=== PATIENT | male | born 1945 | race Caucasian/White ===

== ENCOUNTER 2017-07-05 15:20 | Emergency (ER) | payer MEDICARE, SELFPAY ==
[2017-07-05 15:21] VITALS: BP 165/94; PULSE 88; RESP 18; TEMP 36.4; O2SAT 97; BMI 21.4
[2017-07-05 15:34] VITALS: BP 152/103; PULSE 102; RESP 18; O2SAT 97
--- NOTE | 2017-07-05 15:35 | EKG12_ITS ---
Test Reason : DIZZINESS Blood Pressure : / mmHG Vent. Rate : 081 BPM Atrial Rate : 081 BPM P-R Int : 170 ms QRS Dur : 080 ms QT Int : 364 ms P-R-T Axes : 059 -22 038 degrees QTc Int : 422 ms Somatic/motion artifact Normal sinus rhythm Nonspecific ST abnormality Abnormal ECG Confirmed by GREGG COULTER, KUMAR ([id number]), editor book LESLEY WONG ([id number]) on 07/07/2017 10:24:20 AM Referred By: RIA Confirmed By:KUMAR ESCOBEDO MD
--- NOTE | 2017-07-05 15:41 | ED.DCSUM_ITS ---
- ER Visit Summary Date of Service: 07/05/17 Chief Complaint: Dizzy History of Present Illness: The patient is a 71 M with a history of Parkinson's , COPD, hypertension, and oropharyngeal cancer. Patient states that he took a tab of Vicodin around 10 AM this morning. Approximate 1130 he developed dizziness, anxiety, sweats. He felt like his heart was racing. He attributes this to taking the tab of Vicodin. He does have multiple allergies to medications but does state that he took a tab of Vicodin couple days ago and had no side effects from it. Patient did also take Ativan this morning. He normally takes it twice a day this is not a change for him. He states that he is supposed to meet with the doctor tomorrow about a brain tumor that he has been diagnosed with. He is anxious about this visit. Physical Examination: Vital signs are significant for blood pressure 165/94, otherwise normal. Heart rate is normal at 88. Patient sitting upright in bed no acute distress. Head neck examination is grossly unremarkable. Heart is regular rate and rhythm. Lung sounds are clear. Abdomen is soft nontender. Neuro exam reveals no focal deficits. He does have a fine tremor consistent with Parkinson's disease. Test Results: EKG is sinus 81. No acute ST changes noted. He does have rhythmic motion artifact secondary to his Parkinson's. CBC and chemistry studies are normal. Emergency Department Course and Treatment: Patient was given a small dose of IV Ativan. On repeat evaluation is resting comfortably. I suspect that that his symptoms today were likely secondary to anxiety, but cannot rule out reaction to the Vicodin. Patient understands this. He will be discharged home with family at this time. Treatment Plan: [] Disposition: Discharge Impression: Dizziness, uncertain etiology This note was generated with [employer] dictation software. It may contain incorrect words, spelling, and punctuation that were not noted in review of the chart prior to signing ED Disposition - Plan for ED Patient: Chief Complaint: Dizziness Referrals: Yo Scott DO [Primary Care Provider] -
[2017-07-05 15:59] LABS: Absolute Lymphocyte Count 1.56 X10^3/ul (0.83-4.51); Absolute Neutrophil Count 6.5 X10^3/uL (2.0-7.7); Basophil# 0.02 X10^3/uL; Basophil% 0.2 % (0-1); Eosinophil# 0.03 X10^3/uL; Eosinophils% 0.3 % (0-5); Hematocrit 47.4 % (40-54); Hemoglobin 16.1 g/dl (13.0-16.5); Lymphocyte # 1.56 X10^3/ul (4.0); Mean Corpuscular Hgb 30.1 pg (27.0-32.0); Mean Corpuscular Volume 88.6 fL (80-94); Mean Platelet Vol. 9.2 fl (6.2-12.0); Monocyte# 0.52 X10^3/uL; Neutrophil # 6.52 X10^3/uL (2.7-7.7); POSITIVE COUNT NO; POSITIVE DIFFERENTIAL NO; POSITIVE MORPHOLOGY NO; Platelet Count 161 K/mm3 (150-450); RBC Distribution Width CV 14.2 % (11.6-14.6); RBC Distribution Width SD 45.6 fl (35.1-43.9); Red Blood Count 5.35 M/mm3 (4.6-6.2); White Blood Count 8.7 K/mm3 (4.4-11.0)
[2017-07-05 16:18] LABS: Anion Gap 8 (5-15); BUN 18 mg/dL (7-18); BUN/Creat Ratio 18.2 RATIO (10-20); Calcium,Total 9.5 mg/dL (8.5-10.1); Chloride 105 mmol/L (98-107); Creatinine, Serum 0.99 mg/dL (0.70-1.30); EST Glomerular Filtration Rate 80 mL/min (>60); Est Glom Filt Rate - Afr Amer 96 mL/min (>60); Estimated Creatinine Clearance 63.55 ml/min; Glucose 119 mg/dL (74-106); Potassium 4.2 mmol/L (3.5-5.1); Sodium Level 140 mmol/L (136-145)
[2017-07-05] MEDS: LORazepam 2 MG/ML Syringe 0.25 MG IV (16:33)
[2017-07-05] MEDS: 0.9% Normal Saline 1,000 ML 150 ML IV (16:34)
[2017-07-05 16:39] VITALS: BP 141/82; PULSE 82; RESP 15; O2SAT 96
--- NOTE | 2017-07-05 17:17 | ED.DEP ---
ED Disposition - Plan for ED Patient: Disposition: Home or Assisted Living Chief Complaint: Dizziness Instructions: ED Dizziness [facility]O Referrals: Yo Scott DO [Primary Care Provider] -
[2017-07-05 17:42] VITALS: BP 148/82; PULSE 72; RESP 18; O2SAT 97
== END 2017-07-05 17:42 | disposition home or self-care (01) ==
PROVIDERS: Emergency Provider Emergency Medicine; Family Provider Preventive Medicine Occupational Medicine; PCP Preventive Medicine Occupational Medicine
DX: R42 Dizziness and giddiness (principal); F41.9 Anxiety disorder, unspecified; J44.9 Chronic obstructive pulmonary disease, unspecified; E78.00 Pure hypercholesterolemia, unspecified; I10 Essential (primary) hypertension; K21.9 Gastro-esophageal reflux disease without esophagitis; I25.10 Atherosclerotic heart disease of native coronary artery without angina pectoris; G47.33 Obstructive sleep apnea (adult) (pediatric); G20 Parkinson's disease; Z87.891 Personal history of nicotine dependence; Z85.819 Personal history of malignant neoplasm of unspecified site of lip, oral cavity, and pharynx
CPT/HCPCS: 80048; 85025; 93005; 99285; J7030; A4216

== ENCOUNTER → 2017-07-24 08:26 | Outpatient (CLI) | payer MEDICARE, SELFPAY ==
--- NOTE | 2017-07-24 08:29 | CDU_ITS ---
Reason For Study: Vertigo Rt. Velocities/BP Lt. Velocities/BP Prox CCA 72.1/14.1 cm/sec. Prox CCA 92.6/18.2 cm/sec. Mid CCA 70.4/16.4 cm/sec. Mid CCA 78.6/17.0 cm/sec. Dist CCA 66.8/15.2 cm/sec. Dist CCA 89.7/17.0 cm/sec. Prox ICA 43.4/17.6 cm/sec. Prox ICA 40.1/11.4 cm/sec. Mid ICA 57.5/18.2 cm/sec. Mid ICA 53.0/16.1 cm/sec. Dist ICA 52.2/15.2 cm/sec. Dist ICA 60.9/17.7 cm/sec. Rt. ICA/CCA = .82. Lt. ICA/CCA = .77. Prox ECA 104.0/15.8 cm/sec. Prox ECA 88.5/17.0 cm/sec. Rt. Vert. 22.9/6.2 cm/sec. Lt. Vert. 29.5/8.6 cm/sec. Right Extracranial There is intimal thickening but no significant atherosclerotic plaque noted in the right common carotid artery. There is intimal thickening but no significant atherosclerotic plaque noted in the right internal carotid artery. There is heterogeneous, irregular atherosclerotic plaque noted in the right external carotid artery. Antegrade flow is noted in the right vertebral artery. Left Extracranial There is intimal thickening but no significant atherosclerotic plaque noted in the left common carotid artery. There is intimal thickening but no significant atherosclerotic plaque noted in the left internal carotid artery. There is intimal thickening but no significant atherosclerotic plaque noted in the left external carotid artery. Antegrade flow is noted in the left vertebral artery. Procedure Carotid Duplex [id number]. Exam performed in department. Interpretation Summary No significant atherosclerotic plaque or stenosis noted in the internal carotid arteries bilaterally. Flow within the vertebral arteries is antegrade bilaterally. Ordering Physician: Luke De León Referring Physician: Luke De León Performed By: Brianna Robledo RVT
== END ==
PROVIDERS: Family Provider Preventive Medicine Occupational Medicine; PCP Preventive Medicine Occupational Medicine; Visit Provider Psychiatry & Neurology Neurology
DX: R42 Dizziness and giddiness (principal)
CPT/HCPCS: 93880

== ENCOUNTER 2017-07-27 16:44 | Outpatient (RCR) | payer MEDICARE, SELFPAY ==
--- NOTE | 2017-07-27 17:44 | HP.PTEVAL_ITS ---
Patient's Visit Information ANNIKA BLANDON is a 71 year old M referred to Physical Therapy by MD ALISON Mendoza with a diagnosis of vertigo BPV and imbalance. Date of Evaluation: 07/27/17 Physical Therapist: STEFANY KingstonT, OC - Visit Plan Frequency: up to 2x/week Duration: 2-4 Weeks Plan: f/u next week(pt does nto wish to go 2x/week due to high copay.). Check positional and balance and if doing well then teach HEP for movement and balance...weight shifts etc. - Subjective Subjective: Saw Sarthak and had MRI of head and has tumor that they will just keep an eye on, a meningioma. Is here for vertigo. Spins every now and then, notices it bending and in bed. Lasted 5 minutes. started years ago. Happens seldom now. Also feels unsteady much of time. Imbalance has been there long time. Fell one time 4 yrs ago slipping on scaffold. H/o lymph nodes and radiation in neck and tonsils over two years ago. No AD needed. 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 thinks unrealistic. Sleep is OK with sleeping pill. Activities: basics are OK helping with chores, chores are OK. Can't climb on ladder due to balance. - Objective Pt walks into PT I without AD, flat affect adn very little trunk movement but safe adn I. Transfers I chairs and steps. Steps reciprocal without need for rail. Weight shifts are short, UE AROM WFL but needs VC to go all the way up. LE AROM WFL but tends to have short movements. Has tremors at rest in L ankle. reflexes 2/3 patella and achilles. Sensation WNL to gross light touch in LE. HS and gastroc mod tight. coordination to reciprocal toe and heel tap is good. Oculomotor is unremarkable, no symptoms with VOR or pursuit or saccades. - B hallpike nikkie today, treated with Do Anderson per doctor order. - Balance Scores Functional Gait Assessment Score: 27 % Disability: 10.0000 CATSIB Score (Max score 120 seconds): 100 - Goals Goal 1:: Abolish funny unsteady feeling Goal Time Frame: 4-6 Weeks Goal 2:: I approp HEP for movement and balance for PD . Goal Time Frame: 4-6 Weeks - Rehabilitation Potential Physical Therapy Diagnosis: Parakinsons related weight shift deficits and subjective intermittent BPV Rehabilitation Potential: Questionable - Anticipated Interventions Patient/Client Instruction: Educate patient on: Condition, Plan of Care For the Purpose of:: To increase tolerance to activity/condition/position, To improve ability of physical actions for home/community/work/leisure, To improve gait and locomotor functions Therapeutic Exercise to Include: Strength training, Flexibilty training, Active ROM Comment: positional ex adn treat as needed. For the Purpose of:: To increase tolerance to activity/condition/position, To improve ability of physical actions for home/community/work/leisure Thank you for the opportunity to evaluate your patient. For Medicare and Medicare HMO plans, please review the plan of care and approve it. It will need to be FAXED BACK to us at [phone] for Medicare purposes. Please let me know if there are questions or concerns regarding this plan of care. Physician Signature: Date:
--- NOTE | 2017-09-11 08:48 | HP.PTDCNRP_ITS ---
HP - Discharge Summary (1) - Patient Information ANNIKA BLANDON was seen in my office for initial evaluation on 07/27/17. The following Plan of Care was established for this patient: Initial Frequency: up to 2x/week Initial Duration: 2-4 Weeks - Anticipated Interventions Patient/Client Instruction: Educate patient on: Condition, Plan of Care For the Purpose of:: To increase tolerance to activity/condition/position, To improve ability of physical actions for home/community/work/leisure, To improve gait and locomotor functions Therapeutic Exercise to Include: Strength training, Flexibilty training, Active ROM For the Purpose of:: To increase tolerance to activity/condition/position, To improve ability of physical actions for home/community/work/leisure This patient was last seen in our office 07/27/17. Pertinent comments regarding their Physical therapy will appear below: Pt seen for initial evaluation and cancelled his follow up likely due to high co pay. He never scheduled any of the rest of his plan of care. at this point , it has been over a month and I will discontinue due to nonattendance. At this point I will be discontinuing this patient from physical therapy. I would be happy to see this patient again in the future if found appropriate by the physician. Thank you! Iban Gamez, DPT, OC
== END 2017-07-27 19:00 | disposition home or self-care (01) ==
LOC: PT 16:44
PROVIDERS: Family Provider Preventive Medicine Occupational Medicine; PCP Preventive Medicine Occupational Medicine; Visit Provider Psychiatry & Neurology Neurology
DX: H81.11 Benign paroxysmal vertigo, right ear (principal); R26.89 Other abnormalities of gait and mobility
CPT/HCPCS: 97162

== ENCOUNTER 2017-11-16 11:14 | Emergency (ER) | payer MEDICARE, SELFPAY ==
[2017-11-16 11:15] VITALS: BP 135/81; PULSE 79; RESP 16; TEMP 36.7; O2SAT 98; BMI 19.9
--- NOTE | 2017-11-16 11:31 | ED.VISSUMM ---
- ER Visit Summary Date of Service: 11/16/17 Chief Complaint: [Shortness of breath] History of Present Illness: The patient is a 71 M [presents to the emergency department with complaint of shortness of breath and difficult swallowing. Patient states that he was outside using the weed Eric when it started to smoke and spider. Patient had the sensation of having a hard time breathing or swallowing. Symptoms lasted about 15 minutes and then he drank some water and his symptoms resolved. Patient states that he just felt very nervous about what was going on and really did not want to come in. 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 Patient had an appointment with 1 of his physicians 3 days ago who did a scope through the nose down into the throat and nothing significant was noted on that exam. Patient also had a CT scan it sounds like of the abdomen and pelvis that was done 2 days ago and they were told that he had some sludge or a polyp in the gallbladder. Patient denies any abdominal pain with eating. Patient has had some difficulties with swallowing and eating and is scheduled to have a cookie swallow exam coming up. Patient did drink his boost and ate oatmeal this morning. Patient is able to drink water without difficulty at this time.] Physical Examination: [HEENT-PERRLA, EOMI. Cranial nerves II through XII grossly intact. TMs clear. Mucous membranes moist. No adenopathy. No evidence for angioedema of the oropharynx, tongue, or lips. Cardiovascular-regular rate and rhythm without murmur or ectopy Lungs-clear to auscultation, chest wall stable without crepitus or subcu emphysema Abdomen-normoactive bowel sounds, soft, nontender, no rebound or rigidity, no peritoneal signs. Extremities-intact ?4, normal range of motion, normal pulses, atraumatic] Test Results: [None indicated] Emergency Department Course and Treatment: [Patient advised to follow-up with his primary care physician as needed] Treatment Plan: [Patient to keep appointments with his physicians.] I suspect patient's symptoms likely related to smoke irritation and anxiety. Disposition: [Discharged home in stable condition. Patient advised to return if increased difficulty breathing or condition should worsen in any way.] Impression: [Dyspnea-resolved] This note was generated with [employer] dictation software. It may contain incorrect words, spelling, and punctuation that were not noted in review of the chart prior to signing ED Disposition - Plan for ED Patient: Chief Complaint: Foreign Body Referrals: Yo Scott DO [Primary Care Provider] -
--- NOTE | 2017-11-16 11:34 | ED.DEP ---
ED Disposition - Plan for ED Patient: Chief Complaint: Foreign Body Instructions: ED Dyspnea Shortness of Breath Referrals: Yo Scott DO [Primary Care Provider] - As Needed
[2017-11-16 11:41] VITALS: BP 151/78; PULSE 72; RESP 16; O2SAT 99
== END 2017-11-16 11:45 | disposition home or self-care (01) ==
LOC: ED 11:42
PROVIDERS: Emergency Provider Emergency Medicine; Family Provider Preventive Medicine Occupational Medicine; PCP Preventive Medicine Occupational Medicine
DX: R06.00 Dyspnea, unspecified (principal); Z85.819 Personal history of malignant neoplasm of unspecified site of lip, oral cavity, and pharynx
CPT/HCPCS: 99282

== ENCOUNTER 2017-11-29 03:50 | Emergency (ER) | payer MEDICARE, SELFPAY ==
[2017-11-29 03:51] VITALS: BP 131/80; PULSE 71; RESP 20; TEMP 36.5; O2SAT 96; BMI 20.5
[2017-11-29] MEDS: Diphenoxylate/Atrop 1 Tablet PO (04:06)
[2017-11-29] MEDS: 0.9% Normal Saline 1,000 ML 1000 ML IV (04:08)
[2017-11-29 04:16] LABS: Absolute Lymphocyte Count 2.22 X10^3/ul (0.83-4.51); Absolute Neutrophil Count 6.6 X10^3/uL (2.0-7.7); Basophil# 0.03 X10^3/uL; Basophil% 0.3 % (0-1); Eosinophil# 0.26 X10^3/uL; Eosinophils% 2.6 % (0-5); Hematocrit 46.9 % (40-54); Hemoglobin 15.8 g/dl (13.0-16.5); Lymphocyte # 2.22 X10^3/ul (4.0); Lymphocyte % 22.6 % (19-41); Mean Corp Hgb Conc 33.7 g/gl (32-36); Mean Platelet Vol. 9.2 fl (6.2-12.0); Monocyte# 0.75 X10^3/uL; Monocyte% 7.6 % (0-10); Neutrophil # 6.55 X10^3/uL (2.7-7.7); Neutrophil % 66.6 % (47-70); Platelet Count 204 K/mm3 (150-450); Red Blood Count 5.27 M/mm3 (4.6-6.2); White Blood Count 9.8 K/mm3 (4.4-11.0)
[2017-11-29 04:24] LABS: POSITIVE COUNT NO; POSITIVE DIFFERENTIAL NO; POSITIVE MORPHOLOGY NO
[2017-11-29 04:39] LABS: Anion Gap 8 (5-15); BUN 19 mg/dL (7-18); BUN/Creat Ratio 17.6 RATIO (10-20); Calcium,Total 9.5 mg/dL (8.5-10.1); Chloride 105 mmol/L (98-107); Creatinine, Serum 1.08 mg/dL (0.70-1.30); EST Glomerular Filtration Rate 72 mL/min (>60); Est Glom Filt Rate - Afr Amer 87 mL/min (>60); Glucose 91 mg/dL (74-106); Potassium 4.1 mmol/L (3.5-5.1); Sodium Level 143 mmol/L (136-145)
--- NOTE | 2017-11-29 05:11 | ED.DCSUM_ITS ---
- ER Visit Summary Date of Service: 11/29/17 Chief Complaint: Diarrhea History of Present Illness: The patient is a 72 M presenting for evaluation secondary diarrhea. Patient reports over the course last 2 days he has been suffering from intermittent diarrhea. Patient reports that initially it was maybe 1 or 2 episodes a day, but he reports that he has had 4 episodes of loose watery stool today. He denies that there is any sort of blood or mucus in his stool. He denies any recent antibiotic use travel surgery admissions to the hospital or any sick contacts. Patient reports that his diarrhea was so bad this morning that he did have a accident. Denies any presence of fevers. He reports some crampy diffuse abdominal pain that is waxing and waning and has no exacerbating relief factors. No vomiting associated with this. Physical Examination: Vital signs within normal limits. Thin male no acute distress. No conjunctival pallor or scleral icterus, dry mucous membranes are noted. Neck was supple. Heart regular rate and rhythm lungs sounds clear. Abdomen soft nontender nondistended normal bowel sounds no masses. No peripheral edema noted, skin normal color no rash. Patient was alert and oriented no lateralizing neurological deficits. Test Results: CBC unremarkable, chemistry unremarkable Emergency Department Course and Treatment: Patient presented for evaluation secondary to diarrhea. IV was established patient was given a liter normal saline and Lomotil. He did not have any episodes of diarrhea in the emergency department has a normal workup and had symptomatic improvement while he was in the emergency department. At this point patient likely has an element of enteritis, he has no risk factors for bacterial or infectious diarrhea I do not believe that further workup or antibiotics are indicated. He was recommended on conservative management of this at home. Disposition: Discharge Impression: 1. Enteritis This note was generated with [employer] dictation software. It may contain incorrect words, spelling, and punctuation that were not noted in review of the chart prior to signing ED Disposition - Plan for ED Patient: Disposition: Home or Assisted Living Chief Complaint: Diarrhea Diagnosis: Diarrhea Instructions: ED Diarrhea Viral Referrals: Yo Scott DO [Primary Care Provider] - 3-5 Days if not improving
[2017-11-29 05:17] VITALS: BP 114/61; PULSE 60; RESP 16; O2SAT 97
== END 2017-11-29 05:17 | disposition home or self-care (01) ==
PROVIDERS: Emergency Provider Emergency Medicine; Family Provider Preventive Medicine Occupational Medicine; PCP Preventive Medicine Occupational Medicine
DX: K52.9 Noninfective gastroenteritis and colitis, unspecified (principal); I25.10 Atherosclerotic heart disease of native coronary artery without angina pectoris; I10 Essential (primary) hypertension; E78.00 Pure hypercholesterolemia, unspecified; J44.9 Chronic obstructive pulmonary disease, unspecified; G20 Parkinson's disease; Z85.89 Personal history of malignant neoplasm of other organs and systems; F41.9 Anxiety disorder, unspecified
CPT/HCPCS: 80048; 85025; 96360; 99283; J7030; A4216

== ENCOUNTER → 2017-11-29 13:01 | Outpatient (CLI) | payer MEDICARE, SELFPAY ==
--- NOTE | 2017-11-29 13:07 | RAD_ITS ---
STUDY: SWALLOWING STUDY REASON FOR EXAM: Male, 72 years old. Dysphagia. TECHNIQUE: The examination was performed with Speech Pathology in attendance. Under fluoroscopic observation, the patient ingested thin barium, thick barium, barium pudding, and barium coated cracker. FLUOROSCOPY TIME: 1:54 minutes/seconds. 1761 fluoroscopic images were obtained. RADIOLOGIST INVOLVEMENT: Radiologist was present and providing direct supervision. COMPARISON: Comparison is made with prior study dated September 12, 2016. FINDINGS: The following was observed during swallowing of the various mixtures of barium: Thin Barium: Transient penetration with ingestion of thin liquids. This improves with the delay swallow technique. Barium Pudding: There was no evidence of aspiration or laryngeal penetration. Barium Coated Cracker: There was no evidence of aspiration or laryngeal penetration. RAD/Swallowing Function w/Video IMPRESSION: Transient penetration with ingestion of thin liquids. This improves with the delay swallow technique. The swallow study findings were discussed with the patient by the speech pathologist at the conclusion of the examination. Please see speech pathology report for more information and recommendations. Electronically Signed: Aubrey Kuhn MD at 14:47 EDT Tel [phone], Service support ,
--- NOTE | 2017-11-29 13:30 | SP.MBSS_ITS ---
PRIMARY / SECONDARY DIAGNOSIS: dysphagia (R13.12) REFERRING PHYSICIAN: Dr. Елена Wild MD CURRENT DIET: regular textures, thin liquids DENTITION: dentures, ill fitting MENTAL STATUS: sufficient to participate in study RESPIRATORY STATUS: O2 via room air PREVIOUS MODIFIED BARIUM SWALLOW STUDY: 09/12/2016 MBS revealed mild to moderate oropharyngeal dysphagia (R13.12) with intermittent penetration with and without ejection, ameliorated with chin tuck posture. REASON FOR REFERRAL: Patient is a 71 year old male referred for a modified barium swallow (MBS) study to objectively assess the Patients oropharyngeal swallow function under fluoroscopy secondary to oropharyngeal dysphagia secondary to the diagnosis of Parkinsons disease in addition to prior history of cancer (lymph nodes and tonsils), with removal of 30 lymph nodes along with removal of tonsils in 2014, along with completion of 35 radiation treatments (no chemotherapy). Patients present, both report very limited PO intake with little to no appetite, continued weight loss, with reported choking on meats / solid textures. Both report removal of percutaneous endoscopic gastrostomy (PEG) tube after prior MBS , with the Patient and Patients indicating that the Patient has expressed that he does not want any further alternative means of nutrition. Patient reports dedicated use of chin tuck posture. Furthermore, the Patient arrived immediately following treatment at [facility] Emergency Department due to persistent diarrhea, reports being cleared to participate in MBS by his physician. 06/13/2017 MRI revealed 1 cm left frontal lesion ( anterior left frontal convexity) most consistent with meningioma. MEDICAL HISTORY: Malignant neoplasm of the oropharynx (resolved), tonsillar cancer status post tonsillectomy, testicular cancer status post testicular surgery, Parkinsonian syndrome, chronic obstructive pulmonary disease (stage 1 mild by GOLD classification), dysphagia, dyspnea, obstructive sleep apnea, gastroesophageal reflux disease, long-term use of high-risk medication, coronary artery disease, coronary artery spasm, orthostatic hypotension, hypertension hyperlipidemia, chest pain, dehydration, anxiety, fatigue, near syncope, right shoulder pain, generalized abdominal pain, diverticulosis, rectal bleeding, benign prostatic hypertrophy, former smoker. STUDY FINDINGS: Patient participated in a Modified Barium Swallow (MBS) study on 11/29/2017. Dr. Kuhn was the radiologist present for this evaluation. This study was recorded in the lateral view and images were sent to PACs for storage. The following consistencies were presented to this patient for analysis of oropharyngeal swallow function: thin liquids, pudding, and a regular textured, Rashida Doone cookie. Results of the MBS are as follows: PENETRATION / ASPIRATION SCALE (OLIVA): 1 = does not enter airway 2 = enters airway/above vocal folds/ejected 3 = enters airway/above vocal folds/not ejected 4 = enters airway/contacts vocal folds/ejected 5 = enters airway/contacts vocal folds/not ejected 6 = enters airway/below vocal folds/ejected 7 = enters airway/below vocal folds/not ejected despite effort 8 = enters airway/below vocal folds/no effort PENETRATION / ASPIRATION SCALE (SCORE): Thin liquid - 5 mL tsp.: 1 Thin liquids via cup (single sip): 1 Thin liquids via cup (single sip): 2 Thin liquids via cup (single sip): 1 Thin liquids via cup (chin tuck): 1 Pudding via spoon: 1 Regular textured cookie: 1 Thin liquids via cup (chin tuck): 1 Thin liquids via cup (chin tuck): 1 Thin liquids via cup (chin tuck): 1 IMPRESSION: DIAGNOSIS: mild to moderate oropharyngeal dysphagia (R13.12) ORAL PHASE CHARACTERIZED BY: LABIAL SEAL: no labial escape TONGUE CONTROL DURING BOLUS MANIPULATION: escape to lateral buccal cavity/ floor of mouth BOLUS PREPARATION / MASTICATION: slow and significantly prolonged chewing/ mashing with complete recollection BOLUS TRANSPORT / LINGUAL MOTION: brisk tongue motion ORAL RESIDUE: trace residue lining oral structures PHARYNGEAL PHASE CHARACTERIZED BY: INITIATION OF PHARYNGEAL SWALLOW: bolus head at posterior laryngeal surface of epiglottis at first hyoid excursion SOFT PALATE ELEVATION: no bolus between soft palate and pharyngeal wall LARYNGEAL ELEVATION: partial superior movement of thyroid cartilage/partial approximation of arytenoids cartilage to epiglottic petiole ANTERIOR HYOID EXCURSION: complete anterior movement EPIGLOTTIC MOVEMENT: complete epiglottic inversion LARYNGEAL VESTIBULE CLOSURE AT HEIGHT OF SWALLOW: complete laryngeal vestibule closure with no air/contrast in laryngeal vestibule PHARYNGEAL STRIPPING WAVE: pharyngeal stripping wave present / diminished PHARYNGOESOPHAGEAL SEGMENT OPENING: complete distension and complete duration with no obstruction of flow TONGUE BASE RETRACTION: trace column of contrast between tongue base and posterior pharyngeal wall PHARYNGEAL RESIDUE: collection of residue within or on pharyngeal structures with more viscous textures ESOPHAGEAL PHASE CHARACTERIZED BY: ESOPHAGEAL BOLUS CLEARANCE IN THE UPRIGHT POSITION: could not view EFFECTS OF TREATMENT STRATEGIES ATTEMPTED: Chin tuck posture = effective DIET TEXTURE RECOMMENDATIONS: Will recommend a soft / mechanical soft textured, thin liquid diet. COMPENSATORY STRATEGIES RECOMMENDED: Chin tuck with liquids, reduced bolus size, remain upright for 30-60 minutes post meal (GERD precaution). INTERPRETATION OF RESULTS: Patient presents with mild to moderate oropharyngeal dysphagia (R13.12) secondary to the diagnosis of Parkinsons disease in addition to prior history of cancer (lymph nodes and tonsils), with removal of 30 lymph nodes along with removal of tonsils in 2015, along with completion of 35 radiation treatments. Oral phase marked by mastication inefficiency with significantly increased mastication duration in comparison to prior study attributed to severely ill fitting dentures that visibly become displaced during mastication under fluoroscopy. Pharyngeal phase marked by mild impairment in pharyngeal swallow onset timing and reduced laryngeal elevation complicating closure of the airway during deglutition resulting in transient prandial penetration on one occasion during thin liquid intake without execution of the chin tuck posture; mild to moderate pharyngeal dysmotility attributed to reduced tongue based retraction and posterior pharyngeal stripping wave action. All deficits ameliorated with bolus volume adjustments and execution of the chin tuck posture. Study virtually unchanged from the previous MBS, with the exception of prolonged mastication attributed to poor denture fit. No aspiration appreciated throughout trials, unable to definitively rule out silent aspiration. RECOMMENDATIONS: Would recommend further workup via the Patients dentist for adjustments / replacement of the Patients ill-fitting dentures. Otherwise, the Patient was able to comprehend and express recommended intake precautions detailed above with sufficient detail to suggest high likelihood of compliance. Provided brief overview of signs and symptoms of aspiration, with recommendations for the Patient to further discuss symptoms with PCP. No further skilled speech- language services warranted at this time targeting dysphagia. ADDITIONAL COMMENTS/RECOMMENDATIONS: Results and recommendations were discussed with the Patient immediately following MBS completion, with the Patient verbalizing understanding and agreement with all recommendations and education provided. IMAGE COUNT: [id number] G-CODES: SWALLOWING [id number] Current Status: CI SWALLOWING G8997 Goal Status: CI SWALLOWING [id number] Discharge Status: CI
== END ==
PROVIDERS: Family Provider Preventive Medicine Occupational Medicine; PCP Preventive Medicine Occupational Medicine
DX: R13.12 Dysphagia, oropharyngeal phase (principal)
CPT/HCPCS: 74230; 80048; 85025; 92611; J7030; A4216; G8996; G8997; G8998

== ENCOUNTER → 2017-12-11 11:00 | Outpatient (CLI) | payer MEDICARE, SELFPAY | PROVIDERS: Family Provider Preventive Medicine Occupational Medicine; PCP Preventive Medicine Occupational Medicine; Visit Provider Internal Medicine Critical Care Medicine | DX: Z46.89 Encounter for fitting and adjustment of other specified devices (principal) | CPT/HCPCS: 98960; G0463 ==

== ENCOUNTER 2017-12-22 09:48 | Day surgery (SDC) | payer MEDICARE, SELFPAY ==
--- NOTE | 2017-12-21 10:33 | EKG12_ITS ---
Test Reason : PREOP Blood Pressure : / mmHG Vent. Rate : 064 BPM Atrial Rate : 064 BPM P-R Int : 162 ms QRS Dur : 092 ms QT Int : 398 ms P-R-T Axes : 070 -19 061 degrees QTc Int : 410 ms Normal sinus rhythm Normal ECG Confirmed by GREGG COULTER, KUMAR ([id number]), order editor LESLEY WONG ([id number]) on 12/25/2017 1:39:08 PM Referred By: Esteban Hanley Confirmed By:KUMAR ESCOBEDO MD
[2017-12-21 10:53] LABS: Hematocrit 48.7 % (40-54); Hemoglobin 15.7 g/dl (13.0-16.5); Mean Corp Hgb Conc 32.2 g/gl (32-36); Mean Corpuscular Hgb 29.1 pg (27.0-32.0); Mean Corpuscular Volume 90.4 fL (80-94); Mean Platelet Vol. 9.4 fl (6.2-12.0); Partial Thromboplast Time 30.9 Seconds (24.1-36.2); Platelet Count 181 K/mm3 (150-450); Prothrombin Time (Protime)PT. 12.8 SECONDS (11.7-14.9); RBC Distribution Width CV 14.1 % (11.6-14.6); RBC Distribution Width SD 45.8 fl (35.1-43.9); Red Blood Count 5.39 M/mm3 (4.6-6.2); White Blood Count 7.5 K/mm3 (4.4-11.0)
[2017-12-21 10:59] LABS: Scan Indicated on CBC? Y/N NO
[2017-12-21 11:28] LABS: AST(SGOT) 18 U/L (15-37); Alanine Aminotransfer ALT/SGPT 20 U/L (16-61); Albumin, Serum 3.9 g/dL (3.2-5.0); Alkaline Phosphatase 74 U/L (45-117); Anion Gap 7 (5-15); BUN 14 mg/dL (7-18); Bilirubin, Direct 0.16 mg/dL (0.00-0.30); Calcium,Total 9.4 mg/dL (8.5-10.1); Chloride 104 mmol/L (98-107); Creatinine, Serum 0.87 mg/dL (0.70-1.30); EST Glomerular Filtration Rate 92 mL/min (>60); Est Glom Filt Rate - Afr Amer 111 mL/min (>60); Globulin 3.3 g/dL (2.2-4.2); Glucose 98 mg/dL (74-106); Protein, Total 7.2 g/dL (6.4-8.2); Sodium Level 143 mmol/L (136-145); Thyroid Stim Hormone (TSH) 2.03 uIU/mL (0.358-3.74)
[2017-12-22] VITALS (8 sets, daily range): BP systolic 108–139; BP diastolic 52–81; PULSE 66–78; RESP 16–18; TEMP 36.4–36.6; O2SAT 94–100; BMI 18.8
--- NOTE | 2017-12-22 12:05 | GALL_PTH ---
PATIENT: ANNIKA BLANDON LOC: [facility] [place] U#:[id number] AGE/SX: 72/M ROOM: RE12/22/[address]: Dr. Esteban Hanley MD : 1945 BED: DIS: 12/22/2017 SPEC #: [id number] RECD: 12/22/17 13:49 STATUS: HIMANSHU ALEIDA #: [id number] JOSE: 12/22/17 12:[address]: Esteban Hanley DEPT: SURGICAL PATHOLOGY RECD BY: Jc Wetzel ENTERED: 12/22/17 13:57 SP TYPE: BERNARDA ROOT DR: Dr. Yo Scott DO Tissues: Gallbladder, NOS Procedures: Surgery Specimen Level III HEADER OPERATION: Laparoscopic cholecystectomy PRE-OP DIAGNOSIS: Cholecystitis TISSUE SUBMITTED: Gallbladder MICROSCOPIC DIAGNOSIS Gallbladder, cholecystectomy: Chronic cholecystitis. AM:benitez 12/25/17 MICROSCOPIC DESCRIPTION Slides are reviewed. GROSS DESCRIPTION Received is one container labeled with the patient's name and designated gallbladder. The specimen consists of a gallbladder measuring 6 cm in length and up to 2.6 cm in diameter. The external surface is pink-whitmore, smooth and glistening for the most part. Focally it is granular, hemorrhagic and contains cautery artifact. The gallbladder contains green-yellow mucoid bile. No stones are identified in the container or in the gallbladder. The mucosa also shows several yellowish streaks consistent with cholesterolosis. The gallbladder wall measures up to 0.2 cm in thickness. Production Helper sections from the gallbladder and the cystic duct are submitted in one cassette. / SJ:rg 12/22/17 TC:3 CPT: 85552
--- NOTE | 2017-12-22 12:28 | PCM.OPRPT ---
Problem List (1) Gallbladder sludge Status: Acute (2) Right upper quadrant pain Status: Acute Report of Operation Date of Procedure: 12/22/17 Pre-Operative Diagnosis: k82.8 gallbladder sludge. r10.11 right upper quadrant abdominal pain Post-Operative Diagnosis: 79798 laparoscopic cholecystectomy Type of Anesthesia:: General Specimen's removed: Gallbladder Estimated Blood Loss (mL): < 25 cc Description of Procedure: Patient was brought into the operating room. Placed in the supine position. Under excellent general endotracheal intubation the abdomen was sterilely prepped and draped in the usual fashion. Local was injected infraumbilically. Dissection was carried down to the fascia. The fascia was grasped with Lexi. There is needle was placed inside the abdomen. The abdomen was insufflated to 15 torr. A 10/12 trocar was placed without difficulty. Patient was placed in the head up and rotated to the left position. Remarkably there was very little scar tissue from his previous PEG tube site I was able to place a subxiphoid #5 trocar inferior to this another #5 trocar and laterally a #5 trocar. All these under direct visualization without injury to underlying structures. Grab the fundus of the gallbladder and retracted in cephalad direction of the infundibulum and grafted laterally. I dissected out the cystic duct and cystic artery in the posterior to this and to the liver and identified close triangle quite nicely. I placed hemoclips proximally and distally on the duct and ligated the duct. I placed hemoclips proximally and distally on the cystic artery and ligated the artery. I deliver the gallbladder from the gallbladder bed with use of electrocautery was no spillage of bile or stones. Placed the specimen in a specimen bag and delivered through the umbilical port without difficulty. Reinflated the abdomen. Inspected the gallbladder used electrocautery for good hemostasis. Removed the trochars under direct visualization good hemostasis was noted. Close the fascia the umbilical port with a figure 8 stitch of 0 Vicryl. Skin incisions were closed with subcuticular stitches of 4-0 Monocryl. Receptor applied sterile dressings were applied and the patient tolerated the procedure well. - Admit VTE Documentation VTE Present on Admission: No VTE Mechan Device Prophylaxis: None VTE Pharm Prophylaxis ordered?: No Reason prophylaxis not ordered:: Treatment Not Indicated
--- NOTE | 2017-12-22 12:32 | PCM.DC.GB ---
Discharge Diet: Light diet - advance as tolerated Discharge Activity: May Not Drive - for 2-3 days or while taking narcotic pain medications., - - Do not drive, work heavy equipment or sign legal documents for 24 hours. May shower in (days): 1 - with the bandage in place. Additional Activity Instructions:: Pain medication may cause nausea. You should typically eat light foods as you take your pain medications. Pain medication may also cause constipation. If this is a problem for you, please discuss with your doctor. Call your doctor if your incision/area has: Continuous Slow Oozing, Sudden Increased Bleeding, Increased Pain/ Swelling, Increased Redness, Foul Smelling Discharge Call your doctor if you observe: Fever of 101 or Higher Suture Line Care: Avoid Pulling/Pushing, Avoid Pinching/Bending Additional Dressing/Incision Instructions:: Leave operative bandaids on for 2 days. When you remove dressing, leave Steri-Strips on until your follow-up appointment, or until the Steri-Strips fall off on their own. Allergies/Adverse Reactions: Allergies amoxicillin trihydrate [From Augmentin] Allergy (Severe, Verified 12/22/17 10:11) Unknown ?hives celecoxib [From Celebrex] Allergy (Severe, Verified 12/22/17 10:11) bad dreams, hallucinates, esomeprazole magnesium [From Nexium] Allergy (Severe, Verified 12/22/17 10:11) Unknown Penicillins Allergy (Severe, Verified 12/22/17 10:11) Unknown potassium clavulanate [From Augmentin] Allergy (Severe, Verified 12/22/17 10:11) Unknown hives? telmisartan [From Micardis] Allergy (Severe, Verified 12/22/17 10:11) Unknown venlafaxine HCl [From Effexor] Allergy (Severe, Verified 12/22/17 10:11) bad dreams, hallucinates atenolol Allergy (Intermediate, Verified 12/22/17 10:11) body hot tingling metoprolol Allergy (Intermediate, Verified 12/22/17 10:11) Unknown amoxicillin [From Augmentin] Allergy (Verified 12/22/17 10:11) Unknown clavulanic acid [From Augmentin] Allergy (Verified 12/22/17 10:11) Unknown duloxetine HCl [From Cymbalta] Allergy (Verified 12/22/17 10:11) aggiation melatonin Allergy (Verified 12/22/17 10:11) kept awake mirtazapine [From Remeron] Allergy (Verified 12/22/17 10:11) Chest tightness sertraline HCl [From Zoloft] Allergy (Verified 12/22/17 10:11) Itching buspirone HCl [From BuSpar] Adverse Reaction (Verified 12/22/17 10:11) aggiation IRRITABLE carbidopa Adverse Reaction (Verified 12/22/17 10:11) Other citalopram hydrobromide [From Celexa] Adverse Reaction (Verified 12/22/17 10:11) aggiation ropinirole Adverse Reaction (Verified 12/22/17 10:11) Other tamsulosin HCl [From Flomax] Adverse Reaction (Verified 12/22/17 10:11) Low blood pressure Medications to take at Discharge Aspirin [Aspirin, Baby] 81 mg PO DAILY@0800 07/12/14 Omeprazole [Prilosec] 20 mg PO BID 07/12/14 Lorazepam [Ativan] 0.5 mg PO TID PRN PRN 10/31/14 Nitroglycerin [Nitrostat] 0.4 mg SUBLINGUAL Q5M PRN 10/31/14 Dutasteride 0.5 mg PO DAILY 09/23/15 Multivit-Min/FA/Lycopen/Lutein [Centrum Silver Tablet] 1 ea PO DAILY 08/17/16 Levothyroxine [Synthroid] 50 mcg PO DAILY 10/27/16 albuterol sulfate 2.5 mg/3 mL (0.083 %) solution for nebulization 2.5 mg INHALATION Q4H PRN ml 05/19/17 fluticasone 50 mcg/actuation nasal spray,suspension 2 spray INTRANASAL ONCE 05/29/17 meclizine 25 mg tablet 25 mg PO QDAY PRN 12/11/17 oxycodone-acetaminophen 10 mg-325 mg tablet 1 tab PO Q6H PRN 12/11/17 temazepam 7.5 mg capsule 7.5 mg PO QHS PRN 12/11/17 Albuterol IH (ProAir) [Proair Hfa (SP)Vent Pts] 2 puff INHALATION Q4H PRN PRN 12/21/17 Prednisone 7.5 mg PO DAILY 12/21/17 Trihexyphenidyl HCl 2 mg PO BID 12/21/17 Oxycodone HCl/Acetaminophen [Percocet 5/325] 1 - 2 tab PO Q4H PRN PRN 4 Days #30 tab 12/22/17 The following prescriptions were given: Oxycodone HCl/Acetaminophen [Percocet 5/325] 1 - 2 tab PO Q4H PRN PRN 4 Days #30 tab PRN Reason: Pain Primary Care Physician: Yo Scott DO [Primary Care Provider] - Test Results: Test results from this visit will be discussed in further detail at your follow-up appointment, if applicable. Please Follow Up With: Esteban Hanley MD - Please call [phone] to schedule an appointment. When: 7 days after your surgery.
[2017-12-22] MEDS: Bupivacaine 0.25% 30 ML Vial (12:36)
== END 2017-12-22 16:00 | disposition home or self-care (01) ==
LOC: SDC 09:50 → AC 09:50
PROVIDERS: Family Provider Preventive Medicine Occupational Medicine; PCP Preventive Medicine Occupational Medicine; Visit Provider Surgery
PROC: (CPT 47562; principal; 2017-12-22 11:45)
DX: K81.1 Chronic cholecystitis (principal); R10.11 Right upper quadrant pain; K21.9 Gastro-esophageal reflux disease without esophagitis; I25.10 Atherosclerotic heart disease of native coronary artery without angina pectoris; G47.33 Obstructive sleep apnea (adult) (pediatric); Z87.891 Personal history of nicotine dependence; Z79.899 Other long term (current) drug therapy; J44.9 Chronic obstructive pulmonary disease, unspecified; E78.5 Hyperlipidemia, unspecified; I10 Essential (primary) hypertension; G20 Parkinson's disease
CPT/HCPCS: 00790; 47562; 36415; 80048; 80076; 84443; 85027; 85610; 85730; 88304; 93005; J7120; J2405

== ENCOUNTER 2018-01-09 08:27 | Observation (INO) | payer MEDICARE, SELFPAY ==
[2018-01-09 08:28] VITALS: BP 143/79; PULSE 79; RESP 16; TEMP 36.2; O2SAT 98; BMI 19.8
[2018-01-09 08:33] VITALS: O2SAT 97
--- NOTE | 2018-01-09 08:50 | NURSING ---
CALLED [facility], TALKED TO ANDREAS IN MEDICAL RECORDS. SHE WILL FAX HIS MOST RECENT VISIT
[2018-01-09 09:10] LABS: Absolute Lymphocyte Count 0.61 X10^3/ul (0.83-4.51); Absolute Neutrophil Count 4.7 X10^3/uL (2.0-7.7); Basophil# 0.02 X10^3/uL; Basophil% 0.4 % (0-1); Eosinophil# 0.06 X10^3/uL; Eosinophils% 1.1 % (0-5); Hematocrit 44.1 % (40-54); Hemoglobin 14.9 g/dl (13.0-16.5); Lymphocyte # 0.61 X10^3/ul (4.0); Lymphocyte % 10.7 % (19-41); Mean Corp Hgb Conc 33.8 g/gl (32-36); Mean Corpuscular Hgb 29.9 pg (27.0-32.0); Mean Corpuscular Volume 88.4 fL (80-94); Mean Platelet Vol. 9.2 fl (6.2-12.0); Monocyte# 0.34 X10^3/uL; Neutrophil # 4.65 X10^3/uL (2.7-7.7); Neutrophil % 81.6 % (47-70); Platelet Count 159 K/mm3 (150-450); RBC Distribution Width CV 13.7 % (11.6-14.6); RBC Distribution Width SD 44.7 fl (35.1-43.9); Red Blood Count 4.99 M/mm3 (4.6-6.2); White Blood Count 5.7 K/mm3 (4.4-11.0)
[2018-01-09 09:13] LABS: POSITIVE COUNT NO; POSITIVE DIFFERENTIAL NO; POSITIVE MORPHOLOGY NO
[2018-01-09 09:18] LABS: Anion Gap 2 (5-15); BUN 12 mg/dL (7-18); BUN/Creat Ratio 15.8 RATIO (10-20); Chloride 110 mmol/L (98-107); Creatinine, Serum 0.76 mg/dL (0.70-1.30); EST Glomerular Filtration Rate 108 mL/min (>60); Est Glom Filt Rate - Afr Amer 130 mL/min (>60); Estimated Creatinine Clearance 57.65 ml/min; Glucose 111 mg/dL (74-106); Potassium 4.2 mmol/L (3.5-5.1); Sodium Level 142 mmol/L (136-145)
--- NOTE | 2018-01-09 09:37 | ED.VISSUMM ---
- ER Visit Summary Date of Service: 01/09/18 Chief Complaint: Shortness of breath per paramedics. They informed me he was not short of breath. Per she is concerned because he is having visual hallucinations. History of Present Illness: The patient is a 72 M who has advanced Parkinson's disease. He was recently seen by his PCP and at the [facility] emergency department. He had a significant workup which was unremarkable. He had a CT of the head because of diagnosis of CA of the neck and tonsils. CT of the head did not reveal any metastatic disease. He underwent metabolic infectious workup for his visual hallucinations. states he is also been falling more recently. She was unaware that he fell earlier this morning. He reports shortness of breath. did not notice any shortness of breath. He had no other complaints. There is no history of PE or DVT. He denies any leg pain, swelling discoloration. He denies headache. He denies double vision, blurred vision loss of vision. He denies difficulty swallowing. has not noted change in his voice. He denied any chest discomfort of any type. He denies any abdominal pain, nausea, vomiting or diarrhea. He has no urologic symptoms. Physical Examination: Vital signs are unremarkable. Blood pressure is slightly elevated 143/79. Patient has a masked face consistent with Parkinson's disease. His affect is blunted. Head is atraumatic normocephalic. Pupils are equal round reactive. Extraocular muscles are intact. TMs are pearly white with landmarks noted. Nares patent with no drainage. Posterior pharynx without erythema or exudate. Uvula is midline. There is no dysphonia or dysphasia. Trachea is midline. There is no stridor with auscultation of the neck. Heart is regular without murmur, gallop or rub. S1 and S2 are normal. Lungs are clear to auscultation with good movement of air bilaterally. Abdomen is soft nontender. He is slow to respond to questions. He is oriented. Motor is 5/5. Sensation is intact. DTRs are symmetric with no clonus or Babinski sign. Cranial 2 through 12 are intact. He has cogwheel rigidity consistent with Parkinson's disease. Test Results: From outside facility were obtained and read. His workup in the department is unremarkable and unchanged. Emergency Department Course and Treatment: Will obtain a CBC BMP in the department and obtain records from [facility] emergency department since he was seen 2 days ago. He was prescribed Seroquel by his PCP. Treatment Plan: Case management has seen patient. He was evaluated for rehab. He does qualify. Case management is working on precertification. I was informed that we should know by 1500 whether he has been accepted/approved. Otherwise will obtain consult with hospitalist for observation status and continue to work on certification for rehab Disposition: Pending decision by insurance company for rehab/precertification Impression: 1. Generalized weakness 2. Frequent falls 3. History of coronary disease 4. History of Parkinson's disease 5. History of head and neck cancer, tonsil This note was generated with [employer] dictation software. It may contain incorrect words, spelling, and punctuation that were not noted in review of the chart prior to signing ED Disposition - Plan for ED Patient: Chief Complaint: Shortness of Breath Referrals: Yo Scott DO [Primary Care Provider] -
[2018-01-09 10:41] VITALS: BP 118/73; PULSE 67; RESP 16; O2SAT 96
--- NOTE | 2018-01-09 10:52 | CM.ED ---
Social Work Note Referral from Dr. Cornejo for limited support. Introduced self and role to pt and his . Pt reports to live with his in a one-story home with 2 [address]AN[address] and no railings. Pt denies use of DME, but does report having a cane in the home. Pt had a fall this morning and reports an increase in weakness over the past few weeks. Pt does have palliative care services. reports a 15-20 lbs weight loss in the past 6 months. Claims that she has worked with the Bilingual Sales Consultant at the [facility] and the pt is still eating soft foods and 360 calorie shakes 3x/day. Discuss options of rehabilitation ranging from outpatient, HHC, SNF and acute inpatient rehab. states that she is not sure the pt would agree. Discuss that SW would like to see what availability there is within [facility] system and will return to discuss with pt. Placed call to RU and inquired about availability. Daiana recommends having PT/OT evaluate and she will come down as well to evaluate the pt. PT/OT order placed. ED Physician notified of plan. Returned to pt's room and daughter is also present now. Introduced self and role. Discussed that PT/OT would be down to evaluate and make a recommendation. Inform that the pt and family ultimately can decide what route they would like to take, but strongly encourage to consider the recommendation that is provided at the end of the evaluation. Daughter inquires to the pt if he understood what SW said and he states no. Repeat the above and pt expresses understanding. Daughter follows SW out of room and is tearful. States that she is concerned he is giving up, and asks if we are talking alf? Explain to the pt that SW would like the pt to be evaluated for acute inpatient rehab where he would be overseen by a neurologist. Explain the 3 hours of therapy and need for approval not only by the physician and supervisor microfilm duplicating unit, but by insurance. Understanding expressed. Daiana on unit to meet with pt and family and discuss RU. Placed call to PT and they will be down as soon as they are available to evaluate. SW to continue to follow and assist with discharge planning. Marcelina Nelson, SYSTEMS INTEGRATION MANAGER, WET FINISHER WOOL
--- NOTE | 2018-01-09 12:31 | CM.ED ---
Social Work Note Updated by PT and Daiana with RU that pt has been recommended for RU. Pre-cert to be initiated. Anticipate receiving pre-cert this date. Physician notified. Spoke with pt and pt's family and all are in agreement. Plan: RU pending pre-cert. Marcelina Nelson, ENTERPRISE SALES PERSON, CERTIFIED FRAUD EXAMINER
[2018-01-09 14:03] VITALS: RESP 18
--- NOTE | 2018-01-09 14:06 | CM.ED ---
Social Work Note Placed call to Daiana who states that she has not yet heard back from [facility] regarding pre-cert. Will await their determination. Marcelina Nelson, ASSEMBLY LINE WORKER, MATHEMATICAL PHYSICIST
--- NOTE | 2018-01-09 15:47 | CM.ED ---
Social Work note Placed call to Daiana who states that she has still not heard from pt's insurance. Pt to be admitted in observation status while pre-cert is awaited. Marcelina Nelson, SCREEN PRINTING PASTER, PIZZA CHEF
--- NOTE | 2018-01-09 15:54 | NURSING ---
MED SURG FAILURE TO THRIVE, FREQUENT FALLS, VISUAL HALLUCINATIONS, DEMENTIA DENNIS
[2018-01-09 16:31] VITALS: BMI 18.5
[2018-01-09 16:34] VITALS: BMI 18.5
[2018-01-09 16:37] VITALS: BP 156/91; PULSE 103; RESP 16; TEMP 36.6; O2SAT 96
--- NOTE | 2018-01-09 16:47 | PCM.HP.STD ---
Problem List (1) Hallucination Status: Acute History of Present Illness Date of Admission: 01/09/18 Chief Complaint: hallucinations The patient is a 72 year old M with a known history of Parkinson's presents with visual hallucinations. Over the past few weeks, patient has been having hallucinations throwing apples that people. Patient was seen over in [facility]. Patient did complain of chest pain today patient was brought to the hospital where he had had lab work that was unremarkable. is status unable to care for him and wanting him admitted to get therapy. Patient was evaluated by physical therapy and case management in the emergency room. Therapy saw patient and recommended rehab. Seen by case management and were awaiting a precertification. Given that it took about 6 hours for and there have been no official notification of patient qualified patient being brilliant brought in under observation status for determination of precertification status. 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 De León History of oropharyngeal cancer (Chronic) Z85.819 Oropharyngeal cancer (Chronic) C10.9 Coronary artery spasm (Chronic) I20.1 Anxiety (Chronic) F41.9 with panic attacks Near syncope (Acute) Former smoker (Chronic) Z87.891 Quit 8 years ago COPD (chronic obstructive pulmonary disease) (Chronic) J44.9 Gastroesophageal reflux disease (Chronic) K21.9 Hypertension (Chronic) I10 Dehydration (Acute) E86.0 Diverticulosis (Chronic) K57.90 Obstructive sleep apnea (Chronic) G47.33 CPAP 12 cm of water Chest pain (Acute) R07.9 CAD (coronary artery disease) (Chronic) I25.10 HLD (hyperlipidemia) (Chronic) E78.5 Generalized abdominal pain (Acute) R10.84 Rectal bleeding (Acute) K62.5 Melanotic stools (Acute) K92.1 Tonsillar cancer (Chronic) Allergies amoxicillin trihydrate [From Augmentin] Allergy (Severe, Verified 01/08/18 07:43) Unknown ?hives celecoxib [From Celebrex] Allergy (Severe, Verified 01/08/18 07:43) bad dreams, hallucinates, esomeprazole magnesium [From Nexium] Allergy (Severe, Verified 01/08/18 07:43) Unknown Penicillins Allergy (Severe, Verified 01/08/18 07:43) Unknown potassium clavulanate [From Augmentin] Allergy (Severe, Verified 01/08/18 07:43) Unknown hives? telmisartan [From Micardis] Allergy (Severe, Verified 01/08/18 07:43) Unknown venlafaxine HCl [From Effexor] Allergy (Severe, Verified 01/08/18 07:43) bad dreams, hallucinates atenolol Allergy (Intermediate, Verified 01/08/18 07:43) body hot tingling metoprolol Allergy (Intermediate, Verified 01/08/18 07:43) Unknown amoxicillin [From Augmentin] Allergy (Verified 01/08/18 07:43) Unknown clavulanic acid [From Augmentin] Allergy (Verified 01/08/18 07:43) Unknown duloxetine HCl [From Cymbalta] Allergy (Verified 01/08/18 07:43) aggiation melatonin Allergy (Verified 01/08/18 07:43) kept awake mirtazapine [From Remeron] Allergy (Verified 01/08/18 07:43) Chest tightness sertraline HCl [From Zoloft] Allergy (Verified 01/08/18 07:43) Itching buspirone HCl [From BuSpar] Adverse Reaction (Verified 01/08/18 07:43) aggiation IRRITABLE carbidopa Adverse Reaction (Verified 01/08/18 07:43) Other citalopram hydrobromide [From Celexa] Adverse Reaction (Verified 01/08/18 07:43) aggiation ropinirole Adverse Reaction (Verified 01/08/18 07:43) Other tamsulosin HCl [From Flomax] Adverse Reaction (Verified 01/08/18 07:43) Low blood pressure Home Medications: Ambulatory Orders Medication Instructions Recorded Aspirin [Aspirin, Baby] 81 mg PO DAILY@0800 07/12/14 Omeprazole [Prilosec] 20 mg PO BID 07/12/14 Nitroglycerin [Nitrostat] 0.4 mg SUBLINGUAL Q5M PRN 10/31/14 Dutasteride 0.5 mg PO DAILY 09/23/15 Multivit-Min/FA/Lycopen/Lutein 1 ea PO DAILY 08/17/16 [Centrum Silver Tablet] Levothyroxine [Synthroid] 50 mcg PO DAILY 10/27/16 albuterol sulfate 2.5 mg/3 mL 2.5 mg INHALATION Q4H PRN ml 05/19/17 (0.083 %) solution for nebulization fluticasone 50 mcg/actuation nasal 2 spray INTRANASAL DAILY PRN PRN 05/29/17 spray,suspension meclizine 25 mg tablet 25 mg PO DAILY PRN PRN 12/11/17 Albuterol IH (ProAir) [Proair Hfa 2 puff INHALATION Q4H PRN PRN 12/21/17 (SP)Vent Pts] Prednisone 7.5 mg PO DAILY 12/21/17 Trihexyphenidyl HCl 1 mg PO BID 12/21/17 lorazepam 0.5 mg tablet 0.5 mg PO TID PRN PRN 01/08/18 lorazepam 2 mg tablet 2 mg PO QHS PRN 01/08/18 Quetiapine Fumarate [Seroquel] 25 mg PO BID 01/09/18 Senna [Senokot] 1 tablet PO QHS 01/09/18 Surgical History: Surgical History (Last Reviewed 01/09/18 @ 16:52 by Iban Mcbride DO) History of tonsillectomy (Resolved) Z98.890, Z90.89 History of hemorrhoidectomy (Resolved) Z98.890 History of testicular surgery (Resolved) Z98.890 History of esophagogastroduodenoscopy (EGD) Onset Date: ~09/2015 Z98.890 S/P cataract extraction Z98.49 S/P colonoscopy Onset Date: ~09/2015 Z98.890 S/P hemorrhoidectomy Z98.890, Z87.19 S/P laparoscopic cholecystectomy Z90.49 01/06 Surgical History: - - Orchiectomy for testicular cancer in 1981, removal of right tonsil secondary to cancer, lymph node removal in the neck from tonsillar cancer, PEG tube placement Psychiatric History: Anxiety - With panic attacks Smoking Status: Former smoker Tobacco Use: Cigarettes - *Family History Maternal Family History: Family History (Last Reviewed 01/09/18 @ 16:52 by Iban Mcbride DO) Brother Diabetes CAD (coronary artery disease) Sister CVA (cerebral vascular accident) Diabetes Hypertension Breast cancer Mother CAD (coronary artery disease) Diabetes Brother Diabetes Heart disease Father Cancer History Items: Diabetes, Heart Disease, Hypertension, - - His mother at the age of 75 from myocardial infarction. Paternal Family History: Family History (Last Reviewed 01/09/18 @ 16:52 by Iban Mcbride DO) Brother Diabetes CAD (coronary artery disease) Sister CVA (cerebral vascular accident) Diabetes Hypertension Breast cancer Mother CAD (coronary artery disease) Diabetes Brother Diabetes Heart disease Father Cancer History Items: Cancer, - - Multiple family members on his father's side have from stomach cancer Review of Systems Constitutional: Denies: Anorexia, Chills, Fever Eyes: Reports: Blurred vision, Cataracts, Double vision - Occasionally HEENT: Denies: Head Aches, Sinus Congestion, Sinus Drainage Cardiovascular: Denies: Chest Pain - Denies chest pain at this time, Edema, Palpitations Respiratory: Denies: Cough, Shortness of breath at rest, Sputum production Gastrointestinal: Denies: Abdominal Pain, Nausea, Vomiting Genitourinary: Denies: Dysuria Musculoskeletal: Denies: Joint Pain, Joint Tenderness Skin: Denies: Dryness, Lesions Neurological: Reports: Balance problems - Falls, Blurred vision, Double vision, Confusion, Tremor. Denies: Change in Speech, Slurred speech Psychiatric: Reports: Anxiety. Denies: Depression Hematologic/ Lymphatic: Denies: Easy Bruising, Easy Bleeding, Hx of blood clot Comment: All review of systems are negative except as mentioned in the history of present illness and the other review of systems. VTE Information - Inpt Only VTE Present on Admission: No VTE Mechan Device Prophylaxis: None VTE Pharm Prophylaxis ordered?: Yes Patient Problems: Active and Suspected Problems (Last Reviewed 01/08/18 @ 09:18 by Carey Lange NP-C) Hallucination (Acute) - Physical Exam General: Alert, Oriented x3, Cooperative, No apparent distress, - HEENT: Atraumatic, PERRLA, EOMI, Normocephalic, - - Temporal wasting Oral: Moist Mucosa, No Gingival or Mucosal Lesions/ Ulcerations Neck: No Nodes, Thyroid Normal Size and Texture Lungs: Clear to auscultation, Normal air movement, No rhonchi, No wheeze Cardiovascular: Regular rate, Regular Rhythm, Normal S1, Normal S2 Abdomen: Bowel Sounds Present, Soft, Non Tender, Non-Distended, No Hepato-splenomegaly Extremities: No edema, No Calf Tenderness Skin: No rashes, No breakdown Musculoskeletal: No Tenderness to Palpation of Joints or Extremities, No Muscle Wasting Neurological: Cranial nerves II-XII grossly intact, Motor Exam 5/5 strength throughout, Muscle tone normal, - - Tremor Psych/Mental Status: Appropriate, Anxious Vital Signs Temp Pulse Resp BP Pulse Ox 36.6 C 103 H 16 156/91 H 96 01/09/18 16:37 01/09/18 16:37 01/09/18 16:37 01/09/18 16:37 01/09/18 16:37 Oxygen Delivery Method Room Air Weight: 55.2 kg Body Mass Index (BMI) 18.5 Assessment/Plan All Active Problems (Last Reviewed 01/08/18 @ 09:18 by Carey Lange NP-C) Hallucination (Acute) Gallbladder sludge (Acute) Right upper quadrant pain (Acute) History of tonsillectomy (Resolved) History of hemorrhoidectomy (Resolved) History of testicular surgery (Resolved) Shoulder pain, right (Acute) Dysphagia (Acute) Fatigue (Acute) Near syncope (Acute) Dehydration (Acute) Chest pain (Acute) Generalized abdominal pain (Acute) Rectal bleeding (Acute) Melanotic stools (Acute) Orthostatic hypotension (Resolved) Prior testicular cancer (Resolved) 1. Visual hallucinations This is not acute and has been ongoing for several weeks I have recommended tapering down the patient's Ativan. Patient currently takes 0.5 3 times daily as needed and then 2 mg at night I recommend stopping the 2 mg at night and then changing the daily dosing to twice daily as needed. I would further recommend tapering that off over the next coming weeks. The taper would be 0.5 twice daily as needed for 1 week and then daily as needed for 1 week and then off Very much this related the patient is underlying dementia. 2. Debility Patient deemed appropriate for rehab by physical therapy It was noted to the patient was in his room able to get himself out of his chair with no difficulty and then using the [place] to clean off his dentures and put his own dentures and I discussed with the patient's that she will given his appearance to me at bedside that I am not sure he is an actual candidate for rehab or [facility] facility Physical therapy will reevaluate tomorrow and case management will further assist. Patient states that if insurance will cover [facility] rehab or [facility] facility that she would not pay for it and patient would go home. 3. Anxiety Patient has been on Ativan for 8 years since his brother's but has never been tapered off. Not a good choice for long-term treatment of anxiety commendation for tapering to off. 4. Dementia May be due to Parkinson's or another variant such as Alzheimer's. Check TSH, B12 and folate for reversible etiologies Follow-up geriatrics as outpatient for evaluation 5. DVT prophylaxis with LMWH 6. Advanced care planning: Spent an additional 15 minutes discussing with patient and about DNR. Patient is DNR Comfort Care arrest. Additionally she tells me that the patient has already been involved with palliative care as outpatient. Code Visit OBSV E&M: 81207 Initial observation care L3
--- NOTE | 2018-01-09 16:52 | HP.PCM_ITS ---
Problem List (1) Hallucination Status: Acute History of Present Illness Date of Admission: 01/09/18 Chief Complaint: hallucinations The patient is a 72 year old M with a known history of Parkinson's presents with visual hallucinations. Over the past few weeks, patient has been having hallucinations throwing apples that people. Patient was seen over in [facility]. Patient did complain of chest pain today patient was brought to the hospital where he had had lab work that was unremarkable. is status unable to care for him and wanting him admitted to get therapy. Patient was evaluated by physical therapy and case management in the emergency room. Therapy saw patient and recommended rehab. Seen by case management and were awaiting a precertification. Given that it took about 6 hours for and there have been no official notification of patient qualified patient being brilliant brought in under observation status for determination of precertification status. 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 De León History of oropharyngeal cancer (Chronic) Z85.819 Oropharyngeal cancer (Chronic) C10.9 Coronary artery spasm (Chronic) I20.1 Anxiety (Chronic) F41.9 with panic attacks Near syncope (Acute) Former smoker (Chronic) Z87.891 Quit 8 years ago COPD (chronic obstructive pulmonary disease) (Chronic) J44.9 Gastroesophageal reflux disease (Chronic) K21.9 Hypertension (Chronic) I10 Dehydration (Acute) E86.0 Diverticulosis (Chronic) K57.90 Obstructive sleep apnea (Chronic) G47.33 CPAP 12 cm of water Chest pain (Acute) R07.9 CAD (coronary artery disease) (Chronic) I25.10 HLD (hyperlipidemia) (Chronic) E78.5 Generalized abdominal pain (Acute) R10.84 Rectal bleeding (Acute) K62.5 Melanotic stools (Acute) K92.1 Tonsillar cancer (Chronic) Allergies amoxicillin trihydrate [From Augmentin] Allergy (Severe, Verified 01/08/18 07:43 ) Unknown ?hives celecoxib [From Celebrex] Allergy (Severe, Verified 01/08/18 07:43) bad dreams, hallucinates, esomeprazole magnesium [From Nexium] Allergy (Severe, Verified 01/08/18 07:43) Unknown Penicillins Allergy (Severe, Verified 01/08/18 07:43) Unknown potassium clavulanate [From Augmentin] Allergy (Severe, Verified 01/08/18 07:43) Unknown hives? telmisartan [From Micardis] Allergy (Severe, Verified 01/08/18 07:43) Unknown venlafaxine HCl [From Effexor] Allergy (Severe, Verified 01/08/18 07:43) bad dreams, hallucinates atenolol Allergy (Intermediate, Verified 01/08/18 07:43) body hot tingling metoprolol Allergy (Intermediate, Verified 01/08/18 07:43) Unknown amoxicillin [From Augmentin] Allergy (Verified 01/08/18 07:43) Unknown clavulanic acid [From Augmentin] Allergy (Verified 01/08/18 07:43) Unknown duloxetine HCl [From Cymbalta] Allergy (Verified 01/08/18 07:43) aggiation melatonin Allergy (Verified 01/08/18 07:43) kept awake mirtazapine [From Remeron] Allergy (Verified 01/08/18 07:43) Chest tightness sertraline HCl [From Zoloft] Allergy (Verified 01/08/18 07:43) Itching buspirone HCl [From BuSpar] Adverse Reaction (Verified 01/08/18 07:43) aggiation IRRITABLE carbidopa Adverse Reaction (Verified 01/08/18 07:43) Other citalopram hydrobromide [From Celexa] Adverse Reaction (Verified 01/08/18 07:43) aggiation ropinirole Adverse Reaction (Verified 01/08/18 07:43) Other tamsulosin HCl [From Flomax] Adverse Reaction (Verified 01/08/18 07:43) Low blood pressure Home Medications: Ambulatory Orders Medication Instructions Recorded Aspirin [Aspirin, Baby] 81 mg PO DAILY@0800 07/12/14 Omeprazole [Prilosec] 20 mg PO BID 07/12/14 Nitroglycerin [Nitrostat] 0.4 mg SUBLINGUAL Q5M PRN 10/31/14 Dutasteride 0.5 mg PO DAILY 09/23/15 Multivit-Min/FA/Lycopen/Lutein 1 ea PO DAILY 08/17/16 [Centrum Silver Tablet] Levothyroxine [Synthroid] 50 mcg PO DAILY 10/27/16 albuterol sulfate 2.5 mg/3 mL 2.5 mg INHALATION Q4H PRN ml 05/19/17 (0.083 %) solution for nebulization fluticasone 50 mcg/actuation nasal 2 spray INTRANASAL DAILY PRN PRN 05/29/17 spray,suspension meclizine 25 mg tablet 25 mg PO DAILY PRN PRN 12/11/17 Albuterol IH (ProAir) [Proair Hfa 2 puff INHALATION Q4H PRN PRN 12/21/17 (SP)Vent Pts] Prednisone 7.5 mg PO DAILY 12/21/17 Trihexyphenidyl HCl 1 mg PO BID 12/21/17 lorazepam 0.5 mg tablet 0.5 mg PO TID PRN PRN 01/08/18 lorazepam 2 mg tablet 2 mg PO QHS PRN 01/08/18 Quetiapine Fumarate [Seroquel] 25 mg PO BID 01/09/18 Senna [Senokot] 1 tablet PO QHS 01/09/18 Surgical History: Surgical History (Last Reviewed 01/09/18 @ 16:52 by Iban Mcbride DO) History of tonsillectomy (Resolved) Z98.890, Z90.89 History of hemorrhoidectomy (Resolved) Z98.890 History of testicular surgery (Resolved) Z98.890 History of esophagogastroduodenoscopy (EGD) Onset Date: ~09/2015 Z98.890 S/P cataract extraction Z98.49 S/P colonoscopy Onset Date: ~09/2015 Z98.890 S/P hemorrhoidectomy Z98.890, Z87.19 S/P laparoscopic cholecystectomy Z90.49 01/06 Surgical History: - - Orchiectomy for testicular cancer in 1981, removal of right tonsil secondary to cancer, lymph node removal in the neck from tonsillar cancer, PEG tube placement Psychiatric History: Anxiety - With panic attacks Smoking Status: Former smoker Tobacco Use: Cigarettes - *Family History Maternal Family History: Family History (Last Reviewed 01/09/18 @ 16:52 by Iban Mcbride DO) Brother Diabetes CAD (coronary artery disease) Sister CVA (cerebral vascular accident) Diabetes Hypertension Breast cancer Mother CAD (coronary artery disease) Diabetes Brother Diabetes Heart disease Father Cancer History Items: Diabetes, Heart Disease, Hypertension, - - His mother at the age of 75 from myocardial infarction. Paternal Family History: Family History (Last Reviewed 01/09/18 @ 16:52 by Iban Mcbride DO) Brother Diabetes CAD (coronary artery disease) Sister CVA (cerebral vascular accident) Diabetes Hypertension Breast cancer Mother CAD (coronary artery disease) Diabetes Brother Diabetes Heart disease Father Cancer History Items: Cancer, - - Multiple family members on his father's side have from stomach cancer Review of Systems Constitutional: Denies: Anorexia, Chills, Fever Eyes: Reports: Blurred vision, Cataracts, Double vision - Occasionally HEENT: Denies: Head Aches, Sinus Congestion, Sinus Drainage Cardiovascular: Denies: Chest Pain - Denies chest pain at this time, Edema, Palpitations Respiratory: Denies: Cough, Shortness of breath at rest, Sputum production Gastrointestinal: Denies: Abdominal Pain, Nausea, Vomiting Genitourinary: Denies: Dysuria Musculoskeletal: Denies: Joint Pain, Joint Tenderness Skin: Denies: Dryness, Lesions Neurological: Reports: Balance problems - Falls, Blurred vision, Double vision, Confusion, Tremor. Denies: Change in Speech, Slurred speech Psychiatric: Reports: Anxiety. Denies: Depression Hematologic/ Lymphatic: Denies: Easy Bruising, Easy Bleeding, Hx of blood clot Comment: All review of systems are negative except as mentioned in the history of present illness and the other review of systems. VTE Information - Inpt Only VTE Present on Admission: No VTE Mechan Device Prophylaxis: None VTE Pharm Prophylaxis ordered?: Yes Patient Problems: Active and Suspected Problems (Last Reviewed 01/08/18 @ 09:18 by Carey Lange NP-C) Hallucination (Acute) - Physical Exam General: Alert, Oriented x3, Cooperative, No apparent distress, - HEENT: Atraumatic, PERRLA, EOMI, Normocephalic, - - Temporal wasting Oral: Moist Mucosa, No Gingival or Mucosal Lesions/ Ulcerations Neck: No Nodes, Thyroid Normal Size and Texture Lungs: Clear to auscultation, Normal air movement, No rhonchi, No wheeze Cardiovascular: Regular rate, Regular Rhythm, Normal S1, Normal S2 Abdomen: Bowel Sounds Present, Soft, Non Tender, Non-Distended, No Hepato- splenomegaly Extremities: No edema, No Calf Tenderness Skin: No rashes, No breakdown Musculoskeletal: No Tenderness to Palpation of Joints or Extremities, No Muscle Wasting Neurological: Cranial nerves II-XII grossly intact, Motor Exam 5/5 strength throughout, Muscle tone normal, - - Tremor Psych/Mental Status: Appropriate, Anxious Vital Signs Temp Pulse Resp BP Pulse Ox 36.6 C 103 H 16 156/91 H 96 01/09/18 16:37 01/09/18 16:37 01/09/18 16:37 01/09/18 16:37 01/09/18 16:37 Oxygen Delivery Method Room Air Weight: 55.2 kg Body Mass Index (BMI) 18.5 Assessment/Plan All Active Problems (Last Reviewed 01/08/18 @ 09:18 by Carey Lange NP-C) Hallucination (Acute) Gallbladder sludge (Acute) Right upper quadrant pain (Acute) History of tonsillectomy (Resolved) History of hemorrhoidectomy (Resolved) History of testicular surgery (Resolved) Shoulder pain, right (Acute) Dysphagia (Acute) Fatigue (Acute) Near syncope (Acute) Dehydration (Acute) Chest pain (Acute) Generalized abdominal pain (Acute) Rectal bleeding (Acute) Melanotic stools (Acute) Orthostatic hypotension (Resolved) Prior testicular cancer (Resolved) 1. Visual hallucinations * This is not acute and has been ongoing for several weeks * I have recommended tapering down the patient's Ativan. Patient currently takes 0.5 3 times daily as needed and then 2 mg at night * I recommend stopping the 2 mg at night and then changing the daily dosing to twice daily as needed. I would further recommend tapering that off over the next coming weeks. The taper would be 0.5 twice daily as needed for 1 week and then daily as needed for 1 week and then off * Very much this related the patient is underlying dementia. 2. Debility * Patient deemed appropriate for rehab by physical therapy * It was noted to the patient was in his room able to get himself out of his chair with no difficulty and then using the [place] to clean off his dentures and put his own dentures and * I discussed with the patient's that she will given his appearance to me at bedside that I am not sure he is an actual candidate for rehab or assisted facility * Physical therapy will reevaluate tomorrow and case management will further assist. * Patient states that if insurance will cover [facility] rehab or assisted facility that she would not pay for it and patient would go home. 3. Anxiety * Patient has been on Ativan for 8 years since his brother's but has never been tapered off. Not a good choice for long-term treatment of anxiety commendation for tapering to off. 4. Dementia * May be due to Parkinson's or another variant such as Alzheimer's. * Check TSH, B12 and folate for reversible etiologies * Follow-up geriatrics as outpatient for evaluation 5. DVT prophylaxis with LMWH 6. Advanced care planning: Spent an additional 15 minutes discussing with patient and about DNR. Patient is DNR Comfort Care arrest. Additionally she tells me that the patient has already been involved with palliative care as outpatient. Code Visit OBSV E&M: 19217 Initial observation care L3
[2018-01-09 18:20] LABS: Thyroid Stim Hormone (TSH) 0.98 uIU/mL (0.358-3.74)
[2018-01-09 20:34] VITALS: BP 153/90; PULSE 81; RESP 16; TEMP 37; O2SAT 99
[2018-01-09] MEDS: Senna Tablet 1 TABLET PO (22:21)
[2018-01-09] MEDS: QUEtiapine 25 MG Tablet PO (22:21)
[2018-01-09] MEDS: Pantoprazole Sodium 20 MG Tablet PO (22:21)
[2018-01-09] MEDS: TRIHEXYPHENIDYL HCL 2 MG TABLET 1 MG PO (22:21)
[2018-01-10 02:30] VITALS: BP 145/88; PULSE 104; RESP 16; TEMP 36.5; O2SAT 97
[2018-01-10] MEDS: LORazepam 0.5 MG Tablet PO (03:10)
[2018-01-10] MEDS: 0.9% NaCl Peripheral Flush Adult/Peds IV (05:05)
[2018-01-10] MEDS: Haloperidol Lactate 5 MG/ML Vial 2 MG IV (05:05)
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
[2018-01-10 05:29] VITALS: BP 147/79; PULSE 102; RESP 22; TEMP 36.4; O2SAT 97
[2018-01-10] MEDS: Levothyroxine 50 MCG Tablet PO (07:32)
[2018-01-10 08:40] LABS: Vitamin B12 476 pg/mL (211-911)
[2018-01-10 09:00] VITALS: BP 132/81; PULSE 80; PULSE 83; RESP 16; TEMP 36.9; O2SAT 99
--- NOTE | 2018-01-10 09:00 | CASEMGMT ---
Social Work Note OT evaluations are available. RENEE placed a call to Daiana with [facility] and updated her of this. Plan: [facility] pending pre-cert Mireille Arora SOCK LINER, GLORY HOLE TENDER
[2018-01-10] MEDS: QUEtiapine 25 MG Tablet PO (09:11)
[2018-01-10] MEDS: predniSONE 5 MG Tablet 7.5 MG PO (09:11)
[2018-01-10] MEDS: Aspirin 81 MG TAB.CHEW PO (09:11)
[2018-01-10] MEDS: Enoxaparin 40 MG/0.4 ML Syringe SC (09:12)
[2018-01-10] MEDS: TRIHEXYPHENIDYL HCL 2 MG TABLET 1 MG PO (09:12)
[2018-01-10] MEDS: Pantoprazole Sodium 20 MG Tablet PO (09:13)
[2018-01-10] MEDS: Finasteride 5 MG Tablet PO (09:16)
[2018-01-10 09:56] VITALS: PULSE 89
[2018-01-10] MEDS: Acetaminophen 325 MG Tablet 650 MG PO (11:35)
[2018-01-10] MEDS: Multivitamins,Ther W-Minerals Tablet 1 TABLET PO (11:36)
[2018-01-10 14:02] VITALS: BP 150/87; PULSE 89; RESP 18; TEMP 36.8; O2SAT 99
[2018-01-10 15:00] VITALS: PULSE 99
--- NOTE | 2018-01-10 15:03 | PCM.DC ---
- Discharge Diagnoses Current Active Problems: Current Active and Chronic Problems (Last Reviewed 01/09/18 @ 16:52 by Iban Mcbride DO) Hallucination (Acute) Reason(s) for Visit for Discharge Instructions: Hallucinations You will use the following diet at home:: Regular Your food should be the consistency of: Regular Your liquids should be the consistency of: Regular/Thin Discharge Activity: Return to Normal Activity Allergies/Adverse Reactions: Allergies amoxicillin trihydrate [From Augmentin] Allergy (Severe, Verified 01/08/18 07:43) Unknown ?hives celecoxib [From Celebrex] Allergy (Severe, Verified 01/08/18 07:43) bad dreams, hallucinates, esomeprazole magnesium [From Nexium] Allergy (Severe, Verified 01/08/18 07:43) Unknown Penicillins Allergy (Severe, Verified 01/08/18 07:43) Unknown potassium clavulanate [From Augmentin] Allergy (Severe, Verified 01/08/18 07:43) Unknown hives? telmisartan [From Micardis] Allergy (Severe, Verified 01/08/18 07:43) Unknown venlafaxine HCl [From Effexor] Allergy (Severe, Verified 01/08/18 07:43) bad dreams, hallucinates atenolol Allergy (Intermediate, Verified 01/08/18 07:43) body hot tingling metoprolol Allergy (Intermediate, Verified 01/08/18 07:43) Unknown amoxicillin [From Augmentin] Allergy (Verified 01/08/18 07:43) Unknown clavulanic acid [From Augmentin] Allergy (Verified 01/08/18 07:43) Unknown duloxetine HCl [From Cymbalta] Allergy (Verified 01/08/18 07:43) aggiation melatonin Allergy (Verified 01/08/18 07:43) kept awake mirtazapine [From Remeron] Allergy (Verified 01/08/18 07:43) Chest tightness sertraline HCl [From Zoloft] Allergy (Verified 01/08/18 07:43) Itching buspirone HCl [From BuSpar] Adverse Reaction (Verified 01/08/18 07:43) aggiation IRRITABLE carbidopa Adverse Reaction (Verified 01/08/18 07:43) Other citalopram hydrobromide [From Celexa] Adverse Reaction (Verified 01/08/18 07:43) aggiation ropinirole Adverse Reaction (Verified 01/08/18 07:43) Other tamsulosin HCl [From Flomax] Adverse Reaction (Verified 01/08/18 07:43) Low blood pressure Medications to take at Discharge Aspirin [Aspirin, Baby] 81 mg PO DAILY@0800 07/12/14 Omeprazole [Prilosec] 20 mg PO BID 07/12/14 Nitroglycerin [Nitrostat] 0.4 mg SUBLINGUAL Q5M PRN 10/31/14 Dutasteride 0.5 mg PO DAILY 09/23/15 Multivit-Min/FA/Lycopen/Lutein [Centrum Silver Tablet] 1 ea PO DAILY 08/17/16 Levothyroxine [Synthroid] 50 mcg PO DAILY 10/27/16 albuterol sulfate 2.5 mg/3 mL (0.083 %) solution for nebulization 2.5 mg INHALATION Q4H PRN ml 05/19/17 fluticasone 50 mcg/actuation nasal spray,suspension 2 spray INTRANASAL DAILY PRN PRN 05/29/17 meclizine 25 mg tablet 25 mg PO DAILY PRN PRN 12/11/17 Albuterol IH (ProAir) [Proair Hfa] 2 puff INHALATION Q4H PRN PRN 12/21/17 Prednisone 7.5 mg PO DAILY 12/21/17 Trihexyphenidyl HCl 1 mg PO BID 12/21/17 Quetiapine Fumarate [Seroquel] 25 mg PO BID 01/09/18 Senna [Senokot] 1 tablet PO QHS 01/09/18 Enoxaparin [Lovenox] 40 mg SC DAILY@1000 syringe 01/10/18 Ensure Enlive 120 ml PO 4X/DAY liquid 01/10/18 Lorazepam [Ativan] 0.5 mg PO BID PRN PRN tablet 01/10/18 Primary Care Physician: Yo Scott DO [Primary Care Provider] - Please follow up with your Primary Care Physician in: within 2 weeks of discharge Test Results: Test results from this visit will be discussed in further detail at your follow-up appointment, if applicable. Proposed Discharge Date: 01/10/18
--- NOTE | 2018-01-10 15:04 | PCM.DC.SUM ---
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 De León History of oropharyngeal cancer (Chronic) Oropharyngeal cancer (Chronic) Coronary artery spasm (Chronic) Anxiety (Chronic) with panic attacks Former smoker (Chronic) Quit 8 years ago COPD (chronic obstructive pulmonary disease) (Chronic) Gastroesophageal reflux disease (Chronic) Hypertension (Chronic) Diverticulosis (Chronic) Obstructive sleep apnea (Chronic) CPAP 12 cm of water CAD (coronary artery disease) (Chronic) HLD (hyperlipidemia) (Chronic) Tonsillar cancer (Chronic) Hospital Course and Treatment None Operations: None Procedures: None Summary of Care Provided: The patient is a 72 year old M with past medical history of Parkinson's disease with hallucinations who comes in with complaints of worsening hallucinations and debility. He lives at home with her , and has been having recurrent hallucinations. His is unable to care for him and wanted him admitted for therapy. Patient was apparently seen by physical therapy and case management in the emergency department. Physical therapy had recommended acute inpatient rehab. Patient was admitted to the hospital briefly and subsequently discharged to inpatient rehab. Discharge Diet: No Restrictions Discharge Activity: Return to Normal Activity Home Medications: Medications to take at Discharge Aspirin [Aspirin, Baby] 81 mg PO DAILY@0800 07/12/14 Omeprazole [Prilosec] 20 mg PO BID 07/12/14 Nitroglycerin [Nitrostat] 0.4 mg SUBLINGUAL Q5M PRN 10/31/14 Dutasteride 0.5 mg PO DAILY 09/23/15 Multivit-Min/FA/Lycopen/Lutein [Centrum Silver Tablet] 1 ea PO DAILY 08/17/16 Levothyroxine [Synthroid] 50 mcg PO DAILY 10/27/16 albuterol sulfate 2.5 mg/3 mL (0.083 %) solution for nebulization 2.5 mg INHALATION Q4H PRN ml 05/19/17 fluticasone 50 mcg/actuation nasal spray,suspension 2 spray INTRANASAL DAILY PRN PRN 05/29/17 meclizine 25 mg tablet 25 mg PO DAILY PRN PRN 12/11/17 Albuterol IH (ProAir) [Proair Hfa] 2 puff INHALATION Q4H PRN PRN 12/21/17 Prednisone 7.5 mg PO DAILY 12/21/17 Trihexyphenidyl HCl 1 mg PO BID 12/21/17 Quetiapine Fumarate [Seroquel] 25 mg PO BID 01/09/18 Senna [Senokot] 1 tablet PO QHS 01/09/18 Enoxaparin [Lovenox] 40 mg SC DAILY@1000 syringe 01/10/18 Ensure Enlive 120 ml PO 4X/DAY liquid 01/10/18 Lorazepam [Ativan] 0.5 mg PO BID PRN PRN tablet 01/10/18 Primary Care Physician: Yo Scott DO [Primary Care Provider] - Please follow up with your Primary Care Physician in: within 2 weeks of discharge Disposition: Inpt Rehab Unit/Facility Minutes spent on discharge:: 40 Patient Condition:: Stable Medical Necessity - Tobacco Use Smoking Status: Former smoker Tobacco Use: Cigarettes Meaningful Use Info Meaningful Use Diagnoses (Choose all that apply): None applicable Code Visit OBSV E&M: 39955 Observation care discharge
--- NOTE | 2018-01-10 15:38 | CASEMGMT ---
Social Work Note SW received message from Daiana with stating that pre-cert has been obtained and pt is able to discharge to [facility] today. RENEE updated Dr. Perez of this. Dr. Perez states that she will discharge pt today. RENEE placed a call to Daiana with and left her a message stating that pt is being discharged today. SW in to update pt of this and pt's present. SW informed pt and pt's that pre-cert has been obtained and pt will be discharged to [facility] today. Pt and pt's states understanding. Plan: Discharge to [facility] today Mireille Arora DATA ANALYTICS ARCHITECT, MONTESSORI TEACHER
--- NOTE | 2018-01-10 15:51 | NURSING ---
Report called to [facility].
== END 2018-01-10 16:01 ==
LOC: ED 10:55 → MS3 16:08
PROVIDERS: Emergency Provider Emergency Medicine; Family Provider Preventive Medicine Occupational Medicine; PCP Preventive Medicine Occupational Medicine; Visit Provider Internal Medicine
DX: R44.1 Visual hallucinations (principal); Z79.899 Other long term (current) drug therapy; Z79.82 Long term (current) use of aspirin; G20 Parkinson's disease; F02.80 Dementia in other diseases classified elsewhere, unspecified severity, without behavioral disturbance, psychotic disturbance, mood disturbance, and anxiety; J44.9 Chronic obstructive pulmonary disease, unspecified; I25.10 Atherosclerotic heart disease of native coronary artery without angina pectoris; E78.5 Hyperlipidemia, unspecified; G47.33 Obstructive sleep apnea (adult) (pediatric); Z87.891 Personal history of nicotine dependence; Z85.818 Personal history of malignant neoplasm of other sites of lip, oral cavity, and pharynx; R53.1 Weakness; R29.6 Repeated falls; F41.9 Anxiety disorder, unspecified
CPT/HCPCS: 36415; 80048; 82607; 82746; 84443; 85025; 96372; 96374; 97110; 97116; 97166; 97802; 99218; 99285; A4216; G0378

== ENCOUNTER 2018-01-10 16:10 | Inpatient (IN) | payer MEDICARE, SELFPAY ==
[2018-01-10 16:18] VITALS: BP 127/86; PULSE 95; RESP 16; TEMP 36.6; O2SAT 94; BMI 20.5
--- NOTE | 2018-01-10 18:41 | NURSING ---
Patient and aware he is a fall risk and must ask for staff assist and verbalized understanding.
[2018-01-10] MEDS: LORazepam 0.5 MG Tablet PO ×2 (20:17→23:43)
--- NOTE | 2018-01-10 20:26 | NURSING ---
pt reclining in bed quietly with tv on. Oral care provided. Full dentures removed, cleaned, and stored in dentures container wih water hs.
[2018-01-10 20:28] VITALS: BP 130/82; PULSE 89; RESP 16; TEMP 36.8; O2SAT 95
[2018-01-10] MEDS: QUEtiapine 25 MG Tablet PO (21:14)
[2018-01-10] MEDS: Senna/Docusate Sodium 1 Tablet 2 TABLET PO (21:14)
[2018-01-10] MEDS: Pantoprazole Sodium 20 MG Tablet PO (21:14)
[2018-01-10] MEDS: TRIHEXYPHENIDYL HCL 2 MG TABLET 1 MG PO (21:14)
[2018-01-10 22:00] VITALS: BMI 20.5
--- NOTE | 2018-01-10 22:29 | NURSING ---
Pt given Ativan 20:17 and Serequel 25mg @ 21:15. Staff rounding on pt frequently. Pt found with eyes closed one minute and within 15 minutes, pt found awake in bed trying to adjust bed settings to get up. Pt assisted to bathroom for toileting needs. Staff to monitor pt closely. Pt repositioned in bed, bed in lowest position for hi/lo bed, PA, CA, call light within reach, and floor pads in place.
--- NOTE | 2018-01-10 23:50 | NURSING ---
2nd Ativan provided for pt when pt set off alarms and found at edge of bed attempting to get up. Nurse applied gait belt to pt before assisting pt to br. Pt had bm. Pt repositioned in bed, and reoriented to settings and call light use. Alarms are reset and activated.
--- NOTE | 2018-01-11 04:16 | NURSING ---
pt set off bed alarm and PA. Pt found by staff attempting to get up from bed to get to bathroom. Pt required cueing and redirecting to once in bathroom. Pr assisted by staff with gait belt around waist back to bed. Bed lowered to lowest position, pa reattached, and bed alarm reactivated. Call light within reach and staff alerts pt to call light use. Pt states the alarms scare him but pt not agitated. Staff uses quiet/friendly tone in addressing pt.
[2018-01-11 05:17] LABS: Hematocrit 45.5 % (40-54); Hemoglobin 15.2 g/dl (13.0-16.5); Mean Corp Hgb Conc 33.4 g/gl (32-36); Mean Corpuscular Hgb 29.4 pg (27.0-32.0); Mean Platelet Vol. 9.2 fl (6.2-12.0); Platelet Count 176 K/mm3 (150-450); RBC Distribution Width CV 13.6 % (11.6-14.6); RBC Distribution Width SD 43.9 fl (35.1-43.9); Red Blood Count 5.17 M/mm3 (4.6-6.2); White Blood Count 6.8 K/mm3 (4.4-11.0)
[2018-01-11 05:23] LABS: Scan Indicated on CBC? Y/N NO
[2018-01-11] MEDS: Enoxaparin 40 MG/0.4 ML Syringe SC (05:24)
[2018-01-11] MEDS: Levothyroxine 50 MCG Tablet PO (05:27)
[2018-01-11 05:29] LABS: Anion Gap 9 (5-15); BUN 19 mg/dL (7-18); BUN/Creat Ratio 22.2 RATIO (10-20); Chloride 107 mmol/L (98-107); Creatinine, Serum 0.85 mg/dL (0.70-1.30); EST Glomerular Filtration Rate 94 mL/min (>60); Est Glom Filt Rate - Afr Amer 114 mL/min (>60); Estimated Creatinine Clearance 70.04 ml/min; Glucose 107 mg/dL (74-106); Potassium 3.5 mmol/L (3.5-5.1); Sodium Level 143 mmol/L (136-145)
[2018-01-11] MEDS: Carbidopa/Levodopa 25/100 Tablet PO (06:00)
[2018-01-11 08:15] VITALS: BP 127/73; PULSE 87; RESP 18; TEMP 36.8; O2SAT 94
--- NOTE | 2018-01-11 10:31 | PCM.HP.STD ---
History of Present Illness Date of Admission: 01/11/18 Chief Complaint: Weakness and falls The patient is a 72 year old male with a history of Parkinson's disease, who presented to the hospital after falling. He lives at home with his and does not usually fall but he has had some issues with parkinsonism over the years. He has seen Dr. De León for this in the past. At some point he was placed on Sinemet as well as Requip but was intolerant of these medicines for unclear reasons the description is that he was agitated at night. There was no clear allergic reaction and they are willing to retry some of these medicines at a lower dose in the rehab unit under direct supervision. He is currently only on Artane for his parkinsonism at home. He and his said there has not been other recent falls but he has had significant problems with hallucinations. He recently started Seroquel 25 mg twice daily which seems to have helped his hallucinations. Today in the rehab unit he says that he slept well overnight and is tolerating therapies. He did receive 1 dose of Sinemet 25/100 this morning, and he believes that is helped with no untoward reaction. Goal of rehab is shinto of prior level functional independence as well as addressing his medications. He is also on a low dose of prednisone, I am told that this is prescribed to help with his appetite prescribed by Dr. Ruth. His niece tells me that he has a tremor for over a year. 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 De León History of oropharyngeal cancer (Chronic) Oropharyngeal cancer (Chronic) Coronary artery spasm (Chronic) Anxiety (Chronic) with panic attacks Former smoker (Chronic) Quit 8 years ago COPD (chronic obstructive pulmonary disease) (Chronic) Gastroesophageal reflux disease (Chronic) Hypertension (Chronic) Diverticulosis (Chronic) Obstructive sleep apnea (Chronic) CPAP 12 cm of water CAD (coronary artery disease) (Chronic) HLD (hyperlipidemia) (Chronic) Tonsillar cancer (Chronic) Medical History: Medical History (Last Reviewed 01/11/18 @ 10:35 by Merritt Miranda MD) Dyspnea (Chronic) R06.00 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 De León History of oropharyngeal cancer (Chronic) Z85.819 Oropharyngeal cancer (Chronic) C10.9 Coronary artery spasm (Chronic) I20.1 Anxiety (Chronic) F41.9 with panic attacks Near syncope (Acute) Former smoker (Chronic) Z87.891 Quit 8 years ago COPD (chronic obstructive pulmonary disease) (Chronic) J44.9 Gastroesophageal reflux disease (Chronic) K21.9 Hypertension (Chronic) I10 Dehydration (Acute) E86.0 Diverticulosis (Chronic) K57.90 Obstructive sleep apnea (Chronic) G47.33 CPAP 12 cm of water Chest pain (Acute) R07.9 CAD (coronary artery disease) (Chronic) I25.10 HLD (hyperlipidemia) (Chronic) E78.5 Generalized abdominal pain (Acute) R10.84 Rectal bleeding (Acute) K62.5 Melanotic stools (Acute) K92.1 Tonsillar cancer (Chronic) Allergies amoxicillin trihydrate [From Augmentin] Allergy (Severe, Verified 01/08/18 07:43) Unknown ?hives celecoxib [From Celebrex] Allergy (Severe, Verified 01/08/18 07:43) bad dreams, hallucinates, esomeprazole magnesium [From Nexium] Allergy (Severe, Verified 01/08/18 07:43) Unknown Penicillins Allergy (Severe, Verified 01/08/18 07:43) Unknown potassium clavulanate [From Augmentin] Allergy (Severe, Verified 01/08/18 07:43) Unknown hives? telmisartan [From Micardis] Allergy (Severe, Verified 01/08/18 07:43) Unknown venlafaxine HCl [From Effexor] Allergy (Severe, Verified 08/20/18 07:43) bad dreams, hallucinates atenolol Allergy (Intermediate, Verified 01/08/18 07:43) body hot tingling metoprolol Allergy (Intermediate, Verified 01/08/18 07:43) Unknown amoxicillin [From Augmentin] Allergy (Verified 01/08/18 07:43) Unknown clavulanic acid [From Augmentin] Allergy (Verified 01/08/18 07:43) Unknown duloxetine HCl [From Cymbalta] Allergy (Verified 01/08/18 07:43) aggiation melatonin Allergy (Verified 01/08/18 07:43) kept awake mirtazapine [From Remeron] Allergy (Verified 01/08/18 07:43) Chest tightness sertraline HCl [From Zoloft] Allergy (Verified 01/08/18 07:43) Itching buspirone HCl [From BuSpar] Adverse Reaction (Verified 01/08/18 07:43) aggiation IRRITABLE citalopram hydrobromide [From Celexa] Adverse Reaction (Verified 01/08/18 07:43) aggiation ropinirole Adverse Reaction (Verified 01/08/18 07:43) Other tamsulosin HCl [From Flomax] Adverse Reaction (Verified 01/08/18 07:43) Low blood pressure Home Medications: Ambulatory Orders Medication Instructions Recorded Aspirin [Aspirin, Baby] 81 mg PO DAILY@0800 07/12/14 Omeprazole [Prilosec] 20 mg PO BID 07/12/14 Nitroglycerin [Nitrostat] 0.4 mg SUBLINGUAL Q5M PRN 10/31/14 Dutasteride 0.5 mg PO DAILY 09/23/15 Multivit-Min/FA/Lycopen/Lutein 1 ea PO DAILY 08/17/16 [Centrum Silver Tablet] Levothyroxine [Synthroid] 50 mcg PO DAILY 10/27/16 albuterol sulfate 2.5 mg/3 mL 2.5 mg INHALATION Q4H PRN ml 05/19/17 (0.083 %) solution for nebulization fluticasone 50 mcg/actuation nasal 2 spray INTRANASAL DAILY PRN PRN 05/29/17 spray,suspension meclizine 25 mg tablet 25 mg PO DAILY PRN PRN 12/11/17 Albuterol IH (ProAir) [Proair Hfa] 2 puff INHALATION Q4H PRN PRN 12/21/17 Prednisone 7.5 mg PO DAILY 12/21/17 Trihexyphenidyl HCl 1 mg PO BID 12/21/17 Quetiapine Fumarate [Seroquel] 25 mg PO BID 01/09/18 Enoxaparin [Lovenox] 40 mg SC DAILY@1000 01/10/18 Ensure Enlive 120 ml PO 4X/DAY 01/10/18 Lorazepam [Ativan] 0.5 mg PO BID PRN PRN tablet 01/10/18 Surgical History: Surgical History (Last Reviewed 01/11/18 @ 10:35 by Merritt Miranda MD) History of tonsillectomy (Resolved) Z98.890, Z90.89 History of hemorrhoidectomy (Resolved) Z98.890 History of testicular surgery (Resolved) Z98.890 History of esophagogastroduodenoscopy (EGD) Onset Date: ~09/2015 Z98.890 S/P cataract extraction Z98.49 S/P colonoscopy Onset Date: ~09/2015 Z98.890 S/P hemorrhoidectomy Z98.890, Z87.19 S/P laparoscopic cholecystectomy Z90.49 01/06 Surgical History: - - Orchiectomy for testicular cancer in 1981, removal of right tonsil secondary to cancer, lymph node removal in the neck from tonsillar cancer, PEG tube placement Psychiatric History: Anxiety - With panic attacks Smoking Status: Former smoker - *Family History Maternal Family History: Family History (Last Reviewed 01/11/18 @ 10:35 by Merritt Miranda MD) Brother Diabetes CAD (coronary artery disease) Sister CVA (cerebral vascular accident) Diabetes Hypertension Breast cancer Mother CAD (coronary artery disease) Diabetes Brother Diabetes Heart disease Father Cancer History Items: Diabetes, Heart Disease, Hypertension, - - His mother at the age of 75 from myocardial infarction. Paternal Family History: Family History (Last Reviewed 01/11/18 @ 10:35 by Merritt Miranda MD) Brother Diabetes CAD (coronary artery disease) Sister CVA (cerebral vascular accident) Diabetes Hypertension Breast cancer Mother CAD (coronary artery disease) Diabetes Brother Diabetes Heart disease Father Cancer History Items: Cancer, - - Multiple family members on his father's side have from stomach cancer Review of Systems Constitutional: Denies: Chills, Fever, Weight Change HEENT: Denies: Head Aches, Sinus Congestion, Sinus Drainage Cardiovascular: Denies: Chest Pain, Palpitations Respiratory: Denies: Cough, Shortness of breath at rest, Sputum production Gastrointestinal: Denies: Abdominal Pain, Nausea, Vomiting Genitourinary: Denies: Dysuria Musculoskeletal: Denies: Joint Pain, Joint Tenderness Skin: Denies: Rash, Wounds Neurological: Reports: Balance problems, Change in Speech Psychiatric: Reports: - - Hallucinations VTE Information - Inpt Only VTE Present on Admission: Yes VTE Pharm Prophylaxis ordered?: Yes Objective: This is a well-developed well-nourished white male in no apparent distress alert and oriented to person place and time and fully conversant. He has typical parkinsonian findings including masked facies, no resting tremor, but he does have cogwheeling bilaterally. His voice is also hypophonic. Cranial nerves are intact Strength is 5/5 although apractic and bradykinetic Sensation is intact Deep tendon reflexes are 1+ symmetrically. - Physical Exam Vital Signs Temp Pulse Resp BP Pulse Ox 36.8 C 87 18 127/73 H 94 01/11/18 08:15 01/11/18 08:15 01/11/18 08:15 01/11/18 08:15 01/11/18 08:15 Oxygen Delivery Method Room Air Weight: 61.235 kg Body Mass Index (BMI) 20.5 Intake and Output for Last 24 Hours 01/09/18 01/10/18 01/11/18 23:59 23:59 23:59 Intake Total 220 / 220 Output Total 200 / 200 Balance 20 / 20 Laboratory Tests Past 24 Hrs 01/11/18 01/11/18 05:00 05:00 WBC 6.8 RBC 5.17 Hgb 15.2 Hct 45.5 MCV 88.0 MCH 29.4 MCHC 33.4 RDW 13.6 RDW Differential 43.9 Plt Count 176 MPV 9.2 Sodium 143 Potassium 3.5 Chloride 107 Carbon Dioxide 27.0 Anion Gap 9 BUN 19 H Creatinine 0.85 Estim Creat Clear Calc 70.04 Est GFR (MDRD) Af Amer 114 Est GFR (MDRD) Non-Af 94 BUN/Creatinine Ratio 22.2 H Glucose 107 H Calcium 9.0 Current Medications Carbidopa/Levodopa 1 tablet 01/11/18 07:00 01/11/18 06:00 Sinemet PO 1 tablet DAILY@0700 [facility] Administration Enoxaparin Sodium 40 mg 01/11/18 06:00 01/11/18 05:24 Lovenox SC 40 mg DAILY@0600 [facility] Administration Finasteride 5 mg 01/11/18 10:00 Proscar PO DAILY [facility] Fluticasone Propionate 2 spray 01/10/18 16:43 Flonase Nasal [place] NASAL DAILY PRN PRN ALLERGIES Levothyroxine Sodium 50 mcg 01/11/18 06:00 01/11/18 05:27 Synthroid PO 50 mcg DAILY@0600 [facility] Administration Lorazepam 0.5 mg 01/10/18 16:43 01/10/18 23:43 Ativan PO 0.5 mg BID PRN PRN Administration ANXIETY Magnesium Hydroxide 30 ml 01/10/18 17:48 Milk Of Magnesia PO .PRN X 1 PRN Constipation Meclizine HCl 25 mg 01/10/18 16:43 Antivert PO DAILY PRN PRN DIZZINESS Multivitamins/Minerals 1 tablet 01/11/18 08:00 Multivitamin With Minerals PO DAILY@0800 [facility] Nitroglycerin 0.4 mg 01/10/18 16:43 Nitrostat SUBLINGUAL Q5M PRN Chest Pain Nutritional Formula (Lactose Free) 120 ml 01/10/18 18:00 01/10/18 21:14 Ensure Enlive PO 120 ml 4X/DAY [facility] Administration Pantoprazole Sodium 20 mg 01/10/18 22:00 01/10/18 21:14 Protonix PO 20 mg BID [facility] Administration Prednisone 7.5 mg 01/11/18 08:00 PO DAILY@0800 [facility] Quetiapine Fumarate 25 mg 01/10/18 22:00 01/10/18 21:14 Seroquel PO 25 mg BID [facility] Administration Senna/Docusate Sodium 2 tablet 01/10/18 22:00 01/10/18 21:14 Senokot-S, [place]omen[place]-Colace PO 2 tablet BID [facility] Administration Trihexyphenidyl HCl 1 mg 01/10/18 22:00 01/10/18 21:14 Trihexyphenidyl Hcl PO 1 mg BID [facility] Administration Laboratory Results - last 24 hr 01/11/18 01/11/18 05:00 05:00 WBC 6.8 RBC 5.17 Hgb 15.2 Hct 45.5 MCV 88.0 MCH 29.4 MCHC 33.4 RDW 13.6 RDW Differential 43.9 Plt Count 176 MPV 9.2 Sodium 143 Potassium 3.5 Chloride 107 Carbon Dioxide 27.0 Anion Gap 9 BUN 19 H Creatinine 0.85 Estim Creat Clear Calc 70.04 Est GFR (MDRD) Af Amer 114 Est GFR (MDRD) Non-Af 94 BUN/Creatinine Ratio 22.2 H Glucose 107 H Calcium 9.0 Assessment/Plan All Active Problems (Last Reviewed 01/11/18 @ 10:35 by Merritt Miranda MD) Hallucination (Acute) Gallbladder sludge (Acute) Right upper quadrant pain (Acute) History of tonsillectomy (Resolved) History of hemorrhoidectomy (Resolved) History of testicular surgery (Resolved) Shoulder pain, right (Acute) Dysphagia (Acute) Fatigue (Acute) Near syncope (Acute) Dehydration (Acute) Chest pain (Acute) Generalized abdominal pain (Acute) Rectal bleeding (Acute) Melanotic stools (Acute) Orthostatic hypotension (Resolved) Prior testicular cancer (Resolved) debility, multifactorial due to parkinsons, parkinsons associated hallucinations, 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 also history of parvez, but not toleratant of cpap. complicated by history of laryngeal ca with dysphagia pt for gait and balance ot for adls speech therapy for speech and dysphagia pd: continue current meds including artane, added sinemet this am appears well tolerated and improved, will increase to tid tomorrow parvez:
--- NOTE | 2018-01-11 10:35 | HP.PCM_ITS ---
History of Present Illness Date of Admission: 01/11/18 Chief Complaint: Weakness and falls The patient is a 72 year old male with a history of Parkinson's disease, who presented to the hospital after falling. He lives at home with his and does not usually fall but he has had some issues with parkinsonism over the years. He has seen Dr. De León for this in the past. At some point he was placed on Sinemet as well as Requip but was intolerant of these medicines for unclear reasons the description is that he was agitated at night. There was no clear allergic reaction and they are willing to retry some of these medicines at a lower dose in the rehab unit under direct supervision. He is currently only on Artane for his parkinsonism at home. He and his said there has not been other recent falls but he has had significant problems with hallucinations. He recently started Seroquel 25 mg twice daily which seems to have helped his hallucinations. Today in the rehab unit he says that he slept well overnight and is tolerating therapies. He did receive 1 dose of Sinemet 25 /100 this morning, and he believes that is helped with no untoward reaction. Goal of rehab is buddhist of prior level functional independence as well as addressing his medications. He is also on a low dose of prednisone, I am told that this is prescribed to help with his appetite prescribed by Dr. Ruth. His niece tells me that he has a tremor for over a year. 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 De León History of oropharyngeal cancer (Chronic) Oropharyngeal cancer (Chronic) Coronary artery spasm (Chronic) Anxiety (Chronic) with panic attacks Former smoker (Chronic) Quit 8 years ago COPD (chronic obstructive pulmonary disease) (Chronic) Gastroesophageal reflux disease (Chronic) Hypertension (Chronic) Diverticulosis (Chronic) Obstructive sleep apnea (Chronic) CPAP 12 cm of water CAD (coronary artery disease) (Chronic) HLD (hyperlipidemia) (Chronic) Tonsillar cancer (Chronic) Medical History: Medical History (Last Reviewed 01/11/18 @ 10:35 by Merritt Miranda MD) Dyspnea (Chronic) R06.00 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 De León History of oropharyngeal cancer (Chronic) Z85.819 Oropharyngeal cancer (Chronic) C10.9 Coronary artery spasm (Chronic) I20.1 Anxiety (Chronic) F41.9 with panic attacks Near syncope (Acute) Former smoker (Chronic) Z87.891 Quit 8 years ago COPD (chronic obstructive pulmonary disease) (Chronic) J44.9 Gastroesophageal reflux disease (Chronic) K21.9 Hypertension (Chronic) I10 Dehydration (Acute) E86.0 Diverticulosis (Chronic) K57.90 Obstructive sleep apnea (Chronic) G47.33 CPAP 12 cm of water Chest pain (Acute) R07.9 CAD (coronary artery disease) (Chronic) I25.10 HLD (hyperlipidemia) (Chronic) E78.5 Generalized abdominal pain (Acute) R10.84 Rectal bleeding (Acute) K62.5 Melanotic stools (Acute) K92.1 Tonsillar cancer (Chronic) Allergies amoxicillin trihydrate [From Augmentin] Allergy (Severe, Verified 01/08/18 07:43 ) Unknown ?hives celecoxib [From Celebrex] Allergy (Severe, Verified 01/08/18 07:43) bad dreams, hallucinates, esomeprazole magnesium [From Nexium] Allergy (Severe, Verified 01/08/18 07:43) Unknown Penicillins Allergy (Severe, Verified 01/08/18 07:43) Unknown potassium clavulanate [From Augmentin] Allergy (Severe, Verified 01/08/18 07:43) Unknown hives? telmisartan [From Micardis] Allergy (Severe, Verified 01/08/18 07:43) Unknown venlafaxine HCl [From Effexor] Allergy (Severe, Verified 08/20/18 07:43) bad dreams, hallucinates atenolol Allergy (Intermediate, Verified 01/08/18 07:43) body hot tingling metoprolol Allergy (Intermediate, Verified 01/08/18 07:43) Unknown amoxicillin [From Augmentin] Allergy (Verified 01/08/18 07:43) Unknown clavulanic acid [From Augmentin] Allergy (Verified 01/08/18 07:43) Unknown duloxetine HCl [From Cymbalta] Allergy (Verified 01/08/18 07:43) aggiation melatonin Allergy (Verified 01/08/18 07:43) kept awake mirtazapine [From Remeron] Allergy (Verified 01/08/18 07:43) Chest tightness sertraline HCl [From Zoloft] Allergy (Verified 01/08/18 07:43) Itching buspirone HCl [From BuSpar] Adverse Reaction (Verified 01/08/18 07:43) aggiation IRRITABLE citalopram hydrobromide [From Celexa] Adverse Reaction (Verified 01/08/18 07:43) aggiation ropinirole Adverse Reaction (Verified 01/08/18 07:43) Other tamsulosin HCl [From Flomax] Adverse Reaction (Verified 01/08/18 07:43) Low blood pressure Home Medications: Ambulatory Orders Medication Instructions Recorded Aspirin [Aspirin, Baby] 81 mg PO DAILY@0800 07/12/14 Omeprazole [Prilosec] 20 mg PO BID 07/12/14 Nitroglycerin [Nitrostat] 0.4 mg SUBLINGUAL Q5M PRN 10/31/14 Dutasteride 0.5 mg PO DAILY 09/23/15 Multivit-Min/FA/Lycopen/Lutein 1 ea PO DAILY 08/17/16 [Centrum Silver Tablet] Levothyroxine [Synthroid] 50 mcg PO DAILY 10/27/16 albuterol sulfate 2.5 mg/3 mL 2.5 mg INHALATION Q4H PRN ml 05/19/17 (0.083 %) solution for nebulization fluticasone 50 mcg/actuation nasal 2 spray INTRANASAL DAILY PRN PRN 05/29/17 spray,suspension meclizine 25 mg tablet 25 mg PO DAILY PRN PRN 12/11/17 Albuterol IH (ProAir) [Proair Hfa] 2 puff INHALATION Q4H PRN PRN 12/21/17 Prednisone 7.5 mg PO DAILY 12/21/17 Trihexyphenidyl HCl 1 mg PO BID 12/21/17 Quetiapine Fumarate [Seroquel] 25 mg PO BID 01/09/18 Enoxaparin [Lovenox] 40 mg SC DAILY@1000 01/10/18 Ensure Enlive 120 ml PO 4X/DAY 01/10/18 Lorazepam [Ativan] 0.5 mg PO BID PRN PRN tablet 01/10/18 Surgical History: Surgical History (Last Reviewed 01/11/18 @ 10:35 by Merritt Miranda MD) History of tonsillectomy (Resolved) Z98.890, Z90.89 History of hemorrhoidectomy (Resolved) Z98.890 History of testicular surgery (Resolved) Z98.890 History of esophagogastroduodenoscopy (EGD) Onset Date: ~09/2015 Z98.890 S/P cataract extraction Z98.49 S/P colonoscopy Onset Date: ~09/2015 Z98.890 S/P hemorrhoidectomy Z98.890, Z87.19 S/P laparoscopic cholecystectomy Z90.49 01/06 Surgical History: - - Orchiectomy for testicular cancer in 1981, removal of right tonsil secondary to cancer, lymph node removal in the neck from tonsillar cancer, PEG tube placement Psychiatric History: Anxiety - With panic attacks Smoking Status: Former smoker - *Family History Maternal Family History: Family History (Last Reviewed 01/11/18 @ 10:35 by Merritt Miranda MD) Brother Diabetes CAD (coronary artery disease) Sister CVA (cerebral vascular accident) Diabetes Hypertension Breast cancer Mother CAD (coronary artery disease) Diabetes Brother Diabetes Heart disease Father Cancer History Items: Diabetes, Heart Disease, Hypertension, - - His mother at the age of 75 from myocardial infarction. Paternal Family History: Family History (Last Reviewed 01/11/18 @ 10:35 by Merritt Miranda MD) Brother Diabetes CAD (coronary artery disease) Sister CVA (cerebral vascular accident) Diabetes Hypertension Breast cancer Mother CAD (coronary artery disease) Diabetes Brother Diabetes Heart disease Father Cancer History Items: Cancer, - - Multiple family members on his father's side have from stomach cancer Review of Systems Constitutional: Denies: Chills, Fever, Weight Change HEENT: Denies: Head Aches, Sinus Congestion, Sinus Drainage Cardiovascular: Denies: Chest Pain, Palpitations Respiratory: Denies: Cough, Shortness of breath at rest, Sputum production Gastrointestinal: Denies: Abdominal Pain, Nausea, Vomiting Genitourinary: Denies: Dysuria Musculoskeletal: Denies: Joint Pain, Joint Tenderness Skin: Denies: Rash, Wounds Neurological: Reports: Balance problems, Change in Speech Psychiatric: Reports: - - Hallucinations VTE Information - Inpt Only VTE Present on Admission: Yes VTE Pharm Prophylaxis ordered?: Yes Objective: This is a well-developed well-nourished white male in no apparent distress alert and oriented to person place and time and fully conversant. He has typical parkinsonian findings including masked facies, no resting tremor , but he does have cogwheeling bilaterally. His voice is also hypophonic. Cranial nerves are intact Strength is 5/5 although apractic and bradykinetic Sensation is intact Deep tendon reflexes are 1+ symmetrically. - Physical Exam Vital Signs Temp Pulse Resp BP Pulse Ox 36.8 C 87 18 127/73 H 94 01/11/18 08:15 01/11/18 08:15 01/11/18 08:15 01/11/18 08:15 01/11/18 08:15 Oxygen Delivery Method Room Air Weight: 61.235 kg Body Mass Index (BMI) 20.5 Intake and Output for Last 24 Hours 01/09/18 01/10/18 01/11/18 23:59 23:59 23:59 Intake Total 220 / 220 Output Total 200 / 200 Balance 20 / 20 Laboratory Tests Past 24 Hrs 01/11/18 01/11/18 05:00 05:00 WBC 6.8 RBC 5.17 Hgb 15.2 Hct 45.5 MCV 88.0 MCH 29.4 MCHC 33.4 RDW 13.6 RDW Differential 43.9 Plt Count 176 MPV 9.2 Sodium 143 Potassium 3.5 Chloride 107 Carbon Dioxide 27.0 Anion Gap 9 BUN 19 H Creatinine 0.85 Estim Creat Clear Calc 70.04 Est GFR (MDRD) Af Amer 114 Est GFR (MDRD) Non-Af 94 BUN/Creatinine Ratio 22.2 H Glucose 107 H Calcium 9.0 Current Medications Carbidopa/Levodopa 1 tablet 01/11/18 07:00 01/11/18 06:00 Sinemet PO 1 tablet DAILY@0700 [facility] Administration Enoxaparin Sodium 40 mg 01/11/18 06:00 01/11/18 05:24 Lovenox SC 40 mg DAILY@0600 [facility] Administration Finasteride 5 mg 01/11/18 10:00 Proscar PO DAILY [facility] Fluticasone Propionate 2 spray 01/10/18 16:43 Flonase Nasal [place] NASAL DAILY PRN PRN ALLERGIES Levothyroxine Sodium 50 mcg 01/11/18 06:00 01/11/18 05:27 Synthroid PO 50 mcg DAILY@0600 [facility] Administration Lorazepam 0.5 mg 01/10/18 16:43 01/10/18 23:43 Ativan PO 0.5 mg BID PRN PRN Administration ANXIETY Magnesium Hydroxide 30 ml 01/10/18 17:48 Milk Of Magnesia PO .PRN X 1 PRN Constipation Meclizine HCl 25 mg 01/10/18 16:43 Antivert PO DAILY PRN PRN DIZZINESS Multivitamins/Minerals 1 tablet 01/11/18 08:00 Multivitamin With Minerals PO DAILY@0800 [facility] Nitroglycerin 0.4 mg 01/10/18 16:43 Nitrostat SUBLINGUAL Q5M PRN Chest Pain Nutritional Formula (Lactose Free) 120 ml 01/10/18 18:00 01/10/18 21:14 Ensure Enlive PO 120 ml 4X/DAY [facility] Administration Pantoprazole Sodium 20 mg 01/10/18 22:00 01/10/18 21:14 Protonix PO 20 mg BID [facility] Administration Prednisone 7.5 mg 01/11/18 08:00 PO DAILY@0800 [facility] Quetiapine Fumarate 25 mg 01/10/18 22:00 01/10/18 21:14 Seroquel PO 25 mg BID [facility] Administration Senna/Docusate Sodium 2 tablet 01/10/18 22:00 01/10/18 21:14 Senokot-S, Philomen[place]-Colace PO 2 tablet BID [facility] Administration Trihexyphenidyl HCl 1 mg 01/10/18 22:00 01/10/18 21:14 Trihexyphenidyl Hcl PO 1 mg BID [facility] Administration Laboratory Results - last 24 hr 01/11/18 01/11/18 05:00 05:00 WBC 6.8 RBC 5.17 Hgb 15.2 Hct 45.5 MCV 88.0 MCH 29.4 MCHC 33.4 RDW 13.6 RDW Differential 43.9 Plt Count 176 MPV 9.2 Sodium 143 Potassium 3.5 Chloride 107 Carbon Dioxide 27.0 Anion Gap 9 BUN 19 H Creatinine 0.85 Estim Creat Clear Calc 70.04 Est GFR (MDRD) Af Amer 114 Est GFR (MDRD) Non-Af 94 BUN/Creatinine Ratio 22.2 H Glucose 107 H Calcium 9.0 Assessment/Plan All Active Problems (Last Reviewed 01/11/18 @ 10:35 by Merritt Miranda MD) Hallucination (Acute) Gallbladder sludge (Acute) Right upper quadrant pain (Acute) History of tonsillectomy (Resolved) History of hemorrhoidectomy (Resolved) History of testicular surgery (Resolved) Shoulder pain, right (Acute) Dysphagia (Acute) Fatigue (Acute) Near syncope (Acute) Dehydration (Acute) Chest pain (Acute) Generalized abdominal pain (Acute) Rectal bleeding (Acute) Melanotic stools (Acute) Orthostatic hypotension (Resolved) Prior testicular cancer (Resolved) debility, multifactorial due to parkinsons, parkinsons associated hallucinations , 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 also history of parvez, but not toleratant of cpap. complicated by history of laryngeal ca with dysphagia pt for gait and balance ot for adls speech therapy for speech and dysphagia pd: continue current meds including artane, added sinemet this am appears well tolerated and improved, will increase to tid tomorrow parvez:
--- NOTE | 2018-01-11 10:41 | PCM.RU.PYE ---
Admission Information Status Changes from Prescreening?: No changes Identified Actual Problem List:: Falls, Cognitve Impr/Memory Loss, Mobility Impaired, Self Care Deficit, Ineffect.D/C Plan r/t Psy Potential Problem List:: DVT, Bleeding, Infection, UTI, Aspiration, Falls, Skin Integrity, Depression Risk of Complications DVT: LMWH, SCOTT Hose, Sequential Compression Device Bleeding: Monitor Lab Values, Nursing to Teach Precautions for anti-coagulation therapy., Wound, if applicable, to be assessed every shift., Stroke patients assessed for lethargy or change in status. Infection: Clinical Staff to Monitor for S/S of infection:, S/S of infection include fever, redness, warmth, etc. Urinary Tract Infection: Monitor for frequency, burning, discomfort, or incontinence., Nursing will obtain urine sample for urinalysis and C&S when ordered. Aspiration: Clinical staff will monitor for coughing, drooling, congestion., Speech will evaluate swallowing and dsyphasia., Nursing will monitor patient swallowing during meals. Falls: Patient will be evaluated for Fall Precautions, Patient will be placed on Fall Precautions as indicated per protocol. Skin Breakdown: Nursing will assess skin daily using assessment tool., Nursing will place on Skin Breakdown Precautions as indicated. Pain: Clinical staff will assess patient's pain level per protocol., Medications will be given, if needed, and the pain level reassessed., Other methods: Massage, distraction, decrease stimulus, etc. used PRN. Plan of Care Patient requires physician specializing in physical medicine and rehab oversight to provide close medical supervision of rehab issues including: Pain Management, Sleep Problems, Bowel and Bladder, Medical and co-morbidity Management, DVT prophylaxis, Rehabilitation Leadership, Coordination of treatment team Patient needs Physical Therapy: For a minimum of 1 hour, At least 5 out of 7 days Patient needs Physical Therapy to improve:: Mobility, Mobility, Mobility, Strengthening, Transfers, Stretching, ROM, Endurance, Stairs, Gait, Balance Patient needs Occupational Therapy: For a minimum of 1 hour, At least 5 out of 7 days Patient needs Occupational Therapy to improve ADL's incl.: Eating, Grooming, Bathing, Dressing, Toileting, Toilet transfers, Community Reintegration, Higher functioning activities, Household tasks, Adaptive Equipment, Splinting, Other activities as determined Patient requires speech therapy: For a minimum of 1 hour, At least 5 out of 7 days Patient requires speech therapy for: Swallowing, Cognition, Language Skills, Compensatory Strategies Patient requires 24/ Rehabilitation Nursing for: Pain Issues, Identifying and preventing risk factors, Monitoring and reporting current medical conditions, Assisting with ambulation, transfer, and all ADL's, Teaching patients about disease process and medications, Family teaching, Providing safe environment, Bowel and Bladder Issues, Skin integrity, Medication Management Patient needs Publishing Specialist/ Case Management for: Discharge Planning, Arranging Home Equipment or Services, Family Interventions Patient needs Dietary and Nutrition Services for: Adequate Nutrition, Nutritional Supplements, Nutritional Education Goals Patient will remain: free from falls, or injury at time of discharge. Patient will perform bed mobility at: MOD I level of assist. Patient will complete transfers from bed to chair at: MOD I level of assist. Patient will ambulate: 100 feet, with MOD I assist, with LRD Patient will complete upper body dressing at: MOD I level of assist. Patient will complete lower body dressing at: MOD I level of assist. Patient will complete toileting at: MOD I level of assist. Patient will perform bathing at: MOD I level of assist. Patient will complete grooming at: MOD I level of assist. Patient will complete home management skills at: MOD I level of assist. Patient will achieve: 12 stairs, at MOD I assist Patient will have pain level of: of 3 or less Patient's skin will: remain intact, free from infection. Patient will receive: adequate nutrition. Discharge Planning Pt Prognosis for Sig. Practical Improv. w/in Reasonable Time: Good Anticipated D/C Destination: Home with Outpt Therapy Was Preadmission Assessment Accurate?: Yes
[2018-01-11] MEDS: Aspirin 81 MG TAB.CHEW PO (11:10)
[2018-01-11] MEDS: predniSONE 5 MG Tablet 7.5 MG PO (11:10)
[2018-01-11] MEDS: Finasteride 5 MG Tablet PO (11:10)
[2018-01-11] MEDS: QUEtiapine 25 MG Tablet PO ×2 (11:10→21:19)
[2018-01-11] MEDS: Pantoprazole Sodium 20 MG Tablet PO ×2 (11:10→21:20)
[2018-01-11] MEDS: Multivitamins,Ther W-Minerals Tablet 1 TABLET PO (11:10)
[2018-01-11] MEDS: TRIHEXYPHENIDYL HCL 2 MG TABLET 1 MG PO ×2 (11:11→21:19)
[2018-01-11] MEDS: Senna/Docusate Sodium 1 Tablet 2 TABLET PO ×2 (11:11→21:20)
--- NOTE | 2018-01-11 13:24 | PN_ITS ---
Subjective: And was seen and examined. Doing well with therapy. Denies any new complaints. Vitals/I&O's: Vital Signs Temp Pulse Resp BP Pulse Ox 98.3 F 87 18 127/73 H 94 01/11/18 08:15 01/11/18 08:15 01/11/18 08:15 01/11/18 08:15 01/11/18 08:15 Oxygen Delivery Method Room Air Weight: 61.235 kg Body Mass Index (BMI) 20.5 Intake and Output for Last 24 Hours 01/09/18 01/10/18 01/11/18 23:59 23:59 23:59 Intake Total 220 / 220 Output Total 200 / 200 Balance General: Alert, Oriented x3, Cooperative, No apparent distress HEENT: Atraumatic, PERRLA, EOMI, Normocephalic Neck: Supple, No JVD, Negative Carotid Bruits Lungs: Clear to auscultation, Normal air movement Cardiovascular: Regular rate, Regular Rhythm, Normal S1, Normal S2, No murmurs Abdomen: Bowel Sounds Present, Soft, Non Tender, Non-Distended, No Hepato- splenomegaly Extremities: No edema Skin: No rashes, No breakdown Musculoskeletal: No Tenderness to Palpation of Joints or Extremities Lymphatic: No Cervical, Supraclavicular, or Inguinal Adenopathy Neurological: Cranial nerves II-XII grossly intact, Neuro grossly intact Psych/Mental Status: Normal Affect, Appropriate Laboratory Results 01/11/18 05:00: WBC 6.8, RBC 5.17, Hgb 15.2, Hct 45.5, MCV 88.0, MCH 29.4, MCHC 33.4, RDW 13.6, RDW Differential 43.9, Plt Count 176, MPV 9.2 01/11/18 05:00: Sodium 143, Potassium 3.5, Chloride 107, Carbon Dioxide 27.0, Anion Gap 9, BUN 19 H, Creatinine 0.85, Estim Creat Clear Calc 70.04, Est GFR ( MDRD) Af Amer 114, Est GFR (MDRD) Non-Af 94, BUN/Creatinine Ratio 22.2 H, Glucose 107 H, Calcium 9.0 Current Medications Albuterol Sulfate (Ventolin Aerosols) 2.5 mg INHALATION Q4H PRN PRN Reason: shortness of breath or wheezing Aspirin (Aspirin, Baby) 81 mg PO DAILY@0800 [facility] Last Admin: 01/11/18 11:10 Dose: 81 mg Bisacodyl (Dulcolax) 10 mg RECTAL .PRN X 1 PRN PRN Reason: Constipation Carbidopa/Levodopa (Sinemet) 1 tablet PO DAILY@0700 [facility] Last Admin: 01/11/18 06:00 Dose: 1 tablet Enoxaparin Sodium (Lovenox) 40 mg SC DAILY@0600 [facility] Last Admin: 01/11/18 05:24 Dose: 40 mg Finasteride (Proscar) 5 mg PO DAILY [facility] Last Admin: 01/11/18 11:10 Dose: 5 mg Fluticasone Propionate (Flonase Nasal [place]) 2 spray NASAL DAILY PRN PRN PRN Reason: ALLERGIES Levothyroxine Sodium (Synthroid) 50 mcg PO DAILY@0600 [facility] Last Admin: 01/11/18 05:27 Dose: 50 mcg Lorazepam (Ativan) 0.5 mg PO BID PRN PRN PRN Reason: ANXIETY Last Admin: 01/10/18 23:43 Dose: 0.5 mg Magnesium Hydroxide (Milk Of Magnesia) 30 ml PO .PRN X 1 PRN PRN Reason: Constipation Meclizine HCl (Antivert) 25 mg PO DAILY PRN PRN PRN Reason: DIZZINESS Multivitamins/Minerals (Multivitamin With Minerals) 1 tablet PO DAILY@0800 [facility] Last Admin: 01/11/18 11:10 Dose: 1 tablet Nitroglycerin (Nitrostat) 0.4 mg SUBLINGUAL Q5M PRN PRN Reason: Chest Pain Nutritional Formula (Lactose Free) (Ensure Enlive) 120 ml PO 4X/DAY [facility] Last Admin: 01/11/18 11:11 Dose: 120 ml Pantoprazole Sodium (Protonix) 20 mg PO BID [facility] Last Admin: 01/11/18 11:10 Dose: 20 mg Prednisone () 7.5 mg PO DAILY@0800 [facility] Last Admin: 01/11/18 11:10 Dose: 7.5 mg Quetiapine Fumarate (Seroquel) 25 mg PO BID [facility] Last Admin: 01/11/18 11:10 Dose: 25 mg Senna/Docusate Sodium (Senokot-S, Philomen[place]-Colace) 2 tablet PO BID [facility] Last Admin: 01/11/18 11:11 Dose: 2 tablet Trihexyphenidyl HCl (Trihexyphenidyl Hcl) 1 mg PO BID [facility] Last Admin: 01/11/18 11:11 Dose: 1 mg Medical Necessity - Tobacco Use Smoking Status: Former smoker Assessment/Plan All Active Problems (Last Reviewed 01/11/18 @ 10:35 by Merritt Miranda MD) Hallucination (Acute) Gallbladder sludge (Acute) Right upper quadrant pain (Acute) History of tonsillectomy (Resolved) History of hemorrhoidectomy (Resolved) History of testicular surgery (Resolved) Shoulder pain, right (Acute) Dysphagia (Acute) Fatigue (Acute) Near syncope (Acute) Dehydration (Acute) Chest pain (Acute) Generalized abdominal pain (Acute) Rectal bleeding (Acute) Melanotic stools (Acute) Orthostatic hypotension (Resolved) Prior testicular cancer (Resolved) 1. Debility related to worsening Parkinson's disease with hallucinations, here for rehab, will defer to the rehab team 2. Parkinson's disease with dementia, Sinemet, Ativan, Seroquel 3. BPH, on finasteride 4. Hypothyroidism, on levothyroxine 5. DVT PPx- Lovenox SC Code Visit Inpatient E&M: 50064 Subs Hosp L2
--- NOTE | 2018-01-11 16:02 | CHAPLAIN ---
Type of Pastoral Visit ___ Initial Visit _x__ Follow-up Visit ___ On-call Visit ___ General Patient Visit ___ Spiritual Assessment ___ Family Conference ___ Bereavement ___ Rapid Response ___ Code Blue ___ Other (describe below) Pastoral Care Referral From _x__ Patient ___ Family ___ Nurse ___ Physician ___ Lead Manufacturing Engineering Tech ___ Relay Shop Tester ___ Other (describe below) Sacrament/Intervention _x__ Active listening ___ Anointing ___ Jain ___ Bereavement ___ Communion ___ [place] exploration ___ ___ Life review _x__ Prayer ___ Reconciliation ___ Sacrament of Sick _x__ Supportive presence ___ Wedding ___ Other (describe below) Pastoral Comments patient remembered 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
[2018-01-11 16:34] VITALS: O2SAT 98
[2018-01-11 19:48] VITALS: BP 157/90; PULSE 102; RESP 18; TEMP 36.7; O2SAT 96
[2018-01-11] MEDS: LORazepam 0.5 MG Tablet PO (22:20)
[2018-01-12] MEDS: Levothyroxine 50 MCG Tablet PO (05:05)
[2018-01-12] MEDS: Enoxaparin 40 MG/0.4 ML Syringe SC (05:06)
[2018-01-12 06:45] VITALS: O2SAT 97
[2018-01-12] MEDS: Carbidopa/Levodopa 25/100 Tablet PO (07:01)
[2018-01-12 07:41] VITALS: BP 112/67; PULSE 68; RESP 18; TEMP 36.6; O2SAT 98
[2018-01-12] MEDS: QUEtiapine 25 MG Tablet PO ×2 (09:27→20:55)
[2018-01-12] MEDS: Aspirin 81 MG TAB.CHEW PO (09:27)
[2018-01-12] MEDS: predniSONE 5 MG Tablet 7.5 MG PO (09:27)
[2018-01-12] MEDS: Multivitamins,Ther W-Minerals Tablet 1 TABLET PO (09:27)
[2018-01-12] MEDS: Pantoprazole Sodium 20 MG Tablet PO ×2 (09:27→20:55)
[2018-01-12] MEDS: Senna/Docusate Sodium 1 Tablet 2 TABLET PO ×2 (09:27→20:55)
[2018-01-12] MEDS: Finasteride 5 MG Tablet PO (09:27)
[2018-01-12] MEDS: TRIHEXYPHENIDYL HCL 2 MG TABLET 1 MG PO ×2 (09:28→20:54)
--- NOTE | 2018-01-12 10:16 | PCM.PN.NEU ---
Subjective: Mr. Nicole is tolerating therapies well, no GI or complaints slept well last night. He is tolerating his Sinemet and requests that it be increased again. He does indicate that he suffers from anxiety which has been an ongoing issue related to his parkinsonism. He is amenable to treatment for this. He has no longer experienced any hallucinations. - Physical Exam General: Alert, Oriented x3 Neurological: Cranial nerves II-XII grossly intact, - - He has masked facies and bradykinesia, mild tremor bilaterally. Gait is significantly improved he is walking with the physical therapist with a gait belt with minimal assistance by my observation. Vital Signs Temp Pulse Resp BP Pulse Ox 36.6 C 68 18 112/67 98 01/12/18 07:41 01/12/18 07:41 01/12/18 07:41 01/12/18 07:41 01/12/18 07:41 Oxygen Delivery Method Room Air Weight: 61.235 kg Body Mass Index (BMI) 20.5 Intake and Output for Last 24 Hours 01/10/18 01/11/18 01/12/18 23:59 23:59 23:59 Intake Total 420 / 420 120 / 120 Output Total 400 / 400 Balance 20 / 20 120 / 120 Current Medications Albuterol Sulfate 2.5 mg 01/10/18 16:43 Ventolin Aerosols INHALATION Q4H PRN shortness of breath or wheezing Aspirin 81 mg 01/11/18 08:00 01/12/18 09:27 Aspirin, Baby PO 81 mg DAILY@0800 [facility] Administration Bisacodyl 10 mg 01/10/18 17:48 Dulcolax RECTAL .PRN X 1 PRN Constipation Carbidopa/Levodopa 1 tablet 01/11/18 07:00 01/12/18 07:01 Sinemet PO 1 tablet DAILY@0700 [facility] Administration Enoxaparin Sodium 40 mg 01/11/18 06:00 01/12/18 05:06 Lovenox SC 40 mg DAILY@0600 [facility] Administration Finasteride 5 mg 01/11/18 10:00 01/12/18 09:27 Proscar PO 5 mg DAILY [facility] Administration Fluticasone Propionate 2 spray 01/10/18 16:43 Flonase Nasal [place] NASAL DAILY PRN PRN ALLERGIES Levothyroxine Sodium 50 mcg 01/11/18 06:00 01/12/18 05:05 Synthroid PO 50 mcg DAILY@0600 [facility] Administration Lorazepam 0.5 mg 01/10/18 16:43 01/11/18 22:20 Ativan PO 0.5 mg BID PRN PRN Administration ANXIETY Magnesium Hydroxide 30 ml 01/10/18 17:48 Milk Of Magnesia PO .PRN X 1 PRN Constipation Meclizine HCl 25 mg 01/10/18 16:43 Antivert PO DAILY PRN PRN DIZZINESS Multivitamins/Minerals 1 tablet 01/11/18 08:00 01/12/18 09:27 Multivitamin With Minerals PO 1 tablet DAILY@0800 [facility] Administration Nitroglycerin 0.4 mg 01/10/18 16:43 Nitrostat SUBLINGUAL Q5M PRN Chest Pain Nutritional Formula (Lactose Free) 120 ml 01/10/18 18:00 01/12/18 09:30 Ensure Enlive PO 120 ml 4X/DAY [facility] Administration Pantoprazole Sodium 20 mg 01/10/18 22:00 01/12/18 09:27 Protonix PO 20 mg BID [facility] Administration Prednisone 7.5 mg 01/11/18 08:00 01/12/18 09:27 PO 7.5 mg DAILY@0800 [facility] Administration Quetiapine Fumarate 25 mg 01/10/18 22:00 01/12/18 09:27 Seroquel PO 25 mg BID [facility] Administration Senna/Docusate Sodium 2 tablet 01/10/18 22:00 01/12/18 09:27 Senokot-S, [place]-Colace PO 2 tablet BID [facility] Administration Trihexyphenidyl HCl 1 mg 01/10/18 22:00 01/12/18 09:28 Trihexyphenidyl Hcl PO 1 mg BID [facility] Administration Medical Necessity - Tobacco Use Smoking Status: Former smoker Assessment/Plan All Active Problems (Last Reviewed 01/11/18 @ 10:35 by Merritt Miranda MD) Hallucination (Acute) Gallbladder sludge (Acute) Right upper quadrant pain (Acute) History of tonsillectomy (Resolved) History of hemorrhoidectomy (Resolved) History of testicular surgery (Resolved) Shoulder pain, right (Acute) Dysphagia (Acute) Fatigue (Acute) Near syncope (Acute) Dehydration (Acute) Chest pain (Acute) Generalized abdominal pain (Acute) Rectal bleeding (Acute) Melanotic stools (Acute) Orthostatic hypotension (Resolved) Prior testicular cancer (Resolved) debility, multifactorial due to parkinsons, parkinsons associated hallucinations, 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 also history of parvez, but not toleratant of cpap. complicated by history of laryngeal ca with dysphagia pt for gait and balance ot for adls speech therapy for speech and dysphagia pd: continue current meds including artane, added sinemet this am appears well tolerated and improved, will increase to tid tomorrow. 01/12: Will increase his Sinemet to every morning, 1 hour before lunch and 1 hour before supper parvez: Home CPAP We will add as needed analgesics
--- NOTE | 2018-01-12 10:19 | PN.NEURO_ITS ---
Subjective: Mr. Nicole is tolerating therapies well, no GI or complaints slept well last night. He is tolerating his Sinemet and requests that it be increased again. He does indicate that he suffers from anxiety which has been an ongoing issue related to his parkinsonism. He is amenable to treatment for this. He has no longer experienced any hallucinations. - Physical Exam General: Alert, Oriented x3 Neurological: Cranial nerves II-XII grossly intact, - - He has masked facies and bradykinesia, mild tremor bilaterally. Gait is significantly improved he is walking with the physical therapist with a gait belt with minimal assistance by my observation. Vital Signs Temp Pulse Resp BP Pulse Ox 36.6 C 68 18 112/67 98 01/12/18 07:41 01/12/18 07:41 01/12/18 07:41 01/12/18 07:41 01/12/18 07:41 Oxygen Delivery Method Room Air Weight: 61.235 kg Body Mass Index (BMI) 20.5 Intake and Output for Last 24 Hours 01/10/18 01/11/18 01/12/18 23:59 23:59 23:59 Intake Total 420 / 420 120 / 120 Output Total 400 / 400 Balance 20 / 20 120 / 120 Current Medications Albuterol Sulfate 2.5 mg 01/10/18 16:43 Ventolin Aerosols INHALATION Q4H PRN shortness of breath or wheezing Aspirin 81 mg 01/11/18 08:00 01/12/18 09:27 Aspirin, Baby PO 81 mg DAILY@0800 [facility] Administration Bisacodyl 10 mg 01/10/18 17:48 Dulcolax RECTAL .PRN X 1 PRN Constipation Carbidopa/Levodopa 1 tablet 01/11/18 07:00 01/12/18 07:01 Sinemet PO 1 tablet DAILY@0700 [facility] Administration Enoxaparin Sodium 40 mg 01/11/18 06:00 01/12/18 05:06 Lovenox SC 40 mg DAILY@0600 [facility] Administration Finasteride 5 mg 01/11/18 10:00 01/12/18 09:27 Proscar PO 5 mg DAILY [facility] Administration Fluticasone Propionate 2 spray 01/10/18 16:43 Flonase Nasal [place] NASAL DAILY PRN PRN ALLERGIES Levothyroxine Sodium 50 mcg 01/11/18 06:00 01/12/18 05:05 Synthroid PO 50 mcg DAILY@0600 [facility] Administration Lorazepam 0.5 mg 01/10/18 16:43 01/11/18 22:20 Ativan PO 0.5 mg BID PRN PRN Administration ANXIETY Magnesium Hydroxide 30 ml 01/10/18 17:48 Milk Of Magnesia PO .PRN X 1 PRN Constipation Meclizine HCl 25 mg 01/10/18 16:43 Antivert PO DAILY PRN PRN DIZZINESS Multivitamins/Minerals 1 tablet 01/11/18 08:00 01/12/18 09:27 Multivitamin With Minerals PO 1 tablet DAILY@0800 [facility] Administration Nitroglycerin 0.4 mg 01/10/18 16:43 Nitrostat SUBLINGUAL Q5M PRN Chest Pain Nutritional Formula (Lactose Free) 120 ml 01/10/18 18:00 01/12/18 09:30 Ensure Enlive PO 120 ml 4X/DAY [facility] Administration Pantoprazole Sodium 20 mg 01/10/18 22:00 01/12/18 09:27 Protonix PO 20 mg BID [facility] Administration Prednisone 7.5 mg 01/11/18 08:00 01/12/18 09:27 PO 7.5 mg DAILY@0800 [facility] Administration Quetiapine Fumarate 25 mg 01/10/18 22:00 01/12/18 09:27 Seroquel PO 25 mg BID [facility] Administration Senna/Docusate Sodium 2 tablet 01/10/18 22:00 01/12/18 09:27 Senokot-S, [place]-Colace PO 2 tablet BID [facility] Administration Trihexyphenidyl HCl 1 mg 01/10/18 22:00 01/12/18 09:28 Trihexyphenidyl Hcl PO 1 mg BID [facility] Administration Medical Necessity - Tobacco Use Smoking Status: Former smoker Assessment/Plan All Active Problems (Last Reviewed 01/11/18 @ 10:35 by Merritt Miranda MD) Hallucination (Acute) Gallbladder sludge (Acute) Right upper quadrant pain (Acute) History of tonsillectomy (Resolved) History of hemorrhoidectomy (Resolved) History of testicular surgery (Resolved) Shoulder pain, right (Acute) Dysphagia (Acute) Fatigue (Acute) Near syncope (Acute) Dehydration (Acute) Chest pain (Acute) Generalized abdominal pain (Acute) Rectal bleeding (Acute) Melanotic stools (Acute) Orthostatic hypotension (Resolved) Prior testicular cancer (Resolved) debility, multifactorial due to parkinsons, parkinsons associated hallucinations , 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 also history of parvez, but not toleratant of cpap. complicated by history of laryngeal ca with dysphagia pt for gait and balance ot for adls speech therapy for speech and dysphagia pd: continue current meds including artane, added sinemet this am appears well tolerated and improved, will increase to tid tomorrow. 01/12: Will increase his Sinemet to every morning, 1 hour before lunch and 1 hour before supper parvez: Home CPAP We will add as needed analgesics
[2018-01-12] MEDS: Acetaminophen 325 MG Tablet PO (19:55)
[2018-01-12 20:06] VITALS: BP 141/73; PULSE 84; RESP 17; TEMP 36.8; O2SAT 97
[2018-01-12 20:10] VITALS: PULSE 84; RESP 17; O2SAT 97
[2018-01-12] MEDS: HYDROcodone Bitartrate/Apap 5/325 Tablet PO (22:37)
--- NOTE | 2018-01-13 01:09 | NURSING ---
Reviewed and agree with LPNs fims and handoff
[2018-01-13] MEDS: Enoxaparin 40 MG/0.4 ML Syringe SC (05:59)
[2018-01-13] MEDS: Carbidopa/Levodopa 25/100 Tablet PO ×2 (05:59→16:26)
[2018-01-13] MEDS: Levothyroxine 50 MCG Tablet PO (05:59)
[2018-01-13 07:48] VITALS: BP 140/80; PULSE 90; RESP 16; TEMP 36.7; O2SAT 97
[2018-01-13] MEDS: Multivitamins,Ther W-Minerals Tablet 1 TABLET PO (07:56)
[2018-01-13] MEDS: TRIHEXYPHENIDYL HCL 2 MG TABLET 1 MG PO ×2 (07:56→22:05)
[2018-01-13] MEDS: Aspirin 81 MG TAB.CHEW PO (07:56)
[2018-01-13] MEDS: Finasteride 5 MG Tablet PO (07:56)
[2018-01-13] MEDS: Pantoprazole Sodium 20 MG Tablet PO ×2 (07:56→22:05)
[2018-01-13] MEDS: predniSONE 5 MG Tablet 7.5 MG PO (07:56)
[2018-01-13 07:57] VITALS: O2SAT 98
[2018-01-13] MEDS: Senna/Docusate Sodium 1 Tablet 2 TABLET PO ×2 (07:57→22:05)
[2018-01-13] MEDS: QUEtiapine 25 MG Tablet PO ×2 (07:57→22:05)
[2018-01-13] MEDS: Acetaminophen 325 MG Tablet PO (09:35)
--- NOTE | 2018-01-13 11:02 | PCM.PN.HOSP ---
Subjective: Patient was seen and examined. Seen exercising with PT. Denies any complains. Therapy is going well, less anxious, no falls. Vitals/I&O's: Vital Signs Temp Pulse Resp BP Pulse Ox 98.1 F 90 16 140/80 H 98 01/13/18 07:48 01/13/18 07:48 01/13/18 07:48 01/13/18 07:48 01/13/18 07:57 Oxygen Delivery Method Room Air Weight: 61.235 kg Body Mass Index (BMI) 20.5 Intake and Output for Last 24 Hours 01/11/18 01/12/18 01/13/18 23:59 23:59 23:59 Intake Total 420 / 420 600 / 600 Output Total 400 / 400 Balance 600 / 600 General: Alert, Oriented x3, Cooperative, No apparent distress HEENT: Atraumatic, PERRLA, EOMI, Normocephalic Oral: Moist Mucosa Neck: Supple Lungs: Clear to auscultation, Normal air movement Cardiovascular: Regular rate, Regular Rhythm, Normal S1, Normal S2, No murmurs Abdomen: Bowel Sounds Present, Soft, Non Tender, Non-Distended, No Hepato-splenomegaly Extremities: No edema Skin: No rashes, No breakdown Musculoskeletal: No Tenderness to Palpation of Joints or Extremities Lymphatic: No Cervical, Supraclavicular, or Inguinal Adenopathy Neurological: Cranial nerves II-XII grossly intact, Neuro grossly intact Psych/Mental Status: Normal Affect, Appropriate Current Medications Acetaminophen (Tylenol) 325 mg PO Q6H PRN PRN PRN Reason: PAIN Last Admin: 01/13/18 09:35 Dose: 325 mg Hydrocodone Bitart/Acetaminophen ([place] 5mg-325mg) 1 tablet PO Q4H PRN PRN PRN Reason: SEVERE PAIN (6-10/10) Last Admin: 01/12/18 22:37 Dose: 1 tablet Albuterol Sulfate (Ventolin Aerosols) 2.5 mg INHALATION Q4H PRN PRN Reason: shortness of breath or wheezing Aspirin (Aspirin, Baby) 81 mg PO DAILY@0800 [facility] Last Admin: 01/13/18 07:56 Dose: 81 mg Bisacodyl (Dulcolax) 10 mg RECTAL .PRN X 1 PRN PRN Reason: Constipation Enoxaparin Sodium (Lovenox) 40 mg SC DAILY@0600 [facility] Last Admin: 01/13/18 05:59 Dose: 40 mg Finasteride (Proscar) 5 mg PO DAILY [facility] Last Admin: 01/13/18 07:56 Dose: 5 mg Fluticasone Propionate (Flonase Nasal [place]) 2 spray NASAL DAILY PRN PRN PRN Reason: ALLERGIES Levothyroxine Sodium (Synthroid) 50 mcg PO DAILY@0600 [facility] Last Admin: 01/13/18 05:59 Dose: 50 mcg Lorazepam (Ativan) 0.5 mg PO BID PRN PRN PRN Reason: ANXIETY Last Admin: 01/11/18 22:20 Dose: 0.5 mg Magnesium Hydroxide (Milk Of Magnesia) 30 ml PO .PRN X 1 PRN PRN Reason: Constipation Meclizine HCl (Antivert) 25 mg PO DAILY PRN PRN PRN Reason: DIZZINESS Multivitamins/Minerals (Multivitamin With Minerals) 1 tablet PO DAILY@0800 [facility] Last Admin: 01/13/18 07:56 Dose: 1 tablet Nitroglycerin (Nitrostat) 0.4 mg SUBLINGUAL Q5M PRN PRN Reason: Chest Pain Nutritional Formula (Lactose Free) (Ensure Enlive) 120 ml PO 4X/DAY [facility] Last Admin: 01/13/18 07:57 Dose: 120 ml Pantoprazole Sodium (Protonix) 20 mg PO BID [facility] Last Admin: 01/13/18 07:56 Dose: 20 mg Prednisone () 7.5 mg PO DAILY@0800 [facility] Last Admin: 01/13/18 07:56 Dose: 7.5 mg Quetiapine Fumarate (Seroquel) 25 mg PO BID [facility] Last Admin: 01/13/18 07:57 Dose: 25 mg Senna/Docusate Sodium (Senokot-S, [place]omen[place]-Colace) 2 tablet PO BID [facility] Last Admin: 01/13/18 07:57 Dose: 2 tablet Trihexyphenidyl HCl (Trihexyphenidyl Hcl) 1 mg PO BID [facility] Last Admin: 01/13/18 07:56 Dose: 1 mg Medical Necessity - Tobacco Use Smoking Status: Former smoker Assessment/Plan All Active Problems (Last Reviewed 01/11/18 @ 10:35 by Merritt Miranda MD) Hallucination (Acute) Gallbladder sludge (Acute) Right upper quadrant pain (Acute) History of tonsillectomy (Resolved) History of hemorrhoidectomy (Resolved) History of testicular surgery (Resolved) Shoulder pain, right (Acute) Dysphagia (Acute) Fatigue (Acute) Near syncope (Acute) Dehydration (Acute) Chest pain (Acute) Generalized abdominal pain (Acute) Rectal bleeding (Acute) Melanotic stools (Acute) Orthostatic hypotension (Resolved) Prior testicular cancer (Resolved) 1. Debility related to worsening Parkinson's disease with hallucinations,improving, continue to work per therapy recommendations. 2. Parkinson's disease with dementia, Sinemet, Ativan, Seroquel 3. BPH, on finasteride 4. Hypothyroidism, on levothyroxine 5. DVT PPx- Lovenox SC Code Visit Inpatient E&M: 90343 Subs Hosp L2
--- NOTE | 2018-01-13 11:25 | NURSING ---
per patient he had multiple falls at home previously to this hospital admission and he stated he started to have right hip pain after his falls. patient rates his pain level 6/10 and describes it as constant dull ache but will have intermittent severe pain per patient upon movement. prn tylenol given to patient earlier and patient stated his pain has decreased to 4/10. dr patterson aware new order for xray to right hip.
--- NOTE | 2018-01-13 13:04 | NURSING ---
xray results with no acute findings.
[2018-01-13 20:34] VITALS: BP 132/78; PULSE 76; RESP 16; TEMP 36.8; O2SAT 95
[2018-01-13] MEDS: LORazepam 0.5 MG Tablet PO (22:04)
[2018-01-13] MEDS: HYDROcodone Bitartrate/Apap 5/325 Tablet PO (22:04)
[2018-01-14 07:06] VITALS: BP 151/94; PULSE 88; RESP 16; TEMP 36.6; O2SAT 96
[2018-01-14] MEDS: Enoxaparin 40 MG/0.4 ML Syringe SC (07:11)
[2018-01-14] MEDS: Levothyroxine 50 MCG Tablet PO (07:11)
[2018-01-14] MEDS: Carbidopa/Levodopa 25/100 Tablet PO ×3 (07:11→16:09)
[2018-01-14] MEDS: Finasteride 5 MG Tablet PO (07:44)
[2018-01-14] MEDS: Senna/Docusate Sodium 1 Tablet 2 TABLET PO ×2 (07:44→21:10)
[2018-01-14] MEDS: TRIHEXYPHENIDYL HCL 2 MG TABLET 1 MG PO ×2 (07:44→21:09)
[2018-01-14] MEDS: QUEtiapine 25 MG Tablet PO ×2 (07:44→21:09)
[2018-01-14] MEDS: Multivitamins,Ther W-Minerals Tablet 1 TABLET PO (07:44)
[2018-01-14] MEDS: Pantoprazole Sodium 20 MG Tablet PO ×2 (07:45→21:10)
[2018-01-14] MEDS: Aspirin 81 MG TAB.CHEW PO (07:45)
[2018-01-14] MEDS: predniSONE 5 MG Tablet 7.5 MG PO (07:45)
[2018-01-14] MEDS: Acetaminophen 325 MG Tablet PO (11:42)
[2018-01-14 15:11] LABS: Bedside Glucose 103 mg/dL (70-110)
[2018-01-14 15:13] VITALS: BP 148/88; PULSE 77; RESP 16; TEMP 36.9; O2SAT 98
[2018-01-14 20:09] VITALS: BP 127/68; PULSE 87; RESP 18; TEMP 36.8; O2SAT 97
[2018-01-14 20:11] VITALS: PULSE 87; RESP 18
[2018-01-14] MEDS: HYDROcodone Bitartrate/Apap 5/325 Tablet PO (21:10)
[2018-01-14] MEDS: LORazepam 0.5 MG Tablet PO (21:26)
--- NOTE | 2018-01-14 22:45 | NURSING ---
patient relates concerns of hallucination, relates seeing puppy sitting on his bed and very fearful of having hallucination. Samia SALAMANCA aware and spoke with patient, PRN ativan given and staff remained present in room with patient until he fell asleep. resting peacefully at this time, will continue to monitor. karen
--- NOTE | 2018-01-15 02:54 | NURSING ---
REVIEWED AND AGREE WITH HAND SOLE [facility]WER'S FIM AND HANDOFF CHARTING.
[2018-01-15] MEDS: LORazepam 0.5 MG Tablet PO (05:25)
[2018-01-15] MEDS: HYDROcodone Bitartrate/Apap 5/325 Tablet PO (05:26)
--- NOTE | 2018-01-15 05:27 | NURSING ---
PT SITTING IN BED AND ADMITS TO FEELING CONFUSED AND ANXIOUS. PT TALKS ABOUT HOW HE IS HAVING PROBLEMS TRUSTING THAT HE IS BEING TAKING CARE OF IN HOSPITAL.PT SHARES THAT HE HAS BELIEVES HE HAS SUFFERED WITH PARANOIA MOST OF HIS LIFE AND THAT HE HAS HAD ALOT OF MENTAL PAIN. PT STATES HE HAS A SISTER THAT IS DX WITH PARANOID SCHIZOPHRENIA. PT STATES HE HAS NEVER SHARED WITH ANYONE ABOUT HIS MENTAL PAIN AND SUFFERING AND THAT TALKING ABOUT IT IS HELPING HIM FEEL MORE FREE. PT INFORMED THAT HIS PHYSICIAN MAY BE ABLE TO HELP HIM AND THAT STAFF WILL SHARE THIS INFORMATION WITH HIS PHYSICIAN. PT IS AGREEABLE TO THIS. MEDICATED FOR L FOREARM PAIN AND ANXIETY.
[2018-01-15] MEDS: Carbidopa/Levodopa 25/100 Tablet PO ×3 (06:11→17:48)
[2018-01-15] MEDS: Levothyroxine 50 MCG Tablet PO (06:11)
[2018-01-15] MEDS: Enoxaparin 40 MG/0.4 ML Syringe SC (06:11)
[2018-01-15] MEDS: predniSONE 5 MG Tablet 7.5 MG PO (08:43)
[2018-01-15] MEDS: Finasteride 5 MG Tablet PO (08:44)
[2018-01-15] MEDS: Aspirin 81 MG TAB.CHEW PO (08:44)
[2018-01-15] MEDS: Multivitamins,Ther W-Minerals Tablet 1 TABLET PO (08:44)
[2018-01-15] MEDS: TRIHEXYPHENIDYL HCL 2 MG TABLET 1 MG PO (08:45)
[2018-01-15] MEDS: Senna/Docusate Sodium 1 Tablet 2 TABLET PO (08:46)
[2018-01-15] MEDS: QUEtiapine 25 MG Tablet PO (08:46)
[2018-01-15] MEDS: Pantoprazole Sodium 20 MG Tablet PO (08:46)
[2018-01-15 10:00] VITALS: BP 95/57; PULSE 69; RESP 12; TEMP 36.8; O2SAT 97
--- NOTE | 2018-01-15 10:49 | PCM.PN.NEU ---
Subjective: Staffed in Team meeting. Family at bedside, questions answered. With Physical therapy, he is able to get in and out of the bed, go from a sitting to standing position at supervision to stand by assist with out the use of an assistive device. He is able to go up and down 20 steps using one handrail at supervision. He is able to walk around the unit 2 to 3 times before becoming tired. With Occupational therapy, with his bathing and toileting he is stand by assist. With Speech therapy, He is having a hard time remembering to tuck his chin when swallowing, Speech recommended if he is unable to tick to lean forward slightly which will also help. His thought process has slowed some and they will continue to work on this as well as his voice which has become softer. They will establish an outpatient therapy plan, to include the Buster Cook voice therapy treatment. With Nursing, the patient has had several episodes of lower blood pressures, per family has complained of dizziness on several occasions, will do Orthostatic Blood pressures. - Physical Exam General: Alert, Oriented x3, Cooperative HEENT: Atraumatic, PERRLA, EOMI, Normocephalic Neck: Supple, No JVD, Negative Carotid Bruits Lungs: Clear to auscultation, Normal air movement Cardiovascular: Regular rate, No murmurs Abdomen: Bowel Sounds Present, Soft, Non Tender Extremities: No edema, Capillary Refill Less than 3 Seconds Skin: No rashes, No breakdown Musculoskeletal: No Tenderness to Palpation of Joints or Extremities Neurological: Cranial nerves II-XII grossly intact Psych/Mental Status: Normal Affect, Appropriate Vital Signs Temp Pulse Resp BP Pulse Ox 98.3 F 87 18 127/68 H 97 01/14/18 20:09 01/14/18 20:11 01/14/18 20:11 01/14/18 20:09 01/14/18 20:09 Oxygen Delivery Method Room Air Weight: 61.235 kg Body Mass Index (BMI) 20.5 Intake and Output for Last 24 Hours 01/13/18 01/14/18 01/15/18 23:59 23:59 23:59 Intake Total 240 / 240 Balance 240 / 240 POC Glucose 01/14/18 15:09 POC Glucose 103 Active Medications Acetaminophen (Tylenol) 325 mg PO Q6H PRN PRN PRN Reason: PAIN Last Admin: 01/14/18 11:42 Dose: 325 mg Hydrocodone Bitart/Acetaminophen ([place] 5mg-325mg) 1 tablet PO Q4H PRN PRN PRN Reason: SEVERE PAIN (6-10/10) Last Admin: 01/15/18 05:26 Dose: 1 tablet Albuterol Sulfate (Ventolin Aerosols) 2.5 mg INHALATION Q4H PRN PRN Reason: shortness of breath or wheezing Aspirin (Aspirin, Baby) 81 mg PO DAILY@0800 [facility] Last Admin: 01/15/18 08:44 Dose: 81 mg Bisacodyl (Dulcolax) 10 mg RECTAL .PRN X 1 PRN PRN Reason: Constipation Carbidopa/Levodopa (Sinemet) 1 tablet PO BIDCM [facility] Last Admin: 01/15/18 10:09 Dose: 1 tablet Enoxaparin Sodium (Lovenox) 40 mg SC DAILY@0600 [facility] Last Admin: 01/15/18 06:11 Dose: 40 mg Finasteride (Proscar) 5 mg PO DAILY [facility] Last Admin: 01/15/18 08:44 Dose: 5 mg Fluticasone Propionate (Flonase Nasal [place]) 2 spray NASAL DAILY PRN PRN PRN Reason: ALLERGIES Levothyroxine Sodium (Synthroid) 50 mcg PO DAILY@0600 [facility] Last Admin: 01/15/18 06:11 Dose: 50 mcg Lorazepam (Ativan) 0.5 mg PO BID PRN PRN PRN Reason: ANXIETY Last Admin: 01/15/18 05:25 Dose: 0.5 mg Magnesium Hydroxide (Milk Of Magnesia) 30 ml PO .PRN X 1 PRN PRN Reason: Constipation Meclizine HCl (Antivert) 25 mg PO DAILY PRN PRN PRN Reason: DIZZINESS Multivitamins/Minerals (Multivitamin With Minerals) 1 tablet PO DAILY@0800 [facility] Last Admin: 01/15/18 08:44 Dose: 1 tablet Nitroglycerin (Nitrostat) 0.4 mg SUBLINGUAL Q5M PRN PRN Reason: Chest Pain Nutritional Formula (Lactose Free) (Ensure Enlive) 120 ml PO 4X/DAY [facility] Last Admin: 01/14/18 21:09 Dose: 120 ml Pantoprazole Sodium (Protonix) 20 mg PO BID [facility] Last Admin: 01/15/18 08:46 Dose: 20 mg Prednisone () 7.5 mg PO DAILY@0800 [facility] Last Admin: 01/15/18 08:43 Dose: 7.5 mg Quetiapine Fumarate (Seroquel) 25 mg PO BID [facility] Last Admin: 01/15/18 08:46 Dose: 25 mg Senna/Docusate Sodium (Senokot-S, [place]-Colace) 2 tablet PO BID [facility] Last Admin: 01/15/18 08:46 Dose: 2 tablet Trihexyphenidyl HCl (Trihexyphenidyl Hcl) 1 mg PO BID [facility] Last Admin: 01/15/18 08:45 Dose: 1 mg Medical Necessity - Tobacco Use Smoking Status: Former smoker Assessment/Plan All Active Problems (Last Reviewed 01/11/18 @ 10:35 by Merritt Miranda MD) Hallucination (Acute) Gallbladder sludge (Acute) Right upper quadrant pain (Acute) History of tonsillectomy (Resolved) History of hemorrhoidectomy (Resolved) History of testicular surgery (Resolved) Shoulder pain, right (Acute) Dysphagia (Acute) Fatigue (Acute) Near syncope (Acute) Dehydration (Acute) Chest pain (Acute) Generalized abdominal pain (Acute) Rectal bleeding (Acute) Melanotic stools (Acute) Orthostatic hypotension (Resolved) Prior testicular cancer (Resolved) debility, multifactorial due to Parkinson, Parkinson associated hallucinations, 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 also history of ALISA, but not tolerant of CPAP. complicated by history of laryngeal ca with dysphagia pt for gait and balance ot for adls speech therapy for speech and dysphagia pd: continue current meds including artane, added sinemet this am appears well tolerated and improved, will increase to tid tomorrow. 01/12: Will increase his Sinemet to every morning, 1 hour before lunch and 1 hour before supper alisa: Home CPAP We will add as needed analgesics check Orthostatic blood pressures
--- NOTE | 2018-01-15 10:55 | PN.NEURO_ITS ---
Subjective: Staffed in Team meeting. Family at bedside, questions answered. With Physical therapy, he is able to get in and out of the bed, go from a sitting to standing position at supervision to stand by assist with out the use of an assistive device. He is able to go up and down 20 steps using one handrail at supervision. He is able to walk around the unit 2 to 3 times before becoming tired. With Occupational therapy, with his bathing and toileting he is stand by assist. With Speech therapy, He is having a hard time remembering to tuck his chin when swallowing, Speech recommended if he is unable to tick to lean forward slightly which will also help. His thought process has slowed some and they will continue to work on this as well as his voice which has become softer. They will establish an outpatient therapy plan, to include the Buster Cook voice therapy treatment. With Nursing, the patient has had several episodes of lower blood pressures, per family has complained of dizziness on several occasions, will do Orthostatic Blood pressures. - Physical Exam General: Alert, Oriented x3, Cooperative HEENT: Atraumatic, PERRLA, EOMI, Normocephalic Neck: Supple, No JVD, Negative Carotid Bruits Lungs: Clear to auscultation, Normal air movement Cardiovascular: Regular rate, No murmurs Abdomen: Bowel Sounds Present, Soft, Non Tender Extremities: No edema, Capillary Refill Less than 3 Seconds Skin: No rashes, No breakdown Musculoskeletal: No Tenderness to Palpation of Joints or Extremities Neurological: Cranial nerves II-XII grossly intact Psych/Mental Status: Normal Affect, Appropriate Vital Signs Temp Pulse Resp BP Pulse Ox 98.3 F 87 18 127/68 H 97 01/14/18 20:09 01/14/18 20:11 01/14/18 20:11 01/14/18 20:09 01/14/18 20:09 Oxygen Delivery Method Room Air Weight: 61.235 kg Body Mass Index (BMI) 20.5 Intake and Output for Last 24 Hours 01/13/18 01/14/18 01/15/18 23:59 23:59 23:59 Intake Total 240 / 240 Balance 240 / 240 POC Glucose 01/14/18 15:09 POC Glucose 103 Active Medications Acetaminophen (Tylenol) 325 mg PO Q6H PRN PRN PRN Reason: PAIN Last Admin: 01/14/18 11:42 Dose: 325 mg Hydrocodone Bitart/Acetaminophen ([place] 5mg-325mg) 1 tablet PO Q4H PRN PRN PRN Reason: SEVERE PAIN (6-10/10) Last Admin: 01/15/18 05:26 Dose: 1 tablet Albuterol Sulfate (Ventolin Aerosols) 2.5 mg INHALATION Q4H PRN PRN Reason: shortness of breath or wheezing Aspirin (Aspirin, Baby) 81 mg PO DAILY@0800 [facility] Last Admin: 01/15/18 08:44 Dose: 81 mg Bisacodyl (Dulcolax) 10 mg RECTAL .PRN X 1 PRN PRN Reason: Constipation Carbidopa/Levodopa (Sinemet) 1 tablet PO BIDCM [facility] Last Admin: 01/15/18 10:09 Dose: 1 tablet Enoxaparin Sodium (Lovenox) 40 mg SC DAILY@0600 [facility] Last Admin: 01/15/18 06:11 Dose: 40 mg Finasteride (Proscar) 5 mg PO DAILY [facility] Last Admin: 01/15/18 08:44 Dose: 5 mg Fluticasone Propionate (Flonase Nasal [place]) 2 spray NASAL DAILY PRN PRN PRN Reason: ALLERGIES Levothyroxine Sodium (Synthroid) 50 mcg PO DAILY@0600 [facility] Last Admin: 01/15/18 06:11 Dose: 50 mcg Lorazepam (Ativan) 0.5 mg PO BID PRN PRN PRN Reason: ANXIETY Last Admin: 01/15/18 05:25 Dose: 0.5 mg Magnesium Hydroxide (Milk Of Magnesia) 30 ml PO .PRN X 1 PRN PRN Reason: Constipation Meclizine HCl (Antivert) 25 mg PO DAILY PRN PRN PRN Reason: DIZZINESS Multivitamins/Minerals (Multivitamin With Minerals) 1 tablet PO DAILY@0800 [facility] Last Admin: 01/15/18 08:44 Dose: 1 tablet Nitroglycerin (Nitrostat) 0.4 mg SUBLINGUAL Q5M PRN PRN Reason: Chest Pain Nutritional Formula (Lactose Free) (Ensure Enlive) 120 ml PO 4X/DAY [facility] Last Admin: 01/14/18 21:09 Dose: 120 ml Pantoprazole Sodium (Protonix) 20 mg PO BID [facility] Last Admin: 01/15/18 08:46 Dose: 20 mg Prednisone () 7.5 mg PO DAILY@0800 [facility] Last Admin: 01/15/18 08:43 Dose: 7.5 mg Quetiapine Fumarate (Seroquel) 25 mg PO BID [facility] Last Admin: 01/15/18 08:46 Dose: 25 mg Senna/Docusate Sodium (Senokot-S, [place]omen[place]-Colace) 2 tablet PO BID [facility] Last Admin: 01/15/18 08:46 Dose: 2 tablet Trihexyphenidyl HCl (Trihexyphenidyl Hcl) 1 mg PO BID [facility] Last Admin: 01/15/18 08:45 Dose: 1 mg Medical Necessity - Tobacco Use Smoking Status: Former smoker Assessment/Plan All Active Problems (Last Reviewed 01/11/18 @ 10:35 by Merritt Miranda MD) Hallucination (Acute) Gallbladder sludge (Acute) Right upper quadrant pain (Acute) History of tonsillectomy (Resolved) History of hemorrhoidectomy (Resolved) History of testicular surgery (Resolved) Shoulder pain, right (Acute) Dysphagia (Acute) Fatigue (Acute) Near syncope (Acute) Dehydration (Acute) Chest pain (Acute) Generalized abdominal pain (Acute) Rectal bleeding (Acute) Melanotic stools (Acute) Orthostatic hypotension (Resolved) Prior testicular cancer (Resolved) debility, multifactorial due to Parkinson, Parkinson associated hallucinations , 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 also history of ALISA, but not tolerant of CPAP. complicated by history of laryngeal ca with dysphagia pt for gait and balance ot for adls speech therapy for speech and dysphagia pd: continue current meds including artane, added sinemet this am appears well tolerated and improved, will increase to tid tomorrow. 01/12: Will increase his Sinemet to every morning, 1 hour before lunch and 1 hour before supper alisa: Home CPAP We will add as needed analgesics check Orthostatic blood pressures
--- NOTE | 2018-01-15 11:00 | CASEMGMT ---
Team meeting held. Patient present as well as patient family. No discharge date set at this time. Patient to continue with further care and treatment on the Inpatient Rehab Unit. Patient with insurance update due on 01/18/18 and aware that continued stay approval is not guaranteed. Team is planning to re-team patient next week at this time. Patient plans to discharge to home with spouse at time of discharge. Support given. Will continue to follow. Liane KHAN, POLICE SERGEANT
--- NOTE | 2018-01-15 11:15 | PCM.PN.HOSP ---
Subjective: Patient is a 72-year-old gentleman with history of Parkinson's disease admitted with progressive generalized weakness Objective: GENERAL: Frail looking HEENT: Clear conjunctiva, NECK; supple, normal thyroid, CHEST: Clear to auscultation bilaterally, HEART: Regular S1 S2, ABDOMEN: soft, non-tender, RECTAL: deferred EXTREMITIES: No edema, no clubbing, AMMONIUM HYDROXIDE OPERATOR: Awake; no lateralizing signs. SKIN: No Rash Vitals/I&O's: Vital Signs Temp Pulse Resp BP Pulse Ox 98.3 F 87 18 127/68 H 97 01/14/18 20:09 01/14/18 20:11 01/14/18 20:11 01/14/18 20:09 01/14/18 20:09 Oxygen Delivery Method Room Air Weight: 61.235 kg Body Mass Index (BMI) 20.5 Intake and Output for Last 24 Hours 01/13/18 01/14/18 01/15/18 23:59 23:59 23:59 Intake Total 240 / 240 Balance 240 / 240 Laboratory Results 01/14/18 15:09: POC Glucose 103 Current Medications Acetaminophen (Tylenol) 325 mg PO Q6H PRN PRN PRN Reason: PAIN Last Admin: 01/14/18 11:42 Dose: 325 mg Hydrocodone Bitart/Acetaminophen ([place] 5mg-325mg) 1 tablet PO Q4H PRN PRN PRN Reason: SEVERE PAIN (6-10/10) Last Admin: 01/15/18 05:26 Dose: 1 tablet Albuterol Sulfate (Ventolin Aerosols) 2.5 mg INHALATION Q4H PRN PRN Reason: shortness of breath or wheezing Aspirin (Aspirin, Baby) 81 mg PO DAILY@0800 [facility] Last Admin: 01/15/18 08:44 Dose: 81 mg Bisacodyl (Dulcolax) 10 mg RECTAL .PRN X 1 PRN PRN Reason: Constipation Carbidopa/Levodopa (Sinemet) 1 tablet PO BIDCM [facility] Last Admin: 01/15/18 10:09 Dose: 1 tablet Enoxaparin Sodium (Lovenox) 40 mg SC DAILY@0600 [facility] Last Admin: 01/15/18 06:11 Dose: 40 mg Finasteride (Proscar) 5 mg PO DAILY [facility] Last Admin: 01/15/18 08:44 Dose: 5 mg Fluticasone Propionate (Flonase Nasal [place]) 2 spray NASAL DAILY PRN PRN PRN Reason: ALLERGIES Levothyroxine Sodium (Synthroid) 50 mcg PO DAILY@0600 [facility] Last Admin: 01/15/18 06:11 Dose: 50 mcg Lorazepam (Ativan) 0.5 mg PO BID PRN PRN PRN Reason: ANXIETY Last Admin: 01/15/18 05:25 Dose: 0.5 mg Magnesium Hydroxide (Milk Of Magnesia) 30 ml PO .PRN X 1 PRN PRN Reason: Constipation Meclizine HCl (Antivert) 25 mg PO DAILY PRN PRN PRN Reason: DIZZINESS Multivitamins/Minerals (Multivitamin With Minerals) 1 tablet PO DAILY@0800 [facility] Last Admin: 01/15/18 08:44 Dose: 1 tablet Nitroglycerin (Nitrostat) 0.4 mg SUBLINGUAL Q5M PRN PRN Reason: Chest Pain Nutritional Formula (Lactose Free) (Ensure Enlive) 120 ml PO 4X/DAY [facility] Last Admin: 01/14/18 21:09 Dose: 120 ml Pantoprazole Sodium (Protonix) 20 mg PO BID [facility] Last Admin: 01/15/18 08:46 Dose: 20 mg Prednisone () 7.5 mg PO DAILY@0800 [facility] Last Admin: 01/15/18 08:43 Dose: 7.5 mg Quetiapine Fumarate (Seroquel) 25 mg PO BID [facility] Last Admin: 01/15/18 08:46 Dose: 25 mg Senna/Docusate Sodium (Senokot-S, [place]-Colace) 2 tablet PO BID [facility] Last Admin: 01/15/18 08:46 Dose: 2 tablet Trihexyphenidyl HCl (Trihexyphenidyl Hcl) 1 mg PO BID [facility] Last Admin: 01/15/18 08:45 Dose: 1 mg Medical Necessity - Tobacco Use Smoking Status: Former smoker Assessment/Plan All Active Problems (Last Reviewed 01/11/18 @ 10:35 by Merritt Miranda MD) Hallucination (Acute) Gallbladder sludge (Acute) Right upper quadrant pain (Acute) History of tonsillectomy (Resolved) History of hemorrhoidectomy (Resolved) History of testicular surgery (Resolved) Shoulder pain, right (Acute) Dysphagia (Acute) Fatigue (Acute) Near syncope (Acute) Dehydration (Acute) Chest pain (Acute) Generalized abdominal pain (Acute) Rectal bleeding (Acute) Melanotic stools (Acute) Orthostatic hypotension (Resolved) Prior testicular cancer (Resolved) Patient is a 72-year-old gentleman with history of Parkinson's disease admitted with progressive generalized weakness 1. Physical debility related to patient worsening Parkinson's disease admitted to the inpatient rehab unit where patient is currently undergoing therapy 2. Parkinson's disease with dementia discontinue patient Sinemet in addition to Seroquel 3. BPH patient is on finasteride 4. Hypothyroidism-patient is on levothyroxine home dose continued 5. DVT prophylaxis SC Lovenox 1. Debility related to worsening Parkinson's disease with hallucinations,improving, continue to work per therapy recommendations. 2. Parkinson's disease with dementia, Sinemet, Ativan, Seroquel 3. BPH, on finasteride 4. Hypothyroidism, on levothyroxine 5. DVT PPx- Lovenox SC Code Visit Inpatient E&M: 58381 Subs Hosp L2
[2018-01-15 14:07] VITALS: BP 128/82; BP 152/85; BP 158/83; PULSE 88; PULSE 90
--- NOTE | 2018-01-15 14:32 | NURSING ---
pt is having urgency, frequency and incontinence, new order for UA
[2018-01-15 14:38] LABS: Bacteria 0 SEEN /hpf (None Seen); Mucous, Urine 0 SEEN /hpf (<or=2+); Red Blood Cells-Urine 0 SEEN /hpf (0-5); Squamous Epithelial Cells - UA 0 SEEN /hpf (0-5); White Blood Cells 0 SEEN /hpf (0-5)
[2018-01-15 14:40] LABS: Color, Urine Yellow (Yellow); Glucose, Dipstick Normal (Normal); Ketone-Dipstick 5 mg/dl (Negative); Leukocyte Esterase-Dipstick Negative /ul (Negative); Nitrite-Dipstick Negative (Negative); Occult Blood-Urine Negative /ul (Negative); Protein-Dipstick Negative (Negative); Urine Bilirubin Dipstick Negative (Negative); Urine Clarity Clear (Clear); Urine Urobilinogen Normal (Normal)
[2018-01-15 19:00] VITALS: BP 121/67; PULSE 89; RESP 19; TEMP 36.7; O2SAT 97
[2018-01-15 22:11] LABS: Bedside Glucose 108 mg/dL (70-110)
--- NOTE | 2018-01-15 23:03 | NURSING ---
This nurse knocked at pt door and called to pt with no response by pt. Pt reclining in bed but did not respond to calling his name. Nurse held his hand, called his name into his ear and gave pt sternal rub. Still no response. VS = Temp 98.3, HR -89, RR-18, SpO2 -98%, SAEID 165/85, & BS= 108. Pupils were reactive. IRRIGATION EQUIPMENT INSTALLER and Nursing Window Shade Estimator called. The Hospitalist arrived and sternal rub performed. No response. O2 was applied. IV was started. EKG ordered and performed. Pt taken to get CT.
--- NOTE | 2018-01-15 23:29 | NURSING ---
Pt family called. Raya called at 10:20 and no answer. Message left on machine. Latoya called and talked with this nurse. Details provided. Brother, Greg from [facility] security, aware of details at this time. Daiana, bowling alley floors installer, was called and informed. Dr Presley was called and updated. Dr Presley would like to be alerted if pt does not return to baseline and goes to PCU or ICU. N/Os to hold Ativan and Seroquel today if pt returns, per Dr Presley. Blood work and urinalysis to be ordered if pt returns, per Dr Presley. No 22:00 meds or pain meds were given to this pt this shift.
--- NOTE | 2018-01-16 00:11 | NURSING ---
Dr Presley called to update nurse on pt condition. [place] Labs were normal, UA normal, ABG normal, and CT normal. was unsure if pt would return to Inpatient Rehab or require observation elsewhere. If pt returns, reiterated N/O to hold Sinemet, [place], and Ativan.
--- NOTE | 2018-01-16 00:41 | NURSING ---
Nursing Economic Forecaster called to alert nurse that pt to be sent to PCU for observation. Pt to be discharged from . Family to be notified by this nurse via phone.
--- NOTE | 2018-01-16 00:46 | NURSING ---
Nursing Ferry Operator called to alert nurse that Pt will now be staying in ED for observation tonight and return to Inpatient Rehab tomorrow.
--- NOTE | 2018-01-16 00:51 | NURSING ---
Latoya, spouse called and message left on phone providing update of status of pt and plans to be in ED for observation overnight. Plans to return pt in morning to Inpatient Rehab in the morning if pt stabilizes at baseline level.
[2018-01-16] MEDS: Acetaminophen 325 MG Tablet PO ×2 (06:29→16:46)
[2018-01-16] MEDS: Enoxaparin 40 MG/0.4 ML Syringe SC (06:29)
[2018-01-16] MEDS: Levothyroxine 50 MCG Tablet PO (06:30)
--- NOTE | 2018-01-16 06:33 | NURSING ---
pt returned to floor by ED nurse. Pt toileted by staff and repositioned in bed. Tylenol provided for 5/10 pain in hip and left arm
[2018-01-16] MEDS: Carbidopa/Levodopa 25/100 Tablet PO ×2 (07:50→16:46)
[2018-01-16] MEDS: predniSONE 5 MG Tablet 7.5 MG PO (07:50)
[2018-01-16] MEDS: Finasteride 5 MG Tablet PO (07:50)
[2018-01-16] MEDS: Pantoprazole Sodium 20 MG Tablet PO (07:50)
[2018-01-16] MEDS: Aspirin 81 MG TAB.CHEW PO (07:50)
[2018-01-16] MEDS: Multivitamins,Ther W-Minerals Tablet 1 TABLET PO (07:50)
[2018-01-16 08:47] VITALS: BP 137/74; PULSE 69; RESP 18; TEMP 36.6; O2SAT 96
[2018-01-16] MEDS: TRIHEXYPHENIDYL HCL 2 MG TABLET 1 MG PO (09:00)
--- NOTE | 2018-01-16 15:39 | PCM.PN.NEU ---
Subjective: Patient seen and examined. During the night the patient became unresponsive a code white was called, patient remained unresponsive, he was transferred to the ED, where he was given fluids, he then started to respond and was transferred back to the unit, the patient is back to base line at this time doing therapy with out any difficulty. His Seroquel, Astatula, and Ativan are on hold at this time, decreased his Sinemet to once a day, will continue to monitor for Hallucinations. Patient is doing well at this time. - Physical Exam General: Alert, Oriented x3, Cooperative HEENT: Atraumatic, PERRLA, EOMI, Normocephalic Neck: Supple, No JVD, Negative Carotid Bruits Lungs: Clear to auscultation, Normal air movement Cardiovascular: Regular rate, No murmurs Abdomen: Bowel Sounds Present, Soft, Non Tender Extremities: No edema, Capillary Refill Less than 3 Seconds Skin: No rashes, No breakdown Musculoskeletal: No Tenderness to Palpation of Joints or Extremities Neurological: Cranial nerves II-XII grossly intact Psych/Mental Status: Normal Affect, Appropriate, Alert and oriented to time, place, person, mood and affect Vital Signs Temp Pulse Resp BP Pulse Ox 97.9 F 69 18 137/74 H 96 01/16/18 08:47 01/16/18 08:47 01/16/18 08:47 01/16/18 08:47 01/16/18 08:47 Oxygen Delivery Method Room Air Weight: 61.235 kg Body Mass Index (BMI) 20.5 Intake and Output for Last 24 Hours 01/14/18 01/15/18 01/16/18 23:59 23:59 23:59 Intake Total 240 / 240 360 / 360 Balance 240 / 240 360 / 360 POC Glucose 01/15/18 22:06 POC Glucose 108 Active Medications Acetaminophen (Tylenol) 325 mg PO Q6H PRN PRN PRN Reason: PAIN Last Admin: 01/16/18 06:29 Dose: 325 mg Hydrocodone Bitart/Acetaminophen ([place] 5mg-325mg) 1 tablet PO Q4H PRN PRN PRN Reason: SEVERE PAIN (6-10/10) Last Admin: 01/15/18 05:26 Dose: 1 tablet Albuterol Sulfate (Ventolin Aerosols) 2.5 mg INHALATION Q4H PRN PRN Reason: shortness of breath or wheezing Aspirin (Aspirin, Baby) 81 mg PO DAILY@0800 [facility] Last Admin: 01/16/18 07:50 Dose: 81 mg Bisacodyl (Dulcolax) 10 mg RECTAL .PRN X 1 PRN PRN Reason: Constipation [facility] Last Admin: 01/16/18 07:50 Dose: 1 tablet Enoxaparin Sodium (Lovenox) 40 mg SC DAILY@0600 [facility] Last Admin: 01/16/18 06:29 Dose: 40 mg Finasteride (Proscar) 5 mg PO DAILY [facility] Last Admin: 01/16/18 07:50 Dose: 5 mg Fluticasone Propionate (Flonase Nasal [place]) 2 spray NASAL DAILY PRN PRN PRN Reason: ALLERGIES Levothyroxine Sodium (Synthroid) 50 mcg PO DAILY@0600 [facility] Last Admin: 01/16/18 06:30 Dose: 50 mcg Lorazepam (Ativan) 0.5 mg PO BID PRN PRN PRN Reason: ANXIETY Last Admin: 01/15/18 05:25 Dose: 0.5 mg Magnesium Hydroxide (Milk Of Magnesia) 30 ml PO .PRN X 1 PRN PRN Reason: Constipation Meclizine HCl (Antivert) 25 mg PO DAILY PRN PRN PRN Reason: DIZZINESS Multivitamins/Minerals (Multivitamin With Minerals) 1 tablet PO DAILY@0800 [facility] Last Admin: 01/16/18 07:50 Dose: 1 tablet Nitroglycerin (Nitrostat) 0.4 mg SUBLINGUAL Q5M PRN PRN Reason: Chest Pain Nutritional Formula (Lactose Free) (Ensure Enlive) 120 ml PO 4X/DAY [facility] Last Admin: 01/16/18 14:51 Dose: 120 ml Pantoprazole Sodium (Protonix) 20 mg PO BID [facility] Last Admin: 01/16/18 07:50 Dose: 20 mg Prednisone () 7.5 mg PO DAILY@0800 [facility] Last Admin: 01/16/18 07:50 Dose: 7.5 mg Quetiapine Fumarate (Seroquel) 25 mg PO BID [facility] Last Admin: 01/16/18 11:05 Dose: Not Given Senna/Docusate Sodium (Senokot-S, [place]omen[place]-Colace) 2 tablet PO BID [facility] Last Admin: 01/16/18 11:05 Dose: Not Given Trihexyphenidyl HCl (Trihexyphenidyl Hcl) 1 mg PO BID [facility] Last Admin: 01/16/18 09:00 Dose: 1 mg Medical Necessity - Tobacco Use Smoking Status: Former smoker Assessment/Plan All Active Problems (Last Reviewed 01/11/18 @ 10:35 by Merritt Miranda MD) Hallucination (Acute) Gallbladder sludge (Acute) Right upper quadrant pain (Acute) History of tonsillectomy (Resolved) History of hemorrhoidectomy (Resolved) History of testicular surgery (Resolved) Shoulder pain, right (Acute) Dysphagia (Acute) Fatigue (Acute) Near syncope (Acute) Dehydration (Acute) Chest pain (Acute) Generalized abdominal pain (Acute) Rectal bleeding (Acute) Melanotic stools (Acute) Orthostatic hypotension (Resolved) Prior testicular cancer (Resolved) debility, multifactorial due to Parkinson, Parkinson associated hallucinations, 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 also history of ALISA, but not tolerant of CPAP. complicated by history of laryngeal ca with dysphagia pt for gait and balance ot for adls speech therapy for speech and dysphagia pd: continue current meds including artane, added sinemet this am appears well tolerated and improved, will increase to tid tomorrow. 01/12: Will increase his Sinemet to every morning, 1 hour before lunch and 1 hour before supper => decrease Sinemet to daily one hour be breakfast alisa: Home CPAP We will add as needed analgesics check Orthostatic blood pressures Hold Astatula, Ativan, and Seroquel
[2018-01-16 20:30] VITALS: PULSE 81; RESP 18; O2SAT 98
[2018-01-16 20:45] LABS: Bedside Glucose 125 mg/dL (70-110)
--- NOTE | 2018-01-16 20:45 | NURSING ---
Addendum entered by Allie Garcia 01/16/18 20:48: Pt states left side of face feels numb. Original Note: pt c/o tongue numbness to left side and feeling thick. Pt states vision gets blurry & checkered. Left arm feels achy, per pt. Pt feeling anxious and says that he's feeling weird and it comes and goes. Vs, HR 81, RR, 18, SpO2 is 98%, BP 152/109, and BS = 125. Hospitalist paged.
[2018-01-16 20:51] VITALS: BP 152/109; PULSE 81; RESP 18; TEMP 36.7; O2SAT 98
--- NOTE | 2018-01-16 20:55 | NURSING ---
HopsitalistTessie, returned page and nurse provided update. Hospitalist recommended sending pt to ED for immediate tests to be performed while pt is in this condition. Pt transported via wheelchair to ED by CHIEF RESOURCE OFFICER.
--- NOTE | 2018-01-16 21:04 | NURSING ---
patient relates left sided facial numbness, left arm discomfort/ numbness. neuro assessment done, no facial drop noted, equal strength bilateral, VS: hr 81, resp 18, pulse ox 98%, BP 152/109, blood sugar 125. RN aware, spoke with hospitalist and sent to ED.
--- NOTE | 2018-01-16 21:17 | NURSING ---
Daiana, preparation room manager,contacted and updated on pt change in status.
--- NOTE | 2018-01-16 23:04 | NURSING ---
family informed of move to ED.
--- NOTE | 2018-01-16 23:11 | NURSING ---
Pt discharging from [facility] to PCU d/t Emergency room instructions.
--- NOTE | 2018-01-16 23:11 | NURSING ---
Pt family notified by phone about pt condition.
[2018-01-17] MEDS: Carbidopa/Levodopa 25/100 Tablet PO (17:20)
[2018-01-17] MEDS: Acetaminophen 325 MG Tablet PO (17:21)
[2018-01-17 20:03] VITALS: BP 155/81; PULSE 87; RESP 20; TEMP 36.8; O2SAT 97
--- NOTE | 2018-01-17 20:15 | NURSING ---
PT'S BED ALARM SOUNDING AND PA AND PT FOUND ON HIS WAY OUT OF BED. PT PULLS OFF GOWN AND APPEARS AGITATED AND DISTURBED AND SAYS REPEATEDLY, I GOTTA CHECK ON THE KIDS. PT PROCEEDS TOWARDS THE DOOR. PT STATES HE KNOWS HE'S IN HEALTH SYSTEM. PT DOES NOT WANT TO USE THE RESTROOM. PT ENCOURAGED TO PUT GOWN BACK ON SO HE CAN TAKE A WALK IN THE [place] WITH THE COKE DRAWER. PT AGREES TO DO THIS. PT BEGINS TO CALM HE IS WALKING AND THEN STATES I AM HALLUCINATING. PT RETURNS TO ROOM AND IS NO LONGER CONFUSED AND AGREES TO RETURN TO BED. PT'S BROTHER ARRIVES AND PT CONVERSING WITH HIM.
[2018-01-17] MEDS: TRIHEXYPHENIDYL HCL 2 MG TABLET 1 MG PO (20:36)
[2018-01-17] MEDS: QUEtiapine 25 MG Tablet 12.5 MG PO (20:38)
[2018-01-17] MEDS: Senna/Docusate Sodium 1 Tablet 2 TABLET PO (20:38)
[2018-01-17] MEDS: Pantoprazole Sodium 20 MG Tablet PO (20:39)
[2018-01-17] MEDS: Atorvastatin Calcium 80 MG Tablet PO (20:39)
[2018-01-17 21:34] VITALS: PULSE 78; RESP 12; RESP 20; O2SAT 97
[2018-01-18 00:25] VITALS: PULSE 72; RESP 12; RESP 17; O2SAT 96
[2018-01-18] MEDS: Levothyroxine 50 MCG Tablet PO (07:03)
[2018-01-18] MEDS: Enoxaparin 40 MG/0.4 ML Syringe SC (07:03)
[2018-01-18] MEDS: Carbidopa/Levodopa 25/100 Tablet PO ×2 (07:03→17:00)
[2018-01-18] MEDS: Senna/Docusate Sodium 1 Tablet 2 TABLET PO ×2 (07:45→20:22)
[2018-01-18] MEDS: Acetaminophen 325 MG Tablet PO ×2 (07:45→17:27)
[2018-01-18] MEDS: Finasteride 5 MG Tablet PO (07:46)
[2018-01-18] MEDS: predniSONE 5 MG Tablet 7.5 MG PO (07:46)
[2018-01-18] MEDS: Aspirin 81 MG TAB.CHEW PO (07:46)
[2018-01-18] MEDS: Pantoprazole Sodium 20 MG Tablet PO ×2 (07:46→20:22)
[2018-01-18] MEDS: Multivitamins,Therapeutic Tablet 1 TABLET PO (07:46)
[2018-01-18 08:03] VITALS: BP 147/83; PULSE 73; RESP 18; TEMP 36.9; O2SAT 96
--- NOTE | 2018-01-18 10:38 | PCM.PN.NEU ---
Subjective: Patient seen and examined. Became agitated briefly during the night, was redirected, was able to go back to sleep, with no further incidence. He is Tolerating therapy. No issues with GI/. - Physical Exam General: Alert, Cooperative HEENT: Atraumatic, PERRLA, EOMI, Normocephalic Neck: Supple, No JVD, Negative Carotid Bruits Lungs: Clear to auscultation, Normal air movement Cardiovascular: Regular rate, No murmurs Abdomen: Bowel Sounds Present, Soft, Non Tender Extremities: No edema, Capillary Refill Less than 3 Seconds Skin: No rashes, No breakdown Musculoskeletal: No Tenderness to Palpation of Joints or Extremities Neurological: Cranial nerves II-XII grossly intact Psych/Mental Status: Normal Affect, Appropriate Vital Signs Temp Pulse Resp BP Pulse Ox 98.4 F 73 18 147/83 H 96 01/18/18 08:03 01/18/18 08:03 01/18/18 08:03 01/18/18 08:03 01/18/18 08:03 Oxygen Delivery Method Room Air Weight: 61.235 kg Body Mass Index (BMI) 20.5 Intake and Output for Last 24 Hours 01/16/18 01/17/18 01/18/18 23:59 23:59 23:59 Intake Total 600 / 600 Output Total 100 / 100 Balance 600 / 600 -100 / -100 Microbiology Past 72 Hours 01/15/18 14:30 Urine Culture - Final Urine, Clean Catch Culture exhibits no growth. Active Medications Acetaminophen (Tylenol) 325 mg PO Q6H PRN PRN Reason: PAIN Last Admin: 01/18/18 07:45 Dose: 325 mg Aspirin (Aspirin, Baby) 81 mg PO DAILY@0800 [facility] Last Admin: 01/18/18 07:46 Dose: 81 mg Atorvastatin Calcium (Lipitor) 80 mg PO DAILY@2200 [facility] Last Admin: 01/17/18 20:39 Dose: 80 mg Carbidopa/Levodopa (Sinemet) 1 tablet PO BIDAC [facility] Last Admin: 01/18/18 07:03 Dose: 1 tablet Enoxaparin Sodium (Lovenox) 40 mg SC DAILY@0600 [facility] Last Admin: 01/18/18 07:03 Dose: 40 mg Finasteride (Proscar) 5 mg PO DAILY [facility] Last Admin: 01/18/18 07:46 Dose: 5 mg Levothyroxine Sodium (Synthroid) 50 mcg PO DAILY@0600 [facility] Last Admin: 01/18/18 07:03 Dose: 50 mcg Meclizine HCl (Antivert) 25 mg PO DAILY PRN PRN Reason: ITCHING Multivitamins (Multivitamin) 1 tablet PO DAILYCM [facility] Last Admin: 01/18/18 07:46 Dose: 1 tablet Nitroglycerin (Nitrostat) 0.4 mg SUBLINGUAL Q5M PRN PRN Reason: CARDIAC/CHEST PAIN Nutritional Formula (Lactose Free) (Ensure Enlive) 120 ml PO 4X/DAY [facility] Last Admin: 01/17/18 20:39 Dose: 120 ml Pantoprazole Sodium (Protonix) 20 mg PO BID [facility] Last Admin: 01/18/18 07:46 Dose: 20 mg Prednisone () 7.5 mg PO DAILY@0800 [facility] Last Admin: 01/18/18 07:46 Dose: 7.5 mg Quetiapine Fumarate (Seroquel) 12.5 mg PO QHS [facility] Last Admin: 01/17/18 20:38 Dose: 12.5 mg Senna/Docusate Sodium (Senokot-S, Philomena-Colace) 2 tablet PO BID [facility] Last Admin: 01/18/18 07:45 Dose: 2 tablet Trihexyphenidyl HCl (Trihexyphenidyl Hcl) 1 mg PO BID [facility] Last Admin: 01/17/18 20:36 Dose: 1 mg Medical Necessity - Tobacco Use Smoking Status: Former smoker Assessment/Plan All Active Problems (Last Reviewed 01/11/18 @ 10:35 by Merritt Miranda MD) Hallucination (Acute) TIA (transient ischemic attack) (Acute) Left facial numbness (Acute) Gallbladder sludge (Acute) Right upper quadrant pain (Acute) History of tonsillectomy (Resolved) History of hemorrhoidectomy (Resolved) History of testicular surgery (Resolved) Shoulder pain, right (Acute) Dysphagia (Acute) Fatigue (Acute) Near syncope (Acute) Dehydration (Acute) Chest pain (Acute) Generalized abdominal pain (Acute) Rectal bleeding (Acute) Melanotic stools (Acute) Orthostatic hypotension (Resolved) Prior testicular cancer (Resolved) debility, multifactorial due to Parkinson, Parkinson associated hallucinations, 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 also history of ALISA, but not tolerant of CPAP. complicated by history of laryngeal ca with dysphagia - pt for gait and balance - ot for adls - speech therapy for speech and dysphagia - pd: continue current meds including artane, added sinemet this am appears well tolerated and improved, will increase to tid tomorrow. 01/12: Will increase his Sinemet to every morning, 1 hour before lunch and 1 hour before supper => decrease Sinemet to daily one hour be breakfast - alisa: Home CPAP, not tolerating home CPAP, placed on BIPAP instead until discharge - We will add as needed analgesics - check Orthostatic blood pressures => - Hold [place], Ativan, restart Seroquel at 12.5mg at bedtime
--- NOTE | 2018-01-18 10:45 | CASEMGMT ---
Insurance Clinical information faxed. Pending continued stay approval. Auth#[id number] Liane KHAN, PLANT OPERATOR CONTROL ROOM OPERATOR
--- NOTE | 2018-01-18 10:48 | PN.NEURO_ITS ---
Subjective: Patient seen and examined. Became agitated briefly during the night, was redirected, was able to go back to sleep, with no further incidence. He is Tolerating therapy. No issues with GI/. - Physical Exam General: Alert, Cooperative HEENT: Atraumatic, PERRLA, EOMI, Normocephalic Neck: Supple, No JVD, Negative Carotid Bruits Lungs: Clear to auscultation, Normal air movement Cardiovascular: Regular rate, No murmurs Abdomen: Bowel Sounds Present, Soft, Non Tender Extremities: No edema, Capillary Refill Less than 3 Seconds Skin: No rashes, No breakdown Musculoskeletal: No Tenderness to Palpation of Joints or Extremities Neurological: Cranial nerves II-XII grossly intact Psych/Mental Status: Normal Affect, Appropriate Vital Signs Temp Pulse Resp BP Pulse Ox 98.4 F 73 18 147/83 H 96 01/18/18 08:03 01/18/18 08:03 01/18/18 08:03 01/18/18 08:03 01/18/18 08:03 Oxygen Delivery Method Room Air Weight: 61.235 kg Body Mass Index (BMI) 20.5 Intake and Output for Last 24 Hours 01/16/18 01/17/18 01/18/18 23:59 23:59 23:59 Intake Total 600 / 600 Output Total 100 / 100 Balance 600 / 600 -100 / -100 Microbiology Past 72 Hours 01/15/18 14:30 Urine Culture - Final Urine, Clean Catch Culture exhibits no growth. Active Medications Acetaminophen (Tylenol) 325 mg PO Q6H PRN PRN Reason: PAIN Last Admin: 01/18/18 07:45 Dose: 325 mg Aspirin (Aspirin, Baby) 81 mg PO DAILY@0800 [facility] Last Admin: 01/18/18 07:46 Dose: 81 mg Atorvastatin Calcium (Lipitor) 80 mg PO DAILY@2200 [facility] Last Admin: 01/17/18 20:39 Dose: 80 mg Carbidopa/Levodopa (Sinemet) 1 tablet PO BIDAC [facility] Last Admin: 01/18/18 07:03 Dose: 1 tablet Enoxaparin Sodium (Lovenox) 40 mg SC DAILY@0600 [facility] Last Admin: 01/18/18 07:03 Dose: 40 mg Finasteride (Proscar) 5 mg PO DAILY [facility] Last Admin: 01/18/18 07:46 Dose: 5 mg Levothyroxine Sodium (Synthroid) 50 mcg PO DAILY@0600 [facility] Last Admin: 01/18/18 07:03 Dose: 50 mcg Meclizine HCl (Antivert) 25 mg PO DAILY PRN PRN Reason: ITCHING Multivitamins (Multivitamin) 1 tablet PO DAILYCM [facility] Last Admin: 01/18/18 07:46 Dose: 1 tablet Nitroglycerin (Nitrostat) 0.4 mg SUBLINGUAL Q5M PRN PRN Reason: CARDIAC/CHEST PAIN Nutritional Formula (Lactose Free) (Ensure Enlive) 120 ml PO 4X/DAY [facility] Last Admin: 01/17/18 20:39 Dose: 120 ml Pantoprazole Sodium (Protonix) 20 mg PO BID [facility] Last Admin: 01/18/18 07:46 Dose: 20 mg Prednisone () 7.5 mg PO DAILY@0800 [facility] Last Admin: 01/18/18 07:46 Dose: 7.5 mg Quetiapine Fumarate (Seroquel) 12.5 mg PO QHS [facility] Last Admin: 01/17/18 20:38 Dose: 12.5 mg Senna/Docusate Sodium (Senokot-S, Philomena-Colace) 2 tablet PO BID [facility] Last Admin: 01/18/18 07:45 Dose: 2 tablet Trihexyphenidyl HCl (Trihexyphenidyl Hcl) 1 mg PO BID [facility] Last Admin: 01/17/18 20:36 Dose: 1 mg Medical Necessity - Tobacco Use Smoking Status: Former smoker Assessment/Plan All Active Problems (Last Reviewed 01/11/18 @ 10:35 by Merritt Miranda MD) Hallucination (Acute) TIA (transient ischemic attack) (Acute) Left facial numbness (Acute) Gallbladder sludge (Acute) Right upper quadrant pain (Acute) History of tonsillectomy (Resolved) History of hemorrhoidectomy (Resolved) History of testicular surgery (Resolved) Shoulder pain, right (Acute) Dysphagia (Acute) Fatigue (Acute) Near syncope (Acute) Dehydration (Acute) Chest pain (Acute) Generalized abdominal pain (Acute) Rectal bleeding (Acute) Melanotic stools (Acute) Orthostatic hypotension (Resolved) Prior testicular cancer (Resolved) debility, multifactorial due to Parkinson, Parkinson associated hallucinations , 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 also history of ALISA, but not tolerant of CPAP. complicated by history of laryngeal ca with dysphagia - pt for gait and balance - ot for adls - speech therapy for speech and dysphagia - pd: continue current meds including artane, added sinemet this am appears well tolerated and improved, will increase to tid tomorrow. 01/12: Will increase his Sinemet to every morning, 1 hour before lunch and 1 hour before supper => decrease Sinemet to daily one hour be breakfast - alisa: Home CPAP, not tolerating home CPAP, placed on BIPAP instead until discharge - We will add as needed analgesics - check Orthostatic blood pressures => - Hold [place], Ativan, restart Seroquel at 12.5mg at bedtime
[2018-01-18] MEDS: TRIHEXYPHENIDYL HCL 2 MG TABLET 1 MG PO ×2 (11:01→20:21)
--- NOTE | 2018-01-18 14:10 | CASEMGMT ---
Insurance Continued stay approved with next update due on 01/23/18. Auth#[id number] Liane KHAN, X RAY OPERATOR
--- NOTE | 2018-01-18 15:05 | PCM.PROGNOTE ---
Subjective: Chief complaint: Follow-up after consultation for medical management. Patient seen and examined. At this time, he is resting comfortably, no complaints except constipation. His vital signs are stable. - Physical Exam General: Alert, Cooperative, No apparent distress HEENT: Atraumatic, PERRLA, EOMI, Normocephalic Oral: Moist Mucosa, No Gingival or Mucosal Lesions/ Ulcerations Neck: Supple, No JVD, Negative Carotid Bruits, Trachea Midline, Thyroid Normal Size and Texture Lungs: Clear to auscultation, No rhonchi, No wheeze, No rales, Diminished Cardiovascular: Regular rate, Regular Rhythm, Normal S1, Normal S2, No murmurs Abdomen: Bowel Sounds Present, Soft, Non Tender, Non-Distended, No Hepato-splenomegaly Extremities: No clubbing, No cyanosis, No edema Skin: No rashes, No breakdown Lymphatic: No Cervical, Supraclavicular, or Inguinal Adenopathy Neurological: Cranial nerves II-XII grossly intact, Motor Exam 5/5 strength throughout Psych/Mental Status: Normal Affect, Appropriate Vital Signs Temp Pulse Resp BP Pulse Ox 98.4 F 73 18 147/83 H 96 01/18/18 08:03 01/18/18 08:03 01/18/18 08:03 01/18/18 08:03 01/18/18 08:03 Oxygen Delivery Method Room Air Weight: 135 lb 0.001 oz Body Mass Index (BMI) 20.5 Intake and Output for Last 24 Hours 01/16/18 01/17/18 01/18/18 23:59 23:59 23:59 Intake Total 600 / 600 Output Total 100 / 100 Balance 600 / 600 -100 / -100 Microbiology Past 72 Hours 01/15/18 14:30 Urine Culture - Final Urine, Clean Catch Culture exhibits no growth. Medical Necessity - Tobacco Use Smoking Status: Former smoker Assessment/Plan All Active Problems (Last Reviewed 01/11/18 @ 10:35 by Merritt Miranda MD) Hallucination (Acute) TIA (transient ischemic attack) (Acute) Left facial numbness (Acute) Gallbladder sludge (Acute) Right upper quadrant pain (Acute) History of tonsillectomy (Resolved) History of hemorrhoidectomy (Resolved) History of testicular surgery (Resolved) Shoulder pain, right (Acute) Dysphagia (Acute) Fatigue (Acute) Near syncope (Acute) Dehydration (Acute) Chest pain (Acute) Generalized abdominal pain (Acute) Rectal bleeding (Acute) Melanotic stools (Acute) Orthostatic hypotension (Resolved) Prior testicular cancer (Resolved) This is a 72 years old male patient admitted to inpatient rehabilitation unit due to progressive generalized weakness, functional decline and physical debility secondary to Parkinson's disease and was admitted for physical and compression therapy and I am seeing this patient in follow-up after consultation for medical management. #1 physical debility/functional decline/progressive weakness: Secondary to Parkinson's disease. Patient has been having issues with unexplained episodes of unresponsiveness. This happened twice earlier this week. At this time, he is alert and oriented. He has no focal deficit. Vital signs are stable. All narcotics and benzodiazepines discontinued. Plan to continue PT OT according to rehab team. #2 Parkinson's disease with dementia: He is on Sinemet and Seroquel as well as trihexyphenidyl. #3 benign prostatic hypertrophy: Continue Proscar. #4 hypothyroidism: Continue levothyroxine. #5 DVT prophylaxis: Subcu Lovenox. This note was generated with [employer] dictation software. It may contain incorrect words, spelling, and punctuation that were not noted in checking the note before signing. Code Visit Inpatient E&M: 67790 Subs Hosp L2
[2018-01-18 20:17] VITALS: BP 129/87; PULSE 81; RESP 17; TEMP 36.7; O2SAT 98
[2018-01-18] MEDS: Atorvastatin Calcium 80 MG Tablet PO (20:20)
[2018-01-18] MEDS: QUEtiapine 25 MG Tablet 12.5 MG PO (20:20)
[2018-01-18 23:57] VITALS: PULSE 75; RESP 12; RESP 16; O2SAT 96
[2018-01-19] MEDS: Acetaminophen 325 MG Tablet PO ×2 (01:22→06:43)
--- NOTE | 2018-01-19 04:25 | CPS ---
PT REMOVED AT 0200, REFUSED TO PUT BACK ON
[2018-01-19] MEDS: Levothyroxine 50 MCG Tablet PO (05:09)
[2018-01-19] MEDS: Enoxaparin 40 MG/0.4 ML Syringe SC (05:09)
[2018-01-19] MEDS: Carbidopa/Levodopa 25/100 Tablet PO ×2 (06:44→16:29)
[2018-01-19] MEDS: TRIHEXYPHENIDYL HCL 2 MG TABLET 1 MG PO ×2 (08:28→20:50)
[2018-01-19] MEDS: Pantoprazole Sodium 20 MG Tablet PO ×2 (08:29→20:51)
[2018-01-19] MEDS: Finasteride 5 MG Tablet PO (08:29)
[2018-01-19] MEDS: Aspirin 81 MG TAB.CHEW PO (08:29)
[2018-01-19] MEDS: Senna/Docusate Sodium 1 Tablet 2 TABLET PO ×2 (08:29→20:50)
[2018-01-19] MEDS: Multivitamins,Therapeutic Tablet 1 TABLET PO (08:30)
[2018-01-19] MEDS: predniSONE 5 MG Tablet 7.5 MG PO (08:30)
[2018-01-19 08:57] VITALS: BP 144/88; PULSE 79; RESP 17; TEMP 36.9; O2SAT 96
[2018-01-19] MEDS: HYDROcodone Bitartrate/Apap 5/325 Tablet PO ×2 (10:46→20:48)
--- NOTE | 2018-01-19 12:55 | PCM.PN.NEU ---
Subjective: Patient seen and examined. Nursing staff reports patient is very weepy, patient states he is in a great deal of pain, will restart Voss 1 tab Q6 PRN. He denies any hallucinations, his Sinemet was cut back to daily and seems to be doing better, no unresponsive episodes or hallucinations. - Physical Exam General: Alert, Cooperative HEENT: Atraumatic, PERRLA, EOMI, Normocephalic Neck: Supple, No JVD, Negative Carotid Bruits Lungs: Clear to auscultation, Normal air movement Cardiovascular: Regular rate, No murmurs Abdomen: Bowel Sounds Present, Soft, Non Tender Extremities: No edema, Capillary Refill Less than 3 Seconds Skin: No rashes, No breakdown Musculoskeletal: No Tenderness to Palpation of Joints or Extremities Neurological: Cranial nerves II-XII grossly intact Psych/Mental Status: Normal Affect, Appropriate Vital Signs Temp Pulse Resp BP Pulse Ox 98.5 F 79 17 144/88 H 96 01/19/18 08:57 01/19/18 08:57 01/19/18 08:57 01/19/18 08:57 01/19/18 08:57 Oxygen Delivery Method Room Air Weight: 61.235 kg Body Mass Index (BMI) 20.5 Intake and Output for Last 24 Hours 01/17/18 01/18/18 01/19/18 23:59 23:59 23:59 Output Total 100 / 100 Balance -100 / -100 Microbiology Past 72 Hours 01/15/18 14:30 Urine Culture - Final Urine, Clean Catch Culture exhibits no growth. Active Medications Acetaminophen (Tylenol) 325 mg PO Q6H PRN PRN Reason: PAIN Last Admin: 01/19/18 06:43 Dose: 325 mg Hydrocodone Bitart/Acetaminophen (Voss 5mg-325mg) 1 tablet PO Q6H PRN PRN PRN Reason: SEVERE PAIN (6-10/10) Aspirin (Aspirin, Baby) 81 mg PO DAILY@0800 [facility] Last Admin: 01/19/18 08:29 Dose: 81 mg Atorvastatin Calcium (Lipitor) 80 mg PO DAILY@2200 [facility] Last Admin: 01/18/18 20:20 Dose: 80 mg Carbidopa/Levodopa (Sinemet) 1 tablet PO BIDAC [facility] Last Admin: 01/19/18 06:44 Dose: 1 tablet Enoxaparin Sodium (Lovenox) 40 mg SC DAILY@0600 [facility] Last Admin: 01/19/18 05:09 Dose: 40 mg Finasteride (Proscar) 5 mg PO DAILY [facility] Last Admin: 01/19/18 08:29 Dose: 5 mg Levothyroxine Sodium (Synthroid) 50 mcg PO DAILY@0600 [facility] Last Admin: 01/19/18 05:09 Dose: 50 mcg Meclizine HCl (Antivert) 25 mg PO DAILY PRN PRN Reason: ITCHING Multivitamins (Multivitamin) 1 tablet PO DAILYCM [facility] Last Admin: 01/19/18 08:30 Dose: 1 tablet Nitroglycerin (Nitrostat) 0.4 mg SUBLINGUAL Q5M PRN PRN Reason: CARDIAC/CHEST PAIN Nutritional Formula (Lactose Free) (Ensure Enlive) 120 ml PO 4X/DAY [facility] Last Admin: 01/19/18 08:28 Dose: 120 ml Pantoprazole Sodium (Protonix) 20 mg PO BID [facility] Last Admin: 01/19/18 08:29 Dose: 20 mg Prednisone () 7.5 mg PO DAILY@0800 [facility] Last Admin: 01/19/18 08:30 Dose: 7.5 mg Quetiapine Fumarate (Seroquel) 12.5 mg PO QHS [facility] Last Admin: 01/18/18 20:20 Dose: 12.5 mg Senna/Docusate Sodium (Senokot-S, Philomena-Colace) 2 tablet PO BID [facility] Last Admin: 01/19/18 08:29 Dose: 2 tablet Trihexyphenidyl HCl (Trihexyphenidyl Hcl) 1 mg PO BID [facility] Last Admin: 01/19/18 08:28 Dose: 1 mg Medical Necessity - Tobacco Use Smoking Status: Former smoker Assessment/Plan All Active Problems (Last Reviewed 01/11/18 @ 10:35 by Merritt Miranda MD) Hallucination (Acute) TIA (transient ischemic attack) (Acute) Left facial numbness (Acute) Gallbladder sludge (Acute) Right upper quadrant pain (Acute) History of tonsillectomy (Resolved) History of hemorrhoidectomy (Resolved) History of testicular surgery (Resolved) Shoulder pain, right (Acute) Dysphagia (Acute) Fatigue (Acute) Near syncope (Acute) Dehydration (Acute) Chest pain (Acute) Generalized abdominal pain (Acute) Rectal bleeding (Acute) Melanotic stools (Acute) Orthostatic hypotension (Resolved) Prior testicular cancer (Resolved) debility, multifactorial due to Parkinson, Parkinson associated hallucinations, 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 also history of ALISA, but not tolerant of CPAP. complicated by history of laryngeal ca with dysphagia - pt for gait and balance - ot for adls - speech therapy for speech and dysphagia - pd: continue current meds including artane, added sinemet this am appears well tolerated and improved, will increase to tid tomorrow. 01/12: Will increase his Sinemet to every morning, 1 hour before lunch and 1 hour before supper => decrease Sinemet to daily one hour be breakfast - alisa: Home CPAP, not tolerating home CPAP, placed on BIPAP instead until discharge - We will add as needed analgesics - check Orthostatic blood pressures => - Hold Ativan, restart Seroquel at 12.5mg at bedtime, Voss 1 tab Q6 PRN for pain
[2018-01-19 20:45] VITALS: BP 138/70; PULSE 76; RESP 17; TEMP 36.7; O2SAT 98
[2018-01-19] MEDS: QUEtiapine 25 MG Tablet 12.5 MG PO (20:49)
[2018-01-19] MEDS: Atorvastatin Calcium 80 MG Tablet PO (20:51)
[2018-01-19 21:15] VITALS: PULSE 71; RESP 12; RESP 15; O2SAT 98
[2018-01-19 23:30] VITALS: PULSE 74; RESP 12; RESP 16; O2SAT 97
--- NOTE | 2018-01-20 00:03 | CPS ---
pt removing mask on own. when mask was put back on, pt was pulling tubing off of mask. tubing was put back on and explained to pt the need for bipap.
--- NOTE | 2018-01-20 03:51 | NURSING ---
BI-PAP applied by RT at HS. After approx two hours pt pulls mask off. RT explains to pt advantages of keeping bipap on. Pt continues to pull tubing off of mask. Bipap on hold for tonight after multiple explanations as to why pt should leave on and pt's refusal to keep on.
[2018-01-20] MEDS: HYDROcodone Bitartrate/Apap 5/325 Tablet PO ×2 (04:48→16:30)
--- NOTE | 2018-01-20 05:06 | NURSING ---
Pt states I am dying. Call my brother Greg and tell him I love him. Support and encouragement given. company laborer, Greg called and is now present. Pain med given to pt. Pt bathed due to incontinence. Pt now up at sink for oral care. Pt assisted back to bed. Brother, Greg, remains in room with pt
[2018-01-20] MEDS: Enoxaparin 40 MG/0.4 ML Syringe SC (05:15)
[2018-01-20] MEDS: Carbidopa/Levodopa 25/100 Tablet PO ×2 (05:16→16:30)
[2018-01-20] MEDS: Levothyroxine 50 MCG Tablet PO (05:16)
[2018-01-20 09:35] VITALS: BP 140/71; PULSE 78; RESP 16; TEMP 36.7; O2SAT 95
[2018-01-20] MEDS: TRIHEXYPHENIDYL HCL 2 MG TABLET 1 MG PO ×2 (11:07→21:12)
[2018-01-20] MEDS: Multivitamins,Therapeutic Tablet 1 TABLET PO (11:08)
[2018-01-20] MEDS: predniSONE 5 MG Tablet 7.5 MG PO (11:08)
[2018-01-20] MEDS: Aspirin 81 MG TAB.CHEW PO (11:09)
[2018-01-20] MEDS: Pantoprazole Sodium 20 MG Tablet PO ×2 (11:09→21:04)
[2018-01-20] MEDS: Senna/Docusate Sodium 1 Tablet 2 TABLET PO ×2 (11:09→21:04)
[2018-01-20] MEDS: Finasteride 5 MG Tablet PO (11:09)
[2018-01-20 19:56] VITALS: BP 117/71; PULSE 75; RESP 16; TEMP 36.8; O2SAT 95
[2018-01-20] MEDS: Atorvastatin Calcium 80 MG Tablet PO (21:03)
[2018-01-20] MEDS: QUEtiapine 25 MG Tablet 12.5 MG PO (21:04)
[2018-01-20 21:45] VITALS: PULSE 92; RESP 12; RESP 18; O2SAT 98
[2018-01-21 00:45] VITALS: PULSE 82; RESP 12; RESP 16; O2SAT 98
[2018-01-21] MEDS: Enoxaparin 40 MG/0.4 ML Syringe SC (05:27)
[2018-01-21] MEDS: Levothyroxine 50 MCG Tablet PO (05:27)
[2018-01-21] MEDS: Carbidopa/Levodopa 25/100 Tablet PO ×2 (06:43→17:07)
[2018-01-21 07:17] VITALS: BP 146/79; PULSE 78; RESP 16; TEMP 36.8; O2SAT 95
[2018-01-21] MEDS: Pantoprazole Sodium 20 MG Tablet PO ×2 (08:23→22:35)
[2018-01-21] MEDS: predniSONE 5 MG Tablet 7.5 MG PO (08:23)
[2018-01-21] MEDS: Aspirin 81 MG TAB.CHEW PO (08:23)
[2018-01-21] MEDS: Senna/Docusate Sodium 1 Tablet 2 TABLET PO (08:23)
[2018-01-21] MEDS: Multivitamins,Therapeutic Tablet 1 TABLET PO (08:23)
[2018-01-21] MEDS: TRIHEXYPHENIDYL HCL 2 MG TABLET 1 MG PO ×2 (08:26→22:35)
[2018-01-21] MEDS: Finasteride 5 MG Tablet PO (08:26)
--- NOTE | 2018-01-21 09:28 | NURSING ---
patient ambulated > 150 ft x min assist without device. also nu step x 5 minutes.
[2018-01-21] MEDS: Acetaminophen 325 MG Tablet PO ×2 (10:00→22:35)
[2018-01-21 19:35] VITALS: BP 125/74; PULSE 73; RESP 16; TEMP 36.7; O2SAT 99
[2018-01-21] MEDS: Atorvastatin Calcium 80 MG Tablet PO (22:35)
[2018-01-21] MEDS: QUEtiapine 25 MG Tablet 12.5 MG PO (22:35)
--- NOTE | 2018-01-22 00:35 | NURSING ---
pt refused application of bi-pap this hs. pt sleeping well. staff continues to monitor pt with hourly checks.
--- NOTE | 2018-01-22 03:28 | NURSING ---
REVIEWED AND AGREE WITH SKATE MAKER'S FIM AND HANDOFF CHARTING.
[2018-01-22] MEDS: Enoxaparin 40 MG/0.4 ML Syringe SC (06:33)
[2018-01-22] MEDS: Carbidopa/Levodopa 25/100 Tablet PO ×2 (06:33→16:31)
[2018-01-22] MEDS: Levothyroxine 50 MCG Tablet PO (06:33)
[2018-01-22] MEDS: Acetaminophen 325 MG Tablet PO ×2 (06:42→17:07)
[2018-01-22 07:21] VITALS: BP 135/73; PULSE 81; RESP 18; TEMP 36.3; O2SAT 97
[2018-01-22] MEDS: Multivitamins,Therapeutic Tablet 1 TABLET PO (07:29)
[2018-01-22] MEDS: Pantoprazole Sodium 20 MG Tablet PO ×2 (07:29→20:46)
[2018-01-22] MEDS: Aspirin 81 MG TAB.CHEW PO (07:29)
[2018-01-22] MEDS: predniSONE 5 MG Tablet 7.5 MG PO (07:29)
[2018-01-22] MEDS: Finasteride 5 MG Tablet PO (07:29)
[2018-01-22] MEDS: TRIHEXYPHENIDYL HCL 2 MG TABLET 1 MG PO ×2 (07:29→20:47)
[2018-01-22 18:47] VITALS: BP 110/69; PULSE 75; RESP 18; TEMP 36.4; O2SAT 96
[2018-01-22] MEDS: QUEtiapine 25 MG Tablet 12.5 MG PO (20:45)
[2018-01-22] MEDS: Atorvastatin Calcium 80 MG Tablet PO (20:46)
[2018-01-23 00:10] VITALS: PULSE 69; RESP 12; RESP 18; O2SAT 96
--- NOTE | 2018-01-23 00:22 | NURSING ---
Monday, Jan 22. Pt awakened about 02:00 and removed BIPAP on own. YARD CLEANER and PULLING MACHINE OPERATOR responded to noises from room. Pt appeared frustrated when asked if he needed anything. Pt became agitated, grabbed PULLING MACHINE OPERATOR's ID badge and pulled it aggressively. staff alerted RN who came into room to assess pt. Pt answered questions and was calm at this point. RN observed no aggressive behavior. Pt settled back into pillows and returned to sleep after reassurance provided. Upon further monitoring, pt had no further agitated behavior.
[2018-01-23] MEDS: HYDROcodone Bitartrate/Apap 5/325 Tablet PO ×2 (01:54→15:26)
[2018-01-23 03:03] VITALS: PULSE 71; RESP 12; RESP 20; O2SAT 98
--- NOTE | 2018-01-23 03:16 | NURSING ---
Pt removed BiPap at 03:15 and stated he couldn't breath comfortably with it on. Respiratory notified that pt removed it for the night.
[2018-01-23] MEDS: Levothyroxine 50 MCG Tablet PO (06:28)
[2018-01-23] MEDS: Enoxaparin 40 MG/0.4 ML Syringe SC (06:28)
[2018-01-23] MEDS: Carbidopa/Levodopa 25/100 Tablet PO ×2 (06:30→17:40)
[2018-01-23] MEDS: Multivitamins,Therapeutic Tablet 1 TABLET PO (07:46)
[2018-01-23] MEDS: Pantoprazole Sodium 20 MG Tablet PO ×2 (07:46→20:00)
[2018-01-23] MEDS: Senna/Docusate Sodium 1 Tablet 2 TABLET PO (07:46)
[2018-01-23] MEDS: Finasteride 5 MG Tablet PO (07:46)
[2018-01-23] MEDS: predniSONE 5 MG Tablet 7.5 MG PO (07:46)
[2018-01-23] MEDS: Acetaminophen 325 MG Tablet PO (07:46)
[2018-01-23] MEDS: Aspirin 81 MG TAB.CHEW PO (07:46)
[2018-01-23 08:27] VITALS: BP 115/72; PULSE 76; RESP 17; TEMP 36.6; O2SAT 95
[2018-01-23] MEDS: TRIHEXYPHENIDYL HCL 2 MG TABLET 1 MG PO ×2 (10:43→20:00)
--- NOTE | 2018-01-23 12:04 | CASEMGMT ---
Insurance Clinical information faxed. Pending continued stay approval at this time. Auth#[id number] Liane KHAN, STUDIO CAMERA OPERATOR
--- NOTE | 2018-01-23 12:06 | CASEMGMT ---
Team meeting held. Patient present as well as patient family. Collaborating with team, discharge date sets for 01/24/18. Patient plans to discharge to home with spouse and a home exercise program. Patient reporting to have all needed durable medical equipment. Patient family plans to provide transportation home for patient at time of discharge. Support given. Proposed discharge date: 01/24/18 PLAN: Discharge to home with spouse. Liane KHAN, COMMUNITY SUPPORT WORKER
--- NOTE | 2018-01-23 12:49 | PCM.PN.NEU ---
Subjective: Staffed in team meeting. Family at bedside, questions answered. With both Physical therapy and Occupational therapy he is supervision across the board. He is able to walk 350 feet without a device. He is able to go from a sitting to a standing position, with out any difficulty. He has gone up two flights of steps at stand by assist. With Occupational therapy, He is able to do all his own personal care, bathing and dressing. With Nursing, he still has periods where he is agitated and can become combated, he is easily redirected, he is doing much better now than on admission. Will adjust his Seroquel dosing time to 1999hours. He denies any Hallucinations at this time. His pain is well controlled on the [place]. The plan is for discharge home on 01/27, with home health Physical therapy and Occupational therapy. - Physical Exam General: Alert, Oriented x3, Cooperative HEENT: Atraumatic, PERRLA, EOMI, Normocephalic Neck: Supple, No JVD, Negative Carotid Bruits Lungs: Clear to auscultation, Normal air movement Cardiovascular: Regular rate, No murmurs Abdomen: Bowel Sounds Present, Soft, Non Tender Extremities: No edema, Capillary Refill Less than 3 Seconds Skin: No rashes, No breakdown Musculoskeletal: No Tenderness to Palpation of Joints or Extremities Neurological: Cranial nerves II-XII grossly intact Psych/Mental Status: Normal Affect, Appropriate, Alert and oriented to time, place, person, mood and affect Vital Signs Temp Pulse Resp BP Pulse Ox 97.8 F 76 17 115/72 95 01/23/18 08:27 01/23/18 08:27 01/23/18 08:27 01/23/18 08:27 01/23/18 08:27 Oxygen Delivery Method Room Air Weight: 61.235 kg Body Mass Index (BMI) 20.5 Intake and Output for Last 24 Hours 01/21/18 01/22/18 01/23/18 23:59 23:59 23:59 Intake Total 220 / 220 Balance 220 / 220 Active Medications Acetaminophen (Tylenol) 325 mg PO Q6H PRN PRN Reason: PAIN Last Admin: 01/23/18 07:46 Dose: 325 mg Hydrocodone Bitart/Acetaminophen ([place] 5mg-325mg) 1 tablet PO Q6H PRN PRN PRN Reason: SEVERE PAIN (6-10/10) Last Admin: 01/23/18 01:54 Dose: 1 tablet Aspirin (Aspirin, Baby) 81 mg PO DAILY@0800 [facility] Last Admin: 01/23/18 07:46 Dose: 81 mg Atorvastatin Calcium (Lipitor) 80 mg PO DAILY@2200 [facility] Last Admin: 01/22/18 20:46 Dose: 80 mg Carbidopa/Levodopa (Sinemet) 1 tablet PO BIDAC [facility] Last Admin: 01/23/18 06:30 Dose: 1 tablet Enoxaparin Sodium (Lovenox) 40 mg SC DAILY@0600 [facility] Last Admin: 01/23/18 06:28 Dose: 40 mg Finasteride (Proscar) 5 mg PO DAILY [facility] Last Admin: 01/23/18 07:46 Dose: 5 mg Levothyroxine Sodium (Synthroid) 50 mcg PO DAILY@0600 [facility] Last Admin: 01/23/18 06:28 Dose: 50 mcg Meclizine HCl (Antivert) 25 mg PO DAILY PRN PRN Reason: ITCHING [facility] Last Admin: 01/23/18 07:46 Dose: 1 tablet Nitroglycerin (Nitrostat) 0.4 mg SUBLINGUAL Q5M PRN PRN Reason: CARDIAC/CHEST PAIN Nutritional Formula (Lactose Free) (Ensure Enlive) 120 ml PO 4X/DAY [facility] Last Admin: 01/23/18 07:47 Dose: 120 ml Pantoprazole Sodium (Protonix) 20 mg PO BID [facility] Last Admin: 01/23/18 07:46 Dose: 20 mg Prednisone () 7.5 mg PO DAILY@0800 [facility] Last Admin: 01/23/18 07:46 Dose: 7.5 mg Quetiapine Fumarate (Seroquel) 12.5 mg PO DAILY@1999 [facility] Senna/Docusate Sodium (Senokot-S, Philomena-Colace) 2 tablet PO BID [facility] Last Admin: 01/23/18 07:46 Dose: 2 tablet Trihexyphenidyl HCl (Trihexyphenidyl Hcl) 1 mg PO BID [facility] Last Admin: 01/23/18 10:43 Dose: 1 mg Medical Necessity - Tobacco Use Smoking Status: Former smoker Assessment/Plan All Active Problems (Last Reviewed 01/11/18 @ 10:35 by Merritt Miranda MD) Hallucination (Acute) TIA (transient ischemic attack) (Acute) Left facial numbness (Acute) Gallbladder sludge (Acute) Right upper quadrant pain (Acute) History of tonsillectomy (Resolved) History of hemorrhoidectomy (Resolved) History of testicular surgery (Resolved) Shoulder pain, right (Acute) Dysphagia (Acute) Fatigue (Acute) Near syncope (Acute) Dehydration (Acute) Chest pain (Acute) Generalized abdominal pain (Acute) Rectal bleeding (Acute) Melanotic stools (Acute) Orthostatic hypotension (Resolved) Prior testicular cancer (Resolved) debility, multifactorial due to Parkinson, Parkinson associated hallucinations, 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 also history of ALISA, but not tolerant of CPAP. complicated by history of laryngeal ca with dysphagia - pt for gait and balance - ot for adls - speech therapy for speech and dysphagia - pd: continue current meds including artane, added sinemet this am appears well tolerated and improved, will increase to tid tomorrow. 01/12: Will increase his Sinemet to every morning, 1 hour before lunch and 1 hour before supper => decrease Sinemet to daily one hour be breakfast - alisa: Home CPAP, not tolerating home CPAP, placed on BIPAP instead until discharge - We will add as needed analgesics - check Orthostatic blood pressures => - Hold Ativan, restart Seroquel at 12.5mg at bedtime, [place] 1 tab Q6 PRN for pain - Plan is for discharge home, with Home Health Physical therapy, and Occupational therapy on 01/27.
[2018-01-23 19:54] VITALS: BP 151/83; PULSE 76; RESP 16; TEMP 37; O2SAT 97
[2018-01-23] MEDS: Atorvastatin Calcium 80 MG Tablet PO (20:00)
[2018-01-23] MEDS: QUEtiapine 25 MG Tablet 12.5 MG PO (20:01)
[2018-01-24 01:40] VITALS: PULSE 69; RESP 12; RESP 14; O2SAT 98
--- NOTE | 2018-01-24 02:44 | NURSING ---
bed alarm alarming, pt sitting up in bed. requesting bipap to be removed, states im starting to freak out with that mask on. bipap removed at this time and cps made aware.
[2018-01-24] MEDS: Levothyroxine 50 MCG Tablet PO (05:36)
[2018-01-24] MEDS: Carbidopa/Levodopa 25/100 Tablet PO (05:36)
[2018-01-24] MEDS: Enoxaparin 40 MG/0.4 ML Syringe SC (05:36)
[2018-01-24] MEDS: Acetaminophen 325 MG Tablet PO (05:39)
[2018-01-24] MEDS: HYDROcodone Bitartrate/Apap 5/325 Tablet PO (09:30)
[2018-01-24] MEDS: Pantoprazole Sodium 20 MG Tablet PO (09:31)
[2018-01-24] MEDS: Multivitamins,Therapeutic Tablet 1 TABLET PO (09:31)
[2018-01-24] MEDS: TRIHEXYPHENIDYL HCL 2 MG TABLET 1 MG PO (09:31)
[2018-01-24] MEDS: Aspirin 81 MG TAB.CHEW PO (09:31)
[2018-01-24] MEDS: Finasteride 5 MG Tablet PO (09:31)
[2018-01-24] MEDS: predniSONE 5 MG Tablet 7.5 MG PO (09:32)
[2018-01-24] MEDS: Senna/Docusate Sodium 1 Tablet 2 TABLET PO (09:33)
[2018-01-24 10:00] VITALS: BP 110/65; PULSE 65; RESP 20; TEMP 36.7; O2SAT 97
--- NOTE | 2018-01-24 10:52 | PCM.DC ---
- Discharge Diagnoses Reason(s) for Visit for Discharge Instructions: Parkinsons You will use the following diet at home:: Cardiac Your food should be the consistency of: Mechanical soft (ground) Your liquids should be the consistency of: Regular/Thin Discharge Activity: May Not Drive, May Shower, May Take a Tub Bath, - Weight Bearing Status: Weight bearing as tolerated Call your doctor if you observe: Fever of 101 or Higher, Coldness, Increased Pain, Numbness or Tingling, Change in Color, Inability to urinate, Inability to have a bowel movement, Using more than one pad per hour, Shortness of breath, Dizziness, Fainting spells, Swelling in the ankles, Chest pain, Prolonged hiccoughing, Increased palpitations (irregular heartbeat), Calf discomfort, Uncontrolled pain Allergies/Adverse Reactions: Allergies amoxicillin trihydrate [From Augmentin] Allergy (Severe, Verified 01/16/18 21:01) Unknown ?hives celecoxib [From Celebrex] Allergy (Severe, Verified 01/16/18 21:01) bad dreams, hallucinates, esomeprazole magnesium [From Nexium] Allergy (Severe, Verified 01/16/18 21:01) Unknown Penicillins Allergy (Severe, Verified 01/16/18 21:01) Unknown potassium clavulanate [From Augmentin] Allergy (Severe, Verified 01/16/18 21:01) Unknown hives? telmisartan [From Micardis] Allergy (Severe, Verified 01/16/18 21:01) Unknown venlafaxine HCl [From Effexor] Allergy (Severe, Verified 01/16/18 21:01) bad dreams, hallucinates atenolol Allergy (Intermediate, Verified 01/16/18 21:01) body hot tingling metoprolol Allergy (Intermediate, Verified 01/16/18 21:01) Unknown amoxicillin [From Augmentin] Allergy (Verified 01/16/18 21:01) Unknown clavulanic acid [From Augmentin] Allergy (Verified 01/16/18 21:01) Unknown duloxetine HCl [From Cymbalta] Allergy (Verified 01/16/18 21:01) aggiation melatonin Allergy (Verified 01/16/18 21:01) kept awake mirtazapine [From Remeron] Allergy (Verified 01/16/18 21:01) Chest tightness sertraline HCl [From Zoloft] Allergy (Verified 01/16/18 21:01) Itching buspirone HCl [From BuSpar] Adverse Reaction (Verified 01/16/18 21:01) aggiation IRRITABLE citalopram hydrobromide [From Celexa] Adverse Reaction (Verified 01/16/18 21:01) aggiation ropinirole Adverse Reaction (Verified 01/16/18 21:01) Other tamsulosin HCl [From Flomax] Adverse Reaction (Verified 01/16/18 21:01) Low blood pressure Medications to take at Discharge Aspirin [Aspirin, Baby] 81 mg PO DAILY@0800 07/12/14 Nitroglycerin [Nitrostat] 0.4 mg SUBLINGUAL Q5M PRN 10/31/14 Multivit-Min/FA/Lycopen/Lutein [Centrum Silver Tablet] 1 tab PO DAILY 08/17/16 Levothyroxine [Synthroid] 50 mcg PO DAILY 10/27/16 fluticasone 50 mcg/actuation nasal spray,suspension 2 spray INTRANASAL DAILY PRN PRN 05/29/17 meclizine 25 mg tablet 25 mg PO DAILY PRN PRN 12/11/17 Prednisone 7.5 mg PO DAILY 12/21/17 Trihexyphenidyl HCl 1 mg PO BID 12/21/17 Ensure Enlive 120 ml PO 4X/DAY 01/10/18 Acetaminophen [Tylenol] 325 mg PO Q6H PRN 01/16/18 Finasteride [Proscar] 5 mg PO DAILY 01/16/18 Pantoprazole Sodium [Protonix] 20 mg PO BID 01/16/18 Atorvastatin Calcium [Lipitor] 80 mg PO DAILY@0 01/17/18 Carbidopa/Levodopa 25/100 [Sinemet 25/100] 1 tab PO BIDAC 30 Days #60 tab 01/24/18 Hydrocodone Bitart/Apap 5-325 [[place] 5/325] 1 tab PO Q6H PRN PRN 8 Days #28 tab 01/24/18 Multivitamins,Therapeutic [Multivitamin] 1 tablet PO DAILYCM tablet 01/24/18 Quetiapine Fumarate [Seroquel] 12.5 mg PO DAILY@1999 30 Days #30 tab 01/24/18 The following prescriptions were given: Hydrocodone Bitart/Apap 5-325 [[place] 5/325] 1 tab PO Q6H PRN PRN 8 Days #28 tab PRN Reason: Severe Pain (-02/28) Carbidopa/Levodopa 25/100 [Sinemet 25/100] 1 tab PO BIDAC 30 Days #60 tab Quetiapine Fumarate [Seroquel] 12.5 mg PO DAILY@1999 30 Days #30 tab Primary Care Physician: Yo Scott DO [Primary Care Provider] - Test Results: Test results from this visit will be discussed in further detail at your follow-up appointment, if applicable. Please Follow Up With: Dr. Yo Scott-PCP Please Follow Up With: Efren Arteaga-Taisha Blandon NP Proposed Discharge Date: 01/24/18
[2018-01-24 10:55] VITALS: BP 110/65; PULSE 65; RESP 20; TEMP 36.7; O2SAT 97
--- NOTE | 2018-01-24 10:58 | DS.PCM_ITS ---
Rehab Discharge Summary DATE OF ADMISSION: 01/10/18 DATE OF DISCHARGE: 01/24/18 - Rehab Diagnosis Parkinson Discharge Diet: 2000 mg Sodium Diet Discharge Activity: May Not Drive, May Shower, May Take a Tub Bath, - Weight Bearing Status: Weight bearing as tolerated Call your doctor if you observe: Fever of 101 or Higher, Coldness, Increased Pain, Numbness or Tingling, Change in Color, Inability to urinate, Inability to have a bowel movement, Using more than one pad per hour, Shortness of breath, Dizziness, Fainting spells, Swelling in the ankles, Chest pain, Prolonged hiccoughing, Increased palpitations (irregular heartbeat), Calf discomfort, Uncontrolled pain Home Medications: Medications to take at Discharge Aspirin [Aspirin, Baby] 81 mg PO DAILY@0800 07/12/14 Nitroglycerin [Nitrostat] 0.4 mg SUBLINGUAL Q5M PRN 10/31/14 Multivit-Min/FA/Lycopen/Lutein [Centrum Silver Tablet] 1 tab PO DAILY 08/17/16 Levothyroxine [Synthroid] 50 mcg PO DAILY 10/27/16 fluticasone 50 mcg/actuation nasal spray,suspension 2 spray INTRANASAL DAILY PRN PRN 05/29/17 meclizine 25 mg tablet 25 mg PO DAILY PRN PRN 12/11/17 Prednisone 7.5 mg PO DAILY 12/21/17 Trihexyphenidyl HCl 1 mg PO BID 12/21/17 Ensure Enlive 120 ml PO 4X/DAY 01/10/18 Acetaminophen [Tylenol] 325 mg PO Q6H PRN 01/16/18 Finasteride [Proscar] 5 mg PO DAILY 01/16/18 Pantoprazole Sodium [Protonix] 20 mg PO BID 01/16/18 Atorvastatin Calcium [Lipitor] 80 mg PO DAILY@2200 #60 tab 01/24/18 Carbidopa/Levodopa 25/100 [Sinemet 25/100] 1 tab PO BIDAC 30 Days #60 tab Hydrocodone Bitart/Apap 5-325 [[place] 5/325] 1 tab PO Q6H PRN PRN 8 Days #28 tab 01/24/18 Multivitamins,Therapeutic [Multivitamin] 1 tablet PO DAILYCM tablet 01/24/18 Quetiapine Fumarate [Seroquel] 12.5 mg PO DAILY@1999 30 Days #30 tab 01/24/18 Following Prescrptions Were Given to Patient: Hydrocodone Bitart/Apap 5-325 [[place] 5/325] 1 tab PO Q6H PRN PRN 8 Days #28 tab PRN Reason: Severe Pain (-02/28) Atorvastatin Calcium [Lipitor] 80 mg PO DAILY@2199 #60 tab Carbidopa/Levodopa 25/100 [Sinemet 25/100] 1 tab PO BIDAC 30 Days #60 tab Quetiapine Fumarate [Seroquel] 12.5 mg PO DAILY@1999 30 Days #30 tab Primary Care Physician: Yo Scott, [Primary Care Provider] - Please Follow Up With: Dr. Yo Scott-PCP Please Follow Up With: Efren Neurology-Taisha Blandon NP Disposition: Home Minutes spent on discharge:: 40 Patient Condition:: Good Rehab Course The patient is a 72 year old male with a history of Parkinson's disease, who presented to the hospital after falling. He lives at home with his and does not usually fall but he has had some issues with parkinsonism over the years. He has seen Dr. De León for this in the past. At some point he was placed on Sinemet as well as Requip but was intolerant of these medicines for unclear reasons the description is that he was agitated at night. There was no clear allergic reaction and they are willing to retry some of these medicines at a lower dose in the rehab unit under direct supervision. He is currently only on Artane for his parkinsonism at home. He and his said there has not been other recent falls but he has had significant problems with hallucinations. He recently started Seroquel 25 mg twice daily which seems to have helped his hallucinations. Today in the rehab unit he says that he slept well overnight and is tolerating therapies. He did receive 1 dose of Sinemet 25 /100 this morning, and he believes that is helped with no untoward reaction. Goal of rehab is jewish of prior level functional independence as well as addressing his medications. He is also on a low dose of prednisone, I am told that this is prescribed to help with his appetite prescribed by Dr. Ruth. His niece tells me that he has a tremor for over a year. 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 With both Physical therapy and Occupational therapy he is supervision across the board. He is able to walk 350 feet without a device. He is able to go from a sitting to a standing position, with out any difficulty. He has gone up two flights of steps at stand by assist. With Occupational therapy, He is able to do all his own personal care, bathing and dressing. With Nursing, he still has periods where he is agitated and can become combated, he is easily redirected, he is doing much better now than on admission. Will adjust his Seroquel dosing time to 2000hours. He denies any Hallucinations at this time. His pain is well controlled on the [place]. The plan is for discharge home on 01/24, patient decline outpatient therapy. Meaningful Use Info Meaningful Use Diagnoses (Choose all that apply): None applicable
--- NOTE | 2018-01-24 13:32 | NURSING ---
This RN went over dc instructions, medications and appts with pt and both verbalized understanding, pt discharge home with all personal belongings in stable condition. took pt by POV
--- NOTE | 2018-01-24 14:42 | CASEMGMT ---
Insurance Notified insurance of patient discharge on 01/24/18 to home with spouse. Auth#[id number] Liane KHAN, INFORMATICS PHARMACIST
== END 2018-01-24 14:12 | disposition home or self-care (01) | DRG 948 ==
PROVIDERS: Internal Medicine; Nurse Practitioner Acute Care; Admitting Provider Psychiatry & Neurology Neurology; Family Provider Preventive Medicine Occupational Medicine; PCP Preventive Medicine Occupational Medicine; Visit Provider Internal Medicine
DX: R53.81 Other malaise (principal); G20 Parkinson's disease; Z91.81 History of falling; Z92.3 Personal history of irradiation; R13.10 Dysphagia, unspecified; J44.9 Chronic obstructive pulmonary disease, unspecified; D32.9 Benign neoplasm of meninges, unspecified; Z85.818 Personal history of malignant neoplasm of other sites of lip, oral cavity, and pharynx; K21.9 Gastro-esophageal reflux disease without esophagitis; F41.9 Anxiety disorder, unspecified; I10 Essential (primary) hypertension; I25.10 Atherosclerotic heart disease of native coronary artery without angina pectoris; G47.33 Obstructive sleep apnea (adult) (pediatric); E78.5 Hyperlipidemia, unspecified; Z87.891 Personal history of nicotine dependence; Z85.47 Personal history of malignant neoplasm of testis; N40.0 Benign prostatic hyperplasia without lower urinary tract symptoms; E03.9 Hypothyroidism, unspecified; F02.80 Dementia in other diseases classified elsewhere, unspecified severity, without behavioral disturbance, psychotic disturbance, mood disturbance, and anxiety; R42 Dizziness and giddiness
CPT/HCPCS: 36415; 73502; 80048; 81001; 82962; 85027; 87086; 92507; 92523; 92526; 94002; 94003; 97110; 97116; 97162; 97165; 97530; 97535; 97802

== ENCOUNTER 2018-01-15 22:17 | Emergency (ER) | payer MEDICARE, SELFPAY ==
[2018-01-15 22:30] VITALS: BP 165/82; PULSE 87; RESP 15; TEMP 36.8; O2SAT 100; BMI 18.8
[2018-01-15 22:41] VITALS: BP 161/77; PULSE 82; RESP 18; TEMP 36.7; O2SAT 100
[2018-01-15 22:41] LABS: Allen Test POS; Base Excess 8 mmol/L (-2 to +2); Bicarbonate 31.2 mmol/L (22-26); Blood Gas Specimen Type ART; O2 Delivery Device Nasal Can; PO2 130 mmHG (75-100); SITE R Radial; SO2 99 % (95-99); Total Carbon Dioxide 32 mmol/L; pH 7.49 (7.35-7.45)
[2018-01-15 22:46] LABS: Bedside Glucose 106 mg/dL (70-110)
--- NOTE | 2018-01-15 22:47 | ED.DCSUM_ITS ---
- ER Visit Summary Date of Service: 01/15/18 Chief Complaint: [] Altered mental status comatose History of Present Illness: The patient is a 72 M [] who was found by the nursing staff at rehab 35 minutes ago comatose. With no focal neurologic deficits he just would not wake up or respond. He is a DNR CCA. He was recently admitted for debility and hallucinations. He has not really had any of his medications since this morning. He did receive [place] and Ativan at the time at 5 AM but nothing since likely secondary to decreasing mental status. He did take an ensure rank for dinner. He did receive Lovenox and aspirin today. He was a rapid response on the floor. He had a normal blood sugar and EKG at that time. Sent down the CT scan. Brought here for further evaluation. Unable to get a history secondary to the patient's GCS being 3 Physical Examination: [] Signs reviewed in within normal limits except for slight hypertension general patient is comatose. Head normocephalic atraumatic eyes are equal round and reactive 3-2 bilaterally neck is normal. Cardiovascular respiratory exams are normal. Abdominal exam is benign. Skin is normal. Unable to do an NIH stroke scale secondary to mental status. Patient is comatose with GCS of 3. Positive gag reflex intact. Test Results: [] EKG shows sinus rhythm [address] head showed nothing acute. ABG showed a normal pH of 7.4 with a PCO2 of 41 and a pulse ox of 99%. Patient given IV fluids and Narcan and placed on the monitor. Patient discussed with neurology immediately. Lab work came back shows nothing significant. Neurology requested a CT Angio of the head neck was normal. The patient is slowly starting to come around. Neurology thinks this is from the Seroquel that he took earlier today she is having altered mental status from this. Discussed with the hospitalist. The patient will be monitored here. Slowly he is coming back to his baseline. He does have some mild hallucinations. This is likely Seroquel effect. He will be discharged back to rehab in the morning Emergency Department Course and Treatment: [] Treatment Plan: [] Disposition: [] Impression: [] Acute altered mental status likely secondary to medication side effect This note was generated with [employer] software. It may contain incorrect words, spelling, and punctuation that were not noted in review of the chart prior to signing ED Disposition - Plan for ED Patient: Chief Complaint: Alt LOC Referrals: Merritt Miranda MD [Primary Care Provider] -
[2018-01-15] MEDS: 0.9% Normal Saline 1,000 ML 100 ML IV (22:50)
[2018-01-15] MEDS: Naloxone 2 MG/2 ML Syringe IV (22:50)
[2018-01-15 22:52] LABS: Absolute Lymphocyte Count 1.72 X10^3/ul (0.83-4.51); Absolute Neutrophil Count 5.7 X10^3/uL (2.0-7.7); Basophil# 0.02 X10^3/uL; Basophil% 0.2 % (0-1); Eosinophil# 0.07 X10^3/uL; Eosinophils% 0.9 % (0-5); Hematocrit 45.2 % (40-54); Lymphocyte # 1.72 X10^3/ul (4.0); Lymphocyte % 21.2 % (19-41); Mean Corp Hgb Conc 33.2 g/gl (32-36); Mean Corpuscular Hgb 29.6 pg (27.0-32.0); Mean Corpuscular Volume 89.2 fL (80-94); Mean Platelet Vol. 9.2 fl (6.2-12.0); Monocyte# 0.59 X10^3/uL; Monocyte% 7.3 % (0-10); Neutrophil % 70.3 % (47-70); POSITIVE COUNT NO; POSITIVE DIFFERENTIAL NO; POSITIVE MORPHOLOGY NO; Platelet Count 192 K/mm3 (150-450); RBC Distribution Width CV 13.6 % (11.6-14.6); RBC Distribution Width SD 44.4 fl (35.1-43.9); Red Blood Count 5.07 M/mm3 (4.6-6.2); White Blood Count 8.1 K/mm3 (4.4-11.0)
[2018-01-15 22:55] LABS: International Normalized Ratio 0.9; Prothrombin Time (Protime)PT. 12.4 SECONDS (11.7-14.9)
[2018-01-15 22:56] LABS: Partial Thromboplast Time 29.4 Seconds (24.1-36.2)
[2018-01-15 23:09] LABS: Anion Gap 8 (5-15); BUN 24 mg/dL (7-18); BUN/Creat Ratio 29.5 RATIO (10-20); Calcium,Total 9.1 mg/dL (8.5-10.1); Chloride 105 mmol/L (98-107); Creatinine, Serum 0.81 mg/dL (0.70-1.30); EST Glomerular Filtration Rate 100 mL/min (>60); Est Glom Filt Rate - Afr Amer 121 mL/min (>60); Glucose 106 mg/dL (74-106); Sodium Level 141 mmol/L (136-145)
[2018-01-15 23:11] VITALS: BP 155/85; PULSE 86; RESP 20; O2SAT 100
[2018-01-15 23:30] VITALS: BP 150/80; PULSE 82; RESP 19; O2SAT 100
[2018-01-16] VITALS: BP 151/81; PULSE 81; RESP 18; O2SAT 100
--- NOTE | 2018-01-16 00:38 | ED.RN ---
stated ok to stop [facility].
--- NOTE | 2018-01-16 01:10 | ED.RN ---
Spoke with Dr Dan and vocational rehabilitation counselor, Allie and supervisor elementary education. We are monitoring patient in ED until 0600/0700. aware.
[2018-01-16 01:13] VITALS: BP 143/80; PULSE 79
--- NOTE | 2018-01-16 02:36 | ED.DEP ---
ED Disposition - Plan for ED Patient: Disposition: Home or Assisted Living Chief Complaint: Alt LOC Instructions: ED Altered Loc Referrals: Merritt Miranda MD [Primary Care Provider] -
[2018-01-16 02:55] VITALS: BP 90/56; PULSE 62; RESP 16; O2SAT 97
[2018-01-16 03:19] VITALS: BP 98/60; PULSE 68; RESP 16; O2SAT 97
[2018-01-16 04:40] VITALS: BP 117/63; PULSE 71; RESP 18; O2SAT 96
[2018-01-16 05:40] VITALS: BP 118/63; PULSE 71; RESP 16; O2SAT 97
== END 2018-01-16 06:03 | disposition home or self-care (01) ==
LOC: ED 01-16 00:42 → PCU 01-16 01:02 → ED 01-16 02:36
PROVIDERS: Emergency Provider Emergency Medicine; Family Provider Preventive Medicine Occupational Medicine; PCP Psychiatry & Neurology Neurology
DX: R41.82 Altered mental status, unspecified (principal); Z66 Do not resuscitate; I25.10 Atherosclerotic heart disease of native coronary artery without angina pectoris; I10 Essential (primary) hypertension; E78.00 Pure hypercholesterolemia, unspecified; J44.9 Chronic obstructive pulmonary disease, unspecified; G47.33 Obstructive sleep apnea (adult) (pediatric); G20 Parkinson's disease; R53.81 Other malaise; R44.3 Hallucinations, unspecified; Z85.819 Personal history of malignant neoplasm of unspecified site of lip, oral cavity, and pharynx; J32.3 Chronic sphenoidal sinusitis
CPT/HCPCS: 36600; 70450; 70496; 70498; 71045; 80048; 82803; 82962; 84484; 85025; 85610; 85730; 93005; 96361; 96374; 99283; J7030; Q9967

== ENCOUNTER 2018-01-16 20:59 | Observation (INO) | payer MEDICARE, SELFPAY ==
[2018-01-16 21:01] VITALS: BP 174/89; PULSE 80; RESP 17; TEMP 36.8; O2SAT 98; BMI 18.4
[2018-01-16 21:21] LABS: Bedside Glucose 115 mg/dL (70-110)
[2018-01-16 22:06] LABS: Absolute Lymphocyte Count 1.78 X10^3/ul (0.83-4.51); Absolute Neutrophil Count 7.3 X10^3/uL (2.0-7.7); Basophil# 0.02 X10^3/uL; Basophil% 0.2 % (0-1); Eosinophil# 0.07 X10^3/uL; Eosinophils% 0.7 % (0-5); Hematocrit 46.2 % (40-54); Hemoglobin 15.3 g/dl (13.0-16.5); Lymphocyte # 1.78 X10^3/ul (4.0); Mean Corp Hgb Conc 33.1 g/gl (32-36); Mean Corpuscular Hgb 29.5 pg (27.0-32.0); Mean Corpuscular Volume 89.2 fL (80-94); Mean Platelet Vol. 9.5 fl (6.2-12.0); Monocyte# 0.76 X10^3/uL; Monocyte% 7.7 % (0-10); Neutrophil # 7.26 X10^3/uL (2.7-7.7); Neutrophil % 73.2 % (47-70); Platelet Count 206 K/mm3 (150-450); RBC Distribution Width CV 13.6 % (11.6-14.6); RBC Distribution Width SD 44.6 fl (35.1-43.9); Red Blood Count 5.18 M/mm3 (4.6-6.2); White Blood Count 9.9 K/mm3 (4.4-11.0)
[2018-01-16 22:08] LABS: POSITIVE COUNT NO; POSITIVE DIFFERENTIAL NO; POSITIVE MORPHOLOGY NO
[2018-01-16 22:21] LABS: Anion Gap 6 (5-15); BUN 25 mg/dL (7-18); BUN/Creat Ratio 33.8 RATIO (10-20); Calcium,Total 9.4 mg/dL (8.5-10.1); Chloride 104 mmol/L (98-107); Creatinine, Serum 0.74 mg/dL (0.70-1.30); EST Glomerular Filtration Rate 111 mL/min (>60); Est Glom Filt Rate - Afr Amer 135 mL/min (>60); Estimated Creatinine Clearance 53.57 ml/min; Glucose 110 mg/dL (74-106); Potassium 4.3 mmol/L (3.5-5.1); Sodium Level 139 mmol/L (136-145)
--- NOTE | 2018-01-16 22:53 | PCM.HP.STD ---
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 De León (5) Coronary artery spasm Status: Chronic (6) Anxiety Status: Chronic Comment: with panic attacks (7) Former smoker Status: Chronic Comment: Quit 8 years ago (8) COPD (chronic obstructive pulmonary disease) Status: Chronic Qualifiers: Emphysema type: unspecified (9) Obstructive sleep apnea Status: Chronic Comment: CPAP 12 cm of water (10) CAD (coronary artery disease) Status: Chronic Qualifiers: Coronary Disease-Associated Artery/Lesion type: unspecified vessel or lesion type [place] vs. transplanted heart: unspecified whether [place] or transplanted heart Associated angina: angina presence unspecified Qualified Code(s): I25.10 - Atherosclerotic heart disease of [place] coronary artery without angina pectoris History of Present Illness Date of Admission: 01/16/18 Chief Complaint: Worsened LUE weakness, L facial numbness, abnormal tongue sensation The patient is a 72 y/o M w/ PMHx: Hx Testicular Cancer s/p radiation and excision, Hx Tonsillar Cancer s/p resection, Chronic Cholecystitis s/p 12/22/17 cholecystectomy, Former Tobacco use, Chronic COPD, ALISA, HTN, HLD, Anxiety and Depression, Known Meningioma, Parkinson's Disease, ALISA on CPAP, GERD who presents to the [facility] ED from [facility] on 01/16/18 with history of several events over the last 24 hours w/ initially unresponsive event the evening prior felt secondary to sedative medications with negative ED evaluation and eventual improvement with transition back to rehabilitation w/ onset on day of ED presentation at unclear specific time in the evening increased above normal chronic baseline LUE weakness, left sided facial paresthesias and abnormal tongue sensation, described as heavy, ongoing. He did notes some improvement in the ED but still ongoing paresthesias and abnormal tongue heaviness sensation. In the ED work-up included T 98.0, heart rate 81, BP 152/109--> 174/89--> 167/90, heart rate 18, 98% room air, unremarkable CBC, unremarkable BMP aside glucose 110, troponin less than 0.015, CT head with mild atrophy with no visualized evidence of acute hemorrhage infarct or edema. 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 De León History of oropharyngeal cancer (Chronic) Oropharyngeal cancer (Chronic) Coronary artery spasm (Chronic) Anxiety (Chronic) with panic attacks Former smoker (Chronic) Quit 8 years ago COPD (chronic obstructive pulmonary disease) (Chronic) Gastroesophageal reflux disease (Chronic) Hypertension (Chronic) Diverticulosis (Chronic) Obstructive sleep apnea (Chronic) CPAP 12 cm of water CAD (coronary artery disease) (Chronic) HLD (hyperlipidemia) (Chronic) Tonsillar cancer (Chronic) Medical History: Medical History (Last Reviewed 01/11/18 @ 10:35 by Merritt Miranda MD) Dyspnea (Chronic) R06.00 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 De León History of oropharyngeal cancer (Chronic) Z85.819 Oropharyngeal cancer (Chronic) C10.9 Coronary artery spasm (Chronic) I20.1 Anxiety (Chronic) F41.9 with panic attacks Near syncope (Acute) Former smoker (Chronic) Z87.891 Quit 8 years ago COPD (chronic obstructive pulmonary disease) (Chronic) J44.9 Gastroesophageal reflux disease (Chronic) K21.9 Hypertension (Chronic) I10 Dehydration (Acute) E86.0 Diverticulosis (Chronic) K57.90 Obstructive sleep apnea (Chronic) G47.33 CPAP 12 cm of water Chest pain (Acute) R07.9 CAD (coronary artery disease) (Chronic) I25.10 HLD (hyperlipidemia) (Chronic) E78.5 Generalized abdominal pain (Acute) R10.84 Rectal bleeding (Acute) K62.5 Melanotic stools (Acute) K92.1 Tonsillar cancer (Chronic) Allergies amoxicillin trihydrate [From Augmentin] Allergy (Severe, Verified 01/16/18 21:01) Unknown ?hives celecoxib [From Celebrex] Allergy (Severe, Verified 01/16/18 21:01) bad dreams, hallucinates, esomeprazole magnesium [From Nexium] Allergy (Severe, Verified 01/16/18 21:01) Unknown Penicillins Allergy (Severe, Verified 01/16/18 21:01) Unknown potassium clavulanate [From Augmentin] Allergy (Severe, Verified 01/16/18 21:01) Unknown hives? telmisartan [From Micardis] Allergy (Severe, Verified 01/16/18 21:01) Unknown venlafaxine HCl [From Effexor] Allergy (Severe, Verified 01/16/18 21:01) bad dreams, hallucinates atenolol Allergy (Intermediate, Verified 01/16/18 21:01) body hot tingling metoprolol Allergy (Intermediate, Verified 01/16/18 21:01) Unknown amoxicillin [From Augmentin] Allergy (Verified 01/16/18 21:01) Unknown clavulanic acid [From Augmentin] Allergy (Verified 01/16/18 21:01) Unknown duloxetine HCl [From Cymbalta] Allergy (Verified 01/16/18 21:01) aggiation melatonin Allergy (Verified 01/16/18 21:01) kept awake mirtazapine [From Remeron] Allergy (Verified 01/16/18 21:01) Chest tightness sertraline HCl [From Zoloft] Allergy (Verified 01/16/18 21:01) Itching buspirone HCl [From BuSpar] Adverse Reaction (Verified 01/16/18 21:01) aggiation IRRITABLE citalopram hydrobromide [From Celexa] Adverse Reaction (Verified 01/16/18 21:01) aggiation ropinirole Adverse Reaction (Verified 01/16/18 21:01) Other tamsulosin HCl [From Flomax] Adverse Reaction (Verified 01/16/18 21:01) Low blood pressure Home Medications: Ambulatory Orders Medication Instructions Recorded Aspirin [Aspirin, Baby] 81 mg PO DAILY@0800 07/12/14 Nitroglycerin [Nitrostat] 0.4 mg SUBLINGUAL Q5M PRN 10/31/14 Multivit-Min/FA/Lycopen/Lutein 1 tab PO DAILY 08/17/16 [Centrum Silver Tablet] Levothyroxine [Synthroid] 50 mcg PO DAILY 10/27/16 albuterol sulfate 2.5 mg/3 mL 2.5 mg INHALATION Q4H PRN ml 05/19/17 (0.083 %) solution for nebulization fluticasone 50 mcg/actuation nasal 2 spray INTRANASAL DAILY PRN PRN 05/29/17 spray,suspension meclizine 25 mg tablet 25 mg PO DAILY PRN PRN 12/11/17 Prednisone 7.5 mg PO DAILY 12/21/17 Trihexyphenidyl HCl 1 mg PO BID 12/21/17 Quetiapine Fumarate [Seroquel] 25 mg PO BID 01/09/18 Ensure Enlive 120 ml PO 4X/DAY 01/10/18 Lorazepam [Ativan] 0.5 mg PO BID PRN PRN tablet 01/10/18 Acetaminophen [Tylenol] 325 mg PO Q6H PRN 01/16/18 Bisacodyl [Dulcolax] 10 mg RECTAL X1 01/16/18 Carbidopa/Levodopa 25/100 [Sinemet] 1 tablet PO BIDCM 01/16/18 Enoxaparin Sodium [Lovenox] 40 mg SQ DAILY 01/16/18 Finasteride [Proscar] 5 mg PO DAILY 01/16/18 Hydrocodone/Acetaminophen [[place] 1 tablet PO Q4H PRN PRN 01/16/18 5-325 Tablet] Magnesium Hydroxide [Milk of 30 ml BC X1 01/16/18 Magnesia] Pantoprazole Sodium [Protonix] 20 mg PO BID 01/16/18 Sennosides/Docusate Sodium 2 each PO BID 01/16/18 [Senna-Docusate Sodium Tablet] Surgical History: Surgical History (Last Reviewed 01/11/18 @ 10:35 by Merritt Miranda MD) History of tonsillectomy (Resolved) Z98.890, Z90.89 History of hemorrhoidectomy (Resolved) Z98.890 History of testicular surgery (Resolved) Z98.890 History of esophagogastroduodenoscopy (EGD) Onset Date: ~09/2015 Z98.890 S/P cataract extraction Z98.49 S/P colonoscopy Onset Date: ~09/2015 Z98.890 S/P hemorrhoidectomy Z98.890, Z87.19 S/P laparoscopic cholecystectomy Z90.49 01/06 Surgical History: - - Orchiectomy for testicular cancer in 1981, removal of right tonsil secondary to cancer, lymph node removal in the neck from tonsillar cancer, PEG tube placement, cataract surgery, recent 12/22/17 cholecystectomy. Psychiatric History: Anxiety - With panic attacks, Depression Lives: - - Currently Acute Rehab for therapies, prior with his spouse. Smoking Status: Former smoker - Quit > 10 years prior. Tobacco Use: Non-smoker Alcohol: None Drugs: None - *Family History Maternal Family History: Family History (Last Reviewed 01/11/18 @ 10:35 by Merritt Miranda MD) Brother Diabetes CAD (coronary artery disease) Sister CVA (cerebral vascular accident) Diabetes Hypertension Breast cancer Mother CAD (coronary artery disease) Diabetes Brother Diabetes Heart disease Father Cancer History Items: Diabetes, Heart Disease, Hypertension, - - His mother at the age of 75 from myocardial infarction. Paternal Family History: Family History (Last Reviewed 01/11/18 @ 10:35 by Merritt Miranda MD) Brother Diabetes CAD (coronary artery disease) Sister CVA (cerebral vascular accident) Diabetes Hypertension Breast cancer Mother CAD (coronary artery disease) Diabetes Brother Diabetes Heart disease Father Cancer History Items: Cancer, - - Multiple family members on his father's side have from stomach cancer Review of Systems Constitutional: Reports: Anorexia, Malaise, Weakness, Fatigue. Denies: Chills, Fever, Weight Change HEENT: Denies: Head Aches, Sinus Congestion, Sinus Drainage Cardiovascular: Denies: Chest Pain, Palpitations Respiratory: Denies: Cough, Shortness of breath at rest, Sputum production Gastrointestinal: Denies: Abdominal Pain, Nausea, Vomiting Genitourinary: Denies: Dysuria Musculoskeletal: Denies: Joint Pain, Joint Tenderness Skin: Denies: Rash, Wounds Neurological: Reports: Confusion, Focal weakness, Numbness, Tingling, Tremor Psychiatric: Denies: Anxiety, Depression, Homicidal Ideations, Suicidal Ideations Hematologic/ Lymphatic: Denies: Easy Bruising, Easy Bleeding VTE Information - Inpt Only VTE Present on Admission: No VTE Mechan Device Prophylaxis: SCD's VTE Pharm Prophylaxis ordered?: Yes Patient Problems: Active and Suspected Problems (Last Reviewed 01/11/18 @ 10:35 by Merritt Miranda MD) TIA (transient ischemic attack) (Acute) Subjective: Seated upright in the ED bed, fatigued appearance, NAD. Objective: Physical Examination: General: awake, alert, oriented x 3 including person, place, recent events but from reports poor historian, cooperative, seated upright in the ED bed in no apparent distress. Skin: normal color, turgor, no icterus, cyanosis. HEENT: AT/NC, EOMI, PERRLA, mildly dry MM, no carotid bruits or JVD noted. Lungs: Diminished BS BL, > bases, mild effort, no rales, ronchi or wheezing. Heart: Regular rate and rhythm; no gallop, rub audible. Abdomen: soft, thin cachetic habitus, NTTP, ND, normal BS, no HSM. Extremities: no cyanosis, clubbing, or edema. Neurological: patient awake, alert, oriented x 3 as noted; cognitive function appears intact although unclear baseline; pupils equally reactive to light and accomodation; cranial nerves II-XII grossly normal and no obvious tongue deviation, moving all 4 extremities but severely limited secondary to severely decreased strength, tremor present, strength severely globally decreased, subjective L sided facial decreased sensation, equivocal babinski, difficulty with FTN/HTS secondary to weakness and tremor w/ parkinson's disease. Psychiatric: affect appears flat, no acute evidence of depressive or anxiety feelings. - Physical Exam Vital Signs Temp Pulse Resp BP Pulse Ox 98.3 F 80 17 174/89 H 98 01/16/18 21:01 01/16/18 21:01 01/16/18 21:01 01/16/18 21:01 01/16/18 21:01 Oxygen Delivery Method Room Air Weight: 121 lb 7.595 oz Body Mass Index (BMI) 18.4 Finger Stick Blood Glucose 115 Laboratory Tests Past 24 Hrs 01/16/18 01/16/18 21:20 21:20 WBC 9.9 RBC 5.18 Hgb 15.3 Hct 46.2 MCV 89.2 MCH 29.5 MCHC 33.1 RDW 13.6 RDW Differential 44.6 H Plt Count 206 MPV 9.5 Immature Gran % (Auto) 0.200 Neut % (Auto) 73.2 H Lymph % (Auto) 18.0 L [place] % (Auto) 7.7 Eos % (Auto) 0.7 Baso % (Auto) 0.2 Absolute Neuts (auto) 7.3 Absolute Lymphs (auto) 1.78 Total Counted Not Reportable Sodium 139 Potassium 4.3 Chloride 104 Carbon Dioxide 29.0 Anion Gap 6 BUN 25 H Creatinine 0.74 Estim Creat Clear Calc 53.57 Est GFR (MDRD) Af Amer 135 Est GFR (MDRD) Non-Af 111 BUN/Creatinine Ratio 33.8 H Glucose 110 H Calcium 9.4 Troponin I < 0.015 POC Glucose 01/16/18 21:17 POC Glucose 115 H Assessment/Plan All Active Problems (Last Reviewed 01/11/18 @ 10:35 by Merritt Miranda MD) Hallucination (Acute) TIA (transient ischemic attack) (Acute) Gallbladder sludge (Acute) Right upper quadrant pain (Acute) History of tonsillectomy (Resolved) History of hemorrhoidectomy (Resolved) History of testicular surgery (Resolved) Shoulder pain, right (Acute) Dysphagia (Acute) Fatigue (Acute) Near syncope (Acute) Dehydration (Acute) Chest pain (Acute) Generalized abdominal pain (Acute) Rectal bleeding (Acute) Melanotic stools (Acute) Orthostatic hypotension (Resolved) Prior testicular cancer (Resolved) The patient is a 72 y/o M w/ PMHx: Hx Testicular Cancer s/p radiation and excision, Hx Tonsillar Cancer s/p resection, Chronic Cholecystitis s/p 12/22/17 cholecystectomy, Former Tobacco use, Chronic COPD, ALISA, HTN, HLD, Anxiety and Depression, Known Meningioma, Parkinson's Disease, ALISA on CPAP, GERD who presents to the [facility] ED from Acute [facility] Facility on 01/16/18 with history of onset on day of ED presentation at unclear specific time in the evening increased above normal chronic baseline LUE weakness, left sided facial paresthesias and abnormal tongue sensation, described as heavy, ongoing. (1) Increased worsened LUE Weakness, L sided Facial Paresthesias, Abnormal Tongue Sensation concerning for ?TIA/CVA versus Progressively Worsening Debility, Dysphagia, Weakness secondary to Parkinson's Disease w/ Known Meningioma: In the ED work-up included unremarkable CBC, unremarkable BMP aside glucose 110, troponin less than 0.015, CT head with mild atrophy with no visualized evidence of acute hemorrhage infarct or edema. Will admit to PCU, will obtain MRI Brain, recent CTA Head and Neck with normal [place] without any demonstrated aneurysm or hemodynamically significant stenosis with atrophy right greater than left hemispheres with no visualized evidence of aneurysmal dilation or focal stenosis and no evidence of hemodynamically significant stenosis of the carotid arteries thus will not repeat, will obtain ECHO, PT/OT/Speech/Nutrition evaluation per protocol. Will consult Neurology for evaluation. Will initiate HTN regimen with low dose ACEI and further adjust as needed, maintain on asa and add plavix, statin w/ AM FLP, fall precautions. (2) Recent Unresponsive Event secondary to Sedative Medications: Recent ED presentation the evening prior secondary to unresponsiveness with eventual improvement in the ED and unremarkable work-up, felt likely secondary to medication additions. Will continue only low dose seroquel and low dose oral ativan. Recent decrease of patient sinemet regimen following this event. (3) Parkinson's Disease: Neurology consulted, recent medication changes during acute rehabilitation presentation including addition sinemet, continued artane. PT, OT, CM consulted. (4) History of Testicular Cancer: s/p radiation and excision. (5) History of Laryngeal Cancer w/ Chronic Dysphagia: Complicates presentation, s/p resection, speech consulted. (6) CAD: Will continue home regimen asa, adding plavix as noted, BB allergy, add statin. (7) Chronic COPD: ATC duonebs, PRN albuterol, HOB, IS parameters. (8) Hypothyroidism: Continue home synthroid regimen, TSH pending. (9) Hypertension: Not on regimen, notable reactions to several medications, elevated BP in the ED upon presentation, will start low dose ACEI, PRN hydralazine. (10) Hyperlipidemia: Add statin, FLP in AM. (11) Hypothyroidism: Continue home synthroid regimen, TSH pending. (12) Anxiety and Depression: Continue low dose seroquel, low dose ativan PRN, several noted allergies to psychiatric medications. (13) BPH: Continue on home proscar regimen. (14) ALISA: CPAP q HS. (15) Moderate-Severe Protein-Calorie Malnutrition: Evidenced per habitus, BMP, muscle and fat loss, nutrition consulted. (16) DVT prophylaxis: SCDs, lovenox. (17) CODE status: Discussed CODE status at length including difference between FULL code, DNR-CCA and DNR-CC status. Following discussions about the differences in these status, confirmed his ongoing status DNR-CCA, no intubation status. Advanced Care Planning Face to Face Time: 17 minutes. Code Visit OBSV E&M: 56491 Initial observation care L3 Procedures: 65264 Advncd Care Plan 30 Min
[2018-01-16 23:10] VITALS: BP 167/90; PULSE 79; RESP 15; O2SAT 95
--- NOTE | 2018-01-16 23:26 | ED.VISSUMM ---
- ER Visit Summary Date of Service: 01/16/18 Chief Complaint: Left arm weakness and left facial numbness History of Present Illness: The patient is a [address] Bojorquez. He is a poor informant. He reports left arm weakness. When I ask him when this began he reports 1 month ago. However, he reports that tonight he has left facial numbness that is new. He also reports that his tongue feels thick. Patient denies any fever, chills, sore throat, cough, chest pain, shortness of breath, abdominal pain, nausea, vomiting, or diarrhea. No dysuria or frequency. No headache. Physical Examination: Vitals: Stable. Afebrile. General: Well-nourished and well-developed. Head: Normocephalic atraumatic. Neck: Supple, no lymphadenopathy. No JVD. Nontender. Cardiovascular: Regular rate and rhythm. No murmurs. Respiratory: No respiratory distress. Clear to auscultation bilaterally. Abdominal: Soft, nontender, nondistended, normal bowel sounds. No guarding, rebound, or peritoneal signs. Back: Nontender. Extremities: Nontender, no edema. Skin: Normal color, no rash. Neurologic: Alert and oriented ?3. Cranial nerves II through XII are intact. Normal strength and sensation. Psych: Normal affect. Test Results: EKG is sinus at 77 with artifact. CBC is remarkable for 7 neutrophils 73. Chem-7 is more for BUN of 25 and glucose 110. Troponin is negative. Clinical Impression(s) from Imaging Studies Brain CT 01/16/18 21:42 IMPRESSION: Mild atrophy no visualized evidence of acute hemorrhage infarct or edema. Given clinical history recommend consideration for follow-up MRI. Electronically Signed: Galina Wynne MD at 22:23 EDT Tel , Service support , Emergency Department Course and Treatment: Patient's NIH scale is 0. He is not a TPA candidate. He is resting comfortably. Treatment Plan: Patient was discussed with Dr. Presley and Dr. Kurtz. He will be admitted to the hospital for further evaluation and treatment. Disposition: Admitted in stable condition. Impression: 1. TIA. 2. Parkinson's disease. This note was generated with Dragon dictation software. It may contain incorrect words, spelling, and punctuation that were not noted in review of the chart prior to signing ED Disposition - Plan for ED Patient: Chief Complaint: Neuro S/Sx Referrals: Yo Scott DO [Primary Care Provider] -
--- NOTE | 2018-01-16 23:29 | NURSING ---
Called [facility] ED charge nurse, ok for patient to come to floor.
[2018-01-16 23:54] VITALS: BMI 19.5
[2018-01-17] VITALS (12 sets, daily range): BP systolic 123–164; BP diastolic 69–100; PULSE 70–88; RESP 14–20; TEMP 36.4–37; O2SAT 96–98; BMI 19.5
[2018-01-17] MEDS: 0.9% NaCl Peripheral Flush Adult/Peds IV (00:11)
[2018-01-17] MEDS: 0.9% Normal Saline 1,000 ML 100 ML IV (00:11)
[2018-01-17 00:33] LABS: Magnesium 2.3 mg/dL (1.6-2.6); Thyroid Stim Hormone (TSH) 2.89 uIU/mL (0.358-3.74)
[2018-01-17] MEDS: HYDROcodone Bitartrate/Apap 5/325 Tablet PO ×2 (00:45→05:00)
[2018-01-17 01:56] LABS: Bacteria 0 SEEN /hpf (None Seen); Mucous, Urine 0 SEEN /hpf (<or=2+); Red Blood Cells-Urine 0 SEEN /hpf (0-5); Squamous Epithelial Cells - UA 0 SEEN /hpf (0-5); White Blood Cells 0 SEEN /hpf (0-5)
[2018-01-17 01:57] LABS: Color, Urine Yellow (Yellow); Glucose, Dipstick Normal (Normal); Ketone-Dipstick Negative (Negative); Leukocyte Esterase-Dipstick Negative /ul (Negative); Nitrite-Dipstick Negative (Negative); Occult Blood-Urine Negative /ul (Negative); Protein-Dipstick Negative (Negative); Urine Bilirubin Dipstick Negative (Negative); Urine Clarity Clear (Clear); Urine Urobilinogen Normal (Normal)
[2018-01-17 02:03] LABS: Amorphous Sediment 1+
[2018-01-17] MEDS: Levothyroxine 50 MCG Tablet PO (05:00)
[2018-01-17 05:24] LABS: Absolute Lymphocyte Count 1.42 X10^3/ul (0.83-4.51); Absolute Neutrophil Count 6.4 X10^3/uL (2.0-7.7); Basophil# 0.03 X10^3/uL; Basophil% 0.4 % (0-1); Eosinophil# 0.06 X10^3/uL; Eosinophils% 0.7 % (0-5); Hematocrit 44.8 % (40-54); Hemoglobin 14.8 g/dl (13.0-16.5); Lymphocyte # 1.42 X10^3/ul (4.0); Lymphocyte % 16.7 % (19-41); Mean Corpuscular Hgb 29.5 pg (27.0-32.0); Mean Corpuscular Volume 89.2 fL (80-94); Monocyte# 0.58 X10^3/uL; Monocyte% 6.8 % (0-10); Neutrophil # 6.39 X10^3/uL (2.7-7.7); Platelet Count 190 K/mm3 (150-450); RBC Distribution Width CV 13.7 % (11.6-14.6); RBC Distribution Width SD 44.5 fl (35.1-43.9); Red Blood Count 5.02 M/mm3 (4.6-6.2); White Blood Count 8.5 K/mm3 (4.4-11.0)
[2018-01-17 05:29] LABS: POSITIVE COUNT NO; POSITIVE DIFFERENTIAL NO; POSITIVE MORPHOLOGY NO
[2018-01-17 05:53] LABS: Anion Gap 7 (5-15); BUN 24 mg/dL (7-18); BUN/Creat Ratio 32.8 RATIO (10-20); Calcium,Total 8.8 mg/dL (8.5-10.1); Chloride 107 mmol/L (98-107); Cholesterol 126 mg/dL (200); Creatinine, Serum 0.73 mg/dL (0.70-1.30); EST Glomerular Filtration Rate 113 mL/min (>60); Est Glom Filt Rate - Afr Amer 136 mL/min (>60); Estimated Creatinine Clearance 56.68 ml/min; Glucose 102 mg/dL (74-106); High Density Lipoprotein 51 mg/dL; Potassium 4.2 mmol/L (3.5-5.1); Sodium Level 142 mmol/L (136-145); Triglycerides 109 mg/dL; Very Low Density Lipoprotein 22 mg/dL (5-40)
[2018-01-17] MEDS: Ipratropium/Albuterol Sulfate 3 ML AMPUL.NEB INHALATION ×3 (06:53→14:59)
--- NOTE | 2018-01-17 08:26 | MRI_ITS ---
STUDY: MRI BRAIN WITHOUT CONTRAST REASON FOR EXAM: Male, 72 years old. CVA. Left upper extremity weakness. History of Parkinson's, testicular carcinoma and tonsillar carcinoma. TECHNIQUE: Standardized multiplanar fat and water weighted pulse sequences were obtained. COMPARISON: 06/12/2017. CT head without contrast 01/16/2018. FINDINGS: No restricted diffusion to suspect acute or subacute ischemic infarct. Normal size of the ventricles and extra-axial spaces for the patient's age. Multiple subcortical white matter T2 FLAIR hyperintensity foci in both cerebral hemispheres and in the forceps major. They are chronic white matter ischemic changes. No midline shift and no mass effects. Normal bilateral basal ganglia. Normal thalami. There is no extra-axial fluid accumulation. Normal flow voids within the major intracranial circulation suggesting patency by spin echo criteria. Normal sella turcica, pituitary gland, infundibular stalk, optic chiasm and hypothalamus. Normal tectal plate and pineal gland. Normal midbrain, thuan and medulla. Normal cerebellum. Normal basal cisterns. Normal bilateral temporal bones. Normal bilateral internal auditory canals. No demonstrated orbital abnormality, within the constraints of a routine brain study. Normal visualized paranasal sinuses. Normal calvarium and skull base. Normal visualized soft tissue structures. Normal visualized upper cervical spine. MRI/Brain without Contrast IMPRESSION: 1. No MRI evidence of acute or subacute ischemic infarct. 2. Mild increase in number of chronic white matter ischemic changes in both cerebral hemispheres when compared to 06/12/2017. Electronically Signed: Matthew Guerrier MD at 13:22 EDT , Service support ,
[2018-01-17] MEDS: QUEtiapine 25 MG Tablet PO (09:49)
[2018-01-17] MEDS: TRIHEXYPHENIDYL HCL 2 MG TABLET 1 MG PO (09:49)
[2018-01-17] MEDS: predniSONE 5 MG Tablet 7.5 MG PO (09:49)
[2018-01-17] MEDS: Finasteride 5 MG Tablet PO (09:49)
[2018-01-17] MEDS: Enoxaparin 40 MG/0.4 ML Syringe SC (09:50)
[2018-01-17] MEDS: Famotidine 20 MG Tablet PO (09:50)
[2018-01-17] MEDS: Multivitamins,Ther W-Minerals Tablet 1 TABLET PO (09:50)
[2018-01-17] MEDS: Aspirin 81 MG TAB.CHEW PO (09:50)
[2018-01-17] MEDS: Pantoprazole Sodium 20 MG Tablet PO (09:50)
[2018-01-17] MEDS: Senna/Docusate Sodium 1 Tablet PO (09:50)
[2018-01-17] MEDS: Clopidogrel Bisulfate 75 MG Tablet PO (09:50)
[2018-01-17] MEDS: Carbidopa/Levodopa 25/100 Tablet PO (09:50)
--- NOTE | 2018-01-17 11:22 | CASEMGMT ---
Patient is from [facility] 4th floor rehab unit. Spoke with [facility] and they will take patient back. She said if he returns today he will not need prior authorization. However, if he stays tonight he would need prior auth. Plan: d/c back to 4th floor rehab unit when ready [facility]
[2018-01-17] MEDS: LORazepam 0.5 MG Tablet PO (11:41)
--- NOTE | 2018-01-17 13:27 | PCM.CONS.GEN ---
Problem List (1) Left facial numbness Status: Acute Reason for Consult Date of Consultation: 01/17/18 Reason for Consultation: Left facial numbness History of Present Illness: The patient is a 72 year old CM with PMH HTN, HLD, H/O PD (sees Dr. De León for the same), ALISA on CPAP, H/O Testicular cancer s/p radiation, H/O Tonsillar cancer s/p resection, GERD, H/O Meningioma admitted from on 01/16/18 with left sided facial numbness and heavy sensation of the tongue, with subjective increase in chronic left arm weakness. Per ED documentation he was at his baseline in the ED except for left facial numbness and tongue heaviness, the day before 01/15/18 he was admitted to the ED from rehab with episode of unresponsiveness which was thought to be medication induced (secondary to Seroquel BID, Ativan and [place]), and was transferred back to rehab unit once he was at his baseline. Patient had been in since 01/11/18 for therapy with debility s/p fall secondary to PD. Per documentation he sees Dr. De León for PD, has been intolerant to Sinemet and Requip in the past, is currently on Artane, in the rehab he was again tried on Sinemet but that caused him to have hallucinations, hence was decrease to BID dosing from TID which he has been tolerating. Patient is a poor historian, he was found to have high BP on admission in the ED yesterday (01/16/18) (BP 152/109--> 174/89--> 167/90), labs were unremarkable and CT head reported nothing acute. At present patient denies any new onset focal weakness, sensory loss, FAJARDO, visual disturbances, or speech disturbances. MRI brain done on admission did not report any acute stroke. 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 De León History of oropharyngeal cancer (Chronic) Oropharyngeal cancer (Chronic) Coronary artery spasm (Chronic) Anxiety (Chronic) with panic attacks Former smoker (Chronic) Quit 8 years ago COPD (chronic obstructive pulmonary disease) (Chronic) Gastroesophageal reflux disease (Chronic) Hypertension (Chronic) Diverticulosis (Chronic) Obstructive sleep apnea (Chronic) CPAP 12 cm of water CAD (coronary artery disease) (Chronic) HLD (hyperlipidemia) (Chronic) Tonsillar cancer (Chronic) Medical History: Medical History (Last Reviewed 01/11/18 @ 10:35 by Merritt Miranda MD) Dyspnea (Chronic) R06.00 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 De León History of oropharyngeal cancer (Chronic) Z85.819 Oropharyngeal cancer (Chronic) C10.9 Coronary artery spasm (Chronic) I20.1 Anxiety (Chronic) F41.9 with panic attacks Near syncope (Acute) Former smoker (Chronic) Z87.891 Quit 8 years ago COPD (chronic obstructive pulmonary disease) (Chronic) J44.9 Gastroesophageal reflux disease (Chronic) K21.9 Hypertension (Chronic) I10 Dehydration (Acute) E86.0 Diverticulosis (Chronic) K57.90 Obstructive sleep apnea (Chronic) G47.33 CPAP 12 cm of water Chest pain (Acute) R07.9 CAD (coronary artery disease) (Chronic) I25.10 HLD (hyperlipidemia) (Chronic) E78.5 Generalized abdominal pain (Acute) R10.84 Rectal bleeding (Acute) K62.5 Melanotic stools (Acute) K92.1 Tonsillar cancer (Chronic) Allergies amoxicillin trihydrate [From Augmentin] Allergy (Severe, Verified 01/16/18 21:01) Unknown ?hives celecoxib [From Celebrex] Allergy (Severe, Verified 01/16/18 21:01) bad dreams, hallucinates, esomeprazole magnesium [From Nexium] Allergy (Severe, Verified 01/16/18 21:01) Unknown Penicillins Allergy (Severe, Verified 01/16/18 21:01) Unknown potassium clavulanate [From Augmentin] Allergy (Severe, Verified 01/16/18 21:01) Unknown hives? telmisartan [From Micardis] Allergy (Severe, Verified 01/16/18 21:01) Unknown venlafaxine HCl [From Effexor] Allergy (Severe, Verified 01/16/18 21:01) bad dreams, hallucinates atenolol Allergy (Intermediate, Verified 01/16/18 21:01) body hot tingling metoprolol Allergy (Intermediate, Verified 01/16/18 21:01) Unknown amoxicillin [From Augmentin] Allergy (Verified 01/16/18 21:01) Unknown clavulanic acid [From Augmentin] Allergy (Verified 01/16/18 21:01) Unknown duloxetine HCl [From Cymbalta] Allergy (Verified 01/16/18 21:01) aggiation melatonin Allergy (Verified 01/16/18 21:01) kept awake mirtazapine [From Remeron] Allergy (Verified 01/16/18 21:01) Chest tightness sertraline HCl [From Zoloft] Allergy (Verified 01/16/18 21:01) Itching buspirone HCl [From BuSpar] Adverse Reaction (Verified 01/16/18 21:01) aggiation IRRITABLE citalopram hydrobromide [From Celexa] Adverse Reaction (Verified 01/16/18 21:01) aggiation ropinirole Adverse Reaction (Verified 01/16/18 21:01) Other tamsulosin HCl [From Flomax] Adverse Reaction (Verified 01/16/18 21:01) Low blood pressure Home Medications: Ambulatory Orders Medication Instructions Recorded Aspirin [Aspirin, Baby] 81 mg PO DAILY@0800 07/12/14 Nitroglycerin [Nitrostat] 0.4 mg SUBLINGUAL Q5M PRN 10/31/14 Multivit-Min/FA/Lycopen/Lutein 1 tab PO DAILY 08/17/16 [Centrum Silver Tablet] Levothyroxine [Synthroid] 50 mcg PO DAILY 10/27/16 albuterol sulfate 2.5 mg/3 mL 2.5 mg INHALATION Q4H PRN ml 05/19/17 (0.083 %) solution for nebulization fluticasone 50 mcg/actuation nasal 2 spray INTRANASAL DAILY PRN PRN 05/29/17 spray,suspension meclizine 25 mg tablet 25 mg PO DAILY PRN PRN 12/11/17 Prednisone 7.5 mg PO DAILY 12/21/17 Trihexyphenidyl HCl 1 mg PO BID 12/21/17 Quetiapine Fumarate [Seroquel] 25 mg PO BID 01/09/18 Ensure Enlive 120 ml PO 4X/DAY 01/10/18 Lorazepam [Ativan] 0.5 mg PO BID PRN PRN tablet 01/10/18 Acetaminophen [Tylenol] 325 mg PO Q6H PRN 01/16/18 Bisacodyl [Dulcolax] 10 mg RECTAL X1 01/16/18 Carbidopa/Levodopa 25/100 [Sinemet] 1 tablet PO BIDCM 01/16/18 Enoxaparin Sodium [Lovenox] 40 mg SQ DAILY 01/16/18 Finasteride [Proscar] 5 mg PO DAILY 01/16/18 Hydrocodone/Acetaminophen [[place] 1 tablet PO Q4H PRN PRN 01/16/18 5-325 Tablet] Magnesium Hydroxide [Milk of 30 ml BC X1 01/16/18 Magnesia] Pantoprazole Sodium [Protonix] 20 mg PO BID 01/16/18 Sennosides/Docusate Sodium 2 each PO BID 01/16/18 [Senna-Docusate Sodium Tablet] Surgical History: Surgical History (Last Reviewed 01/11/18 @ 10:35 by Merritt Miranda MD) History of tonsillectomy (Resolved) Z98.890, Z90.89 History of hemorrhoidectomy (Resolved) Z98.890 History of testicular surgery (Resolved) Z98.890 History of esophagogastroduodenoscopy (EGD) Onset Date: ~09/2015 Z98.890 S/P cataract extraction Z98.49 S/P colonoscopy Onset Date: ~09/2015 Z98.890 S/P hemorrhoidectomy Z98.890, Z87.19 S/P laparoscopic cholecystectomy Z90.49 01/06 Surgical History: - - Orchiectomy for testicular cancer in 1981, removal of right tonsil secondary to cancer, lymph node removal in the neck from tonsillar cancer, PEG tube placement, cataract surgery, recent 12/22/17 cholecystectomy. Psychiatric History: Anxiety - With panic attacks, Depression Lives: - - Currently Acute Rehab for therapies, prior with his spouse. Smoking Status: Former smoker Tobacco Use: Cigarettes Alcohol: None Drugs: None - *Family History Maternal Family History: Family History (Last Reviewed 01/11/18 @ 10:35 by Merritt Miranda MD) Brother Diabetes CAD (coronary artery disease) Sister CVA (cerebral vascular accident) Diabetes Hypertension Breast cancer Mother CAD (coronary artery disease) Diabetes Brother Diabetes Heart disease Father Cancer History Items: Diabetes, Heart Disease, Hypertension, - - His mother at the age of 75 from myocardial infarction. Paternal Family History: Family History (Last Reviewed 01/11/18 @ 10:35 by Merritt Miranda MD) Brother Diabetes CAD (coronary artery disease) Sister CVA (cerebral vascular accident) Diabetes Hypertension Breast cancer Mother CAD (coronary artery disease) Diabetes Brother Diabetes Heart disease Father Cancer History Items: Cancer, - - Multiple family members on his father's side have from stomach cancer Review of Systems Constitutional: Reports: - - complete ROS negative except as documented in HPI Patient Problems: Active and Suspected Problems (Last Reviewed 01/11/18 @ 10:35 by Merritt Miranda MD) TIA (transient ischemic attack) (Acute) Left facial numbness (Acute) - Physical Exam General: Alert HEENT: Normocephalic Neck: Supple Lungs: Normal air movement Cardiovascular: Normal S1, Normal S2 Abdomen: Bowel Sounds Present Extremities: No cyanosis Neurological: - - consious, alert, CN 2-12 grossly intact, power moves all extremities, tone mildly increase/rigidity both UE, resting tremors, denies any sensory loss, no cerebellar signs, Reflexes + B/L B/S/T/K/A, gait deferred, no aphasia NIHSS 0 at present. Psych/Mental Status: Normal Affect Vital Signs Temp Pulse Resp BP Pulse Ox 98.1 F 78 16 123/69 H 98 01/17/18 13:15 01/17/18 13:15 01/17/18 13:15 01/17/18 13:15 01/17/18 13:15 Oxygen Delivery Method Room Air Weight: 58.3 kg Body Mass Index (BMI) 19.5 Intake and Output for Last 24 Hours 01/15/18 01/16/18 01/17/18 23:59 23:59 23:59 Intake Total 1360 / 1360 Output Total 100 / 100 250 / 250 Balance -84 / -84 1110 / 1110 Laboratory Tests Past 24 Hrs 01/17/18 01/17/18 01/17/18 01:50 05:06 05:06 WBC 8.5 RBC 5.02 Hgb 14.8 Hct 44.8 MCV 89.2 MCH 29.5 MCHC 33.0 RDW 13.7 RDW Differential 44.5 H Plt Count 190 MPV 9.0 Immature Gran % (Auto) 0.400 Neut % (Auto) 75.0 H Lymph % (Auto) 16.7 L [place] % (Auto) 6.8 Eos % (Auto) 0.7 Baso % (Auto) 0.4 Absolute Neuts (auto) 6.4 Absolute Lymphs (auto) 1.42 Total Counted Not Reportable Sodium 142 Potassium 4.2 Chloride 107 Carbon Dioxide 28.0 Anion Gap 7 BUN 24 H Creatinine 0.73 Estim Creat Clear Calc 56.68 Est GFR (MDRD) Af Amer 136 Est GFR (MDRD) Non-Af 113 BUN/Creatinine Ratio 32.8 H Glucose 102 Calcium 8.8 Triglycerides 109 Cholesterol 126 LDL Cholesterol 53 VLDL Cholesterol 22 HDL Cholesterol 51 Urine Color Yellow Urine Clarity Clear Urine pH 7.0 Ur Specific [place] 1.010 Urine Protein Negative Urine Glucose (UA) Normal Urine Ketones Negative Urine Occult Blood Negative Urine Nitrite Negative Urine Bilirubin Negative Urine Urobilinogen Normal Ur Leukocyte Esterase Negative Urine RBC 0 SEEN Urine WBC 0 SEEN Ur Squamous Epith Cells 0 SEEN Amorphous Sediment 1+ Urine Bacteria 0 SEEN Urine Mucus 0 SEEN Assessment/Plan All Active Problems (Last Reviewed 01/11/18 @ 10:35 by Merritt Miranda MD) Hallucination (Acute) TIA (transient ischemic attack) (Acute) Left facial numbness (Acute) Gallbladder sludge (Acute) Right upper quadrant pain (Acute) History of tonsillectomy (Resolved) History of hemorrhoidectomy (Resolved) History of testicular surgery (Resolved) Shoulder pain, right (Acute) Dysphagia (Acute) Fatigue (Acute) Near syncope (Acute) Dehydration (Acute) Chest pain (Acute) Generalized abdominal pain (Acute) Rectal bleeding (Acute) Melanotic stools (Acute) Orthostatic hypotension (Resolved) Prior testicular cancer (Resolved) The patient is a 72 year old CM with PMH HTN, HLD, H/O PD (sees Dr. De León for the same), ALISA on CPAP, H/O Testicular cancer s/p radiation, H/O Tonsillar cancer s/p resection, GERD, H/O Meningioma admitted from on 01/16/18 with left sided facial numbness and heavy sensation of the tongue, with subjective increase in left arm weakness. Per ED documentation he was at his baseline in the ED except for left facial numbness and tongue heaviness, the day before 01/15/18 he was admitted to the ED from rehab with episode of unresponsiveness which was thought to be medication induced (secondary to Seroquel BID, Ativan and [place]), and was transferred back to rehab unit once he was at his baseline. Patient had been in since 01/11/18 for therapy with debility s/p fall secondary to PD. Per documentation he sees Dr. De León for PD, has been intolerant to Sinemet and Requip in the past, is currently on Artane, in the rehab he was again tried on Sinemet but that caused him to have hallucinations. Patient is a poor historian, he was found to have high BP on admission in the ED (BP 152/109--> 174/89--> 167/90), labs were unremarkable and CT head reported nothing acute. At present patient denies any new onset focal weakness, sensory loss, FAJARDO, visual disturbances, or speech disturbances. MRI brain done on admission did not report any acute stroke. Impression Symptoms less likely to be TIA Uncontrolled HTN Plan -MRI brain reviewed-nothing acute -CTA head/neck done on 01/15/18 reported no occlusion or hemodynamically significant stenosis -On ASA and Lipitor. Plavix started by primary team, would discontinue the same. -On Sinemet 25/100 mg PO BID. Tolerating medication well -On Artane 1 mg PO BID. -Decrease Seroquel to 25 mg PO q hs -Avoid benzodiazepines and narcotics -Goal BP < 130/80 mmHg -PT/OT/ST -GI/DVT prophylaxis -Fall precautions -Further medical management per primary team -Please call with questions if any -Thank you for allowing us to participate in patient's care and management I spent 60 minutes taking history, doing physical examination, reviewing medical records, coordinating care and counseling patient and his . Code Visit Inpatient E&M: [id number] Init Hosp L3
--- NOTE | 2018-01-17 14:14 | PCM.DC ---
- Discharge Diagnoses Current Active Problems: Current Active and Chronic Problems (Last Reviewed 01/11/18 @ 10:35 by Merritt Miranda MD) TIA (transient ischemic attack) (Acute) Left facial numbness (Acute) You will use the following diet at home:: Cardiac Your food should be the consistency of: Regular Your liquids should be the consistency of: Regular/Thin Discharge Activity: Return to Normal Activity Allergies/Adverse Reactions: Allergies amoxicillin trihydrate [From Augmentin] Allergy (Severe, Verified 01/16/18 21:01) Unknown ?hives celecoxib [From Celebrex] Allergy (Severe, Verified 01/16/18 21:01) bad dreams, hallucinates, esomeprazole magnesium [From Nexium] Allergy (Severe, Verified 01/16/18 21:01) Unknown Penicillins Allergy (Severe, Verified 01/16/18 21:01) Unknown potassium clavulanate [From Augmentin] Allergy (Severe, Verified 01/16/18 21:01) Unknown hives? telmisartan [From Micardis] Allergy (Severe, Verified 01/16/18 21:01) Unknown venlafaxine HCl [From Effexor] Allergy (Severe, Verified 01/16/18 21:01) bad dreams, hallucinates atenolol Allergy (Intermediate, Verified 01/16/18 21:01) body hot tingling metoprolol Allergy (Intermediate, Verified 01/16/18 21:01) Unknown amoxicillin [From Augmentin] Allergy (Verified 01/16/18 21:01) Unknown clavulanic acid [From Augmentin] Allergy (Verified 01/16/18 21:01) Unknown duloxetine HCl [From Cymbalta] Allergy (Verified 01/16/18 21:01) aggiation melatonin Allergy (Verified 01/16/18 21:01) kept awake mirtazapine [From Remeron] Allergy (Verified 01/16/18 21:01) Chest tightness sertraline HCl [From Zoloft] Allergy (Verified 01/16/18 21:01) Itching buspirone HCl [From BuSpar] Adverse Reaction (Verified 01/16/18 21:01) aggiation IRRITABLE citalopram hydrobromide [From Celexa] Adverse Reaction (Verified 01/16/18 21:01) aggiation ropinirole Adverse Reaction (Verified 01/16/18 21:01) Other tamsulosin HCl [From Flomax] Adverse Reaction (Verified 01/16/18 21:01) Low blood pressure Medications to take at Discharge Aspirin [Aspirin, Baby] 81 mg PO DAILY@0800 07/12/14 Nitroglycerin [Nitrostat] 0.4 mg SUBLINGUAL Q5M PRN 10/31/14 Multivit-Min/FA/Lycopen/Lutein [Centrum Silver Tablet] 1 tab PO DAILY 08/17/16 Levothyroxine [Synthroid] 50 mcg PO DAILY 10/27/16 albuterol sulfate 2.5 mg/3 mL (0.083 %) solution for nebulization 2.5 mg INHALATION Q4H PRN ml 05/19/17 fluticasone 50 mcg/actuation nasal spray,suspension 2 spray INTRANASAL DAILY PRN PRN 05/29/17 meclizine 25 mg tablet 25 mg PO DAILY PRN PRN 12/11/17 Prednisone 7.5 mg PO DAILY 12/21/17 Trihexyphenidyl HCl 1 mg PO BID 12/21/17 Ensure Enlive 120 ml PO 4X/DAY 01/10/18 Lorazepam [Ativan] 0.5 mg PO BID PRN PRN tablet 01/10/18 Acetaminophen [Tylenol] 325 mg PO Q6H PRN 01/16/18 Bisacodyl [Dulcolax] 10 mg RECTAL X1 01/16/18 Carbidopa/Levodopa 25/100 [Sinemet 25/100] 1 tablet PO BIDCM 01/16/18 Enoxaparin Sodium [Lovenox] 40 mg SQ DAILY 01/16/18 Finasteride [Proscar] 5 mg PO DAILY 01/16/18 Hydrocodone/Acetaminophen [[place] 5-325 Tablet] 1 tablet PO Q4H PRN PRN 01/16/18 Magnesium Hydroxide [Milk of Magnesia] 30 ml BC X1 01/16/18 Pantoprazole Sodium [Protonix] 20 mg PO BID 01/16/18 Sennosides/Docusate Sodium [Senna-Docusate Sodium Tablet] 2 each PO BID 01/16/18 Atorvastatin Calcium [Lipitor] 80 mg PO DAILY@2200 tablet 01/17/18 Quetiapine Fumarate [Seroquel] 25 mg PO QHS tablet 01/17/18 Primary Care Physician: Yo Scott DO [Primary Care Provider] - Please follow up with your Primary Care Physician in: 2 weeks Test Results: Test results from this visit will be discussed in further detail at your follow-up appointment, if applicable. Please Follow Up With: Dee Presley MD When: As directed Proposed Discharge Date: 01/17/18
--- NOTE | 2018-01-17 14:15 | PCM.DC.SUM ---
<Howard Fofana - Last Filed: 01/17/18 14:15> Discharge Date and Diagnosis - Problem List Patient Problems: Active and Suspected Problems (Last Reviewed 01/11/18 @ 10:35 by Merritt Miranda MD) TIA (transient ischemic attack) (Acute) Left facial numbness (Acute) Date of Admission: 01/16/18 Date of Discharge: 01/17/18 - Primary Discharge Diagnosis Active and Suspected Problems (Last Reviewed 01/11/18 @ 10:35 by Merritt Miranda MD) TIA/CVA ruled out Left facial numbness, transient, medication induced. 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 De León History of oropharyngeal cancer (Chronic) Oropharyngeal cancer (Chronic) Coronary artery spasm (Chronic) Anxiety (Chronic) with panic attacks Former smoker (Chronic) Quit 8 years ago COPD (chronic obstructive pulmonary disease) (Chronic) Gastroesophageal reflux disease (Chronic) Hypertension (Chronic) Diverticulosis (Chronic) Obstructive sleep apnea (Chronic) CPAP 12 cm of water CAD (coronary artery disease) (Chronic) HLD (hyperlipidemia) (Chronic) Tonsillar cancer (Chronic) Hospital Course and Treatment Imaging Results: MRI/Brain without Contrast IMPRESSION: 1. No MRI evidence of acute or subacute ischemic infarct. 2. Mild increase in number of chronic white matter ischemic changes in both cerebral hemispheres when compared to 06/12/2017. CT/Brain/Head without Contrast IMPRESSION: Mild atrophy no visualized evidence of acute hemorrhage infarct or edema. Given clinical history recommend consideration for follow-up MRI. Echo: Interpretation Summary The estimated ejection fraction is 65 %. Stage 1 diastolic dysfunction. Bubble contrast study negative for right to left interatrial shunt. Trivial tricuspid valve insufficiency. Right ventricular systolic pressure estimated to be 26 mmHg. Compared to echo report dated 08/06/2015, no appreciable changes noted. Consults: [place] Operations: None Procedures: 2-D Echocardiogram Summary of Care Provided: Physical exam on day of discharge: General: Resting comfortably NAD Psych: A/Ox3 anxious affect HEENT: BENIGNO AT NC Neck: Supple NT CV: RRR no m/t/r/g/h Resp: CTA Abd: [id number] Soft NT no guarding or rigidity Ext: DP2+= no edema Skin: W/D normal turgor Lymph/Heme: No active bleeding or adenopathy Neuro: CN2-12 intact, resting tremor Hospital course: The patient is a 72 year old M with history as above who has been residing in the rehab unit for physical debility secondary to severe Parkinson's disease, being followed by Dr. pacheco and Dr. Miranda, who developed acute onset of left-sided facial numbness and tongue numbness, transient left-sided arm weakness. He was sent to the emergency room and admitted with concern for acute CVA versus TIA. CT of the brain was negative for acute changes, blood pressure was elevated, blood work was unremarkable. His symptoms resolved overnight. The following morning he underwent a TIA/CVA workup. Echocardiogram was unremarkable, MRI was negative. Neurology evaluated the patient. He had recent medication changes including benzodiazepines and Seroquel as he has significant anxiety. Neurology felt that his symptoms were more likely rate related to these medications. Was advised that he reduce his by his benzodiazepine use, and at this time Seroquel will be changed to nightly only. Has had no further issues or issues and complete symptom resolution he was discharged back to the rehab unit in stable condition. He will continue aspirin, Plavix is not indicated at this time, he was started on a statin. This patient was seen by Howard Fofana PA-C under the supervision of Doctor Blackmon. [] Discharge Diet: Low fat/ Low Cholesterol, 2000 mg Sodium Diet Discharge Activity: Return to Normal Activity Home Medications: Medications to take at Discharge Aspirin [Aspirin, Baby] 81 mg PO DAILY@0800 07/12/14 Nitroglycerin [Nitrostat] 0.4 mg SUBLINGUAL Q5M PRN 10/31/14 Multivit-Min/FA/Lycopen/Lutein [Centrum Silver Tablet] 1 tab PO DAILY 08/17/16 Levothyroxine [Synthroid] 50 mcg PO DAILY 10/27/16 albuterol sulfate 2.5 mg/3 mL (0.083 %) solution for nebulization 2.5 mg INHALATION Q4H PRN ml 12/29/17 fluticasone 50 mcg/actuation nasal spray,suspension 2 spray INTRANASAL DAILY PRN PRN 05/29/17 meclizine 25 mg tablet 25 mg PO DAILY PRN PRN 12/11/17 Prednisone 7.5 mg PO DAILY 12/21/17 Trihexyphenidyl HCl 1 mg PO BID 12/21/17 Ensure Enlive 120 ml PO 4X/DAY 01/10/18 Lorazepam [Ativan] 0.5 mg PO BID PRN PRN tablet 01/10/18 Acetaminophen [Tylenol] 325 mg PO Q6H PRN 01/16/18 Bisacodyl [Dulcolax] 10 mg RECTAL X1 01/16/18 Carbidopa/Levodopa 25/100 [Sinemet 25/100] 1 tablet PO BIDCM 01/16/18 Enoxaparin Sodium [Lovenox] 40 mg SQ DAILY 01/16/18 Finasteride [Proscar] 5 mg PO DAILY 01/16/18 Hydrocodone/Acetaminophen [[place] 5-325 Tablet] 1 tablet PO Q4H PRN PRN 01/16/18 Magnesium Hydroxide [Milk of Magnesia] 30 ml BC X1 01/16/18 Pantoprazole Sodium [Protonix] 20 mg PO BID 01/16/18 Sennosides/Docusate Sodium [Senna-Docusate Sodium Tablet] 2 each PO BID 01/16/18 Atorvastatin Calcium [Lipitor] 80 mg PO DAILY@2200 tablet 01/17/18 Quetiapine Fumarate [Seroquel] 25 mg PO QHS tablet 01/17/18 Primary Care Physician: Yo Scott DO [Primary Care Provider] - Please follow up with your Primary Care Physician in: 2 weeks Please Follow Up With: Dee Presley MD When: As directed Disposition: Inpt Rehab Unit/Facility Minutes spent on discharge:: 40 Patient Condition:: Stable Medical Necessity - Tobacco Use Smoking Status: Former smoker Tobacco Use: Cigarettes Meaningful Use Info Meaningful Use Diagnoses (Choose all that apply): None applicable <Alphonse Blackmon - Last Filed: 01/17/18 14:37> Discharge Date and Diagnosis - Primary Discharge Diagnosis Active and Suspected Problems (Last Reviewed 01/11/18 @ 10:35 by Merritt Miranda MD) TIA (transient ischemic attack) (Acute) Left facial numbness (Acute) - Secondary Discharge Diagnosis Chronic Problems (Last Reviewed 01/11/18 @ 10:35 by Merritt Miranda MD) Meningioma (Chronic) Stage 1 mild COPD by GOLD classification (Chronic) Dyspnea (Chronic) 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 De León History of oropharyngeal cancer (Chronic) Oropharyngeal cancer (Chronic) Coronary artery spasm (Chronic) Anxiety (Chronic) with panic attacks Former smoker (Chronic) Quit 8 years ago COPD (chronic obstructive pulmonary disease) (Chronic) Gastroesophageal reflux disease (Chronic) Hypertension (Chronic) Diverticulosis (Chronic) Obstructive sleep apnea (Chronic) CPAP 12 cm of water CAD (coronary artery disease) (Chronic) HLD (hyperlipidemia) (Chronic) Tonsillar cancer (Chronic) Hospital Course and Treatment Imaging Results: 01/17/18 08:26 Brain without Contrast [MRI] Stat Summary of Care Provided: The patient is a 72 year old M with history of Parkinson's with dementia who was undergoing therapy at the rehab unit brought to the emergency department after transient left-sided numbness and upper extremity weakness. Patient was admitted as a case of transient ischemic attack managed in a monitored bed underwent subsequent evaluation with an MRI which was negative for acute CVA. Patient was therefore discharged back to the inpatient rehab Patient was seen and examined with Howard Fofana his documentation regarding patient hospital stay reviewed to conquer Time spent 35 minutes Code Visit OBSV E&M: 99357 Observation care discharge
--- NOTE | 2018-01-17 14:38 | CASEMGMT ---
Patient is ready for d/c back to inpatient rehab unit. SW notified Daiana in rehab unit. Plan: D/C back to [facility] 4th floor rehab unit. Carola JOHNSON MSW
--- NOTE | 2018-01-17 15:10 | NURSING ---
Called report to oncology consultant at this time.
== END 2018-01-17 14:15 ==
LOC: ED 21:59 → PCU 23:32
PROVIDERS: Admitting Provider Family Medicine; Emergency Provider Emergency Medicine; Family Provider Preventive Medicine Occupational Medicine; PCP Preventive Medicine Occupational Medicine; Visit Provider Internal Medicine
DX: G45.9 Transient cerebral ischemic attack, unspecified (principal); R20.0 Anesthesia of skin; I25.10 Atherosclerotic heart disease of native coronary artery without angina pectoris; G47.33 Obstructive sleep apnea (adult) (pediatric); J44.9 Chronic obstructive pulmonary disease, unspecified; F41.9 Anxiety disorder, unspecified; G20 Parkinson's disease; I10 Essential (primary) hypertension; K21.9 Gastro-esophageal reflux disease without esophagitis; E78.5 Hyperlipidemia, unspecified; R53.1 Weakness; F02.80 Dementia in other diseases classified elsewhere, unspecified severity, without behavioral disturbance, psychotic disturbance, mood disturbance, and anxiety; R13.10 Dysphagia, unspecified; F32.9 Major depressive disorder, single episode, unspecified; D32.9 Benign neoplasm of meninges, unspecified; Z92.3 Personal history of irradiation; Z85.47 Personal history of malignant neoplasm of testis; Z87.891 Personal history of nicotine dependence; Z79.899 Other long term (current) drug therapy; Z79.82 Long term (current) use of aspirin; Z79.52 Long term (current) use of systemic steroids; Z79.01 Long term (current) use of anticoagulants; Z85.21 Personal history of malignant neoplasm of larynx; E03.9 Hypothyroidism, unspecified; E43 Unspecified severe protein-calorie malnutrition; Z68.1 Body mass index [BMI] 19.9 or less, adult; T43.595A Adverse effect of other antipsychotics and neuroleptics, initial encounter; T42.4X5A Adverse effect of benzodiazepines, initial encounter
CPT/HCPCS: 36415; 70450; 70551; 80048; 80061; 81001; 82962; 83735; 84443; 84484; 85025; 93005; 93306; 94640; 96360; 96361; 96372; 97802; 99218; 99284; J7030; A4216; G0378

== ENCOUNTER → 2018-02-07 20:21 | Outpatient (CLI) | payer MEDICARE, SELFPAY | PROVIDERS: Family Provider Preventive Medicine Occupational Medicine; PCP Preventive Medicine Occupational Medicine; Visit Provider Nurse Practitioner Acute Care | DX: G47.33 Obstructive sleep apnea (adult) (pediatric) (principal) | CPT/HCPCS: 95811 ==

== ENCOUNTER 2018-05-10 08:36 | Inpatient (IN) | payer MEDICARE, SELFPAY ==
[2018-05-10] VITALS (20 sets, daily range): BP systolic 83–154; BP diastolic 45–97; PULSE 66–129; RESP 13–28; TEMP 36.8–39; O2SAT 94–98; BMI 20.7; BMI 21.1
--- NOTE | 2018-05-10 08:50 | EKG12_ITS ---
Test Reason : CP Blood Pressure : / mmHG Vent. Rate : 112 BPM Atrial Rate : 112 BPM P-R Int : 152 ms QRS Dur : 082 ms QT Int : 294 ms P-R-T Axes : 083 -30 079 degrees QTc Int : 401 ms Sinus tachycardia Left axis deviation Nonspecific ST and T wave abnormality Abnormal ECG Confirmed by RHONDA PRADO ([id number]), supervising film or videotape editor LESLEY WONG ([id number] on 05/16/2018 2:42:25 PM Referred By: LYLA Confirmed By:RHONDA PRADO
--- NOTE | 2018-05-10 08:50 | RAD_ITS ---
STUDY: X-RAY CHEST REASON FOR EXAM: Male, 72 years old. Illness for one week with cough for 2 days TECHNIQUE: Single frontal view of the chest. COMPARISON: 01/15/2018 FINDINGS: Right supraclavicular clips. Left perihilar pneumonia. There is no demonstrated pleural abnormality. Normal size heart. Normal mediastinum and dennise. Normal visualized pulmonary arteries. Normal visualized aortic arch and descending thoracic aorta. Normal visualized thoracic spine. Normal visualized ribs, clavicles, and shoulders. There is no demonstrated abnormality of the visualized soft tissue structures of the upper abdomen. RAD/Chest 1 View (Portable) IMPRESSION: Left perihilar pneumonia. Electronically Signed: Mani Banuelos MD at 9:54 EST Tel , Service support ,
--- NOTE | 2018-05-10 08:54 | CT_ITS ---
STUDY: CT ABDOMEN AND PELVIS WITH CONTRAST REASON FOR EXAM: Male, 72 years old. Chest pain and cough for 2 days, history of testicular and prostate cancer RADIATION DOSAGE (If Supplied By Facility): CTDIvol = ( 7.89 ) mGy, DLP = ( 753.98 ) mGycm TECHNIQUE: Transaxial images were obtained from the dome of the diaphragm to the symphysis pubis without oral contrast. 100mL ml of Isovue 370 contrast was administered. Sagittal and coronal images were reconstructed. Individualized dose optimization techniques were used for this CT. COMPARISON: 09/23/2015 FINDINGS: Left lower lobe pneumonia. The visualized portions of the heart are within normal limits. There is decreased attenuation of the liver consistent with steatosis. Normal gallbladder and extrahepatic biliary system. Normal spleen. Normal pancreas. Normal bilateral adrenal glands. Normal right kidney. Normal left kidney. Normal visualized stomach. Normal small intestine. There are multiple colonic diverticula consistent with diverticulosis. Underlying constipation is suspected. There is non-visualization of the appendix. There is diffuse atherosclerotic calcification of the abdominal aorta, without a demonstrated aneurysm. Normal inferior vena cava. Normal retroperitoneum. Normal urinary bladder. There are prostatic calcifications. Normal abdominal wall. There are diffuse degenerative changes of the visualized lumbar spine. CT/Abdomen/Pelvis W IV Cont ONLY IMPRESSION: Left lower lobe pneumonia. Constipation. No masses or adenopathy. Electronically Signed: Mani Banuelos MD at 11:01 EST Tel , Service support ,
--- NOTE | 2018-05-10 08:54 | CT_ITS ---
STUDY: CTA CHEST REASON FOR EXAM: Male, 72 years old. Chest pain and cough for 2 days RADIATION DOSAGE (If Supplied By Facility): CTDIvol = ( 7.89 ) mGy, DLP = ( 753.98 ) mGycm TECHNIQUE: The examination was performed with the intravenous administration of 100mL ml of Isovue 370 contrast material. Post-processing of the angiographic images was performed, with multiplanar reformation and 3D reconstruction. Individualized dose optimization techniques were used for this CT. COMPARISON: 12/21/2015 FINDINGS: Normal enhancement of the main pulmonary artery and right and left pulmonary arteries. Normal enhancement of the bilateral peripheral pulmonary arteries. There is no demonstrated pulmonary embolism. Normal thoracic aorta and visualized great vessels. There is no demonstrated aortic dissection. Normal heart and pericardium. Normal mediastinum. Normal hilar regions. Normal visualized trachea and bronchi. Left lower lobe pneumonia. Normal pleura. Normal chest wall structures. There are degenerative changes of thoracic spine. Normal visualized upper abdomen. CT/CTA Chest W/WO Contrast IMPRESSION: No pulmonary embolus. Left lower lobe pneumonia. Electronically Signed: Mani Banuelos MD at 11:12 EST Tel , Service support ,
--- NOTE | 2018-05-10 08:59 | ED.VISSUMM ---
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 He has had normal bowel bladder habits he has had no exposures, no diarrhea, Physical Examination: [] Blood pressure is 158/80, heart rate is 130 temperature is 102 General, no distress resting comfortably he has Parkinson's he has a tremor upper extremities that is normal HEENT is generally unremarkable The neck is supple no adenopathy Cardiovascular, regular rate and rhythm Lungs, diminished but generally clear some discomfort with deep breathing Abdomen, soft nontender Extremities, no clubbing cyanosis or edema Neurologic, awake alert answering questions appropriately moving all 4 extremities Test Results: [] Emergency Department Course and Treatment: [] In all the above his risk factors etc. labs IV fluids Sirs and sepsis protocol, CTA IV antibiotics Patient's white count elevated, lactate 2.5, CTA chest shows left upper lobe pneumonia no PE, abdomen CT shows nothing acute, see all those labs and CAT scan reports, he is remained stable here in the department his blood pressure fell to about 98/60 he is awake and alert he is receiving IV fluids IV antibiotics at this time given all the above of contact the hospitalist for admission Treatment Plan: [] Disposition: [] Admit stable Impression: [] Left sided pneumonia, sepsis, history of head neck cancer This note was generated with [employer] dictation software. It may contain incorrect words, spelling, and punctuation that were not noted in review of the chart prior to signing ED Disposition - Plan for ED Patient: Chief Complaint: Cough Referrals: Yo Scott DO [Primary Care Provider] -
[2018-05-10] MEDS: Morphine 4 MG/ML Syringe IV ×2 (09:17→12:19)
[2018-05-10] MEDS: Acetaminophen 500 MG Tablet 1000 MG PO (09:17)
[2018-05-10] MEDS: Ondansetron 4 MG/2 ML Vial IV (09:17)
[2018-05-10] MEDS: 0.9% Normal Saline 1,000 ML 999 ML IV ×3 (09:18→12:52)
[2018-05-10 09:24] LABS: Prothrombin Time (Protime)PT. 13.3 SECONDS (11.7-14.9)
[2018-05-10 09:25] LABS: Partial Thromboplast Time 28.8 Seconds (24.1-36.2)
[2018-05-10 09:26] LABS: Absolute Lymphocyte Count 0.46 X10^3/ul (0.83-4.51); Absolute Neutrophil Count 11.1 X10^3/uL (2.0-7.7); Basophil# 0.02 X10^3/uL; Basophil% 0.2 % (0-1); Eosinophil# 0.06 X10^3/uL; Eosinophils% 0.5 % (0-5); Hematocrit 45.9 % (40-54); Hemoglobin 15.3 g/dl (13.0-16.5); Lymphocyte # 0.46 X10^3/ul (4.0); Lymphocyte % 3.8 % (19-41); Mean Corp Hgb Conc 33.3 g/gl (32-36); Mean Corpuscular Hgb 30.2 pg (27.0-32.0); Mean Corpuscular Volume 90.5 fL (80-94); Mean Platelet Vol. 9.6 fl (6.2-12.0); Monocyte# 0.49 X10^3/uL; Neutrophil # 11.06 X10^3/uL (2.7-7.7); Neutrophil % 91.3 % (47-70); Platelet Count 149 K/mm3 (150-450); RBC Distribution Width CV 14.1 % (11.6-14.6); RBC Distribution Width SD 46.4 fl (35.1-43.9); Red Blood Count 5.07 M/mm3 (4.6-6.2); White Blood Count 12.1 K/mm3 (4.4-11.0)
[2018-05-10 09:28] LABS: Differential Indicated SCAN CRITERIA MET; POSITIVE COUNT NO; POSITIVE DIFFERENTIAL YES; POSITIVE MORPHOLOGY NO
[2018-05-10 09:37] LABS: BUN 25 mg/dL (7-18); Creatinine, Serum 1.01 mg/dL (0.70-1.30); EST Glomerular Filtration Rate 78 mL/min (>60); Estimated Creatinine Clearance 59.38 ml/min; Glucose 108 mg/dL (74-106)
[2018-05-10 09:38] LABS: AST(SGOT) 15 U/L (15-37); Alanine Aminotransfer ALT/SGPT 11 U/L (16-61); Albumin, Serum 3.6 g/dL (3.2-5.0); Alkaline Phosphatase 82 U/L (45-117); Anion Gap 8 (5-15); BUN/Creat Ratio 24.8 RATIO (10-20); Calcium,Total 9.1 mg/dL (8.5-10.1); Chloride 104 mmol/L (98-107); Est Glom Filt Rate - Afr Amer 94 mL/min (>60); Globulin 3.5 g/dL (2.2-4.2); Potassium 3.8 mmol/L (3.5-5.1); Protein, Total 7.1 g/dL (6.4-8.2); Sodium Level 141 mmol/L (136-145)
--- NOTE | 2018-05-10 09:40 | ED.RN ---
md and nurse notified of lactic results.
[2018-05-10 09:43] LABS: Lactic Acid 2.5 mmol/L (0.4-2.0)
[2018-05-10 09:46] LABS: Differential Comment SCANNED
[2018-05-10 09:53] LABS: BNP,B-Type NATRIURETIC PEPTIDE 25.2 pg/mL (0-100)
[2018-05-10] MEDS: 0.9% Normal Saline 1,000 ML 150 ML IV ×3 (09:59→22:00)
[2018-05-10 10:42] LABS: Bacteria 0 SEEN /hpf (None Seen); Mucous, Urine 0 SEEN /hpf (<or=2+); Red Blood Cells-Urine 0 SEEN /hpf (0-5); Squamous Epithelial Cells - UA 0 SEEN /hpf (0-5); White Blood Cells 0 SEEN /hpf (0-5)
[2018-05-10 10:45] LABS: Color, Urine Yellow (Yellow); Glucose, Dipstick Normal (Normal); Ketone-Dipstick Negative (Negative); Leukocyte Esterase-Dipstick Negative /ul (Negative); Nitrite-Dipstick Negative (Negative); Occult Blood-Urine Negative /ul (Negative); Protein-Dipstick Negative (Negative); Specific Gravity, Urine 1.005 (1.002-1.030); Urine Bilirubin Dipstick Negative (Negative); Urine Clarity Sl. Cloudy (Clear); Urine Urobilinogen 1 mg/dl (Normal)
--- NOTE | 2018-05-10 11:44 | NURSING ---
DR RUTHERFORD FOR ER DOC
--- NOTE | 2018-05-10 11:44 | NURSING ---
PCU LT SIDED PNEUMONIA, SEPSIS, ABN LACTATE, HX OF HEAD,NECK CA KITTOE
--- NOTE | 2018-05-10 11:49 | PCM.HP.STD ---
Problem List (1) Pneumonia Status: Acute (2) Pure hypercholesterolemia Status: Chronic (3) Essential (primary) hypertension Status: Chronic (4) Atherosclerosis of [place] coronary artery of [place] heart without angina pectoris Status: Chronic (5) Hypotension Status: Acute Qualifiers: Hypotension type: unspecified hypotension type Qualified Code(s): I95.9 - Hypotension, unspecified (6) Hallucination Status: Acute (7) TIA (transient ischemic attack) Status: Acute (8) Left facial numbness Status: Acute (9) Gallbladder sludge Status: Acute (10) Right upper quadrant pain Status: Acute (11) Meningioma Status: Chronic (12) Stage 1 mild COPD by GOLD classification Status: Chronic (13) History of tonsillectomy Status: Resolved (14) History of hemorrhoidectomy Status: Resolved (15) History of testicular surgery Status: Resolved (16) Dyspnea Status: Chronic (17) Malignant neoplasm of other specified sites of oropharynx Status: Chronic (18) Long-term use of high-risk medication Status: Chronic (19) Shoulder pain, right Status: Acute (20) Dysphagia Status: Acute (21) Fatigue Status: Acute (22) Parkinsonian syndrome Status: Chronic Qualifiers: Parkinsonism type: Parkinson's disease Qualified Code(s): G20 - Parkinson's disease Comment: Follows with Dr. De León (23) History of oropharyngeal cancer Status: Chronic (24) Oropharyngeal cancer Status: Chronic (25) Coronary artery spasm Status: Chronic (26) Anxiety Status: Chronic Comment: with panic attacks (27) Near syncope Status: Acute (28) Former smoker Status: Chronic Comment: Quit 8 years ago (29) COPD (chronic obstructive pulmonary disease) Status: Chronic Qualifiers: Emphysema type: unspecified (30) Gastroesophageal reflux disease Status: Chronic (31) Dehydration Status: Acute (32) Diverticulosis Status: Chronic (33) Obstructive sleep apnea Status: Chronic (34) Chest pain Status: Acute (35) Generalized abdominal pain Status: Acute (36) Rectal bleeding Status: Acute (37) Melanotic stools Status: Acute (38) Tonsillar cancer Status: Chronic History of Present Illness Date of Admission: 05/10/18 Chief Complaint: Generalized weakness The patient is a 72 year old M with 2 comorbidities including head and neck CA status post radiation therapy who has remained in remission for 3 years present to 1 week history of progressive generalized weakness. Patient in addition complains of cough and shortness of breath. Patient also did complain of left-sided chest pain which was worsened with deep breathing. Finally presented to the ED where imaging studies demonstrated left lower lobe pneumonia. Patient was also found to have elevated lactic acid level. An assessment of severe sepsis secondary to pneumonia was made. Resuscitation with aggressive IV fluids as well as broad-spectrum antibiotic therapy initiated in the ED and patient subsequently admitted to monitored bed for further management Past Medical History Past Medical History (Chronic Problems): Chronic Problems (Last Reviewed 05/10/18 @ 15:22 by Alpohnse Blackmon MD) Pure hypercholesterolemia (Chronic) Essential (primary) hypertension (Chronic) Atherosclerosis of [place] coronary artery of [place] heart without angina pectoris (Chronic) Meningioma (Chronic) Stage 1 mild COPD by GOLD classification (Chronic) Dyspnea (Chronic) 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 De León History of oropharyngeal cancer (Chronic) Oropharyngeal cancer (Chronic) Coronary artery spasm (Chronic) Anxiety (Chronic) with panic attacks Former smoker (Chronic) Quit 8 years ago COPD (chronic obstructive pulmonary disease) (Chronic) Gastroesophageal reflux disease (Chronic) Diverticulosis (Chronic) Obstructive sleep apnea (Chronic) Tonsillar cancer (Chronic) Medical History: Medical History (Last Reviewed 05/10/18 @ 15:22 by Alphonse Blackmon MD) Pure hypercholesterolemia (Chronic) E78.00 Essential (primary) hypertension (Chronic) I10 Atherosclerosis of [place] coronary artery of [place] heart without angina pectoris (Chronic) I25.10 Hypotension (Acute) I95.9 Hallucination (Acute) R44.3 TIA (transient ischemic attack) (Acute) G45.9 Left facial numbness (Acute) R20.0 Gallbladder sludge (Acute) K82.8 Right upper quadrant pain (Acute) R10.11 Meningioma (Chronic) D32.9 Stage 1 mild COPD by GOLD classification (Chronic) J44.9 Dyspnea (Chronic) R06.00 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 De León History of oropharyngeal cancer (Chronic) Z85.819 Oropharyngeal cancer (Chronic) C10.9 Coronary artery spasm (Chronic) I20.1 Anxiety (Chronic) F41.9 with panic attacks Near syncope (Acute) Former smoker (Chronic) Z87.891 Quit 8 years ago COPD (chronic obstructive pulmonary disease) (Chronic) J44.9 Gastroesophageal reflux disease (Chronic) K21.9 Dehydration (Acute) E86.0 Diverticulosis (Chronic) K57.90 Obstructive sleep apnea (Chronic) G47.33 Chest pain (Acute) R07.9 Generalized abdominal pain (Acute) R10.84 Rectal bleeding (Acute) K62.5 Melanotic stools (Acute) K92.1 Tonsillar cancer (Chronic) Allergies amoxicillin trihydrate [From Augmentin] Allergy (Severe, Verified 05/10/18 08:37) Unknown ?hives celecoxib [From Celebrex] Allergy (Severe, Verified 05/10/18 08:37) bad dreams, hallucinates, esomeprazole magnesium [From Nexium] Allergy (Severe, Verified 05/10/18 08:37) Unknown Penicillins Allergy (Severe, Verified 05/10/18 08:37) Unknown potassium clavulanate [From Augmentin] Allergy (Severe, Verified 05/10/18 08:37) Unknown hives? telmisartan [From Micardis] Allergy (Severe, Verified 05/10/18 08:37) Unknown venlafaxine HCl [From Effexor] Allergy (Severe, Verified 05/10/18 08:37) bad dreams, hallucinates atenolol Allergy (Intermediate, Verified 05/10/18 08:37) body hot tingling metoprolol Allergy (Intermediate, Verified 05/10/18 08:37) Unknown amoxicillin [From Augmentin] Allergy (Verified 05/10/18 08:37) Unknown clavulanic acid [From Augmentin] Allergy (Verified 05/10/18 08:37) Unknown duloxetine HCl [From Cymbalta] Allergy (Verified 05/10/18 08:37) aggiation melatonin Allergy (Verified 05/10/18 08:37) kept awake mirtazapine [From Remeron] Allergy (Verified 05/10/18 08:37) Chest tightness sertraline HCl [From Zoloft] Allergy (Verified 05/10/18 08:37) Itching lorazepam [From Ativan] Adverse Reaction (Severe, Verified 05/10/18 08:37) Other D/C dut to low bp low pulse, needed Narcan in ER buspirone HCl [From BuSpar] Adverse Reaction (Verified 05/10/18 08:37) aggiation IRRITABLE citalopram hydrobromide [From Celexa] Adverse Reaction (Verified 05/10/18 08:37) aggiation ropinirole Adverse Reaction (Verified 05/10/18 08:37) Other tamsulosin HCl [From Flomax] Adverse Reaction (Verified 05/10/18 08:37) Low blood pressure Home Medications: Ambulatory Orders Medication Instructions Recorded Aspirin [Aspirin, Baby] 81 mg PO QHS 07/12/14 Nitroglycerin [Nitrostat] 0.4 mg SUBLINGUAL Q5M PRN 10/31/14 Multivit-Min/FA/Lycopen/Lutein 1 tab PO DAILY 08/17/16 [Centrum Silver Tablet] fluticasone 50 mcg/actuation nasal 2 spray INTRANASAL DAILY PRN PRN 05/29/17 spray,suspension meclizine 25 mg tablet 25 mg PO DAILY PRN PRN 12/11/17 Prednisone 5 mg PO QHS 12/21/17 Trihexyphenidyl HCl 1 mg PO BID 12/21/17 Pantoprazole Sodium [Protonix] 20 mg PO BID 01/16/18 dutasteride 0.5 mg capsule 0.5 mg PO DAILY 03/13/18 albuterol sulfate HFA 90 2 puff INHALATION Q6H PRN #1 device 04/04/18 mcg/actuation aerosol inhaler Carbidopa/Levodopa 25/100 [Sinemet 1 tablet PO BIDAC 05/10/18 25/100] Lactose-Reduced Food [Boost 125 ml PO TID 05/10/18 Compact] Pilocarpine HCl 5 mg PO BID 05/10/18 Quetiapine Fumarate [Seroquel] 12.5 mg PO DAILY@199905/10/18 Surgical History: Surgical History (Last Reviewed 05/10/18 @ 15:22 by Alphonse Blackmon MD) History of tonsillectomy (Resolved) Z98.890, Z90.89 History of hemorrhoidectomy (Resolved) Z98.890 History of testicular surgery (Resolved) Z98.890 History of esophagogastroduodenoscopy (EGD) Onset Date: ~09/2015 Z98.890 S/P cataract extraction Z98.49 S/P colonoscopy Onset Date: ~09/2015 Z98.890 S/P hemorrhoidectomy Z98.890, Z87.19 S/P laparoscopic cholecystectomy Z90.49 01/06 Psychiatric History: Anxiety, Depression Smoking Status: Never smoker - *Family History Maternal Family History: Family History (Last Reviewed 05/10/18 @ 15:23 by Alphonse Blackmon MD) Brother Diabetes CAD (coronary artery disease) Sister CVA (cerebral vascular accident) Diabetes Hypertension Breast cancer Mother CAD (coronary artery disease) Diabetes Brother Diabetes Heart disease Father Cancer History Items: Diabetes, Heart Disease, Hypertension, - - His mother at the age of 75 from myocardial infarction. Paternal Family History: Family History (Last Reviewed 05/10/18 @ 15:23 by Alphonse Blackmon MD) Brother Diabetes CAD (coronary artery disease) Sister CVA (cerebral vascular accident) Diabetes Hypertension Breast cancer Mother CAD (coronary artery disease) Diabetes Brother Diabetes Heart disease Father Cancer History Items: Cancer, - - Multiple family members on his father's side have from stomach cancer Review of Systems Constitutional: Reports: Anorexia, Chills, Fever, Malaise, Weakness HEENT: Denies: Head Aches, Sinus Congestion, Sinus Drainage Cardiovascular: Denies: Chest Pain Respiratory: Reports: Cough, Pleuritic Pain Gastrointestinal: Denies: Abdominal Pain, Vomiting Genitourinary: Denies: Dysuria, Frequency, Hematuria, Urgency Musculoskeletal: Denies: Joint Pain, Joint Tenderness Neurological: Reports: Tremor Psychiatric: Denies: Homicidal Ideations, Suicidal Ideations Hematologic/ Lymphatic: Denies: Easy Bruising, Easy Bleeding VTE Information - Inpt Only VTE Present on Admission: No VTE Mechan Device Prophylaxis: Knee High SCOTT Hose, None VTE Pharm Prophylaxis ordered?: Yes Patient Problems: Active and Suspected Problems (Last Reviewed 05/10/18 @ 15:22 by Alphonse Blackmon MD) Pneumonia (Acute) Objective: GENERAL: cooperative HEENT: Atraumatic; moist oral mucosa EYES; Anicteric, Normal Conjunctiva NECK; supple, normal thyroid, no distended JVD. RESPIRATORY: Diminished to auscultation bilaterally, CARDIOVASCULAR: Regular S1 S2, no audible murmurs GI: soft, non-tender, normoactive bowel sounds, : No Renal angle tenderness; EXTREMITIES: No edema, no clubbing, no cyanosis. MUSCULOSKELETAL: No Joint Tenderness; n NEURO: Awake; no lateralizing signs; has tremor at rest SKIN: No Rash PSYCH; Normal affect - Physical Exam Vital Signs Temp Pulse Resp BP Pulse Ox 98.9 F 82 17 94/56 L 97 05/10/18 11:30 05/10/18 11:30 05/10/18 11:30 05/10/18 11:30 05/10/18 11:30 Oxygen Flow Rate (L/min) 2 Oxygen Delivery Method Room Air Weight: 61.689 kg Body Mass Index (BMI) 20.7 Finger Stick Blood Glucose 115 Laboratory Tests Past 24 Hrs 05/10/18 05/10/18 05/10/18 09:00 09:00 09:00 WBC 12.1 H RBC 5.07 Hgb 15.3 Hct 45.9 MCV 90.5 MCH 30.2 MCHC 33.3 RDW 14.1 RDW Differential 46.4 H Plt Count 149 L MPV 9.6 Immature Gran % (Auto) 0.200 Neut % (Auto) 91.3 H Lymph % (Auto) 3.8 L [place] % (Auto) 4.0 Eos % (Auto) 0.5 Baso % (Auto) 0.2 Absolute Neuts (auto) 11.1 H Absolute Lymphs (auto) 0.46 L Total Counted Not Reportable Differential Comment SCANNED PT 13.3 INR 1.0 APTT 28.8 Sodium 141 Potassium 3.8 Chloride 104 Carbon Dioxide 29.0 Anion Gap 8 BUN 25 H Creatinine 1.01 Estim Creat Clear Calc 59.38 Est GFR (MDRD) Af Amer 94 Est GFR (MDRD) Non-Af 78 BUN/Creatinine Ratio 24.8 H Glucose 108 H Lactic Acid Calcium 9.1 Total Bilirubin 0.80 AST 15 ALT 11 L Alkaline Phosphatase 82 Troponin I < 0.015 B-Natriuretic Peptide Total Protein 7.1 Albumin 3.6 Globulin 3.5 Albumin/Globulin Ratio 1.0 Urine Color Urine Clarity Urine pH Ur Specific [place] Urine Protein Urine Glucose (UA) Urine Ketones Urine Occult Blood Urine Nitrite Urine Bilirubin Urine Urobilinogen Ur Leukocyte Esterase Urine RBC Urine WBC Ur Squamous Epith Cells Urine Bacteria Urine Mucus 05/10/18 05/10/18 05/10/18 09:00 09:10 10:37 WBC RBC Hgb Hct MCV MCH MCHC RDW RDW Differential Plt Count MPV Immature Gran % (Auto) Neut % (Auto) Lymph % (Auto) [place] % (Auto) Eos % (Auto) Baso % (Auto) Absolute Neuts (auto) Absolute Lymphs (auto) Total Counted Differential Comment PT INR APTT Sodium Potassium Chloride Carbon Dioxide Anion Gap BUN Creatinine Estim Creat Clear Calc Est GFR (MDRD) Af Amer Est GFR (MDRD) Non-Af BUN/Creatinine Ratio Glucose Lactic Acid 2.5 H Calcium Total Bilirubin AST ALT Alkaline Phosphatase Troponin I B-Natriuretic Peptide 25.2 Total Protein Albumin Globulin Albumin/Globulin Ratio Urine Color Yellow Urine Clarity Sl. Cloudy Urine pH 7.0 Ur Specific [place] 1.005 Urine Protein Negative Urine Glucose (UA) Normal Urine Ketones Negative Urine Occult Blood Negative Urine Nitrite Negative Urine Bilirubin Negative Urine Urobilinogen 1 H Ur Leukocyte Esterase Negative Urine RBC 0 SEEN Urine WBC 0 SEEN Ur Squamous Epith Cells 0 SEEN Urine Bacteria 0 SEEN Urine Mucus 0 SEEN Assessment/Plan All Active Problems (Last Reviewed 05/10/18 @ 15:22 by Alphonse Blackmon MD) Pneumonia (Acute) Hypotension (Acute) Hallucination (Acute) TIA (transient ischemic attack) (Acute) Left facial numbness (Acute) Gallbladder sludge (Acute) Right upper quadrant pain (Acute) History of tonsillectomy (Resolved) History of hemorrhoidectomy (Resolved) History of testicular surgery (Resolved) Shoulder pain, right (Acute) Dysphagia (Acute) Fatigue (Acute) Near syncope (Acute) Dehydration (Acute) Chest pain (Acute) Generalized abdominal pain (Acute) Rectal bleeding (Acute) Melanotic stools (Acute) Orthostatic hypotension (Resolved) Prior testicular cancer (Resolved) Patient is a 72-year-old gentleman presented with progressive shortness of breath as well as left-sided pleuritic chest pain studies demonstrated left lower lobe pneumonia monitored bed for subsequent management 1. Severe sepsis secondary to community-acquired pneumonia with possible gram-negative organisms. Patient has been admitted to a monitored bed being managed with aggressive IV fluid resuscitation broad-spectrum antibiotic therapy after cultures have been sent as well as monitor progress with lactic acid 2. Essential hypertension patient blood pressure was relatively low on admission currently being resuscitated with IV fluids with close monitoring of his blood pressure 3. 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 Parkinson's disease 5. COPD; not in exacerbation 6. DVT prophylaxis SC Lovenox Advance planning; did discuss with the patient and family regarding his advanced directives as well as CODE STATUS. Did explain the various modalities involved ( FULL CODE, DNR CCA, DNR CCA with no intubation, and DNR CC ) patient wishes to remain full code. Order was placed. Time spent on discussion 18 minutes. Code Visit Inpatient E&M: 22547 Subs Hosp L3 Procedures: 03596 Advncd Care Plan 30 Min
[2018-05-10 13:08] LABS: Reflex Lactate? Y
[2018-05-10 14:50] LABS: Color, Urine Yellow (Yellow); Glucose, Dipstick Normal (Normal); Ketone-Dipstick 15 mg/dl (Negative); Leukocyte Esterase-Dipstick Negative /ul (Negative); Nitrite-Dipstick Negative (Negative); Occult Blood-Urine Negative /ul (Negative); Protein-Dipstick Negative (Negative); Urine Bilirubin Dipstick Negative (Negative); Urine Clarity Sl. Cloudy (Clear); Urine Urobilinogen 1 mg/dl (Normal)
[2018-05-10] MEDS: Ciprofloxacin 400 MG/200 ML BAG 200 MG IV ×2 (15:25→22:40)
[2018-05-10] MEDS: oxyCODONE 5 MG Tablet PO (16:38)
[2018-05-10] MEDS: Carbidopa/Levodopa 25/100 Tablet PO (16:38)
[2018-05-10 19:31] LABS: M R Staph aureus DNA By PCR Negative (Negative); Probe Check PASS; Specimen Processing Control PASS
[2018-05-10] MEDS: predniSONE 5 MG Tablet PO (20:11)
[2018-05-10] MEDS: Pantoprazole Sodium 20 MG Tablet PO (20:11)
[2018-05-10] MEDS: QUEtiapine 25 MG Tablet 12.5 MG PO (20:11)
[2018-05-10] MEDS: TRIHEXYPHENIDYL HCL 2 MG TABLET 1 MG PO (20:15)
[2018-05-10] MEDS: Ipratropium/Albuterol Sulfate 3 ML AMPUL.NEB INHALATION (20:17)
[2018-05-10] MEDS: Acetaminophen 325 MG Tablet 650 MG PO (20:31)
[2018-05-10] MEDS: guaiFENesin 1,200 MG Tablet 1200 MG PO (22:07)
[2018-05-10] MEDS: Famotidine 20 MG Tablet PO (22:07)
[2018-05-10] MEDS: Aspirin 81 MG TAB.CHEW PO (22:07)
[2018-05-11] VITALS (17 sets, daily range): BP systolic 115–149; BP diastolic 60–77; PULSE 62–110; RESP 16–20; TEMP 36.2–36.8; O2SAT 95–100
[2018-05-11] MEDS: Ciprofloxacin 400 MG/200 ML BAG 200 MG IV ×3 (05:38→20:54)
[2018-05-11] MEDS: oxyCODONE 5 MG Tablet PO (05:57)
[2018-05-11 06:20] LABS: Hematocrit 37.9 % (40-54); Hemoglobin 12.6 g/dl (13.0-16.5); Mean Corp Hgb Conc 33.2 g/gl (32-36); Mean Corpuscular Hgb 30.9 pg (27.0-32.0); Mean Corpuscular Volume 92.9 fL (80-94); Platelet Count 139 K/mm3 (150-450); RBC Distribution Width CV 14.3 % (11.6-14.6); RBC Distribution Width SD 47.6 fl (35.1-43.9); Red Blood Count 4.08 M/mm3 (4.6-6.2); White Blood Count 14.2 K/mm3 (4.4-11.0)
[2018-05-11 06:24] LABS: Anion Gap 7 (5-15); BUN 16 mg/dL (7-18); BUN/Creat Ratio 18.8 RATIO (10-20); Calcium,Total 7.9 mg/dL (8.5-10.1); Chloride 115 mmol/L (98-107); Creatinine, Serum 0.85 mg/dL (0.70-1.30); EST Glomerular Filtration Rate 95 mL/min (>60); Est Glom Filt Rate - Afr Amer 114 mL/min (>60); Estimated Creatinine Clearance 72.06 ml/min; Glucose 89 mg/dL (74-106); Magnesium 1.8 mg/dL (1.6-2.6); Potassium 3.8 mmol/L (3.5-5.1); Sodium Level 145 mmol/L (136-145)
[2018-05-11] MEDS: 0.9% NaCl Peripheral Flush Adult/Peds IV (06:25)
[2018-05-11] MEDS: Carbidopa/Levodopa 25/100 Tablet PO ×2 (06:30→16:28)
[2018-05-11 06:33] LABS: Scan Indicated on CBC? Y/N NO
[2018-05-11] MEDS: Ipratropium/Albuterol Sulfate 3 ML AMPUL.NEB INHALATION ×3 (07:10→19:03)
[2018-05-11] MEDS: Finasteride 5 MG Tablet PO (07:56)
[2018-05-11] MEDS: Multivitamins,Ther W-Minerals Tablet 1 TABLET PO (07:56)
[2018-05-11] MEDS: Pantoprazole Sodium 20 MG Tablet PO ×2 (07:57→20:09)
[2018-05-11] MEDS: Pilocarpine HCl 5 MG Tablet PO ×2 (07:57→11:45)
[2018-05-11] MEDS: 0.9% Normal Saline 1,000 ML 150 ML IV ×3 (08:00→23:41)
--- NOTE | 2018-05-11 09:38 | PCM.PN.HOSP ---
Patient Problems: Active and Suspected Problems (Last Reviewed 05/10/18 @ 15:22 by Alphonse Blackmon MD) Pneumonia (Acute) Subjective: Patient seen breathing is less labored compared to prior day however his WBC count is trending up. Vancomycin was discontinued since his MRSA nasal screen came back negative Objective: GENERAL: cooperative but appears ill looking HEENT: Atraumatic; moist oral mucosa EYES; Anicteric, Normal Conjunctiva NECK; supple, normal thyroid, no distended JVD. RESPIRATORY: Diminished to auscultation bilaterally, CARDIOVASCULAR: Regular S1 S2, no audible murmurs GI: soft, non-tender, normoactive bowel sounds, : No Renal angle tenderness; EXTREMITIES: No edema, no clubbing, no cyanosis. MUSCULOSKELETAL: No Joint Tenderness; NEURO: Awake; no lateralizing signs; has tremor at rest SKIN: No Rash PSYCH; Normal affect Vitals/I&O's: Vital Signs Temp Pulse Resp BP Pulse Ox 98 F 67 16 116/67 95 05/11/18 06:23 05/11/18 07:18 05/11/18 07:10 05/11/18 06:23 05/11/18 07:10 Oxygen Flow Rate (L/min) 2 Oxygen Delivery Method Room Air Weight: 63 kg Body Mass Index (BMI) 21.1 Finger Stick Blood Glucose 115 Intake and Output for Last 24 Hours 05/09/18 05/10/18 05/11/18 23:59 23:59 23:59 Intake Total 1769 / 1769 Output Total 500 / 500 Balance 1269 / 1269 Microbiology Past 72 Hours 05/10/18 14:15 Urine, Clean Catch Streptococcus pneumoniae Antigen (M - Final 05/10/18 14:15 Urine, Clean Catch Legionella Antigen - Final 05/10/18 13:55 Mucosa - Nose Influenza Types A,B Direct FA (LUZ) - Final Laboratory Results 05/10/18 09:00: Total Counted Not Reportable, Differential Comment SCANNED 05/10/18 09:00: Sodium 141, Potassium 3.8, Chloride 104, Carbon Dioxide 29.0, Anion Gap 8, BUN 25 H, Creatinine 1.01, Estim Creat Clear Calc 59.38, Est GFR (MDRD) Af Amer 94, Est GFR (MDRD) Non-Af 78, BUN/Creatinine Ratio 24.8 H, Glucose 108 H, Calcium 9.1, Total Bilirubin 0.80, AST 15, ALT 11 L, Alkaline Phosphatase 82, Troponin I < 0.015, Total Protein 7.1, Albumin 3.6, Globulin 3.5, Albumin/Globulin Ratio 1.0 05/10/18 09:00: Lactic Acid 2.5 H 05/10/18 09:10: B-Natriuretic Peptide 25.2 05/10/18 10:37: Urine Color Yellow, Urine Clarity Sl. Cloudy, Urine pH 7.0, Ur Specific [place] 1.005, Urine Protein Negative, Urine Glucose (UA) Normal, Urine Ketones Negative, Urine Occult Blood Negative, Urine Nitrite Negative, Urine Bilirubin Negative, Urine Urobilinogen 1 H, Ur Leukocyte Esterase Negative, Urine RBC 0 SEEN, Urine WBC 0 SEEN, Ur Squamous Epith Cells 0 SEEN, Urine Bacteria 0 SEEN, Urine Mucus 0 SEEN 05/10/18 13:24: Lactic Acid 1.0 05/10/18 14:15: Urine Color Yellow, Urine Clarity Sl. Cloudy, Urine pH 6.0, Ur Specific [place] 1.010, Urine Protein Negative, Urine Glucose (UA) Normal, Urine Ketones 15 H, Urine Occult Blood Negative, Urine Nitrite Negative, Urine Bilirubin Negative, Urine Urobilinogen 1 H, Ur Leukocyte Esterase Negative 05/10/18 16:55: MRSA (PCR) Negative 05/11/18 05:43: Sodium 145, Potassium 3.8, Chloride 115 H, Carbon Dioxide 23.0, Anion Gap 7, BUN 16, Creatinine 0.85, Estim Creat Clear Calc 72.06, Est GFR (MDRD) Af Amer 114, Est GFR (MDRD) Non-Af 95, BUN/Creatinine Ratio 18.8, Glucose 89, Calcium 7.9 L, Magnesium 1.8 05/11/18 05:43: WBC 14.2 H, RBC 4.08 L, Hgb 12.6 L, Hct 37.9 L, MCV 92.9, MCH 30.9, MCHC 33.2, RDW 14.3, RDW Differential 47.6 H, Plt Count 139 L, MPV 10.0 Current Medications Acetaminophen (Tylenol) 650 mg PO Q4H PRN PRN PRN Reason: FEVER Acetaminophen (Tylenol) 650 mg PO Q6H PRN PRN PRN Reason: Mild Pain (scale 0-3)/T>100.7 Last Admin: 05/10/18 20:31 Dose: 650 mg Albuterol Sulfate (Ventolin Aerosols) 2.5 mg INHALATION Q2H PRN PRN PRN Reason: SHORTNESS OF BREATH Albuterol/Ipratropium (Duoneb) 3 ml INHALATION Q6H.RT [facility] Last Admin: 05/11/18 07:10 Dose: 3 ml Aspirin (Aspirin, Baby) 81 mg PO QHS [facility] Last Admin: 05/10/18 22:07 Dose: 81 mg Bisacodyl (Dulcolax) 10 mg PO DAILY PRN PRN PRN Reason: Constipation Carbidopa/Levodopa (Sinemet) 1 tablet PO BIDAC [facility] Last Admin: 05/11/18 06:30 Dose: 1 tablet Docusate Sodium (Colace) 200 mg PO BID PRN PRN PRN Reason: Constipation Enoxaparin Sodium (Lovenox) 40 mg SC DAILY@1000 [facility] Famotidine (Pepcid) 20 mg PO BID [facility] Last Admin: 05/10/18 22:07 Dose: 20 mg Finasteride (Proscar) 5 mg PO DAILY@0900 [facility] Last Admin: 05/11/18 07:56 Dose: 5 mg Fluticasone Propionate (Flonase Nasal [place]) 2 spray NASAL DAILY PRN PRN PRN Reason: ALLERGIES Guaifenesin (Mucinex) 1,200 mg PO BID [facility] Last Admin: 05/10/18 22:07 Dose: 1,200 mg Sodium Chloride () 1,000 mls @ 150 mls/hr IV .Q6H40M [facility] Last Admin: 05/11/18 08:06 Dose: Not Given Ciprofloxacin (Cipro) 400 mg in 200 mls @ 200 mls/hr IV Q8 [facility] Last Admin: 05/11/18 05:38 Dose: 200 mls/hr Vancomycin IV Pharmacy to Dose (1 ea/ Sodium Chloride) 500 mls @ 250 mls/hr IV X1 PRN; Protocol PRN Reason: Rx to Dose Cefepime HCl 2 gm/ Sodium (Chloride) 100 mls @ 150 mls/hr IV Q12 [facility] Last Admin: 05/10/18 22:00 Dose: 150 mls/hr Magnesium Hydroxide (Milk Of Magnesia) 30 ml PO DAILY PRN PRN Reason: Constipation Meclizine HCl (Antivert) 25 mg PO DAILY PRN PRN PRN Reason: DIZZINESS Morphine Sulfate () 2 - 4 mg IV Q3H PRN PRN PRN Reason: Severe Pain (pain scale 6-10) Morphine Sulfate () 2 - 4 mg IV Q3H PRN PRN PRN Reason: Severe Pain (pain scale 6-10) Multivitamins/Minerals (Multivitamin With Minerals) 1 tablet PO DAILY@0800 [facility] Last Admin: 05/11/18 07:56 Dose: 1 tablet Nitroglycerin (Nitrostat) 0.4 mg SUBLINGUAL Q5M PRN PRN Reason: Chest Pain Nutritional Formula (Lactose Free) (Ensure Clear) 120 ml PO TID [facility] Last Admin: 05/11/18 05:37 Dose: 120 ml Ondansetron HCl (Zofran) 4 mg IV Q8H PRN PRN PRN Reason: NAUSEA Oxycodone HCl (Oxyir) 5 mg PO Q4H PRN PRN PRN Reason: Moderate Pain (pain scale 4-5) Last Admin: 05/11/18 05:57 Dose: 5 mg Pantoprazole Sodium (Protonix) 20 mg PO BID@09,1999 [facility] Last Admin: 05/11/18 07:57 Dose: 20 mg Pilocarpine HCl (Salagen) 5 mg PO BID@0900,1200 [facility] Last Admin: 05/11/18 07:57 Dose: 5 mg Prednisone () 5 mg PO DAILY@1999 [facility] Last Admin: 05/10/18 20:11 Dose: 5 mg Quetiapine Fumarate (Seroquel) 12.5 mg PO DAILY@1999 [facility] Last Admin: 05/10/18 20:11 Dose: 12.5 mg Sodium Chloride () 5 - 15 ml IV UD PRN PRN Reason: SALINE FLUSH Last Admin: 05/11/18 06:25 Dose: 10 ml Trihexyphenidyl HCl (Trihexyphenidyl Hcl) 1 mg PO BID@1200,1999 [facility] Last Admin: 05/10/18 20:15 Dose: 1 mg Zolpidem Tartrate (Ambien (Generic)) 5 mg PO QHS PRN PRN PRN Reason: SLEEP Medical Necessity - Tobacco Use Smoking Status: Never smoker Assessment/Plan All Active Problems (Last Reviewed 05/10/18 @ 15:22 by Alphonse Blackmon MD) Pneumonia (Acute) Hypotension (Acute) Hallucination (Acute) TIA (transient ischemic attack) (Acute) Left facial numbness (Acute) Gallbladder sludge (Acute) Right upper quadrant pain (Acute) History of tonsillectomy (Resolved) History of hemorrhoidectomy (Resolved) History of testicular surgery (Resolved) Shoulder pain, right (Acute) Dysphagia (Acute) Fatigue (Acute) Near syncope (Acute) Dehydration (Acute) Chest pain (Acute) Generalized abdominal pain (Acute) Rectal bleeding (Acute) Melanotic stools (Acute) Orthostatic hypotension (Resolved) Prior testicular cancer (Resolved) Patient is a 72-year-old gentleman presented with progressive shortness of breath as well as left-sided pleuritic chest pain studies demonstrated left lower lobe pneumonia monitored bed for subsequent management 1. Severe sepsis secondary to community-acquired pneumonia with possible gram-negative organisms. Patient has been admitted to a monitored bed being managed with aggressive IV fluid resuscitation broad-spectrum antibiotic therapy after cultures have been sent as well as monitor progress with lactic acid. Patient was started on vancomycin on admission discontinued following his negative MRSA nasal screen 2. Essential hypertension patient blood pressure was relatively low on admission currently being resuscitated with IV fluids with close monitoring of his blood pressure 3. 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 Parkinson's disease 5. COPD; not in exacerbation 6. DVT prophylaxis SC Lovenox Active Medications Acetaminophen (Tylenol) 650 mg PO Q4H PRN PRN PRN Reason: FEVER Acetaminophen (Tylenol) 650 mg PO Q6H PRN PRN PRN Reason: Mild Pain (scale 0-3)/T>100.7 Last Admin: 05/10/18 20:31 Dose: 650 mg Albuterol Sulfate (Ventolin Aerosols) 2.5 mg INHALATION Q2H PRN PRN PRN Reason: SHORTNESS OF BREATH Albuterol/Ipratropium (Duoneb) 3 ml INHALATION Q6H.RT [facility] Last Admin: 05/11/18 07:10 Dose: 3 ml Aspirin (Aspirin, Baby) 81 mg PO QHS [facility] Last Admin: 05/10/18 22:07 Dose: 81 mg Bisacodyl (Dulcolax) 10 mg PO DAILY PRN PRN PRN Reason: Constipation Carbidopa/Levodopa (Sinemet) 1 tablet PO BIDAC [facility] Last Admin: 05/11/18 06:30 Dose: 1 tablet Docusate Sodium (Colace) 200 mg PO BID PRN PRN PRN Reason: Constipation Enoxaparin Sodium (Lovenox) 40 mg SC DAILY@1000 [facility] Famotidine (Pepcid) 20 mg PO BID [facility] Last Admin: 05/10/18 22:07 Dose: 20 mg Finasteride (Proscar) 5 mg PO DAILY@0900 [facility] Last Admin: 05/11/18 07:56 Dose: 5 mg Fluticasone Propionate (Flonase Nasal [place]) 2 spray NASAL DAILY PRN PRN PRN Reason: ALLERGIES Guaifenesin (Mucinex) 1,200 mg PO BID [facility] Last Admin: 05/10/18 22:07 Dose: 1,200 mg Sodium Chloride () 1,000 mls @ 150 mls/hr IV .Q6H40M [facility] Last Admin: 05/11/18 08:06 Dose: Not Given Ciprofloxacin (Cipro) 400 mg in 200 mls @ 200 mls/hr IV Q8 [facility] Last Admin: 05/11/18 05:38 Dose: 200 mls/hr Cefepime HCl 2 gm/ Sodium (Chloride) 100 mls @ 150 mls/hr IV Q12 [facility] Last Admin: 05/10/18 22:00 Dose: 150 mls/hr Magnesium Hydroxide (Milk Of Magnesia) 30 ml PO DAILY PRN PRN Reason: Constipation Meclizine HCl (Antivert) 25 mg PO DAILY PRN PRN PRN Reason: DIZZINESS Morphine Sulfate () 2 - 4 mg IV Q3H PRN PRN PRN Reason: Severe Pain (pain scale 6-10) Morphine Sulfate () 2 - 4 mg IV Q3H PRN PRN PRN Reason: Severe Pain (pain scale 6-10) Multivitamins/Minerals (Multivitamin With Minerals) 1 tablet PO DAILY@0800 [facility] Last Admin: 05/11/18 07:56 Dose: 1 tablet Nitroglycerin (Nitrostat) 0.4 mg SUBLINGUAL Q5M PRN PRN Reason: Chest Pain Nutritional Formula (Lactose Free) (Ensure Clear) 120 ml PO TID [facility] Last Admin: 05/11/18 05:37 Dose: 120 ml Ondansetron HCl (Zofran) 4 mg IV Q8H PRN PRN PRN Reason: NAUSEA Oxycodone HCl (Oxyir) 5 mg PO Q4H PRN PRN PRN Reason: Moderate Pain (pain scale 4-5) Last Admin: 05/11/18 05:57 Dose: 5 mg Pantoprazole Sodium (Protonix) 20 mg PO BID@0900,1999 [facility] Last Admin: 05/11/18 07:57 Dose: 20 mg Pilocarpine HCl (Salagen) 5 mg PO BID@0900,1200 [facility] Last Admin: 05/11/18 07:57 Dose: 5 mg Prednisone () 5 mg PO DAILY@1999 [facility] Last Admin: 05/10/18 20:11 Dose: 5 mg Quetiapine Fumarate (Seroquel) 12.5 mg PO DAILY@1999 [facility] Last Admin: 05/10/18 20:11 Dose: 12.5 mg Sodium Chloride () 5 - 15 ml IV UD PRN PRN Reason: SALINE FLUSH Last Admin: 05/11/18 06:25 Dose: 10 ml Trihexyphenidyl HCl (Trihexyphenidyl Hcl) 1 mg PO BID@1199,1999 [facility] Last Admin: 05/10/18 20:15 Dose: 1 mg Zolpidem Tartrate (Ambien (Generic)) 5 mg PO QHS PRN PRN PRN Reason: SLEEP Clinical Impression(s) from Imaging Studies Chest X-Ray 05/10/18 08:50 IMPRESSION: Left perihilar pneumonia. Electronically Signed: Mani Banuelos MD at 9:54 EST Tel , Service support , Abdomen/Pelvis CT 05/10/18 08:54 IMPRESSION: Left lower lobe pneumonia. Constipation. No masses or adenopathy. Electronically Signed: Mani Banuelos MD at 11:01 EST Tel , Service support , Chest CTA 05/10/18 08:54 IMPRESSION: No pulmonary embolus. Left lower lobe pneumonia. Electronically Signed: Mani Banuelos MD at 11:12 EST Tel , Service support , Code Visit Inpatient E&M: 22772 Subs Hosp L3
--- NOTE | 2018-05-11 09:51 | PN_ITS ---
Patient Problems: Active and Suspected Problems (Last Reviewed 05/10/18 @ 15:22 by Alphonse Blackmon MD) Pneumonia (Acute) Subjective: Patient seen breathing is less labored compared to prior day however his WBC count is trending up. Vancomycin was discontinued since his MRSA nasal screen came back negative Objective: GENERAL: cooperative but appears ill looking HEENT: Atraumatic; moist oral mucosa EYES; Anicteric, Normal Conjunctiva NECK; supple, normal thyroid, no distended JVD. RESPIRATORY: Diminished to auscultation bilaterally, CARDIOVASCULAR: Regular S1 S2, no audible murmurs GI: soft, non-tender, normoactive bowel sounds, : No Renal angle tenderness; EXTREMITIES: No edema, no clubbing, no cyanosis. MUSCULOSKELETAL: No Joint Tenderness; NEURO: Awake; no lateralizing signs; has tremor at rest SKIN: No Rash PSYCH; Normal affect Vitals/I&O's: Vital Signs Temp Pulse Resp BP Pulse Ox 98 F 67 16 116/67 95 05/11/18 06:23 05/11/18 07:18 05/11/18 07:10 05/11/18 06:23 05/11/18 07:10 Oxygen Flow Rate (L/min) 2 Oxygen Delivery Method Room Air Weight: 63 kg Body Mass Index (BMI) 21.1 Finger Stick Blood Glucose 115 Intake and Output for Last 24 Hours 05/09/18 05/10/18 05/11/18 23:59 23:59 23:59 Intake Total 1769 / 1769 Output Total 500 / 500 Balance 1269 / 1269 Microbiology Past 72 Hours 05/10/18 14:15 Urine, Clean Catch Streptococcus pneumoniae Antigen (M - Final 05/10/18 14:15 Urine, Clean Catch Legionella Antigen - Final 05/10/18 13:55 Mucosa - Nose Influenza Types A,B Direct FA (LUZ) - Final Laboratory Results 05/10/18 09:00: Total Counted Not Reportable, Differential Comment SCANNED 05/10/18 09:00: Sodium 141, Potassium 3.8, Chloride 104, Carbon Dioxide 29.0, Anion Gap 8, BUN 25 H, Creatinine 1.01, Estim Creat Clear Calc 59.38, Est GFR (MDRD) Af Amer 94, Est GFR (MDRD) Non-Af 78, BUN/Creatinine Ratio 24.8 H, Glucose 108 H, Calcium 9.1, Total Bilirubin 0.80, AST 15, ALT 11 L, Alkaline Phosphatase 82, Troponin I < 0.015, Total Protein 7.1, Albumin 3.6, Globulin 3.5, Albumin/Globulin Ratio 1.0 05/10/18 09:00: Lactic Acid 2.5 H 05/10/18 09:10: B-Natriuretic Peptide 25.2 05/10/18 10:37: Urine Color Yellow, Urine Clarity Sl. Cloudy, Urine pH 7.0, Ur Specific Adam[place] 1.005, Urine Protein Negative, Urine Glucose (UA) Normal, Urine Ketones Negative, Urine Occult Blood Negative, Urine Nitrite Negative, Urine Bilirubin Negative, Urine Urobilinogen 1 H, Ur Leukocyte Esterase Negative, Urine RBC 0 SEEN, Urine WBC 0 SEEN, Ur Squamous Epith Cells 0 SEEN, Urine Bacteria 0 SEEN, Urine Mucus 0 SEEN 05/10/18 13:24: Lactic Acid 1.0 05/10/18 14:15: Urine Color Yellow, Urine Clarity Sl. Cloudy, Urine pH 6.0, Ur Specific [place] 1.010, Urine Protein Negative, Urine Glucose (UA) Normal, Urine Ketones 15 H, Urine Occult Blood Negative, Urine Nitrite Negative, Urine Bilirubin Negative, Urine Urobilinogen 1 H, Ur Leukocyte Esterase Negative 05/10/18 16:55: MRSA (PCR) Negative 05/11/18 05:43: Sodium 145, Potassium 3.8, Chloride 115 H, Carbon Dioxide 23.0, Anion Gap 7, BUN 16, Creatinine 0.85, Estim Creat Clear Calc 72.06, Est GFR (MDRD) Af Amer 114, Est GFR (MDRD) Non-Af 95, BUN/Creatinine Ratio 18.8, Glucose 89, Calcium 7.9 L, Magnesium 1.8 05/11/18 05:43: WBC 14.2 H, RBC 4.08 L, Hgb 12.6 L, Hct 37.9 L, MCV 92.9, MCH 30.9, MCHC 33.2, RDW 14.3, RDW Differential 47.6 H, Plt Count 139 L, MPV 10.0 Current Medications Acetaminophen (Tylenol) 650 mg PO Q4H PRN PRN PRN Reason: FEVER Acetaminophen (Tylenol) 650 mg PO Q6H PRN PRN PRN Reason: Mild Pain (scale 0-3)/T>100.7 Last Admin: 05/10/18 20:31 Dose: 650 mg Albuterol Sulfate (Ventolin Aerosols) 2.5 mg INHALATION Q2H PRN PRN PRN Reason: SHORTNESS OF BREATH Albuterol/Ipratropium (Duoneb) 3 ml INHALATION Q6H.RT [facility] Last Admin: 05/11/18 07:10 Dose: 3 ml Aspirin (Aspirin, Baby) 81 mg PO QHS [facility] Last Admin: 05/10/18 22:07 Dose: 81 mg Bisacodyl (Dulcolax) 10 mg PO DAILY PRN PRN PRN Reason: Constipation Carbidopa/Levodopa (Sinemet) 1 tablet PO BIDAC [facility] Last Admin: 05/11/18 06:30 Dose: 1 tablet Docusate Sodium (Colace) 200 mg PO BID PRN PRN PRN Reason: Constipation Enoxaparin Sodium (Lovenox) 40 mg SC DAILY@1000 [facility] Famotidine (Pepcid) 20 mg PO BID [facility] Last Admin: 05/10/18 22:07 Dose: 20 mg Finasteride (Proscar) 5 mg PO DAILY@0900 [facility] Last Admin: 05/11/18 07:56 Dose: 5 mg Fluticasone Propionate (Flonase Nasal [place]) 2 spray NASAL DAILY PRN PRN PRN Reason: ALLERGIES Guaifenesin (Mucinex) 1,200 mg PO BID [facility] Last Admin: 05/10/18 22:07 Dose: 1,200 mg Sodium Chloride () 1,000 mls @ 150 mls/hr IV .Q6H40M [facility] Last Admin: 05/11/18 08:06 Dose: Not Given Ciprofloxacin (Cipro) 400 mg in 200 mls @ 200 mls/hr IV Q8 [facility] Last Admin: 05/11/18 05:38 Dose: 200 mls/hr Vancomycin IV Pharmacy to Dose (1 ea/ Sodium Chloride) 500 mls @ 250 mls/hr IV X1 PRN; Protocol PRN Reason: Rx to Dose Cefepime HCl 2 gm/ Sodium (Chloride) 100 mls @ 150 mls/hr IV Q12 [facility] Last Admin: 05/10/18 22:00 Dose: 150 mls/hr Magnesium Hydroxide (Milk Of Magnesia) 30 ml PO DAILY PRN PRN Reason: Constipation Meclizine HCl (Antivert) 25 mg PO DAILY PRN PRN PRN Reason: DIZZINESS Morphine Sulfate () 2 - 4 mg IV Q3H PRN PRN PRN Reason: Severe Pain (pain scale 6-10) Morphine Sulfate () 2 - 4 mg IV Q3H PRN PRN PRN Reason: Severe Pain (pain scale 6-10) Multivitamins/Minerals (Multivitamin With Minerals) 1 tablet PO DAILY@0800 [facility] Last Admin: 05/11/18 07:56 Dose: 1 tablet Nitroglycerin (Nitrostat) 0.4 mg SUBLINGUAL Q5M PRN PRN Reason: Chest Pain Nutritional Formula (Lactose Free) (Ensure Clear) 120 ml PO TID [facility] Last Admin: 05/11/18 05:37 Dose: 120 ml Ondansetron HCl (Zofran) 4 mg IV Q8H PRN PRN PRN Reason: NAUSEA Oxycodone HCl (Oxyir) 5 mg PO Q4H PRN PRN PRN Reason: Moderate Pain (pain scale 4-5) Last Admin: 05/11/18 05:57 Dose: 5 mg Pantoprazole Sodium (Protonix) 20 mg PO BID@09,1999 [facility] Last Admin: 05/11/18 07:57 Dose: 20 mg Pilocarpine HCl (Salagen) 5 mg PO BID@0900,1200 [facility] Last Admin: 05/11/18 07:57 Dose: 5 mg Prednisone () 5 mg PO DAILY@1999 [facility] Last Admin: 05/10/18 20:11 Dose: 5 mg Quetiapine Fumarate (Seroquel) 12.5 mg PO DAILY@1999 [facility] Last Admin: 05/10/18 20:11 Dose: 12.5 mg Sodium Chloride () 5 - 15 ml IV UD PRN PRN Reason: SALINE FLUSH Last Admin: 05/11/18 06:25 Dose: 10 ml Trihexyphenidyl HCl (Trihexyphenidyl Hcl) 1 mg PO BID@1200,1999 [facility] Last Admin: 05/10/18 20:15 Dose: 1 mg Zolpidem Tartrate (Ambien (Generic)) 5 mg PO QHS PRN PRN PRN Reason: SLEEP Medical Necessity - Tobacco Use Smoking Status: Never smoker Assessment/Plan All Active Problems (Last Reviewed 05/10/18 @ 15:22 by Alphonse Blackmon MD) Pneumonia (Acute) Hypotension (Acute) Hallucination (Acute) TIA (transient ischemic attack) (Acute) Left facial numbness (Acute) Gallbladder sludge (Acute) Right upper quadrant pain (Acute) History of tonsillectomy (Resolved) History of hemorrhoidectomy (Resolved) History of testicular surgery (Resolved) Shoulder pain, right (Acute) Dysphagia (Acute) Fatigue (Acute) Near syncope (Acute) Dehydration (Acute) Chest pain (Acute) Generalized abdominal pain (Acute) Rectal bleeding (Acute) Melanotic stools (Acute) Orthostatic hypotension (Resolved) Prior testicular cancer (Resolved) Patient is a 72-year-old gentleman presented with progressive shortness of breath as well as left-sided pleuritic chest pain studies demonstrated left lower lobe pneumonia monitored bed for subsequent management 1. Severe sepsis secondary to community-acquired pneumonia with possible gram- negative organisms. Patient has been admitted to a monitored bed being managed with aggressive IV fluid resuscitation broad-spectrum antibiotic therapy after c ultures have been sent as well as monitor progress with lactic acid. Patient was started on vancomycin on admission discontinued following his negative MRSA nasal screen 2. Essential hypertension patient blood pressure was relatively low on admission currently being resuscitated with IV fluids with close monitoring of his blood pressure 3. 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 Parkinson's disease 5. COPD; not in exacerbation 6. DVT prophylaxis SC Lovenox Active Medications Acetaminophen (Tylenol) 650 mg PO Q4H PRN PRN PRN Reason: FEVER Acetaminophen (Tylenol) 650 mg PO Q6H PRN PRN PRN Reason: Mild Pain (scale 0-3)/T>100.7 Last Admin: 05/10/18 20:31 Dose: 650 mg Albuterol Sulfate (Ventolin Aerosols) 2.5 mg INHALATION Q2H PRN PRN PRN Reason: SHORTNESS OF BREATH Albuterol/Ipratropium (Duoneb) 3 ml INHALATION Q6H.RT [facility] Last Admin: 05/11/18 07:10 Dose: 3 ml Aspirin (Aspirin, Baby) 81 mg PO QHS [facility] Last Admin: 05/10/18 22:07 Dose: 81 mg Bisacodyl (Dulcolax) 10 mg PO DAILY PRN PRN PRN Reason: Constipation Carbidopa/Levodopa (Sinemet) 1 tablet PO BIDAC [facility] Last Admin: 05/11/18 06:30 Dose: 1 tablet Docusate Sodium (Colace) 200 mg PO BID PRN PRN PRN Reason: Constipation Enoxaparin Sodium (Lovenox) 40 mg SC DAILY@1000 [facility] Famotidine (Pepcid) 20 mg PO BID [facility] Last Admin: 05/10/18 22:07 Dose: 20 mg Finasteride (Proscar) 5 mg PO DAILY@0900 [facility] Last Admin: 05/11/18 07:56 Dose: 5 mg Fluticasone Propionate (Flonase Nasal [place]) 2 spray NASAL DAILY PRN PRN PRN Reason: ALLERGIES Guaifenesin (Mucinex) 1,200 mg PO BID [facility] Last Admin: 05/10/18 22:07 Dose: 1,200 mg Sodium Chloride () 1,000 mls @ 150 mls/hr IV .Q6H40M [facility] Last Admin: 05/11/18 08:06 Dose: Not Given Ciprofloxacin (Cipro) 400 mg in 200 mls @ 200 mls/hr IV Q8 [facility] Last Admin: 05/11/18 05:38 Dose: 200 mls/hr Cefepime HCl 2 gm/ Sodium (Chloride) 100 mls @ 150 mls/hr IV Q12 [facility] Last Admin: 05/10/18 22:00 Dose: 150 mls/hr Magnesium Hydroxide (Milk Of Magnesia) 30 ml PO DAILY PRN PRN Reason: Constipation Meclizine HCl (Antivert) 25 mg PO DAILY PRN PRN PRN Reason: DIZZINESS Morphine Sulfate () 2 - 4 mg IV Q3H PRN PRN PRN Reason: Severe Pain (pain scale 6-10) Morphine Sulfate () 2 - 4 mg IV Q3H PRN PRN PRN Reason: Severe Pain (pain scale 6-10) Multivitamins/Minerals (Multivitamin With Minerals) 1 tablet PO DAILY@0800 [facility] Last Admin: 05/11/18 07:56 Dose: 1 tablet Nitroglycerin (Nitrostat) 0.4 mg SUBLINGUAL Q5M PRN PRN Reason: Chest Pain Nutritional Formula (Lactose Free) (Ensure Clear) 120 ml PO TID [facility] Last Admin: 05/11/18 05:37 Dose: 120 ml Ondansetron HCl (Zofran) 4 mg IV Q8H PRN PRN PRN Reason: NAUSEA Oxycodone HCl (Oxyir) 5 mg PO Q4H PRN PRN PRN Reason: Moderate Pain (pain scale 4-5) Last Admin: 05/11/18 05:57 Dose: 5 mg Pantoprazole Sodium (Protonix) 20 mg PO BID@0900,1999 [facility] Last Admin: 05/11/18 07:57 Dose: 20 mg Pilocarpine HCl (Salagen) 5 mg PO BID@0900,1200 [facility] Last Admin: 05/11/18 07:57 Dose: 5 mg Prednisone () 5 mg PO DAILY@1999 [facility] Last Admin: 05/10/18 20:11 Dose: 5 mg Quetiapine Fumarate (Seroquel) 12.5 mg PO DAILY@1999 [facility] Last Admin: 05/10/18 20:11 Dose: 12.5 mg Sodium Chloride () 5 - 15 ml IV UD PRN PRN Reason: SALINE FLUSH Last Admin: 05/11/18 06:25 Dose: 10 ml Trihexyphenidyl HCl (Trihexyphenidyl Hcl) 1 mg PO BID@1199,1999 [facility] Last Admin: 05/10/18 20:15 Dose: 1 mg Zolpidem Tartrate (Ambien (Generic)) 5 mg PO QHS PRN PRN PRN Reason: SLEEP Clinical Impression(s) from Imaging Studies Chest X-Ray 05/10/18 08:50 IMPRESSION: Left perihilar pneumonia. Electronically Signed: Mani Banuelos MD at 9:54 EST Tel , Service support , Abdomen/Pelvis CT 05/10/18 08:54 IMPRESSION: Left lower lobe pneumonia. Constipation. No masses or adenopathy. Electronically Signed: Mani Banuelos MD at 11:01 EST Tel , Service support , Chest CTA 05/10/18 08:54 IMPRESSION: No pulmonary embolus. Left lower lobe pneumonia. Electronically Signed: Mani Banuelos MD at 11:12 EST Tel , Service support , Code Visit Inpatient E&M: 60105 Subs Hosp L3
--- NOTE | 2018-05-11 10:41 | CASEMGMT ---
JADYN HUGHES assessment: Face to Face with patient for initial transition planning/care coordination assessment. JADYN HUGHES introduced self and role at [facility], pt voices understanding and consents to assessment at this time. Pt is sitting up in bed in no distress at this time. Pt is A/Ox4 at this time and answers all questions appropriately at this time. Care providers, pharmacy, and demographics verified/updated at this time. PCP: Sonia Specialists: asaf Medina; Natalia, cardio Preferred Pharmacy: [facility] Insurance: [employer] Prescription Benefit: [employer] Living Will/HPOA: Pt states he believes that he has LW/HPOA but they are not currently on file at [facility]. Pt states , Latoya Nicole, is HPOA. Pt states 'she knows about all that stuff, I don't understand it.' LNOK: Latoya Nicole, ; Raya Nicole, daughter Living Arrangements: Pt states that he and his live in the walk-out basement of his daughters home. He states they have a 'few steps' to go out or in and states no concerns at home at this time. Transportation: Pt states drives and states no transportation concerns at this time. DME/HHC: Pt states only has grab bars and states no need for any further DME at this time. Pt states has had HHC set up in the past but has never been to SNF. Pt states no concerns with going home at time of discharge and states does not feel the need for any resources. Pt is retired. Pt states does not smoke or drink ETOH. Pt states no further concerns/needs at this time. CM to follow for any further discharge planning/needs. Advised pt to ask for CM if any further questions/concerns/needs arise, voices understanding. Plan: [place] JADYN HUGHES
[2018-05-11] MEDS: Famotidine 20 MG Tablet PO ×2 (10:45→20:09)
[2018-05-11] MEDS: Enoxaparin 40 MG/0.4 ML Syringe SC (10:45)
[2018-05-11] MEDS: guaiFENesin 1,200 MG Tablet 1200 MG PO ×2 (11:09→20:09)
[2018-05-11] MEDS: TRIHEXYPHENIDYL HCL 2 MG TABLET 1 MG PO ×2 (11:44→20:08)
[2018-05-11] MEDS: QUEtiapine 25 MG Tablet 12.5 MG PO (20:09)
[2018-05-11] MEDS: Aspirin 81 MG TAB.CHEW PO ×2 (20:09)
[2018-05-11] MEDS: predniSONE 5 MG Tablet PO (20:10)
[2018-05-11] MEDS: Acetaminophen 325 MG Tablet 650 MG PO (20:16)
[2018-05-11] MEDS: Bisacodyl 5 MG Tablet 10 MG PO (22:12)
[2018-05-12 03:00] VITALS: PULSE 71
[2018-05-12 03:13] VITALS: BP 141/71; PULSE 84; RESP 18; TEMP 36.8; O2SAT 99
[2018-05-12 06:28] LABS: Mean Corp Hgb Conc 33.3 g/gl (32-36); Mean Corpuscular Hgb 30.5 pg (27.0-32.0); Mean Corpuscular Volume 91.4 fL (80-94); Mean Platelet Vol. 9.6 fl (6.2-12.0); Platelet Count 138 K/mm3 (150-450); RBC Distribution Width CV 14.2 % (11.6-14.6); RBC Distribution Width SD 46.8 fl (35.1-43.9); Red Blood Count 3.94 M/mm3 (4.6-6.2)
[2018-05-12 06:32] LABS: Scan Indicated on CBC? Y/N NO
[2018-05-12] MEDS: Carbidopa/Levodopa 25/100 Tablet PO (06:39)
[2018-05-12] MEDS: Ciprofloxacin 400 MG/200 ML BAG 200 MG IV (06:41)
[2018-05-12] MEDS: oxyCODONE 5 MG Tablet PO (06:42)
[2018-05-12 06:49] LABS: Anion Gap 7 (5-15); BUN 10 mg/dL (7-18); BUN/Creat Ratio 12.8 RATIO (10-20); Calcium,Total 8.2 mg/dL (8.5-10.1); Chloride 116 mmol/L (98-107); Creatinine, Serum 0.78 mg/dL (0.70-1.30); EST Glomerular Filtration Rate 104 mL/min (>60); Est Glom Filt Rate - Afr Amer 126 mL/min (>60); Estimated Creatinine Clearance 61.25 ml/min; Glucose 98 mg/dL (74-106); Potassium 3.5 mmol/L (3.5-5.1); Sodium Level 147 mmol/L (136-145)
[2018-05-12 07:03] VITALS: PULSE 82; RESP 20; O2SAT 94
[2018-05-12] MEDS: Ipratropium/Albuterol Sulfate 3 ML AMPUL.NEB INHALATION (07:03)
[2018-05-12 07:45] VITALS: PULSE 99
[2018-05-12] MEDS: Pilocarpine HCl 5 MG Tablet PO (08:52)
[2018-05-12] MEDS: guaiFENesin 1,200 MG Tablet 1200 MG PO (08:53)
[2018-05-12] MEDS: Famotidine 20 MG Tablet PO (08:53)
[2018-05-12] MEDS: Finasteride 5 MG Tablet PO (08:53)
[2018-05-12] MEDS: Pantoprazole Sodium 20 MG Tablet PO (08:53)
[2018-05-12] MEDS: Multivitamins,Ther W-Minerals Tablet 1 TABLET PO (08:54)
[2018-05-12] MEDS: Enoxaparin 40 MG/0.4 ML Syringe SC (08:54)
[2018-05-12] MEDS: 0.9% Normal Saline 1,000 ML 150 ML IV (08:59)
[2018-05-12 09:00] VITALS: BP 134/61; PULSE 83; RESP 16; TEMP 37.3; O2SAT 98
--- NOTE | 2018-05-12 09:33 | DCINST_ITS ---
- Discharge Diagnoses Current Active Problems: Current Active and Chronic Problems (Last Reviewed 05/10/18 @ 15:22 by Alphonse Blackmon MD) Pneumonia (Acute) You will use the following diet at home:: No restrictions Allergies/Adverse Reactions: Allergies amoxicillin trihydrate [From Augmentin] Allergy (Severe, Verified 05/10/18 08:37) Unknown ?hives celecoxib [From Celebrex] Allergy (Severe, Verified 05/10/18 08:37) bad dreams, hallucinates, esomeprazole magnesium [From Nexium] Allergy (Severe, Verified 05/10/18 08:37) Unknown Penicillins Allergy (Severe, Verified 05/10/18 08:37) Unknown potassium clavulanate [From Augmentin] Allergy (Severe, Verified 05/10/18 08:37) Unknown hives? telmisartan [From Micardis] Allergy (Severe, Verified 05/10/18 08:37) Unknown venlafaxine HCl [From Effexor] Allergy (Severe, Verified 05/10/18 08:37) bad dreams, hallucinates atenolol Allergy (Intermediate, Verified 05/10/18 08:37) body hot tingling metoprolol Allergy (Intermediate, Verified 05/10/18 08:37) Unknown amoxicillin [From Augmentin] Allergy (Verified 05/10/18 08:37) Unknown clavulanic acid [From Augmentin] Allergy (Verified 05/10/18 08:37) Unknown duloxetine HCl [From Cymbalta] Allergy (Verified 05/10/18 08:37) aggiation melatonin Allergy (Verified 05/10/18 08:37) kept awake mirtazapine [From Remeron] Allergy (Verified 05/10/18 08:37) Chest tightness sertraline HCl [From Zoloft] Allergy (Verified 05/10/18 08:37) Itching lorazepam [From Ativan] Adverse Reaction (Severe, Verified 05/10/18 08:37) Other D/C dut to low bp low pulse, needed Narcan in ER buspirone HCl [From BuSpar] Adverse Reaction (Verified 05/10/18 08:37) aggiation IRRITABLE citalopram hydrobromide [From Celexa] Adverse Reaction (Verified 05/10/18 08:37) aggiation ropinirole Adverse Reaction (Verified 05/10/18 08:37) Other tamsulosin HCl [From Flomax] Adverse Reaction (Verified 05/10/18 08:37) Low blood pressure Medications to take at Discharge Aspirin [Aspirin, Baby] 81 mg PO QHS 07/12/14 Nitroglycerin [Nitrostat] 0.4 mg SUBLINGUAL Q5M PRN 10/31/14 Multivit-Min/FA/Lycopen/Lutein [Centrum Silver Tablet] 1 tab PO DAILY 08/17/16 fluticasone 50 mcg/actuation nasal spray,suspension 2 spray INTRANASAL DAILY PRN PRN 05/29/17 meclizine 25 mg tablet 25 mg PO DAILY PRN PRN 12/11/17 Prednisone 5 mg PO QHS 12/21/17 Trihexyphenidyl HCl 1 mg PO BID 12/21/17 Pantoprazole Sodium [Protonix] 20 mg PO BID 01/16/18 dutasteride 0.5 mg capsule 0.5 mg PO DAILY 03/13/18 albuterol sulfate HFA 90 mcg/actuation aerosol inhaler 2 puff INHALATION Q6H PRN #1 device 04/04/18 Carbidopa/Levodopa 25/100 [Sinemet 25/100] 1 tablet PO BIDAC 05/10/18 Lactose-Reduced Food [Boost Compact] 125 ml PO TID 05/10/18 Pilocarpine HCl 5 mg PO BID 05/10/18 Quetiapine Fumarate [Seroquel] 12.5 mg PO DAILY@199905/10/18 Cefdinir 300 mg PO BID #14 capsule 05/12/18 Guaifenesin [Mucinex] 1,200 mg PO BID #14 tablet 05/12/18 The following prescriptions were given: Cefdinir 300 mg PO BID #14 capsule Guaifenesin [Mucinex] 1,200 mg PO BID #14 tablet Primary Care Physician: Yo Scott DO [Primary Care Provider] - Please follow up with your Primary Care Physician in: in 1 week Test Results: Test results from this visit will be discussed in further detail at your follow- up appointment, if applicable. Proposed Discharge Date: 05/12/18
--- NOTE | 2018-05-12 09:33 | PCM.DC.SUM ---
Discharge Date and Diagnosis - Problem List Patient Problems: Active and Suspected Problems (Last Reviewed 05/10/18 @ 15:22 by Alphonse Blackmon MD) Pneumonia (Acute) Date of Admission: 05/10/18 Date of Discharge: 05/12/18 - Primary Discharge Diagnosis Active and Suspected Problems (Last Reviewed 05/10/18 @ 15:22 by Alphonse Blackmon MD) Pneumonia (Acute) - Secondary Discharge Diagnosis Chronic Problems (Last Reviewed 05/10/18 @ 15:22 by Alphonse Blackmon MD) Pure hypercholesterolemia (Chronic) Essential (primary) hypertension (Chronic) Atherosclerosis of [place] coronary artery of [place] heart without angina pectoris (Chronic) Meningioma (Chronic) Stage 1 mild COPD by GOLD classification (Chronic) Dyspnea (Chronic) 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 De León History of oropharyngeal cancer (Chronic) Oropharyngeal cancer (Chronic) Coronary artery spasm (Chronic) Anxiety (Chronic) with panic attacks Former smoker (Chronic) Quit 8 years ago COPD (chronic obstructive pulmonary disease) (Chronic) Gastroesophageal reflux disease (Chronic) Diverticulosis (Chronic) Obstructive sleep apnea (Chronic) Tonsillar cancer (Chronic) Hospital Course and Treatment Imaging Results: Clinical Impression(s) from Imaging Studies Chest X-Ray 05/10/18 08:50 IMPRESSION: Left perihilar pneumonia. Electronically Signed: Mani Banuelos MD at 9:54 EST Tel , Service support , Abdomen/Pelvis CT 05/10/18 08:54 IMPRESSION: Left lower lobe pneumonia. Constipation. No masses or adenopathy. Electronically Signed: Mani Banuelos MD at 11:01 EST Tel , Service support , Chest CTA 05/10/18 08:54 IMPRESSION: No pulmonary embolus. Left lower lobe pneumonia. Electronically Signed: Mani Banuelos MD at 11:12 EST Tel , Service support , Operations: None Summary of Care Provided: Patient is a 72-year-old gentleman presented with progressive shortness of breath as well as left-sided pleuritic chest pain studies demonstrated left lower lobe pneumonia monitored bed for subsequent management 1. Severe sepsis secondary to community-acquired pneumonia with possible gram-negative organisms. Patient has been admitted to a monitored bed being managed with aggressive IV fluid resuscitation broad-spectrum antibiotic therapy after cultures have been sent as well as monitor progress with lactic acid. Patient was started on vancomycin on admission discontinued following his negative MRSA nasal screen patient was discharged home on cefdinir 300 mg p.o. twice daily for 7 more days. 2. Acute rhinovirus infection treated symptomatically 3. Essential hypertension patient blood pressure was relatively low on admission currently being resuscitated with IV fluids with close monitoring of his blood pressure 4. 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 Parkinson's disease on Sinemet 5. COPD; not in exacerbation 7. DVT prophylaxis SC Lovenox Patient Problems: Active and Suspected Problems (Last Reviewed 05/10/18 @ 15:22 by Alphonse Blackmon MD) Pneumonia (Acute) - Physical Exam General: Cooperative HEENT: Atraumatic Neck: Supple Lungs: Diminished Cardiovascular: Regular rate Neurological: Neuro grossly intact Psych/Mental Status: Normal Affect Vital Signs Temp Pulse Resp BP Pulse Ox 99.1 F 83 16 134/61 H 98 05/12/18 09:00 05/12/18 09:00 05/12/18 09:00 05/12/18 09:00 05/12/18 09:00 Oxygen Flow Rate (L/min) 2 Oxygen Delivery Method Room Air Weight: 63 kg Body Mass Index (BMI) 21.1 Finger Stick Blood Glucose 115 Intake and Output for Last 24 Hours 05/10/18 05/11/18 05/12/18 23:59 23:59 23:59 Intake Total 5664 / 5664 1119 / 1119 Output Total 1450 / 1450 Balance 4214 / 4214 1119 / 1119 Microbiology Past 72 Hours 05/10/18 10:36 Urine Culture - Final Urine, Clean Catch Culture exhibits no growth. 05/10/18 13:55 Respiratory Panel (PCR) - Final Mucosa - Nose Rhinovirus 05/10/18 14:15 Streptococcus pneumoniae Antigen (M - Final Urine, Clean Catch 05/10/18 14:15 Legionella Antigen - Final Urine, Clean Catch 05/10/18 13:55 Influenza Types A,B Direct FA ([facility]) - Final Mucosa - Nose Laboratory Tests Past 24 Hrs 05/12/18 05/12/18 05:35 05:35 WBC 9.0 RBC 3.94 L Hgb 12.0 L Hct 36.0 L MCV 91.4 MCH 30.5 MCHC 33.3 RDW 14.2 RDW Differential 46.8 H Plt Count 138 L MPV 9.6 Sodium 147 H Potassium 3.5 Chloride 116 H Carbon Dioxide 24.0 Anion Gap 7 BUN 10 Creatinine 0.78 Estim Creat Clear Calc 61.25 Est GFR (MDRD) Af Amer 126 Est GFR (MDRD) Non-Af 104 BUN/Creatinine Ratio 12.8 Glucose 98 Calcium 8.2 L Discharge Diet: No Restrictions Discharge Activity: Return to Normal Activity Home Medications: Medications to take at Discharge Aspirin [Aspirin, Baby] 81 mg PO QHS 07/12/14 Nitroglycerin [Nitrostat] 0.4 mg SUBLINGUAL Q5M PRN 10/31/14 Multivit-Min/FA/Lycopen/Lutein [Centrum Silver Tablet] 1 tab PO DAILY 08/17/16 fluticasone 50 mcg/actuation nasal spray,suspension 2 spray INTRANASAL DAILY PRN PRN 05/29/17 meclizine 25 mg tablet 25 mg PO DAILY PRN PRN 12/11/17 Prednisone 5 mg PO QHS 12/21/17 Trihexyphenidyl HCl 1 mg PO BID 12/21/17 Pantoprazole Sodium [Protonix] 20 mg PO BID 01/16/18 dutasteride 0.5 mg capsule 0.5 mg PO DAILY 03/13/18 albuterol sulfate HFA 90 mcg/actuation aerosol inhaler 2 puff INHALATION Q6H PRN #1 device 04/04/18 Carbidopa/Levodopa 25/100 [Sinemet 25/100] 1 tablet PO BIDAC 05/10/18 Lactose-Reduced Food [Boost Compact] 125 ml PO TID 05/10/18 Pilocarpine HCl 5 mg PO BID 05/10/18 Quetiapine Fumarate [Seroquel] 12.5 mg PO DAILY@199905/10/18 Cefdinir 300 mg PO BID #14 capsule 05/12/18 Guaifenesin [Mucinex] 1,200 mg PO BID #14 tablet 05/12/18 Following Prescrptions Were Given to Patient: Cefdinir 300 mg PO BID #14 capsule Guaifenesin [Mucinex] 1,200 mg PO BID #14 tablet Primary Care Physician: Yo Scott DO [Primary Care Provider] - Please follow up with your Primary Care Physician in: in 1 week Disposition: Home Minutes spent on discharge:: 35 Patient Condition:: Stable Medical Necessity - Tobacco Use Smoking Status: Never smoker Meaningful Use Info Meaningful Use Diagnoses (Choose all that apply): None applicable Code Visit Inpatient E&M: 21676 Disch Hosp
--- NOTE | 2018-05-14 13:06 | CASEMGMT ---
JADYN HUGHES Discharge Follow-up Phone Call: LIANEManuel: Shayy Strata: 4 Call Date: 05/14/18 Discharge Date: 05/12/18 Time of Call: 1305 Duration: 3 min Admitting Diagnosis: Sepsis JADYN HUGHES completed follow-up phone call after recent hospitalization. Patient states that he is doing well. Patient had no questions regarding discharge instructions and was able to fill prescriptions without any problems. Patient has information to schedule follow-up appt.
== END 2018-05-12 11:12 | disposition home or self-care (01) | DRG 871 ==
LOC: ED 10:08 → PCU 12:18
PROVIDERS: Admitting Provider Internal Medicine; Emergency Provider Emergency Medicine; Family Provider Preventive Medicine Occupational Medicine; PCP Preventive Medicine Occupational Medicine; Visit Provider Internal Medicine
DX: A41.9 Sepsis, unspecified organism (principal); J15.6 Pneumonia due to other Gram-negative bacteria; J44.0 Chronic obstructive pulmonary disease with (acute) lower respiratory infection; B97.89 Other viral agents as the cause of diseases classified elsewhere; I10 Essential (primary) hypertension; R65.20 Severe sepsis without septic shock; G20 Parkinson's disease; Z85.818 Personal history of malignant neoplasm of other sites of lip, oral cavity, and pharynx; Z92.3 Personal history of irradiation; Z87.891 Personal history of nicotine dependence; G47.33 Obstructive sleep apnea (adult) (pediatric); Z79.899 Other long term (current) drug therapy; K57.90 Diverticulosis of intestine, part unspecified, without perforation or abscess without bleeding; F41.0 Panic disorder [episodic paroxysmal anxiety]; Z85.47 Personal history of malignant neoplasm of testis
CPT/HCPCS: 36415; 71045; 71275; 74177; 80048; 80053; 80061; 80076; 81001; 81002; 83605; 83735; 83880; 84484; 85025; 85027; 85610; 85730; 87040; 87086; 87449; 87633; 87641; 87804; 93005; 94640; 94667; 94668; 94762; 97162; 97165; 97802; 99251; 99285; J7030; J7040; J7050; Q9967; A4216; G0463; J0696; J0744; J2405

== ENCOUNTER → 2018-05-10 09:20 | Outpatient (CLI) | payer MEDICARE, SELFPAY ==
[2018-05-10 08:38] VITALS: BMI 20.7
[2018-05-10 10:18] LABS: AST(SGOT) 13 U/L (15-37); Alanine Aminotransfer ALT/SGPT 8 U/L (16-61); Albumin, Serum 3.5 g/dL (3.2-5.0); Alkaline Phosphatase 76 U/L (45-117); Cholesterol 120 mg/dL (200); Globulin 3.2 g/dL (2.2-4.2); High Density Lipoprotein 47 mg/dL; Protein, Total 6.7 g/dL (6.4-8.2); Triglycerides 58 mg/dL; Very Low Density Lipoprotein 12 mg/dL (5-40)
== END ==
PROVIDERS: Family Provider Preventive Medicine Occupational Medicine; PCP Preventive Medicine Occupational Medicine; Referring Provider Nurse Practitioner Family; Visit Provider Nurse Practitioner Family
DX: E78.00 Pure hypercholesterolemia, unspecified (principal)
CPT/HCPCS: 80061; 80076

== ENCOUNTER → 2019-12-30 09:26 | Outpatient (CLI) | payer MEDICARE, SELFPAY ==
[2019-12-02 09:47] VITALS: BMI 21.4
[2019-12-30 10:20] LABS: Albumin, Serum 3.9 g/dL (3.2-5.0); BUN 21 mg/dL (7-18); BUN/Creat Ratio 21.6 RATIO (10-20); Calcium,Total 9.4 mg/dL (8.5-10.1); Chloride 107 mmol/L (98-107); Creatinine, Serum 0.97 mg/dL (0.70-1.30); EST Glomerular Filtration Rate 81 mL/min (>60); Est Glom Filt Rate - Afr Amer 98 mL/min (>60); Glucose 135 mg/dL (74-106); Phosphorus 2.5 mg/dL (2.5-4.9); Potassium 3.7 mmol/L (3.5-5.1); Sodium Level 142 mmol/L (136-145)
== END ==
PROVIDERS: PCP Preventive Medicine Occupational Medicine
DX: D32.9 Benign neoplasm of meninges, unspecified (principal)
CPT/HCPCS: 36415; 80069

== ENCOUNTER → 2020-01-09 10:59 | Outpatient (CLI) | payer MEDICARE, SELFPAY ==
[2019-07-31 13:38] VITALS: BMI 26.1
[2019-12-02 09:47] VITALS: BMI 21.4
--- NOTE | 2020-01-09 11:12 | MRI_ITS ---
STUDY: MRI BRAIN WITH AND WITHOUT CONTRAST REASON FOR EXAM: Male, 74 years old. meningioma, memory/balance issues TECHNIQUE: Standardized multiplanar fat and water weighted pulse sequences were obtained. IV Dotarem 13ml was administered for the contrast portion of the examination. COMPARISON: 01/17/2018, 06/12/2017 FINDINGS: Normal size of the ventricles and extra-axial spaces for the patient''s age. There are a limited number of small white matter hyperintensities, distributed throughout the deep white matter tracts of the cerebral hemispheres, consistent with mild chronic white matter ischemic changes. Normal bilateral basal ganglia. Normal thalami. There is no extra-axial fluid accumulation. Normal flow voids within the major intracranial circulation suggesting patency by spin echo criteria. Normal venous enhancement. Stable 10 x 8 mm left frontal convexity meningioma. No adjacent frontal cortical edema. Normal sella turcica, pituitary gland, infundibular stalk, optic chiasm and hypothalamus. Normal tectal plate and pineal gland. Normal midbrain, thuan and medulla. Normal cerebellum. Normal basal cisterns. Left mastoid sinus disease. Normal bilateral internal auditory canals. There are bilateral ocular lens implants with otherwise normal intraorbital contents. Normal visualized paranasal sinuses. Normal calvarium and skull base. Normal visualized soft tissue structures. Normal visualized upper cervical spine. MRI/Brain W/WO Contrast IMPRESSION: No evidence of acute infarct or hemorrhage. Stable 10 x 8 mm left frontal convexity meningioma. No adjacent frontal cortical edema. Electronically Signed: Mani Banuelos MD at 17:10 EDT Tel , Service support ,
== END ==
PROVIDERS: PCP Preventive Medicine Occupational Medicine
DX: D32.9 Benign neoplasm of meninges, unspecified (principal)
CPT/HCPCS: 70553; A9575

== ENCOUNTER → 2020-08-31 16:00 | Outpatient (CLI) | payer MEDICARE, SELFPAY ==
[2020-08-31 10:37] VITALS: BMI 21.4
--- NOTE | 2020-08-31 16:03 | RAD_ITS ---
STUDY: X-RAY CHEST REASON FOR EXAM: Male, 74 years old. Cough. TECHNIQUE: PA and lateral views of the chest. COMPARISON: 05/10/2018. FINDINGS: The lungs are mildly hyperexpanded. There is no acute infiltrate or mass. There is no demonstrated pleural abnormality. Normal size heart. Normal mediastinum and dennise. Normal visualized pulmonary arteries. There is atherosclerotic calcification of the aortic arch with tortuosity. There are diffuse degenerative changes of the visualized thoracic spine. There is degenerative osteoarthritis of the bilateral shoulders. Surgical clips in the soft tissues of the right neck. There is no demonstrated abnormality of the visualized soft tissue structures of the upper abdomen. RAD/Chest PA and Lateral IMPRESSION: No acute cardiopulmonary disease. Electronically Signed: Glen Soto DO at 16:17 EDT Tel [phone], Service support ,
== END ==
PROVIDERS: PCP Preventive Medicine Occupational Medicine; Referring Provider Physician Assistant; Visit Provider Physician Assistant
DX: R05 Cough (principal)
CPT/HCPCS: 71046

== ENCOUNTER → 2020-09-09 10:48 | Outpatient (CLI) | payer MEDICARE, SELFPAY ==
[2020-08-31 16:24] VITALS: BMI 22.4
--- NOTE | 2020-09-09 10:52 | ECHOD_ITS ---
Reason For Study: Dyspnea/SOB Procedure This was a 2D Doppler, Color Flow transthoracic echocardiogram. The exam was of adequate technical quality. Exam performed in department. Left Ventricle Normal LV size. Left ventricular systolic function is normal. The estimated ejection fraction is 65 %. No evidence for diastolic dysfunction. No regional wall motion abnormalities noted. Right Ventricle Normal RV size. Normal systolic function. Atria Normal left atrium. Normal right atrium. No doppler evidence for ASD. Mitral Valve There is mild mitral annular calcification. Mild diffuse mitral valve thickening. Mild mitral valve prolapse, posterior leaflet. Trivial mitral valve insufficiency. Tricuspid Valve Normal tricuspid valve. Trivial tricuspid valve insufficiency. Right ventricular systolic pressure estimated to be 25 mmHg. Aortic Valve Trisinus/trileaflet aortic valve. Moderate diffuse aortic valve thickening. Pulmonic Valve The pulmonic valve is not well visualized. Great Vessels Normal sized aortic root. Pericardium/Pleural No pericardial effusion. MMode/2D Measurements & Calculations LVIDd: 4.1 cm IVSd: 1.0 cm Ao root diam: 2.9 cm LVIDs: 2.0 cm LVPWd: 1.1 cm RVDd: 2.8 cm FS: 50.8 % LAV(MOD-bp): 14.5 ml LVAd ap4: 21.5 cm2 SV(MOD-sp4): 33.3 ml LAV(MOD-bp) Indexed: 8.1 ml/m2 LVLd ap4: 7.5 cm LAV(MOD-sp2): 14.3 ml EDV(MOD-sp4): 49.7 ml LAV(MOD-sp4): 11.3 ml EDV(sp4-el): 52.7 ml LVAs ap4: 10.7 cm2 LVLs ap4: 5.8 cm ESV(MOD-sp4): 16.4 ml ESV(sp4-el): 16.5 ml EF(MOD-sp4): 67.0 % EF(sp4-el): 68.7 % SV(sp4-el): 36.2 ml LA A4 area: 6.8 cm2 LA dimension(2D): 2.4 cm RA A4 area: 8.7 cm2 Doppler Measurements & Calculations MV E max ede: 59.6 cm/sec Lat Peak E' Ede: 4.5 cm/sec Med Peak E' Ede: 5.0 cm/sec MV A max ede: 106.8 cm/sec E/E' lat: 13.4 E/E' med: 12.0 MV E/A: 0.56 Ao V2 max: 122.9 cm/sec LV V1 max: 100.4 cm/sec PA V2 max: 100.9 cm/sec Ao max P.0 mmHg LV V1 max P.0 mmHg Ao V2 mean: 87.6 cm/sec Ao mean P.3 mmHg Ao V2 VTI: 22.2 cm TR max ede: 235.8 cm/sec TR max P.2 mmHg ECHO/Echo Complete Interpretation Summary Left ventricular systolic function is normal. The estimated ejection fraction is 65 %. There is mild mitral annular calcification. Mild diffuse mitral valve thickening. Mild mitral valve prolapse, posterior leaflet Trivial mitral valve insufficiency. Trivial tricuspid valve insufficiency. Moderate diffuse aortic valve thickening. Right ventricular systolic pressure estimated to be 25 mmHg. No evidence for diastolic dysfunction. Ordering Physician: Benito Fisher Referring Physician: Yo Scott Performed By: Libia Pacheco, DEMI, RVT
== END ==
PROVIDERS: PCP Preventive Medicine Occupational Medicine; Referring Provider Internal Medicine Cardiovascular Disease; Visit Provider Internal Medicine Cardiovascular Disease
DX: I25.10 Atherosclerotic heart disease of native coronary artery without angina pectoris (principal); E78.00 Pure hypercholesterolemia, unspecified; I10 Essential (primary) hypertension; R06.00 Dyspnea, unspecified
CPT/HCPCS: 93306

== ENCOUNTER → 2020-11-19 12:49 | Outpatient (CLI) | payer MEDICARE, SELFPAY ==
[2020-10-28 07:56] VITALS: BMI 22.2
--- NOTE | 2020-11-19 14:04 | ST.MBS ---
Modified Barium Swallow - Patient Information Study Date: 11/19/20 Study Time: 13:00 Direct Billable Minutes: 120 Total Minutes procedure & reportin Diagnosis: oropharyngeal dysphagia (R13.12) Referring Physician: Carey Lange NP Reason for Referral: To objectively assess swallow swallow function and determine presence of aspiration. Respiratory Status: Oxygenating on Room Air - Study Findings Consistencies: Thin Liquid, Doral Thick Liquid, Honey Thick Liquid, Pudding, Cookie - Penetration-Aspiration Scale Penetration-Aspiration Scale: OBJECTIVE ASSESSMENT OF SWALLOW FUNCTION (QUANTITATIVE ? PER TRIAL): PENETRATION / ASPIRATION SCALE (OLIVA): 1 = does not enter airway 2 = enters airway/above vocal folds/ejected 3 = enters airway/above vocal folds/not ejected 4 = enters airway/contacts vocal folds/ejected 5 = enters airway/contacts vocal folds/not ejected 6 = enters airway/below vocal folds/ejected 7 = enters airway/below vocal folds/not ejected despite effort 8 = enters airway/below vocal folds/no effort - Penetration-Aspiration Scale Score Thin Liquid via teaspoon Result: 1= does not enter airway Thin Liquid via teaspoon Trial 2 Result: 1= does not enter airway Thin Liquid via small single sip from cup Result: 1= does not enter airway Thin Liquid via large single sip from cup Result: 1= does not enter airway Doral Thick Liquid via large single sip from cup Result: 1= does not enter airway Honey Thick Liquid via large single sip from cup Result: 1= does not enter airway Thin Liquid via sequential sips from cup Result: 1= does not enter airway Thin Liquid via small single sip from cup Chin tuck Result: 1= does not enter airway Pudding via teaspoon Result: 1= does not enter airway Cookie Result: 1= does not enter airway Thin Liquid via single sip from straw Result: 1= does not enter airway Thin Liquid via sequential sips from straw Result: 4= enters airway/contacts vocal folds/ejected - on 3rd sip - Oral Phase Labial Seal: No Labial Escape Tongue Control During Bolus Hold: Cohesive bolus between tongue to palatal seal Bolus Preparation/Mastication: Disorganized chewing/mashing with solid pieces of bolus unchewed Bolus Transport/Lingual Motion: Repetitive/disorganized tongue motion Oral Residue: Residue collection on oral structures - Pharyngeal Phase Soft Palate Elevation: No bolus between soft palate and pharyngeal wall Laryngeal Elevation: Comp. Superior move thyroid cart w/comp. apprx arytenoid cart-epig pet Anterior Hyoid Excursion: Partial anterior movement Epiglottic Movement: Partial inversion Laryngeal Vestibule Closure at Height of Swallow: Complete; no air/contrast in laryngeal vestibule Pharyngeal Stripping Wave: Present - complete Pharyngoesophageal Segment Opening: Complete distension and complete duration; no obstruction of flow Tongue Base Retraction: Narrow column of contrast between tongue base & post. pharyngeal wall Pharyngeal Residue: Trace residue within or on pharyngeal structures - with exception of post nectar trial there was spillage of pharyngeal residue to the pyriforms and also following deglutition of cookie there was an unmasticated piece of the cookie trapped in the vallecula. - Diagnosis/Impression Diagnosis: mild oropharyngeal dysphagia (R13.12) Impression: Oral phase primarily marked by adequate anterior to posterior transfer with all consistencies except cookie. Pt demonstrated disorganized mastication of solid Rashida Doone shortbread cookie resulting in whole piece of unmasticated cookie stuck in vallecula with 4 independent and 1 cued re-swallow to clear unsuccessfully. Patient presented with repetitive tongue movements, which is a known symptom of Parkinsons, however was successfully able to clear oral cavity. Pharyngeal phase primarily marked by decreased hyolaryngeal excursion and epiglottic inversion contributing to trace residue in the vallecula. Following trial of nectar thick barium pt found to have spillage of the bolus to the piriforms but the residue did not result in any penetration or aspiration. Patient trialed chin tuck with thin liquids however did not reduce pharyngeal residue or epiglottic inversion. - Recommendations Comment: minced and moist textures (IDDSI 5) and thin liquids (IDDSI 0) Compensatory Strategies: Small Bites, Small Sips - single cup or straw sips, Multiple Swallows, Alternate bites/solids and sips/liquids, Sitting upright, Remain sitting upright for 30 minutes after PO intake Supervision: Distant Supervision Recommend Repeat Modified Barium Swallow: TBD - Annually or with increase in dysphagia symptoms/disease progression Need for Skilled Speech Therapy Services: Yes - continue with Delay the Disease and HEP Education Completed: 1. Described result of evaluation., 2. Pt understands evaluation & agrees with goals and treatment plan., 4. Family/caregivers understand evaluation & agree w/ goals & tx plan. - Status Active ST Patient: Active - Contact Information [facility] Speech Therapy:: Elizabeth Paige MA, CCC-INTEGRATION ARCHITECT [address] [address] [email or web address]
== END ==
PROVIDERS: PCP Preventive Medicine Occupational Medicine; Referring Provider Nurse Practitioner Acute Care; Visit Provider Nurse Practitioner Acute Care
DX: R13.10 Dysphagia, unspecified (principal)
CPT/HCPCS: 74230; 92611

== ENCOUNTER → 2021-03-15 09:49 | Outpatient (CLI) | payer MEDICARE, SELFPAY | PROVIDERS: PCP Preventive Medicine Occupational Medicine; Visit Provider Physician Assistant | DX: Z20.822 Contact with and (suspected) exposure to COVID-19 (principal) | CPT/HCPCS: 87635; U0005; U0003 ==

== ENCOUNTER → 2021-04-20 12:40 | Outpatient (CLI) | payer MEDICARE, SELFPAY ==
--- NOTE | 2021-04-20 | LES_PTH ---
PATIENT: ANNIKA BLANDON LOC: [facility] U#:[id number] AGE/SX: 79/M ROOM: RE04/20/[address]: Dr. Iban Linares MD : 1945 BED: DIS: SPEC #: [id number] RECD: 04/20/21 11:53 STATUS: HIMANSHU ALEIDA #: [id number] JOSE: 04/20/21 00:[address]: Iban Linares DEPT: SURGICAL PATHOLOGY RECD BY: Karena Darden ENTERED: 04/20/21 13:21 SP TYPE: Lesion OTHR DR: Dr. Yo Scott DO Tissues: Skin of face, NOS Procedures: Surgery Specimen Level IV HEADER OPERATION: Right cheek lesion removal PRE-OP DIAGNOSIS: Irregular pigmented skin lesion; history of sun exposure TISSUE SUBMITTED: Right cheek lesion MICROSCOPIC DIAGNOSIS Right cheek lesion, biopsy: Extensive solar elastosis. Mild dermal chronic inflammation. Negative for malignancy. SJ:benitez 04/21/2021 MICROSCOPIC DESCRIPTION Slides are reviewed. GROSS DESCRIPTION Received in fixative is one container labeled with the patient's name and designated right cheek lesion. The specimen consists of a piece of whitmore-pink soft tissue measuring 0.2 x 0.1 x 0.1 cm. The specimen is totally submitted in one cassette. / INES:benitez 04/20/2021 TC:5 CPT: 04101
== END ==
PROVIDERS: PCP Preventive Medicine Occupational Medicine; Referring Provider Otolaryngology; Visit Provider Otolaryngology
DX: L98.8 Other specified disorders of the skin and subcutaneous tissue (principal); L57.8 Other skin changes due to chronic exposure to nonionizing radiation; W89.9XXA Exposure to unspecified man-made visible and ultraviolet light, initial encounter
CPT/HCPCS: 88305

== ENCOUNTER → 2021-09-16 | Outpatient (CLI) | payer MEDICARE, SELFPAY ==
--- NOTE | 2021-09-16 13:45 | PFTCOMP_ITS ---
COMPLETE PULMONARY FUNCTION TEST INTERPRETATION Brief HPI: Patient is a 75 year old male, currently under the care of Dr. Medina, who presents to [facility] for complete pulmonary function tests secondary to diagnosis of dyspnea. Respiratory therapist reports good effort and reproducible results. Interpretation: Forced expiration spirometry shows a moderate large airways obstructive ventilatory defect with an FEV1 of 62% predicted. There is no significant bronchodilator response by strict ATS criteria. Spirograms are of good quality and plateau slowly, indicating slowly emptying areas of the lungs. The respiratory flow volume loop shows decreased expiratory flow rates at all lung v olumes consistent with airway obstruction. Lung volumes by body plethysmography show a decreased total lung capacity at 3.9 L, 65% predicted. All other lung volumes are reduced symmetrically. Diffusion capacity by carbon monoxide is normal at 108% predicted. The airway resistance is elevated. Compared to previous pulmonary function tests from 01/02/2017, there is been a significant reduction in spirometry and lung volumes. Impression: Irreversible moderate mixed ventilatory defect with significant worsening compared to 2017.
== END | disposition home or self-care (01) ==
PROVIDERS: PCP Preventive Medicine Occupational Medicine; Referring Provider Internal Medicine Critical Care Medicine; Visit Provider Internal Medicine Critical Care Medicine
DX: J44.9 Chronic obstructive pulmonary disease, unspecified (principal)
CPT/HCPCS: 94060; 94726; 94729

== ENCOUNTER 2021-11-19 16:17 | Emergency (ER) | payer MEDICARE, SELFPAY ==
[2021-11-19 16:19] VITALS: BP 156/96; PULSE 84; RESP 16; TEMP 36.3; O2SAT 97; BMI 21.9
--- NOTE | 2021-11-19 17:51 | EKG12_ITS ---
Test Reason : ANXIETY Blood Pressure : / mmHG Vent. Rate : 081 BPM Atrial Rate : 081 BPM P-R Int : 168 ms QRS Dur : 108 ms QT Int : 366 ms P-R-T Axes : 041 -61 056 degrees QTc Int : 425 ms Normal sinus rhythm Left anterior fascicular block Abnormal ECG Confirmed by GREGG COULTER, KUMAR ([id number]), newspaper editor NOELLE SHOOK ([id number]) on 11/23/2021 10:04:43 AM Referred By: Confirmed By:KUMAR ESCOBEDO MD
--- NOTE | 2021-11-19 17:52 | EDS_ITS ---
HPI History of Present Illness Chief Complaint: Anxiety Informant: patient and spouse/S.O. Onset/Context/Timing Onset: Days Narrative Narrative: Patient present secondary to increased anxiety and agitation. He has a history of Parkinson's disease. Family states that palliative care recently increased his prednisone from 5 mg at night to 10 mg during the day. He has had increased agitation since this. He wakes up at 3 AM and cannot go back to sleep. He feels very anxious and is afraid to go back to sleep. He did take an Ativan nearly 2 hours ago and at this time feels that it is helping his symptoms. [facility] Medical History (Updated 11/19/21 @ 20:[address] Billie Zepeda MD) Anxiety Atherosclerotic heart disease of [place] coronary artery without angina pectoris Chest pain COPD (chronic obstructive pulmonary disease) Coronary artery spasm Dehydration Diverticulosis Dysphagia Dyspnea Essential (primary) hypertension Fatigue Former smoker Gallbladder sludge Gastroesophageal reflux disease Generalized abdominal pain Hallucination History of oropharyngeal cancer Hypotension Left facial numbness Long-term use of high-risk medication Malignant neoplasm of other specified sites of oropharynx Melanotic stools Meningioma Near syncope Obstructive sleep apnea Oropharyngeal cancer Parkinsonian syndrome Pure hypercholesterolemia Rectal bleeding Right upper quadrant pain Shoulder pain, right Stage 1 mild COPD by GOLD classification TIA (transient ischemic attack) Tonsillar cancer Home Medications aspirin 81 mg chewable tablet 81 mg PO QHS heart 07/12/14 [History Last Taken 05/09/18 08:00] aedyjpru-qnb-opthe acid 0.4 mg-lycopene 300 mcg-lutein 250 mcg tablet 1 tab PO DAILY supplement 08/17/16 [History Last Taken 05/10/18 09:00] fluticasone propionate 50 mcg/actuation nasal spray,suspension 2 spray intranasal DAILY PRN PRN Allergies 05/29/17 [History Last Taken Unknown] meclizine 25 mg tablet 25 mg PO DAILY PRN PRN Dizziness 12/11/17 [History Last Taken Unknown] prednisone 5 mg tablet 5 mg PO QHS steroid 12/21/17 [History Last Taken 05/09/18 20:00] dutasteride 0.5 mg capsule 0.5 mg PO DAILY prostate 03/13/18 [History Last Taken 05/10/18 09:00] ipratropium bromide 0.02 % solution for inhalation 2.5 ml inhalation DAILY PRN Wheezing 10/11/18 [History Last Taken Unknown] levothyroxine 50 mcg tablet 50 mcg PO DAILY 10/11/18 [History Last Taken Unknown] nitroglycerin 0.4 mg sublingual tablet 0.4 mg sublingual Q5M PRN Chest Pain #25 tabs 04/30/19 [Rx Last Taken Unknown] cevimeline 30 mg capsule 30 mg PO TID 12/02/19 [History Last Taken Unknown] albuterol sulfate 90 mcg/actuation aerosol inhaler 2 puff inhalation Q4H PRN shortness of breath or wheezing #1 device 02/20/20 [Rx Last Taken Unknown] cyclobenzaprine 5 mg tablet 5 mg PO QHS PRN Muscle Spasm 07/29/20 [History Last Taken Unknown] carbidopa 25 mg-levodopa 100 mg tablet 1 tab PO TID 10/28/20 [History Last Taken Unknown] carbidopa ER 25 mg-levodopa 100 mg tablet,extended release 1 tab PO QHS 10/28/20 [History Last Taken Unknown] omeprazole 20 mg capsule,delayed release 40 mg PO BID 10/28/20 [History Last Taken Unknown] umeclidinium 62.5 mcg-vilanterol 25 mcg/actuation powdr for inhalation (Anoro Ellipta) 1 inh inhalation QDAY #60 ea 07/27/21 [Rx Last Taken Unknown] lorazepam 0.5 mg tablet 0.5 mg PO DAILY PRN Anxiety 07/28/21 [History Last Taken Unknown] olanzapine 2.5 mg tablet 2.5 mg PO DAILY 07/28/21 [History Last Taken Unknown] Allergy/AdvReac Type Severity Reaction Status Date / Time amoxicillin trihydrate Allergy Severe Unknown Verified 11/19/21 16:19 [From Augmentin] ?hives celecoxib [From Celebrex] Allergy Severe bad Verified 11/19/21 16:19 dreams, hallucinates, esomeprazole magnesium Allergy Severe Unknown Verified 11/19/21 16:19 [From Nexium] Penicillins Allergy Severe Unknown Verified 11/19/21 16:19 potassium clavulanate Allergy Severe Unknown Verified 11/19/21 16:19 [From Augmentin] hives? telmisartan [From Micardis] Allergy Severe Unknown Verified 11/19/21 16:19 venlafaxine HCl Allergy Severe bad Verified 11/19/21 16:19 [From Effexor] dreams, hallucinates atenolol Allergy Intermediate body hot Verified 11/19/21 16:19 tingling metoprolol Allergy Intermediate Unknown Verified 11/19/21 16:19 oxybutynin Allergy Unknown Unknown Verified 11/19/21 16:19 amoxicillin [From Augmentin] Allergy Unknown Verified 11/19/21 16:19 clavulanic acid Allergy Unknown Verified 11/19/21 16:19 [From Augmentin] duloxetine HCl Allergy aggiation Verified 11/19/21 16:19 [From Cymbalta] melatonin Allergy kept Verified 11/19/21 16:19 awake mirtazapine [From Remeron] Allergy Chest Verified 11/19/21 16:19 tightness sertraline HCl [From Zoloft] Allergy Itching Verified 11/19/21 16:19 lorazepam [From Ativan] AdvReac Severe Other Verified 11/19/21 16:19 carbidopa AdvReac Unknown Unknown Verified 11/19/21 16:19 hydroxyzine AdvReac Unknown Unknown Verified 11/19/21 16:19 tramadol AdvReac Unknown Unknown Verified 11/19/21 16:19 trazodone AdvReac Unknown Unknown Verified 11/19/21 16:19 vilazodone [From Viibryd] AdvReac Unknown Unknown Verified 11/19/21 16:19 buspirone HCl [From BuSpar] AdvReac aggiation Verified 11/19/21 16:19 citalopram hydrobromide AdvReac aggiation Verified 11/19/21 16:19 [From Celexa] nortriptyline AdvReac confusion Verified 11/19/21 16:19 ropinirole AdvReac Other Verified 11/19/21 16:19 tamsulosin HCl [From Flomax] AdvReac Low blood Verified 11/19/21 16:19 pressure Family History Brother Diabetes CAD (coronary artery disease) Sister CVA (cerebral vascular accident) Diabetes Hypertension Breast cancer Mother CAD (coronary artery disease) Diabetes Brother Diabetes Heart disease Father Cancer stomach Surgical History History of esophagogastroduodenoscopy (EGD) (~09/2015) History of testicular surgery History of tonsillectomy S/P cataract extraction S/P colonoscopy (~09/2015) S/P hemorrhoidectomy S/P laparoscopic cholecystectomy Social History Smoking Status: Former smoker how long ago did patient quit smokin 1.5pk/day second hand exposure: Yes alcohol intake: never substance use type: does not use ROS ROS ED Constitutional Constitutional ED: Denies chills or fever(s) Eyes Eyes: Denies change in vision or discharge from eye(s) ENT ENT ED: Denies discharge from eye(s), rhinorrhea or sore throat Cardiovascular Cardiovascular: Reports racing heartbeat; Denies chest pain or palpitations Respiratory/Chest Respiratory/Chest: Reports dyspnea; Denies cough Gastrointestinal Gastrointestinal: Denies abdominal pain, diarrhea, nausea or vomiting Genitourinary Genitourinary ED: Denies difficulty urinating or dysuria Musculoskeletal Musculoskeletal: Denies back pain or extremity pain Integumentary Denies Abrasions or rash Neurologic Neurologic: Denies headache(s) or weakness Psychiatric Psychiatric: Reports anxiety Allergic/Immunologic Allergic/Immunologic ED: Denies lip swelling or urticaria EXAM Physical Exam Const Vital Signs: 11/19/21 16:19 11/19/21 19:02 11/19/21 20:15 Temperature 97.3 F L Temperature Source Temporal Pulse Rate 84 71 Respiratory Rate 16 20 H 18 Blood Pressure 156/96 H 171/121 H 125/88 H Blood Pressure Mean 116 137 100 Pulse Ox 97 97 97 Oxygen Delivery Method Room Air Room Air Room Air Positive well nourished and well developed General Appearance ED: well developed HEENT Reports normocephalic and head/scalp atraumatic Eyes PERRL and EOMs intact bilaterally Neck supple Chest Wall inspection of chest normal and palpation of chest normal Resp normal respiratory effort and clear to auscultation bilaterally Cardio regular rate and regular rhythm GI non-tender Auscultation: normoactive bowel sounds Palpation: soft Extremity normal to inspection Neuro oriented x3 and no sensory deficits noted Sensorium / Orientation: alert Motor Exam: strength 5/5 throughout Psych mental status grossly normal Skin no rashes or lesions noted MDM MDM MDM Narrative Medical decision making narrative: EKG, chest x-ray, lab work obtained. Patient had taken Ativan prior to arrival and felt that that was improving his anxiety. Lab Data Attestation: I reviewed the patient's lab results. Labs: Laboratory Results - last 24 hr 11/19/21 11/19/21 11/19/21 18:00 18:00 18:10 WBC 9.5 RBC 5.19 Hgb 15.6 Hct 48.1 MCV 92.7 MCH 30.1 MCHC 32.4 RDW Std Deviation 46.3 H RDW Coeff of Sumit 13.6 Plt Count 205 MPV 9.5 Immature Gran % (Auto) 0.900 Neut % (Auto) 85.2 H Lymph % (Auto) 8.2 L [place] % (Auto) 4.5 Eos % (Auto) 0.6 Baso % (Auto) 0.6 Absolute Neuts (auto) 8.1 H Absolute Lymphs (auto) 0.78 L Nucleated RBC % 0 Sodium 141 Potassium 4.3 Chloride 106 Carbon Dioxide 29.0 Anion Gap 6 BUN 21 H Creatinine 1.03 Estim Creat Clear Calc 56.52 Est GFR (MDRD) Af Amer 91 Est GFR (MDRD) Non-Af 75 BUN/Creatinine Ratio 20.4 H Glucose 117 H Calcium 9.6 Troponin I High Sens 4 TSH 1.16 Urine Color Yellow Urine Clarity Clear Urine pH 7.0 Ur Specific Walls 1.005 Urine Protein Negative Urine Glucose (UA) Normal Urine Ketones Negative Urine Occult Blood Negative Urine Nitrite Negative Urine Bilirubin Negative Urine Urobilinogen Normal Ur Leukocyte Esterase Negative Urine RBC 0 SEEN Urine WBC 0 SEEN Ur Squamous Epith Cells 0 SEEN Urine Bacteria 0 SEEN Urine Mucus 0 SEEN Radiography Chest X-Ray - ED: 1 View, Read by ED Physician and Chronic Changes Diagnostic Testing: Clinical Impression(s) from Imaging Studies Chest X-Ray 11/19/21 18:01 IMPRESSION: There are no acute findings. Electronically Signed: Neftali Newman MD at 18:28 EDT , EKG Initial EKG: Attestation: I personally reviewed and interpreted this EKG as follows: Interpretation: Sinus Rhythm (Sinus at 81 with no acute ischemia.) Treatment and Re-Evaluation Narrative: On repeat evaluation patient resting comfortably. Test results discussed with patient and at bedside. They can please offer reassurance that his heart, thyroid, urine test are all normal. My suspicion is that this is likely secondary to the prednisone as the changes were noted when the dose and time of day was changed. I did recommend going back to the 5 mg at night which is when he had the least side effects from the medication. He has Ativan that he can use as needed through the weekend to help with anxiety. Return instructions provided. Discharge Plan Triage Chief Complaint: Anxiety ED Provider: Billie Zepeda Dx/Rx/DC Orders Clinical Impression: Anxiety Instructions: ED Anxiety Reaction Prescriptions: No Action fluticasone propionate 50 mcg/actuation spray,suspension 2 spray INTRANASAL DAILY PRN PRN (Reason: Allergies) meclizine 25 mg tablet 25 mg PO DAILY PRN PRN (Reason: Dizziness) dutasteride 0.5 mg capsule 0.5 mg PO DAILY Rx Instructions: takes at 09:00 levothyroxine 50 mcg tablet 50 mcg PO DAILY ipratropium bromide 0.02 % solution 2.5 ml INHALATION DAILY PRN (Reason: Wheezing) omeprazole 20 mg capsule,delayed release(DR/EC) 40 mg PO BID albuterol sulfate 90 mcg/actuation HFA aerosol inhaler 2 puff INHALATION Q4H PRN (Reason: shortness of breath or wheezing) Qty: 1 6RF Rx Instructions: administer with spacer nitroglycerin 0.4 mg tablet, sublingual 0.4 mg SL Q5M PRN (Reason: Chest Pain) Qty: 25 3RF carbidopa-levodopa 25-100 mg tablet 1 tab PO TID carbidopa-levodopa 25-100 mg tablet extended release 1 tab PO QHS olanzapine 2.5 mg tablet 2.5 mg PO DAILY lorazepam 0.5 mg tablet 0.5 mg PO DAILY PRN (Reason: Anxiety) aspirin 81 MG tablet,chewable 81 mg PO QHS Label Comments: blood thinner/heart health [id number]-lycopen-lutein 1 EACH tablet 1 tab PO DAILY cevimeline 30 mg capsule 30 mg PO TID cyclobenzaprine 5 MG tablet 5 mg PO QHS PRN (Reason: Muscle Spasm) prednisone 5 MG tablet 5 mg PO QHS Rx Instructions: takes at 20:00 Anoro Ellipta 62.5-25 mcg/actuation blister with device 1 inh inhalation QDAY Qty: 60 3RF Primary Care Provider: Yo Scott Referrals: Yo Scott DO [Primary Care Provider] - Keep [facility] appointment Disposition Disposition: Home, Self Care
--- NOTE | 2021-11-19 18:01 | RAD_ITS ---
STUDY: XR Chest 1 View 11/19/2021 6:01 PM REASON FOR EXAM: Male, 76 years old. CHEST PAIN sob COMPARISON: 08/31/2020 TECHNIQUE: XR Chest 1 View FINDINGS: There is no demonstrated pleural abnormality. Normal heart size. Normal mediastinum. Normal dennise. Prominent appearing increased interstitial lung markings. Normal visualized pulmonary arteries. There is atherosclerotic calcification of the aortic arch with tortuosity. There are diffuse degenerative changes of the visualized thoracic spine. There is degenerative osteoarthritis of the bilateral shoulders. There is no demonstrated abnormality of the visualized soft tissue structures of the upper abdomen. RAD/Chest 1 View (Portable) IMPRESSION: There are no acute findings. Electronically Signed: Neftali Nweman MD at 18:28 EDT ,
[2021-11-19 18:17] LABS: Bacteria 0 SEEN /hpf (None Seen); Mucous, Urine 0 SEEN /hpf (<or=2+); Red Blood Cells-Urine 0 SEEN /hpf (0-5); Squamous Epithelial Cells - UA 0 SEEN /hpf (0-5); White Blood Cells 0 SEEN /hpf (0-5)
[2021-11-19 18:24] LABS: Color, Urine Yellow (Yellow); Glucose, Dipstick Normal (Normal); Ketone-Dipstick Negative (Negative); Leukocyte Esterase-Dipstick Negative /ul (Negative); Nitrite-Dipstick Negative (Negative); Occult Blood-Urine Negative /ul (Negative); Protein-Dipstick Negative (Negative); Specific Gravity, Urine 1.005 (1.002-1.030); Urine Bilirubin Dipstick Negative (Negative); Urine Clarity Clear (Clear); Urine Urobilinogen Normal (Normal)
[2021-11-19 18:27] LABS: Absolute Lymphocyte Count 0.78 X10^3/uL (0.83-4.51); Absolute Neutrophil Count 8.1 X10^3/uL (2.0-7.7); Basophil# 0.06 X10^3/uL; Basophil% 0.6 % (0-1); Eosinophil# 0.06 X10^3/uL; Eosinophils% 0.6 % (0-5); Hematocrit 48.1 % (40-54); Hemoglobin 15.6 g/dL (13.0-16.5); Lymphocyte # 0.78 X10^3/ul (0.83-4.51); Lymphocyte % 8.2 % (19-41); Mean Corp Hgb Conc 32.4 g/dL (32-36); Mean Corpuscular Hgb 30.1 pg (27.0-32.0); Mean Corpuscular Volume 92.7 fL (80-94); Mean Platelet Vol. 9.5 fl (6.2-12.0); Monocyte# 0.43 X10^3/uL; Monocyte% 4.5 % (0-10); NRBC Flagged by Analyzer 0 % (0-5); Neutrophil # 8.12 X10^3/uL (2.7-7.7); Neutrophil % 85.2 % (47-70); Platelet Count 205 K/mm3 (150-450); RBC Distribution Width CV 13.6 % (11.6-14.6); RBC Distribution Width SD 46.3 fl (35.1-43.9); Red Blood Count 5.19 M/mm3 (4.6-6.2); White Blood Count 9.5 K/mm3 (4.4-11.0)
[2021-11-19 18:56] LABS: Anion Gap 6 (5-15); BUN 21 mg/dL (7-18); BUN/Creat Ratio 20.4 RATIO (10-20); Calcium,Total 9.6 mg/dL (8.5-10.1); Chloride 106 mmol/L (98-107); Creatinine, Serum 1.03 mg/dL (0.70-1.30); EST Glomerular Filtration Rate 75 mL/min (>60); Est Glom Filt Rate - Afr Amer 91 mL/min (>60); Estimated Creatinine Clearance 56.52 ml/min; Glucose 117 mg/dL (74-106); Potassium 4.3 mmol/L (3.5-5.1); Sodium Level 141 mmol/L (136-145); Thyroid Stim Hormone (TSH) 1.16 uIU/mL (0.358-3.74); Troponin-I HS 4 pg/mL (3.0-78.0)
[2021-11-19 19:02] VITALS: BP 171/121; RESP 20; O2SAT 97
--- NOTE | 2021-11-19 19:03 | CM.ED ---
Social Work Note Reason for Referral: Anxiety SW reviewed chart and noticed pt is at [facility] for Anxiety. SW spoke with MD Zepeda who states pt is active with Palliative Care and pt's presentation could be related to Palliative changing his Medications or his Parkinson's disease, denied further need for SW. Mireille Arora BUSINESS APPLICATIONS MANAGER, [employer]
[2021-11-19 20:15] VITALS: BP 125/88; PULSE 71; RESP 18; O2SAT 97
== END 2021-11-19 20:29 | disposition home or self-care (01) ==
PROVIDERS: Emergency Provider Emergency Medicine; PCP Preventive Medicine Occupational Medicine; Visit Provider Emergency Medicine
DX: F41.9 Anxiety disorder, unspecified (principal); G20 Parkinson's disease; J44.9 Chronic obstructive pulmonary disease, unspecified; I25.10 Atherosclerotic heart disease of native coronary artery without angina pectoris; I10 Essential (primary) hypertension; E78.00 Pure hypercholesterolemia, unspecified; Z87.891 Personal history of nicotine dependence; Z86.73 Personal history of transient ischemic attack (TIA), and cerebral infarction without residual deficits; Z79.82 Long term (current) use of aspirin
CPT/HCPCS: 71045; 80048; 81001; 84443; 84484; 85025; 93005; 99284; A4216

== ENCOUNTER 2021-12-05 16:02 | Emergency (ER) | payer MEDICARE, SELFPAY ==
[2021-12-05 16:02] VITALS: BP 186/84; PULSE 101; RESP 16; TEMP 36.4; O2SAT 98; BMI 20.8
--- NOTE | 2021-12-05 16:25 | RAD_ITS ---
STUDY: X-RAY CHEST REASON FOR EXAM: Male, 76 years old. Cough. TECHNIQUE: Single AP portable view of the chest. COMPARISON: 11/19/2021. FINDINGS: The lungs are clear and expanded. There is no demonstrated pleural abnormality. Normal size heart. Normal mediastinum and dennise. Normal visualized pulmonary arteries. There is atherosclerotic calcification of the aortic arch with tortuosity. There are diffuse degenerative changes of the visualized thoracic spine. Normal visualized ribs, clavicles, and shoulders. There is no demonstrated abnormality of the visualized soft tissue structures of the upper abdomen. RAD/Chest 1 View (Portable) IMPRESSION: No acute cardiopulmonary disease or interval change. Electronically Signed: Glen Soto DO at 16:53 EDT ,
--- NOTE | 2021-12-05 17:04 | EKG12_ITS ---
Test Reason : GENERAL ILLNESS Blood Pressure : / mmHG Vent. Rate : 082 BPM Atrial Rate : 082 BPM P-R Int : 144 ms QRS Dur : 088 ms QT Int : 366 ms P-R-T Axes : 048 -56 052 degrees QTc Int : 427 ms Normal sinus rhythm Left anterior fascicular block Abnormal ECG Confirmed by AVI COULTER, JULIA ([id number]), commercial production editor ELO RAYO ([id number]) on 12/06/2021 11:16:25 AM Referred By: JENNIFER Confirmed By:JULIA CÁRDENAS MD
--- NOTE | 2021-12-05 17:05 | EDS_ITS ---
HPI History of Present Illness Chief Complaint: General Illness Detail of Chief Complaint: Generalized weakness Informant: patient Narrative Narrative: Patient presents to the emergency department complaint of generalized weakness that started about a week and a half ago. Patient states that he was diagnosed with COVID-19 on November 25. Patient had had symptoms for about 2 to 3 days before that. Patient received no treatment for his COVID-19. He continues to cough and feel weak. Cough mostly nonproductive. He has had some intermittent chest discomfort. Patient also has history of Parkinson's. Patient has been receiving breathing treatments at home from his . Prior similar symptoms: No [facility] Medical History (Updated 12/05/21 @ 18:[address] Toney Ahumada, ) Anxiety Atherosclerotic heart disease of [place] coronary artery without angina pectoris Chest pain COPD (chronic obstructive pulmonary disease) Coronary artery spasm Dehydration Diverticulosis Dysphagia Dyspnea Essential (primary) hypertension Fatigue Former smoker Gallbladder sludge Gastroesophageal reflux disease Generalized abdominal pain Hallucination History of oropharyngeal cancer Hypotension Left facial numbness Long-term use of high-risk medication Malignant neoplasm of other specified sites of oropharynx Melanotic stools Meningioma Near syncope Obstructive sleep apnea Oropharyngeal cancer Parkinsonian syndrome Pure hypercholesterolemia Rectal bleeding Right upper quadrant pain Shoulder pain, right Stage 1 mild COPD by GOLD classification TIA (transient ischemic attack) Tonsillar cancer Home Medications aspirin 81 mg chewable tablet 81 mg PO QHS heart 07/12/14 [History Last Taken 05/09/18 08:00] awkrxysq-gmd-ughlm acid 0.4 mg-lycopene 300 mcg-lutein 250 mcg tablet 1 tab PO DAILY supplement 08/17/16 [History Last Taken 05/10/18 09:00] fluticasone propionate 50 mcg/actuation nasal spray,suspension 2 spray intranasal DAILY PRN PRN Allergies 05/29/17 [History Last Taken Unknown] meclizine 25 mg tablet 25 mg PO DAILY PRN PRN Dizziness 12/11/17 [History Last Taken Unknown] prednisone 5 mg tablet 5 mg PO QHS steroid 12/21/17 [History Last Taken 05/09/18 20:00] dutasteride 0.5 mg capsule 0.5 mg PO DAILY prostate 03/13/18 [History Last Taken 05/10/18 09:00] ipratropium bromide 0.02 % solution for inhalation 2.5 ml inhalation DAILY PRN Wheezing 10/11/18 [History Last Taken Unknown] levothyroxine 50 mcg tablet 50 mcg PO DAILY 10/11/18 [History Last Taken Unknown] nitroglycerin 0.4 mg sublingual tablet 0.4 mg sublingual Q5M PRN Chest Pain #25 tabs 04/30/19 [Rx Last Taken Unknown] cevimeline 30 mg capsule 30 mg PO TID 12/02/19 [History Last Taken Unknown] albuterol sulfate 90 mcg/actuation aerosol inhaler 2 puff inhalation Q4H PRN shortness of breath or wheezing #1 device 02/20/20 [Rx Last Taken Unknown] cyclobenzaprine 5 mg tablet 5 mg PO QHS PRN Muscle Spasm 07/29/20 [History Last Taken Unknown] carbidopa 25 mg-levodopa 100 mg tablet 1 tab PO TID 10/28/20 [History Last Taken Unknown] carbidopa ER 25 mg-levodopa 100 mg tablet,extended release 1 tab PO QHS 10/28/20 [History Last Taken Unknown] omeprazole 20 mg capsule,delayed release 40 mg PO BID 10/28/20 [History Last Taken Unknown] umeclidinium 62.5 mcg-vilanterol 25 mcg/actuation powdr for inhalation (Anoro Ellipta) 1 inh inhalation QDAY #60 ea 07/27/21 [Rx Last Taken Unknown] lorazepam 0.5 mg tablet 0.5 mg PO DAILY PRN Anxiety 07/28/21 [History Last Taken Unknown] olanzapine 2.5 mg tablet 2.5 mg PO DAILY 07/28/21 [History Last Taken Unknown] Allergy/AdvReac Type Severity Reaction Status Date / Time amoxicillin trihydrate Allergy Severe Unknown Verified 12/05/21 16:10 [From Augmentin] ?hives celecoxib [From Celebrex] Allergy Severe bad Verified 12/05/21 16:10 dreams, hallucinates, esomeprazole magnesium Allergy Severe Unknown Verified 12/05/21 16:10 [From Nexium] Penicillins Allergy Severe Unknown Verified 12/05/21 16:10 potassium clavulanate Allergy Severe Unknown Verified 12/05/21 16:10 [From Augmentin] hives? telmisartan [From Micardis] Allergy Severe Unknown Verified 12/05/21 16:10 venlafaxine HCl Allergy Severe bad Verified 12/05/21 16:10 [From Effexor] dreams, hallucinates atenolol Allergy Intermediate body hot Verified 12/05/21 16:10 tingling metoprolol Allergy Intermediate Unknown Verified 12/05/21 16:10 oxybutynin Allergy Unknown Unknown Verified 12/05/21 16:10 amoxicillin [From Augmentin] Allergy Unknown Verified 12/05/21 16:10 clavulanic acid Allergy Unknown Verified 12/05/21 16:10 [From Augmentin] duloxetine HCl Allergy aggiation Verified 12/05/21 16:10 [From Cymbalta] melatonin Allergy kept Verified 12/05/21 16:10 awake mirtazapine [From Remeron] Allergy Chest Verified 12/05/21 16:10 tightness sertraline HCl [From Zoloft] Allergy Itching Verified 12/05/21 16:10 lorazepam [From Ativan] AdvReac Severe Other Verified 12/05/21 16:10 carbidopa AdvReac Unknown Unknown Verified 12/05/21 16:10 hydroxyzine AdvReac Unknown Unknown Verified 12/05/21 16:10 tramadol AdvReac Unknown Unknown Verified 12/05/21 16:10 trazodone AdvReac Unknown Unknown Verified 12/05/21 16:10 vilazodone [From Viibryd] AdvReac Unknown Unknown Verified 12/05/21 16:10 buspirone HCl [From BuSpar] AdvReac aggiation Verified 12/05/21 16:10 citalopram hydrobromide AdvReac aggiation Verified 12/05/21 16:10 [From Celexa] nortriptyline AdvReac confusion Verified 12/05/21 16:10 ropinirole AdvReac Other Verified 12/05/21 16:10 tamsulosin HCl [From Flomax] AdvReac Low blood Verified 12/05/21 16:10 pressure Family History Brother Diabetes CAD (coronary artery disease) Sister CVA (cerebral vascular accident) Diabetes Hypertension Breast cancer Mother CAD (coronary artery disease) Diabetes Brother Diabetes Heart disease Father Cancer stomach Surgical History History of esophagogastroduodenoscopy (EGD) (~09/2015) History of testicular surgery History of tonsillectomy S/P cataract extraction S/P colonoscopy (~09/2015) S/P hemorrhoidectomy S/P laparoscopic cholecystectomy Social History Smoking Status: Former smoker how long ago did patient quit smokin 1.5pk/day second hand exposure: Yes alcohol intake: never substance use type: does not use ROS ROS ED Review of Systems ROS Unobtainable: other Constitutional Constitutional ED: Reports lethargy; Denies chills, fever(s), sweats or weight loss Eyes Eyes: Denies blurry vision, change in vision or diplopia ENT ENT ED: Denies rhinorrhea or sore throat Cardiovascular Cardiovascular: Reports chest pain and racing heartbeat; Denies orthopnea Respiratory/Chest Respiratory/Chest: Reports cough, dyspnea and dyspnea on exertion; Denies orthopnea or sputum Gastrointestinal Gastrointestinal: Denies abdominal pain, diarrhea, nausea or vomiting Genitourinary Genitourinary ED: Denies dysuria, hematuria or urinary frequency Musculoskeletal Musculoskeletal: Reports myalgias; Denies arthralgias, back pain or neck pain Integumentary Denies abscess, Abrasions or rash Neurologic Neurologic: Reports weakness; Denies headache(s) Psychiatric Psychiatric: Denies anxiety, depression or suicidal thoughts Endocrine Endocrinology: Denies polydipsia, polyphagia or polyuria Hematologic/Lymphatic Hematologic/Lymphatic: Denies easy bleeding, easy bruising or lymphadenopathy Allergic/Immunologic Allergic/Immunologic ED: Denies mouth swelling, tongue swelling or urticaria EXAM Physical Exam Const Vital Signs: 12/05/21 16:02 12/05/21 17:27 12/05/21 17:28 Temperature 97.6 F L Temperature Source Temporal Pulse Rate 101 H 89 Respiratory Rate 16 22 H Respiratory Effort Normal Non-Labored Respiratory Pattern Normal Blood Pressure 186/84 H 170/85 H Blood Pressure Mean 118 113 Pulse Ox 98 97 Oxygen Delivery Method Room Air Room Air Positive well nourished and well developed General Appearance ED: well developed and NAD HEENT Reports TM's clear and moist mucous membranes normocephalic and atraumatic; Negative for trauma or tenderness Tympanic Membrane ED: Yes TM's clear Eyes PERRL and EOMs intact bilaterally General Eye ED: Negative for pale conjunctiva or scleral icterus Neck no lymphadenopathy, supple and no JVD General: Negative for tenderness Chest Wall inspection of chest normal and palpation of chest normal Chest: Negative for tenderness Resp normal respiratory effort and clear to auscultation bilaterally Resp Narrative: Induration bilaterally. No excess or muscle use or retractions. Patient did have few rales in both bases. Effort and Inspection: Negative for respiratory distress or pain with movement Auscultation: Negative for rhonchi, wheezes or diminished lung sounds Cardio regular rate, regular rhythm, S1 normal heart sound, S2 normal heart sound and no murmurs Peripheral Pulses: pulses 2+ throughout GI normal to inspection, nondistended, normoactive bowel sounds, soft to palpation, non-tender, non-distended and no masses Back/Spine no CVA tenderness and no thoracic nor lumbar tenderness Extremity normal to inspection General Extremety ED: Negative for edema General Extremity: Negative for edema Neuro oriented x3, CN's II-XII intact bilaterally, no sensory deficits noted and gait normal Sensorium / Orientation: awake, alert, oriented to person, oriented to place and oriented to time Motor Exam: strength 5/5 throughout and strength abnormal Psych mental status grossly normal Skin no rashes or lesions noted and no wounds MDM MDM MDM Narrative Medical decision making narrative: IV line established on arrival. Lab work-up obtained was unremarkable. D-dimer was elevated 0.52 but when corrected for age it is actually normal. Urinalysis was normal. EKG unremarkable and troponin was normal. Chest x-ray showed no acute disease process. Patient's vital signs are stable and he is not hypoxic. Etiology of patient's weakness unclear. I suspect his weakness is likely related to the COVID and his underlying chronic medical conditions. Patient is comfortable going home and does not want to be admitted. I do not feel any further treatments indicated at this time. Lab Data Attestation: I reviewed the patient's lab results. Labs: Laboratory Results - last 24 hr 12/05/21 12/05/21 12/05/21 17:10 17:10 17:10 WBC 7.2 RBC 5.03 Hgb 14.8 Hct 45.8 MCV 91.1 MCH 29.4 MCHC 32.3 RDW Std Deviation 43.9 RDW Coeff of Sumit 13.2 Plt Count 245 MPV 9.5 Immature Gran % (Auto) 1.100 H Neut % (Auto) 76.6 H Lymph % (Auto) 12.0 L [place] % (Auto) 8.2 Eos % (Auto) 1.5 Baso % (Auto) 0.6 Absolute Neuts (auto) 5.5 Absolute Lymphs (auto) 0.87 Nucleated RBC % 0 D-Dimer Quant (PE/DVT) 0.52 H* Sodium 140 Potassium 3.6 Chloride 106 Carbon Dioxide 30.0 Anion Gap 4 L BUN 25 H Creatinine 0.96 Estim Creat Clear Calc 57.60 Est GFR (MDRD) Af Amer 98 Est GFR (MDRD) Non-Af 81 BUN/Creatinine Ratio 26.0 H Glucose 113 H Lactic Acid Calcium 9.5 Troponin I High Sens 4 Urine Color Urine Clarity Urine pH Ur Specific [place] Urine Protein Urine Glucose (UA) Urine Ketones Urine Occult Blood Urine Nitrite Urine Bilirubin Urine Urobilinogen Ur Leukocyte Esterase Urine RBC Urine WBC Ur Squamous Epith Cells Urine Bacteria Urine Mucus 12/05/21 12/05/21 17:10 17:10 WBC RBC Hgb Hct MCV MCH MCHC RDW Std Deviation RDW Coeff of Sumit Plt Count MPV Immature Gran % (Auto) Neut % (Auto) Lymph % (Auto) [place] % (Auto) Eos % (Auto) Baso % (Auto) Absolute Neuts (auto) Absolute Lymphs (auto) Nucleated RBC % D-Dimer Quant (PE/DVT) Sodium Potassium Chloride Carbon Dioxide Anion Gap BUN Creatinine Estim Creat Clear Calc Est GFR (MDRD) Af Amer Est GFR (MDRD) Non-Af BUN/Creatinine Ratio Glucose Lactic Acid 0.8 Calcium Troponin I High Sens Urine Color Yellow Urine Clarity Clear Urine pH 6.0 Ur Specific [place] 1.020 Urine Protein 15 H Urine Glucose (UA) Normal Urine Ketones 50 H Urine Occult Blood Negative Urine Nitrite Negative Urine Bilirubin Negative Urine Urobilinogen 1 H Ur Leukocyte Esterase 25 H Urine RBC 0 SEEN Urine WBC 0 SEEN Ur Squamous Epith Cells 0 SEEN Urine Bacteria 0 SEEN Urine Mucus 2+ Radiography Chest X-Ray - ED: 1 View Diagnostic Testing: Clinical Impression(s) from Imaging Studies Chest X-Ray 12/05/21 16:25 IMPRESSION: No acute cardiopulmonary disease or interval change. Electronically Signed: Glen Soto DO at 16:53 EDT Reading Location ID and State: [facility] / [place] Tel [phone], Service support , 1 view chest x-ray obtained interpreted by myself no acute disease process. Radiology in agreement. EKG Initial EKG: Comments: Sinus rhythm with a ventricular rate of 82 bpm with left anterior fascicular block otherwise no acute disease process Discharge Plan Triage Chief Complaint: General Illness ED Provider: Toney Ahumada Dx/Rx/DC Orders Clinical Impression: Weakness, COVID-19 Instructions: Caring for Someone Who Has COVID-19, ED Weakness (Uncertain Cause) Prescriptions: No Action fluticasone propionate 50 mcg/actuation spray,suspension 2 spray INTRANASAL DAILY PRN PRN (Reason: Allergies) meclizine 25 mg tablet 25 mg PO DAILY PRN PRN (Reason: Dizziness) dutasteride 0.5 mg capsule 0.5 mg PO DAILY Rx Instructions: takes at 09:00 levothyroxine 50 mcg tablet 50 mcg PO DAILY ipratropium bromide 0.02 % solution 2.5 ml INHALATION DAILY PRN (Reason: Wheezing) omeprazole 20 mg capsule,delayed release(DR/EC) 40 mg PO BID albuterol sulfate 90 mcg/actuation HFA aerosol inhaler 2 puff INHALATION Q4H PRN (Reason: shortness of breath or wheezing) Qty: 1 6RF Rx Instructions: administer with spacer nitroglycerin 0.4 mg tablet, sublingual 0.4 mg SL Q5M PRN (Reason: Chest Pain) Qty: 25 3RF carbidopa-levodopa 25-100 mg tablet 1 tab PO TID carbidopa-levodopa 25-100 mg tablet extended release 1 tab PO QHS olanzapine 2.5 mg tablet 2.5 mg PO DAILY lorazepam 0.5 mg tablet 0.5 mg PO DAILY PRN (Reason: Anxiety) aspirin 81 MG tablet,chewable 81 mg PO QHS Label Comments: blood thinner/heart health [id number]-lycopen-lutein 1 EACH tablet 1 tab PO DAILY cevimeline 30 mg capsule 30 mg PO TID cyclobenzaprine 5 MG tablet 5 mg PO QHS PRN (Reason: Muscle Spasm) prednisone 5 MG tablet 5 mg PO QHS Rx Instructions: takes at 20:00 Anoro Ellipta 62.5-25 mcg/actuation blister with device 1 inh inhalation QDAY Qty: 60 3RF Primary Care Provider: Yo Scott Referrals: Yo Scott DO [Primary Care Provider] - 3-5 Days Disposition Disposition: Home, Self Care
[2021-12-05 17:20] LABS: Absolute Lymphocyte Count 0.87 X10^3/uL (0.83-4.51); Absolute Neutrophil Count 5.5 X10^3/uL (2.0-7.7); Basophil# 0.04 X10^3/uL; Basophil% 0.6 % (0-1); Eosinophil# 0.11 X10^3/uL; Eosinophils% 1.5 % (0-5); Hematocrit 45.8 % (40-54); Hemoglobin 14.8 g/dL (13.0-16.5); Lymphocyte # 0.87 X10^3/ul (0.83-4.51); Mean Corp Hgb Conc 32.3 g/dL (32-36); Mean Corpuscular Hgb 29.4 pg (27.0-32.0); Mean Corpuscular Volume 91.1 fL (80-94); Mean Platelet Vol. 9.5 fl (6.2-12.0); Monocyte# 0.59 X10^3/uL; Monocyte% 8.2 % (0-10); NRBC Flagged by Analyzer 0 % (0-5); Neutrophil # 5.54 X10^3/uL (2.7-7.7); Neutrophil % 76.6 % (47-70); Platelet Count 245 K/mm3 (150-450); RBC Distribution Width CV 13.2 % (11.6-14.6); RBC Distribution Width SD 43.9 fl (35.1-43.9); Red Blood Count 5.03 M/mm3 (4.6-6.2); White Blood Count 7.2 K/mm3 (4.4-11.0)
[2021-12-05] MEDS: 0.9% Normal Saline 1,000 ML 150 ML IV (17:20)
[2021-12-05 17:27] VITALS: BP 170/85; PULSE 89; RESP 22; O2SAT 97
[2021-12-05 17:28] LABS: Bacteria 0 SEEN /hpf (None Seen); Red Blood Cells-Urine 0 SEEN /hpf (0-5); Squamous Epithelial Cells - UA 0 SEEN /hpf (0-5); White Blood Cells 0 SEEN /hpf (0-5)
[2021-12-05 17:29] LABS: Color, Urine Yellow (Yellow); Glucose, Dipstick Normal (Normal); Ketone-Dipstick 50 mg/dl (Negative); Leukocyte Esterase-Dipstick 25 /ul (Negative); Nitrite-Dipstick Negative (Negative); Occult Blood-Urine Negative /ul (Negative); Protein-Dipstick 15 mg/dl (Negative); Urine Bilirubin Dipstick Negative (Negative); Urine Clarity Clear (Clear); Urine Urobilinogen 1 mg/dl (Normal)
[2021-12-05 17:34] LABS: D-Dimer Quantitative (DVT/PE) 0.52 FEU/ug/m (0.27-0.49)
[2021-12-05 17:37] LABS: Mucous, Urine 2+ /hpf (<or=2+)
[2021-12-05 17:39] LABS: Anion Gap 4 (5-15); BUN 25 mg/dL (7-18); Calcium,Total 9.5 mg/dL (8.5-10.1); Chloride 106 mmol/L (98-107); Creatinine, Serum 0.96 mg/dL (0.70-1.30); EST Glomerular Filtration Rate 81 mL/min (>60); Est Glom Filt Rate - Afr Amer 98 mL/min (>60); Glucose 113 mg/dL (74-106); Potassium 3.6 mmol/L (3.5-5.1); Sodium Level 140 mmol/L (136-145); Troponin-I HS 4 pg/mL (3.0-78.0)
[2021-12-05 17:46] LABS: Lactic Acid 0.8 mmol/L (0.4-1.9)
[2021-12-05 18:31] VITALS: BP 126/64; PULSE 71; RESP 13; O2SAT 97
== END 2021-12-05 18:32 | disposition home or self-care (01) ==
PROVIDERS: Emergency Provider Emergency Medicine; PCP Preventive Medicine Occupational Medicine; Visit Provider Emergency Medicine
DX: U07.1 COVID-19 (principal); G20 Parkinson's disease; J44.9 Chronic obstructive pulmonary disease, unspecified; I10 Essential (primary) hypertension; I25.10 Atherosclerotic heart disease of native coronary artery without angina pectoris; E78.00 Pure hypercholesterolemia, unspecified; Z79.899 Other long term (current) drug therapy; Z87.891 Personal history of nicotine dependence
CPT/HCPCS: 71045; 80048; 81001; 83605; 84484; 85025; 85379; 93005; 96360; 99284; J7030; A4216